=== PATIENT | female | born 2000 | race Hispanic/Latino ===

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

== ENCOUNTER 2019-05-12 13:18 | Emergency (ER) | payer OTHER, SELFPAY ==
--- OUTSIDE RECORDS SUMMARY | 2019-05-12 13:20 | XMS REPORT ---
:2000 Author Organization [facility] Address [address] [place] [address] [address] [place] [address] Care Team Providers Name Role Phone Unavailable Unavailable Unavailable Problems This patient has no known problems. Allergies, Adverse Reactions, Alerts This patient has no known allergies or adverse reactions. Medications This patient has no known medications.
--- OUTSIDE RECORDS SUMMARY | 2019-05-12 13:21 | XMS REPORT | Summary of Care ---
:2000 Author Organization [facility] Address [address] [place] [id number] Care Team Providers Name Role Phone Maria G Stubbs Primary Care Provider Syst, Referring/Pcp Prov Not In Insurance Hmo Unavailable Reason for Visit Reason Comments Orders Encounter Details Date Type Department Care Team Description 12/10/2018 [facility] [place] [facility] Orders [address] [place] [address] [facility] A [phone] [place] [address] Allergies Active Allergy Reactions Severity Noted Date Comments Cinnamon Hives 11/22/2018 Penicillin Hives 04/16/2018 documented as of this encounter (statuses as of 12/10/2018) Medications Medication Sig Dispensed Refills Start Date End Date Status ibuprofen 600 mg Take 1 tablet by 60 tablet 1 12/04/2018 Active tabletIndications: mouth every 6 (six) Open wound of hours as needed for anterior abdominal Pain (scale 1-3) or wall, initial Pain (scale 4-6) encounter (Pain). Take with food or milk. HYDROcodone-acetamino Take 1 tablet by 30 tablet 0 12/04/2018 Active phen 5-325 mg mouth as needed tabletIndications: (prior to dressing S/P primary low changes). transverse documented as of this encounter (statuses as of 12/10/2018) Active Problems Problem Noted Date Open wound anterior abdominal wall 11/25/2018 Obesity (BMI 30-39.9) 11/23/2018 wound infection 11/23/2018 S/P section 11/17/2018 anemia 10/01/2018 Genital condyloma, female 09/03/2018 documented as of this encounter (statuses as of 12/10/2018) Resolved Problems Problem Noted Date Resolved Date 39 weeks gestation of 11/17/2018 12/10/2018 Labor and delivery indication for care or intervention 11/17/2018 12/10/2018 Low maternal weight gain, third trimester 10/01/2018 12/10/2018 Uterine size-date discrepancy in third trimester 10/01/2018 12/10/2018 Feeling of sadness 09/24/2018 12/10/2018 Chlamydia infection affecting 08/06/2018 12/10/2018 Overview: BRANDON neg, repeat at 36 weeks neg 10/28/18 Supervision of high risk , antepartum 04/16/2018 12/10/2018 Primigravida in first trimester 04/16/2018 12/10/2018 Needs flu shot 04/16/2018 12/10/2018 High risk teen in first trimester 04/16/2018 12/10/2018 documented as of this encounter (statuses as of 12/10/2018) Immunizations Name Administration Dates Next Due HPV9 11/18/2018 Influenza Virus Vaccine Quad .5 mL IM 6+ MO 04/16/2018 Tdap 09/03/2018 documented as of this encounter Social History Tobacco Use Types Packs/Day Years Used Date Never Smoker Smokeless Tobacco: Never Used Alcohol Use Drinks/Week oz/Week Comments No Sex Assigned at Date Recorded Not on file Job Start Date Occupation Industry Not on file Not on file Not on file Travel History Travel Start Travel End No recent travel history available. documented as of this encounter Last Filed Vital Signs Not on filedocumented in this encounter Plan of Treatment Date Type Specialty Care Team Description 12/31/2018 Office Visit [facility] Maria G Stubbs, ACCIDENT REPORT CLERK [address] [place] [address] [phone] Health Maintenance Due Date Last Done Comments MENINGOCOCCAL B VACCINES (1 of 07/10/2009 2 - Risk Bexsero 2-dose series) HPV VACCINES (2 - Female 12/16/2018 11/18/2018 3-dose series) INFLUENZA VACCINE 01/10/2019 04/16/2018 CHLAMYDIA SCREENING 10/29/2019 10/28/2018, 06/17/2018, 04/16/2018 DTaP,Tdap,and Td Vaccines (2 - 09/03/2028 09/03/2018 Td) MENINGOCOCCAL VACCINE Aged Out No longer eligible based on patient's age to complete this topic PNEUMOCOCCAL 0-64 YEARS Aged Out No longer eligible based COMBINED SERIES on patient's age to complete this topic documented as of this encounter Results Not on filedocumented in this encounter Insurance Payer Benefit Plan / Subscriber ID Effective Phone Address Type Group Dates [employer] 2018-Pres [address] [place] [id number] [place] [address] documented as of this encounter Advance Directives Name Relationship Healthcare Agent Relationship Communication Samir Darby Primary healthcare agent
--- OUTSIDE RECORDS SUMMARY | 2019-05-12 13:21 | XMS REPORT | Summary of Care ---
:2000 Author Organization [facility] Address [address] [place] [address] Care Team Providers Name Role Phone Maria G Stubbs Primary Care Provider Syst, Referring/Pcp Prov Not In Insurance Hmo Unavailable Reason for Visit Reason Comments Orders Encounter Details Date Type Department Care Team Description 12/10/2018 Telephone [facility] [place] F[place] Orders [address] [place] [address] [facility] A [phone] [place] [address] Allergies Active Allergy Reactions Severity [...] Office Visit [facility] Maria G Stubbs, RUG INSPECTOR HELPER [address] [place] [address] [phone] Health Maintenance Due Date Last Done Comments [...] [address] [place] [id number] [place] [address] documented as of this encounter Advance Directives Name Relationship Healthcare Agent Relationship Communication Samir Darby Primary healthcare agent
--- OUTSIDE RECORDS SUMMARY | 2019-05-12 13:21 | XMS REPORT | Summary of Care ---
:2000 Author Organization [facility] Address [address] [place] [id number] Care Team Providers Name Role Phone Maria G Stubbs Primary Care Provider Syst, Referring/Pcp Prov Not In Insurance Hmo Unavailable Reason for Visit Reason Comments Care (Routine) Status Reason Specialty Diagnoses / Referred By Referred To Procedures Contact Contact New Request OB Satellites Diagnoses S/P section Edward Olivas Procedures DISCHARGE FOLLOW-UP: P[facility]AL [facility] [address] [facility] [id number] [place] [address] Encounter Details Date Type Department Care Team Description 12/10/2018 Routine [facility]- Maria G Stubbs care and examination of lactating mother (Primary Dx); Visit RADHA Baig anemia; [address] S/P section; [place], [place] A wound infection [id number] [place], [place] [phone] [id number] [phone] Allergies Active Allergy Reactions Severity Noted Date Comments Cinnamon Hives 11/22/2018 Penicillin Hives 04/16/2018 documented as of this encounter (statuses as of 12/10/2018) Medications Medication Sig Dispensed Refills Start Date End Date Status ibuprofen 600 mg Take 1 tablet by 60 tablet 1 12/04/2018 Active tabletIndication mouth every 6 s: Open wound of (six) hours as anterior needed for Pain abdominal wall, (scale 1-3) or initial Pain (scale 4-6) encounter (Pain). Take with food or milk. HYDROcodone-acet Take 1 tablet by 30 tablet 0 12/04/2018 Active aminophen 5-325 mouth as needed mg (prior to tabletIndication dressing s: S/P primary changes). low transverse vitamin Take 1 tablet by 100 tablet 3 11/19/2018 12/10/2018 Discontinued w/FA mouth daily. May tabletIndication substitute for s: S/P what is in stock section and covered by patient plan docusate calcium Take 1 capsule 60 capsule 1 11/19/2018 12/10/2018 Discontinued 240 mg by mouth once capsuleIndicatio daily as needed ns: S/P for section Constipation. May substitute for what is in stock and covered by patient plan ferrous sulfate Take 1 tablet by 60 tablet 2 11/19/2018 12/10/2018 Discontinued 325 mg (65 mg mouth 2 (two) iron) times daily. May tabletIndication substitute for s: S/P what is in stock section and covered by patient plan documented as of this encounter (statuses as [...] of this encounter Last Filed Vital Signs Vital Sign Reading Time Taken Comments Blood Pressure 108/71 12/10/2018 1:14 PM CDT Pulse 73 12/10/2018 1:14 PM CDT Temperature 36.6 C (97.9 F) 12/10/2018 1:14 PM CDT Respiratory Rate 16 12/10/2018 1:14 PM CDT Oxygen Saturation - - Inhaled Oxygen Concentration - - Weight 75.2 kg (165 lb 12.8 oz) 12/10/2018 1:14 PM CDT Height 162.6 cm (5' 4") 12/10/2018 1:14 PM CDT Body Mass Index 28.46 12/10/2018 1:14 PM CDT documented in this encounter Patient Instructions Patient InstructionsLana Seaman RN - 12/10/2018 12:45 PM CDT How to Breastfeed Babies use their lips, gums, and tongue to take milk from the breast (suckle). Your baby is born with an instinct for suckling. But it takes time for you and your baby to learn how to breastfeed. Thereare steps you can take to support your babys natural instincts. Skko-sy-yqcj If possible, hold your baby bare against your skin (agdr-jk-nwhv) just after giving and for a few hours after. You can also continue to do this in the first few weeks after . How often should I feed my baby? Nurse your 8 to 12 times every 24 hours. Feed your baby whenever he or she shows signs of hunger. When your baby is hungry, he or she will appear more awake and might root. Rooting means turning his or her head toward you when you stroke your babys cheek. Your baby might also make a suckingsound or suck on his or her hand. Crying is a late sign of hunger. If your baby is crying, it may behard for him or her to calm down to breastfeed.Infants will often eat at irregular times. But feedings will usually become more regular over time. Sometimes your baby might eat several times in a row(cluster feeding) and then take a break. Ifyour baby seems sleepy or too fussy to nurse,undress him or her and place your baby bare against your skin.Don't keep your baby swaddled tightly. This may keep him or her too sleepy to feed. Change which breast you offer first with each feeding. For example, if you started nursing on the right side with the last feeding, offer the left side first with this feeding. Always offer the other breast after your baby stops nursing on the first side. Ask your baby's healthcare provider about waking the baby for feeding. You may need to wake your baby and offer to nurse if it has been 4 hours since your baby 's last feeding. Offering your breast Hold your breast with your thumb on top and fingers underneathin a loose orthotics assistant. Gentlystrokeyour nippleon your babys lower lip.When you see your baby open his or her mouth wide, quickly bring the baby to your breast. Latching on The way your baby connects with the breast is called the latch. When your baby attaches, you should see more of the darker skin around the nipple (areola) above the baby's upper lip than below the lower lip. The front of your baby's entire body should be touching you. Your baby's nose and chin should be against the breast. Your baby's cheeks should be full and not sinking inward. You should be able to see your baby's lips. They should be slightly flared outward. As your baby suckles, his or her jaw should open wide. It should not be "munching" as if chewing. Listen for swallowing. It should not hurt when your baby latches on and suckles. If it does, try releasing the latch and starting over. Releasing the latch Let your baby nurse until satisfied. In most cases, when your baby is finished nursing, he or she will let go on his or her own. This tells you that your baby is done feeding on that breast. But you may need to release the latch sooner if you feel pain or for some other reason. To do this, slip your finger into the corner of your baby's mouth. You should feel the suction break. Only when the seal is broken, move your baby off your breast. Don't take the baby off your breast until you've felt a decrease in suction. Burping your baby Breastfed babies don't need to burp as much as bottle-fed babies. Bottles flow faster, and babies tend to swallow more air.Tryto burp your baby after each breast: Hold the baby at your upper chest or slightly over your shoulder. Gently rub or pat the babys back. Or hold the baby sitting up on your lap. Support your baby's head and chest in front and in back.Slowly rock your baby back and forth. Dont worry if your baby doesn't burp. He or she may not need to. Date Last Reviewed: 07/10/201619993406-1921 [employer]. [address] [place] [address]. All rights reserved. This information is not intended as a substitute for professional medical care. Always follow your healthcare professional's instructions. Understanding Depression Youve just had a baby. You expected to be excited and happy. But instead you find yourself cryingfor no reason. You may have trouble coping with your daily tasks. You feel sad, tired, and hopeless most of the time. You may even feel ashamed or guilty. But what youre going through is not your fault and you can feel better. Talk to your healthcare provider. He or she can help. What is depression? Depression is a mood disorder that affects the way you think and feel. The most common symptom is a feeling of deep sadness. You may also feel as if you just cant cope with life. Other symptoms include: Gaining or losing a lot of weight Sleeping too much or too little Feeling tired all the time Feeling restless Crying a lot Having too little or too much appetite. Withdrawing from friends and family Having headaches, aches and pains, or stomach problems that won't go away. Fears of harming your baby Lack of interest in your baby Feeling worthless or guilty No longer finding pleasure in things you used to Having trouble thinking clearly or making decisions Thinking about or suicide Depression after childbirth You may be weepy and tired right after giving . These feelings are normal. Theyre sometimes called the baby blues. These blues go away after 1 to 2 weeks. However, (meaning after ) depression lasts much longer and is more severe than the "baby blues." It can make you feel sad and hopeless. You may also fear that your baby will be harmed and worry about being a bad mother. What causes depression? The exact cause of depression is unknown. Changes in brain chemistry or structure are believed to play a big role in depression.It may be due to changes in your hormones during and after childbirth. You may also be tired from caring for your baby and adjusting to being a mother. All thesefactors may make you feel depressed. In some cases, your genes may also play a role. Depression can be treated There are many ways to treat depression. Talking to your healthcare provider is the firststep toward feeling better. When to call your healthcare provider Call your healthcare provider if you: Cry for no clear reason Have trouble sleeping, eating, and making choices Questions whether you can handle caring for a baby Have intense feelings of sadness, anxiety, or despair that prevent you from being able to do yourdaily tasks Resources National [place] of Mental Qtcpfl946-265-9722zhh.[facility].nih.gov National [place] on Mental Uxelisy480-336-2251jxe.aaron.org Mental Health Jadtide635-261-3809nty.[facility].org National Suicide Fbcklet433-102-3280 (800-SUICIDE) Date Last Reviewed: 11/09/201619991706-0405 [employer]. [address] [place] [address], [place] [address]. All rights reserved. This information is not intended as a substitute for professional medical care. Always follow your healthcare professional's instructions. How to Bottle-Feed Newborns need nutrition and plenty of loving2 things you can supply while bottle-feeding. Both breastmilk and formula can be given to your baby in a bottle. Be sure to place the nipple on the tongue and well into your baby's mouth. Safety tip:Never heat breastmilk or formula in a microwave. This can result in uneven heating. Thehot formulamight burn your baby's mouth. Instead, warm the bottle by putting it in a bowl of warm (not hot) water. Using hot water to heat formula or breastmilk can burn your baby's mouth or throat. Test the temperature of theformulaby dripping a few dropson your wrist. Make sure it is a warmtemperature before giving it to your baby. Bottle care No matter if you use breastmilk or formula, the bottles, nipples, and tools you use to get the formula ready must be clean. Below are suggestions for bottle care, but talk with your healthcare provider about how to care for bottles: Wash your hands before you mix formula, fill a bottle, or offer a bottle. Do this every time. If soap and water aren't available, use an alcohol-based hand ware cleaner. Clean glass bottles and nipples in the fur repair inspector. Use the hot water setting with a hot drying cycle. Or wash the bottles and nipples with hot, soapy water. Be sure to rinse both completely. Boil them for 5 minutes and cool them. If you use plastic bottles with disposable liners, you will still need to make sure the bottles and nipples are clean. Store clean, unused bottles and nipples with the nipple end facing into the bottle (inverted). Put the bottle caps on the bottles to keep the nipples clean. Facts on formula Baby formulais made from cows milk or soybeans.Formula made from cows milk is more commonly used. But you may need to use formula made from soybeans. Your babys healthcare provider may tell you to use soybean-based formula if your family has a history ofallergiesor your baby has certain health conditions. All formula used should include iron. Yfsaj-mu-driw formula Tiqag-bt-dcra formula is the easiest to use, but it also costs the most.Brand names cost more thanstore-brand formulas because these companies spend more money on advertising. Pour the desired amount of vvadg-ci-xwrg formula into the baby's clean bottle. Once you open the container of formula, it must be stored in the refrigerator. It can only be stored for 24 hours. If not refrigerated, the formula is only safe at room temperature for 1 hour. After that, it mustbe thrown out. You can fill bottles with the formula up to 24 hours ahead of time.You must keep them refrigerated untilyou use them. If your baby does not finish drinking a bottle within 2 hours, throw away the unfinished formula. Ask your healthcare provider how much formula to offer your baby at each feeding. Concentrated liquid formulas Concentrated liquid formulas need to be mixed with water before using. Follow thedirectionson the canclosely. Using too much or too little water may harm your baby.Follow these tips: Use water that has been boiled and then cooled. Pour the whole can of concentrated liquid formula into a clean pitcher. Fill the can with water to the top and add it to the pitcher. Mix well. Pour the desired amount of formula into your baby's clean bottle. Store the pitcher of mixed formula in the refrigerator. Keep it for only 24 hours. If not refrigerated, the formula is only safe at room temperature for 1 hour. After that, it must be thrown out. Ask your healthcare provider how much formula to offer your baby at each feeding. Concentrated powder formulas Powdered formulas must be mixed with water before using. Liquid formulas have no germs (sterile). But powdered formula can get germs (bacteria) in it when you make it or when you store it. Follow thesetips to protect your baby from getting sick from these germs: Concentrated powder formulas need to be mixed with clean, boiled water before using. Wash and dry the top of the formula can before you open it. Make sure the can alternative medicine practitioner, spoons, scoops, and other tools you use to make the formula are clean. Use very hot water to mix with the formula powder. This means water that is 158F (70C). Dont mix the formula with water until right before you are going to feed your baby. Add the right amount of hot water to the bottle. Then add the right amount of powdered formula. Its important to add the water to the first. Adding the formula first may make it too strong and cause diarrhea. Mix the water and formula well. Test the temperature of the mixed formula by shaking a few drops on your wrist. If it is too hot,cool it by running the bottle under cool tap water. Or put the bottle in an ice bath. Make sure the cooling water does not get into the bottle or on the nipple. If you dont plan to use the prepared formula right away, put it in the refrigerator and use itwithin 24 hours. It is important to keep the dry powder in the formula can clean to prevent bacteria from growing. Ask your healthcare provider how much formula to offer your baby at each feeding. Holding baby and bottle To hold your baby and feed him or her with a bottle, follow these tips: Cradle your baby in your arm, holding your babys head slightly higher thanhis or her bottom. Using the correct position can lower the chance that your baby will choke. Stroke your babyslower lip. When your babys mouth opens, place the nipple on the tongueand feel him or her pull the nipple into the mouth. Tip the bottle so the nipple fills with milk. Forsafety'ssake, never prop the bottle.Your baby can choke if you leave him or her alone with a propped bottle. Feeding your can be a time of bonding and building trust. Hold your baby close to your body, make eye contact, and talk to your baby. Don't let your baby fall asleep while sucking on a bottle. This can lead to tooth decay when he or she is older. If your baby seems hungry but isn't eating well, you can try a different shaped nipple. You might also check the nipple opening. Some babies prefer a faster flow of milk. They can get frustrated when the flow is too slow. If your baby is gagging and choking, you might need a nipple with a smaller hole. The smaller hole slows the flow. [place] with bottle nipples. Let your baby choose which bottle nipple is best for him or her. Burping your baby It is easy for babies to swallow air while bottle-feeding. Burping helps your baby get rid of that air.Tips on burping your baby include: Burp your babywhen he or she acts restless, tries to turn away from the nipple, or slows his orher sucking.This is usually after eating every 1/2 to 1 ounce of formula and when he or she is finished feeding. Your baby can be burped sitting up while you hold the babys jaw, lying face down across your lap, oruprightwith his or her belly against your shoulder. Feeding cues Don't wait for your baby to cry before feeding. Crying is too late of a sign that your baby is ready to eat. Your baby is ready to feed when your baby flutters his or her eyes and moves his or her hands to the mouth as he or she wakes up. Don't force your baby to finish the bottle. This can lead to obesity. Respect cues that he or she is finished. These include letting go of the bottle, turning his or her head away, looking sleepy, or stopping feeding. Offer a pacifier if your baby acts like he or she wants to suckle after finishing the amount of formula your healthcare provider recommended. Babies enjoy sucking. But bottle-fed babies may feed so fast that they dont get enough suckling time. Date Last Reviewed: 07/10/2016 [employer]. [address] [place] [address]. All rights reserved. This information is not intended as a substitute for professional medical care. Always follow your healthcare professional's instructions. After a It can take time to recover fully after a . Its important to take care of yourselfbothfor your own sake and because your new baby needs you. Incision care Tips for taking care of your incision include: You will probably be able to shower and pat the incision dry. Watch your incision for signs of infection. These include redness that gets worse or fluid draining from it. Hold a pillow against the incision when you get up from a lying or sitting position. Also do thiswhen you laugh or cough. Avoid heavy lifting. Dont lift anything heavier than your baby until your healthcare provider tells you otherwise. When to call your healthcare provider Call your healthcare provider if you have: A fever of 100.4F(38.0C) or higher Redness, pain, or discharge at the incision site that gets worse Vaginal bleeding that soaks through a pad per hour or large blood clots Severe pain in your stomach No bowel movement within 1 week after the of your baby Vaginal discharge that has a foul odor Swollen, red, and painful area in the leg Burning when urinatingor blood in the urine A rash or hives Sore, red, painful area on the breasts(may also have flu-like symptoms) Feelings of anxiety, panic, anddepression, or difficulty bonding with your baby Date Last Reviewed: 04/11/2017 [employer]. [address] [place] [address]. All rights reserved. This information is not intended as a substitute for professional medical care. Always follow your healthcare professional's instructions. documented in this encounter Progress Notes Enoc Maria G Star, BUSINESS SYSTEMS DEVELOPER - 12/10/2018 12:45 PM CDT Chief complaint: Chief Complaint Patient presents with Care Tali Gtz is a 18 year old, , /White female. Patient's last menstrual period was 02/23/2018 (within days). Patient presents for her visit. She is 3 week(s) status-post a c- section. Readmitted forpost op wound infection. Incision is healing, has wound vac on, s/p debridement. Since discharge, lochia has stopped. She is bottle and . She reports no complaints in the bilateral breast(s). Pt reports pain at incision, better now with wound vac, worst with dressing changes. Patienthas found moderate relief with NSAIDs and narcotics. She reports that she currently engages in sexual activity (not since delivery) and has had partners who are Male. She reports using the following method of control/protection: None. Desires Nexplanon for contraception Perineal repair: N/A Infants course complicated? no The patients course was without complication. The patients hospital course was withcomplication. Post- hemoglobin before leaving hospital: HGB Date Value Ref Range Status 11/24/2018 8.0 (L) 11.6 - 15.0 g/* Final complications: infection Patient lives with with baby and with parent(s). OB History T1 L1 SAB0 TAB0 Ectopic0 Multiple0 Live Births1 Name of Baby 1: RENZO GTZ Date: 11/17/18 GA: 39w3d Delivery: , Low Transverse Apgar1: Not recorded Apgar5: Not recorded Living: Living Depression Scale: I have been able to laugh and see the funny side of things: As much as I always could I have looked forward with enjoyment to things: As much as I ever did I have blamed myself unnecessarily when things went wrong: No, never I have been anxious or worried for no good reason: No, not at all I have felt scared or panicky for no good reason: No, not at all Things have been getting on top of me: No, I have been coping as well as ever I have been so unhappy that I have had difficulty sleeping: Not at all I have felt sad or miserable: No, not at all I have been so unhappy that I have been crying: No, never The thought of harming myself has occurred to me: Never Total: 0 Immunization History Administered Date(s) Administered HPV9 11/18/2018 Influenza Virus Vaccine Quad .5 mL IM 6+ MO 04/16/2018 Tdap 09/03/2018 Histories OB History Para Term AB Living 1 1 1 1 SAB TAB Ectopic Multiple Live Births 0 1 # Outcome Date GA Lbr Mike/2nd Weight Sex Delivery Anes PTL Lv 1 Term 11/17/18 39w3d 6 lb 3.1 oz (2.81 kg) F CS-LTranv EPI N EHSAN Complications: Other (See Comments) Past Medical History: Diagnosis Date Anemia of mother in , antepartum 10/01/2018 Chlamydia infection affecting 08/06/2018 Feeling of sadness 09/24/2018 Genital warts complicating , third trimester 09/03/2018 Family History Problem Relation Age of Onset Diabetes Mother Diabetes Father Diabetes Maternal Grandmother Hypertension Maternal Grandmother Diabetes Maternal Grandfather Family Status Relation Name Status Mo (Not Specified) Fa (Not Specified) MGMo (Not Specified) MGFa Past Surgical History: Procedure Laterality Date ABDOMINAL WOUND EXPLORATION 11/23/2018 ABDOMINAL WOUND EXPLORATION 11/23/2018 SECTION N/A 11/17/2018 Surgeon: Amy Castorena; Location: Labor and Delivery - [place] WOUND DEBRIDEMENT N/A 11/23/2018 Surgeon: Anselmo Yanez; Location: Labor and Delivery - [place] Social History Socioeconomic History Marital status: Single Spouse name: Not on file Number of children: Not on file Years of education: Not on file Highest education level: Not on file Occupational History Not on file Social Needs Financial resource strain: Not on file Food insecurity: Worry: Not on file Inability: Not on file Transportation needs: Medical: Not on file Non-medical: Not on file Tobacco Use Smoking status: Never Smoker Smokeless tobacco: Never Used Substance and Sexual Activity Alcohol use: No Drug use: No Sexual activity: Yes Partners: Male control/protection: None Comment: last sexual intercourse 04/03/2018 Lifestyle Physical activity: Days per week: Not on file Minutes per session: Not on file Stress: Not on file Relationships Social connections: Talks on phone: Not on file Gets together: Not on file Attends jew service: Not on file Active member of club or organization: Not on file Attends meetings of clubs or organizations: Not on file Relationship status: Not on file Intimate partner violence: Fear of current or ex partner: Not on file Emotionally abused: Not on file Physically abused: Not on file Forced sexual activity: Not on file Other Topics Concern Not on file Social History Narrative Patient lives with father. Patient has no pets. Patient denies history of abuse. Social History Substance and Sexual Activity Sexual Activity Yes Partners: Male control/protection: None Comment: last sexual intercourse 04/03/2018 Labs No new labs, I have reviewed the patient's labs. and Admission on 11/22/2018, Discharged on 12/04/2018 Component Date Value NA 11/22/2018 138 K 11/22/2018 3.1* CL 11/22/2018 107 CO2 TOTAL 11/22/2018 22* AGAP 11/22/2018 9 BUN 11/22/2018 12 GLUCOSE 11/22/2018 123* CREATININE 11/22/2018 0.68 CALCIUM 11/22/2018 8.6 eGFR Calculation (Non-Af* 11/22/2018 111.5 eGFR Calculation (Destini* 11/22/2018 135.1 TOTAL BILI 11/22/2018 0.4 BILI UNCON 11/22/2018 0.3 BILI CONJ 11/22/2018 0.0 T PROTEIN 11/22/2018 6.2* ALBUMIN 11/22/2018 2.9* ALK PHOS 11/22/2018 150* ALT(SGPT) 11/22/2018 17 AST(SGOT) 11/22/2018 15 APTT Patient 11/22/2018 38 PROTIME PATIENT 11/22/2018 16.8* INR 11/22/2018 1.4 LACTIC ACID 11/22/2018 1.45 Blood Culture-Aerobic 11/22/2018 No organisms isolated Blood Culture-Anaerobic 11/22/2018 No organisms isolated Blood Culture-Aerobic 11/22/2018 No organisms isolated Blood Culture-Anaerobic 11/22/2018 No organisms isolated WBC 11/22/2018 14.33* RBC 11/22/2018 3.19* HGB 11/22/2018 9.8* HCT 11/22/2018 30.2* MCV 11/22/2018 94.7 MCH 11/22/2018 30.7 MCHC 11/22/2018 32.5 RDW-SD 11/22/2018 49.0 RDW-CV 11/22/2018 14.2 PLT 11/22/2018 230 MPV 11/22/2018 9.6 NRBC/100 WBC 11/22/2018 0.0 NRBC x10^3 11/22/2018 <0.01 GRAN MAT (NEUT) % 11/22/2018 91.7 IMM GRAN % 11/22/2018 1.00 LYMPH % 11/22/2018 3.7 MONO % 11/22/2018 3.3 EOS % 11/22/2018 0.1 BASO % 11/22/2018 0.2 GRAN MAT x10^3(ANC) 11/22/2018 13.13* IMM GRAN x10^3 11/22/2018 0.15* LYMPH x10^3 11/22/2018 0.53* MONO x10^3 11/22/2018 0.47 EOS x10^3 11/22/2018 <0.03* BASO x10^3 11/22/2018 0.03 ABO & RH 11/23/2018 B POSITIVE IAT 11/23/2018 Negative Case Report 11/23/2018 Value:Surgical Pathology Case: [id number] Authorizing Provider: Elisabeth Rush MD Collected: 2018 [id number] Ordering Location: Labor and Delivery ([facility]) Received: 2018 1125 Pathologist: Judith Bryson MD PHD Specimens: A) - ABDOMEN B) - ABDOMEN C) - ABDOMEN Final Diagnosis 11/23/2018 Value:This result contains rich text formatting which cannot be displayed here. Clinical Information 11/23/2018 Value: s/p 11/17/2018 Wound debridement & packing 3 kerlix 11/23/2018 Gross Description 11/23/2018 Value:This result contains rich text formatting which cannot be displayed here. WBC 11/24/2018 12.34* RBC 11/24/2018 2.59* HGB 11/24/2018 8.0* HCT 11/24/2018 24.8* MCV 11/24/2018 95.8* MCH 11/24/2018 30.9 MCHC 11/24/2018 32.3 RDW-SD 11/24/2018 51.2* RDW-CV 11/24/2018 14.6 PLT 11/24/2018 246 MPV 11/24/2018 9.8 NRBC/100 WBC 11/24/2018 0.0 NRBC x10^3 11/24/2018 <0.01 GRAN MAT (NEUT) % 11/24/2018 84.0 IMM GRAN % 11/24/2018 1.10 LYMPH % 11/24/2018 11.2 MONO % 11/24/2018 3.0 EOS % 11/24/2018 0.6 BASO % 11/24/2018 0.1 GRAN MAT x10^3(ANC) 11/24/2018 10.36* IMM GRAN x10^3 11/24/2018 0.14* LYMPH x10^3 11/24/2018 1.38 MONO x10^3 11/24/2018 0.37 EOS x10^3 11/24/2018 0.08 BASO x10^3 11/24/2018 <0.03 BANDS 11/24/2018 Increased* Admission on 11/17/2018, Discharged on 11/19/2018 Component Date Value HBsAg 11/17/2018 Negative HBsAg Semi-Quantitative 11/17/2018 0.14 Syphilis IgG/IgM 11/17/2018 Non-reactive ABO & RH 11/17/2018 B POSITIVE IAT 11/17/2018 Negative VENOUS BASE EXCESS, CORD 11/17/2018 -8.5 VENOUS PH, CORD 11/17/2018 7.31 VENOUS PC02, CORD 11/17/2018 34 VENOUS PO2, CORD 11/17/2018 33 VENOUS BICARBONATE, CORD 11/17/2018 17 BASE EXCESS, CORD 11/17/2018 -7.5 AC PH, CORD (BEAKER) 11/17/2018 7.26 PC02, CORD 11/17/2018 44 PO2, CORD 11/17/2018 22 BICARBONATE, CORD 11/17/2018 19 WBC 11/18/2018 11.62* RBC 11/18/2018 3.33* HGB 11/18/2018 10.4* HCT 11/18/2018 31.7* MCV 11/18/2018 95.2 MCH 11/18/2018 31.2 MCHC 11/18/2018 32.8 RDW-SD 11/18/2018 48.4 RDW-CV 11/18/2018 14.0 PLT 11/18/2018 185 MPV 11/18/2018 10.8 NRBC/100 WBC 11/18/2018 0.0 NRBC x10^3 11/18/2018 <0.01 GRAN MAT (NEUT) % 11/18/2018 86.9 IMM GRAN % 11/18/2018 0.30 LYMPH % 11/18/2018 8.2 MONO % 11/18/2018 4.4 EOS % 11/18/2018 0.0 BASO % 11/18/2018 0.2 GRAN MAT x10^3(ANC) 11/18/2018 10.10* IMM GRAN x10^3 11/18/2018 0.04 LYMPH x10^3 11/18/2018 0.95* MONO x10^3 11/18/2018 0.51 EOS x10^3 11/18/2018 <0.03* BASO x10^3 11/18/2018 <0.03 Routine Visit on 11/11/2018 Component Date Value POCT U SP GRAV 11/11/2018 . POCT PH U 11/11/2018 . POCT U LEUK EST 11/11/2018 . POCT U NIT 11/11/2018 . POCT U PROT 11/11/2018 trace POCT U GLU 11/11/2018 neg POCT U KETONE 11/11/2018 . POCT U UROBILI 11/11/2018 . POCT U BILI 11/11/2018 . POCT U BLD 11/11/2018 . Radiology No new radiology. Allergies Tali is allergic to cinnamon and penicillin. Medications Tali has a current medication list which includes the following prescription(s ): hydrocodone-acetaminophen and ibuprofen. Review of Systems Constitutional: Negative. Negative for appetite change, fatigue and fever. HENT: Negative. Eyes: Negative. Negative for visual disturbance. Respiratory: Negative. Breasts: Negative. Cardiovascular: Negative. Negative for palpitations and leg swelling. Gastrointestinal: Negative. Negative for abdominal pain, constipation, diarrhea , nausea and vomiting. Genitourinary: Negative. Negative for dysuria, vaginal bleeding, vaginal discharge and pelvic pain. Musculoskeletal: Negative. Skin: Positive for wound. Negative for rash. Neurological: Negative. Negative for dizziness, light-headedness and headaches. Psychiatric/Behavioral: Negative. Endocrine: Endocrine negative BP 108/71 (BP Location: Right arm, Patient Position: Sitting, BP CUFF SIZE: Adult Medium) | Pulse 73 | Temp 36.6 C (97.9 F) | Resp 16 | Ht 5' 4" ( 1.626 m) | Wt 165 lb 12.8 oz (75.2 kg) | LMP 02/23/2018 (Within Days) | BMI 28.46 kg/m Pregravid BMI: 30.9 Physical Exam Vitals reviewed. Constitutional: She is oriented to person, place, and time. She appears well- developed and well-nourished. Cardiovascular: No peripheral edema present. Pulmonary/Chest: Normal inspiratory effort. Abdominal: Abdomen is soft. Neuro/Psychiatric: She has a normal mood and affect. She is oriented to person, place, and time. Skin: Skin normal. Wound vac on, unable to visualize incision site. Surrounding tissue without s/s infection External genitalia: Normal external genitalia appropriate for age. Uterus: Normal involution Assessment/Plan 1. care and examination of lactating mother RTC in 3 weeks for WWE, Nexplanon and HPV #2 2. anemia CBC WBC (10*3/L) Date Value 11/24/2018 12.34 (H) RBC (10*6/L) Date Value 11/24/2018 2.59 (L) PLT (10*3/L) Date Value 11/24/2018 246 HGB (g/dL) Date Value 11/24/2018 8.0 (L) HCT (%) Date Value 11/24/2018 24.8 (L) plan repeat CBC at next visit 3. S/P section With wound infection complication 4. wound infection Wound vac managed by social work and home health. Return to clinic in 3 weeks. Discussed treatment options. Reviewed patient instructions and provided printed copy. This visit did not involve counseling and coordination that comprised more than 50% of the visit time. Lana Navarro RN - 12/10/2018 12:45 PM CDTPt in clinic today for 3 wk pp visit. 1) Delivery method 2) Patient delivered on 11/17/2018 at [facility] 3) Patient is currently both (/bottlefeeding) 4) Desired BCM: nexplanon 5) Patient denies pp depression LANA SEAMAN RN 12/10/2018 1:16 PM documented in this encounter Plan of Treatment Date Type Specialty Care Team Description 12/31/2018 Office Visit [facility] Maria G Stubbs FNP [address] [place] [address] [phone] Health Maintenance Due Date Last Done Comments [...] Results Not on filedocumented in this encounter Visit Diagnoses Diagnosis care and examination of lactating mother - Primary anemia Anemia, S/P section Other postprocedural status wound infection Other complication of obstetrical surgical wounds, unspecified as to episode of care documented in this encounter Insurance Payer Benefit Plan / Subscriber ID Effective Phone Address Type Group Dates [employer] 2018-Pres [address] [place] [address] [place] [address] documented as of this encounter Advance Directives Name Relationship Healthcare Agent Relationship Communication Samir Bart Father Primary healthcare agent
--- OUTSIDE RECORDS SUMMARY | 2019-05-12 13:21 | XMS REPORT | Summary of Care ---
:2000 Author Organization [facility] Address [address] [place] [id number] Care Team Providers Name Role Phone Maria G Stubbs Primary Care Provider Syst, Referring/Pcp Prov Not In Insurance Hmo Unavailable Reason for Referral (Routine) Status Reason Specialty Diagnoses / Referred By Referred To Procedures Contact Contact New Request Diagnoses Open wound of anterior abdominal wall, initial encounter Neeta Birmingham, Procedures DISCHARGE FOLLOW-UP: [facility] [address] [place] [id number] [place] [id number] MRI/CAT Scan (STAT) Status Reason Specialty Diagnoses / Referred By Referred To Procedures Contact Contact New Request Diagnostic Diagnoses Abdominal wall cellulitis Suresh Chaves, Radiology Procedures CT ABDOMEN PELVIS W CONTRAST [address] [place] [address] [place] [id number] MRI/CAT Scan (STAT) Status Reason Specialty Diagnoses / Referred By Referred To Procedures Contact Contact New Request Diagnostic Diagnoses Abdominal wall cellulitis Suresh Chaves, Radiology Procedures CT ABDOMEN PELVIS W CONTRAST [address] [place] [address] [place] [address] Reason for Visit Reason Comments Other wound check Auth/Cert Status Reason Specialty Diagnoses / Referred By Referred To Procedures Contact Contact Emergency Medicine Diagnoses other c section problems [facility] Emergency Dept [address] [place] [address] [place] [address] Encounter Details Date Type Department Care Team Description 11/22/2018 - Hospital Obstetrics and ChavesSuresh MD [address] [facility] [address] [place], [place] [id number] Obesity (BMI 12/04/2018 Encounter Gynecology (J10C) Anselmo Yanez Eren [address] [facility] [id number] [place], [place] [id number] 30-39.9) [address] [place] [address] [id number] Allergies Active Allergy Reactions Severity Noted Date Comments Cinnamon Hives 11/22/2018 Penicillin Hives 04/16/2018 documented as of this encounter (statuses as of 12/04/2018) Medications Medication Sig Dispensed Refills Start Date End Date Status vitamin Take 1 tablet by 100 tablet 3 11/19/2018 Active w/FA mouth daily. May tabletIndication substitute for s: S/P what is in stock section and covered by patient plan docusate calcium Take 1 capsule 60 capsule 1 11/19/2018 Active 240 mg by mouth once capsuleIndicatio daily as needed ns: S/P for section Constipation. May substitute for what is in stock and covered by patient plan ferrous sulfate Take 1 tablet by 60 tablet 2 11/19/2018 Active 325 mg (65 mg mouth 2 (two) iron) times daily. May tabletIndication substitute for s: S/P what is in stock section and covered by patient plan ibuprofen 600 mg Take 1 tablet by 60 tablet 1 12/04/2018 Active tabletIndication mouth every 6 s: Open wound of (six) hours as anterior needed for Pain abdominal wall, (scale 1-3) or initial Pain (scale 4-6) encounter (Pain). Take with food or milk. HYDROcodone-acet Take 1-2 tabs by 30 tablet 0 12/04/2018 Active aminophen 5-325 mouth 30 minutes mg prior to tabletIndication dressing s: S/P primary changes. low transverse ibuprofen 600 mg Take 1 tablet by 60 tablet 1 11/19/2018 12/04/2018 Discontinued tabletIndication mouth every 6 s: S/P (six) hours as section needed for Pain (scale 1-3) or Pain (scale 4-6) (Pain). Take with food or milk. HYDROcodone-acet Take 1 tablet by 20 tablet 0 11/19/2018 12/04/2018 Discontinued aminophen 5-325 mouth every 6 mg (six) hours as tabletIndication needed for Pain s: S/P primary (scale 7-10). low transverse documented as of this encounter (statuses as of 12/04/2018) Active Problems Problem Noted Date Open wound anterior abdominal wall 11/25/2018 Obesity (BMI 30-39.9) 11/23/2018 wound infection 11/23/2018 39 weeks gestation of 11/17/2018 Labor and delivery indication for care or intervention 11/17/2018 S/P section 11/17/2018 Anemia of mother in , antepartum 10/01/2018 Low maternal weight gain, third trimester 10/01/2018 Uterine size-date discrepancy in third trimester 10/01/2018 Feeling of sadness 09/24/2018 Genital warts complicating , third trimester 09/03/2018 Chlamydia infection affecting 08/06/2018 Overview: BRANDON neg, repeat at 36 weeks neg 10/28/18 Supervision of high risk , antepartum 04/16/2018 Primigravida in first trimester 04/16/2018 Needs flu shot 04/16/2018 High risk teen in first trimester 04/16/2018 documented as of this encounter (statuses as of 12/04/2018) Immunizations Name Administration Dates Next Due HPV9 [...] Sign Reading Time Taken Comments Blood Pressure 117/62 12/04/2018 4:00 PM CDT Pulse 60 12/04/2018 4:00 PM CDT Temperature 36.5 C (97.7 F) 12/04/2018 4:00 PM CDT Respiratory Rate 18 12/04/2018 4:00 PM CDT Oxygen Saturation 100% 12/04/2018 4:00 PM CDT Inhaled Oxygen Concentration - - Weight 81.6 kg (180 lb) 11/22/2018 10:35 PM CDT Height - - Body Mass Index 30.9 11/17/2018 7:26 AM CDT documented in this encounter Discharge Instructions AttachmentsThe following attachments cannot be sent through Care Everywhere.Wound, Vacuum-Assisted Closure of a (Mosotho)documented in this encounter Progress Notes Rae Collins MD - 12/04/2018 4:03 PM CDTWound vacuum dressing change Patient premedicated with Noroc 5mg x2. Previous dressing removed.Wound base and edges noted to behealthy granulation tissue with bleedingnoted.Fascia open with rectus muscles intact.No evidence of new necrosis or pus. Base ofthewound and edges were gently debrided with saline-moistened 4x4 gauze. One V.A.C. WHITEFOAM dressing was cut to an appropriate size and used to cover the rectus muscles and the base of thewound.Next, a medium V.A.C. SIMPLIFOAM dressing was trimmed and on the WHITFOAM dressing. The dressing was then covered with clear adhesive drape. Small opening created in the drape with scissors and tubing was connected. Mobile wound vac was setup for the patient and she was given a brief tutorial on how to use the device. Plan to DC the patient this afternoon as home health has been arranged by social work. Dr. Cortez present for wound vac placement. Rae Collins MD WILDLIFE CONTROL OPERATOR Resident PhysicianElectronically signed by Rae Collins MD at 12/04 4:06 PM CDTConnie Martinez [facility] - 12/04/2018 3:37 PM CDTCare Management Discharge Disposition Note (DCDN) 5-2-1 Interventions: Disease specific education;Home visit/home health referral; Clear discharge plan 5-2-1 Providers: Physician;Pipe Fitter Gas Pipe/Advisor To Command In Combat 5-2-1 Patient Capacity Improvements: Avoidance of adverse events/readmission Discharge Plan for ongoing care and services: Home Health ();Durable Medical Equipment Discharge location(s): Home Health location: [facility], [address] [place] [address] [address] [place] [address] (Ph)[phone] (F) [phone] DME location: [facility] , [address] [place] [address] [address] [place], [place] (Ph) [phone] (F) [phone] Patient choice completed for referred services: Other (see comments)(Sil had to do a single case agreement with an [id number] home health provider) Discussed with patient/patients family involved in decision making: Yes Patient or family caregiver understands, and agrees with discharge plan. Community resources/referrals made or provided to patient: No Transportation: Private Vehicle Nursing informed of discharge plan: Yes Name of RN informed: Tabatha Estimated discharge date: 12/04/18 Time: 1730 CM/SW Name & Contact number: Connie Martinez LMSW Ph. [phone] The following information has been provided to the facility noted above: reason for the patient discharge or transfer; patients physical and psychosocial status; summary of care, treatment, servicesprovided to patient; and the patient progress toward goals. orsConnie monterroso LMSW - 12/04/2018 8:06 AM CDTSocial Work Note [facility] informed Sil Donato estate planner ph: , ext: [phone] that all the home health agencies on the in- network list she provided are unable to accept the patient. Mary reports plans to contact [facility] [address] [facility] [address] [place] [address] (Ph) (F) [phone] to make arrangements with an [id number] provider. GOOD awaiting confirmation from Mary that a contract has been arranged with [facility] [address] [facility] [address] [place] [address] (Ph) [phone] (F) Wound vac from [facility] [address], [place] [address] (P) [phone])[phone] at bedside for d/c. Update at 0819: [facility] received a call back from Sil Donato estate planner ph: ,ext: [phone], who reports she has spoken to [facility] [address] [facility] [address] [place] [address](Ph) [phone] (F) and obtained all the information she needs to complete the singlecase agreement. Mary reports she is going to approve some visits upfront for [facility] , but states it will be up to [facility] if they accept the patient before the single case agreement is approved. Mary reports the single case agreement is approved by a different department and it may be Friday12/07/2018before it will be approved. Per Mary's request, [facility] sent a referral to [facility] [address] [facility] [address] [place] [address] (Ph) [phone] (F) [phone] for review. Update at 1533: [facility] received a call from Lay with [facility] [address] [facility] [address] [place] [address] (Ph) [phone] (F) [phone] who reports they have a contract with [facility] and are able to acceptpatient. Lay reports plans to admit patient to their service tomorrow. [facility] notified bowen, , and Tabatha WINTERS. Connie Martinez LMSW Care Management Pager: [phone] Rae Deutsch MD - 12/04/2018 7:45 AM CDT PP PROGRESS NOTE Subjective: Patient has no complaints. Denies abdominal pain, fever, chills, nausea or vomiting. Objective: Vitals: Temp: [36.6 C (97.9 F)-37.2 C (99 F)] Pulse: [79-83] Resp: [17-18] BP: (106-118)/(67-74) Physical Exam: General: patient alert and in no acute distress HEENT: symmetric, negative for masses Lungs: unlabored breathing Cardiology: peripheral pulses intact and regular Abdomen: soft, NTTP, wound vac in place Extremities: no clubbing, cyanosis, or edema Neuro: patient moving all extremities, no facial droop : deferred Medications: Current Facility-Administered Medications Medication Dose Route Frequency Last Rate Last Dose hydrocortisone (GLY-FELIZ) 1 % lotion Topical DAILY lactated ringers IV infusion 1,000 mL 1,000 mL IV Infusion CONTINUOUS Stopped at 11/24/18 0945 sodium hypochlorite (DAKINS) 0.025% topical solution Topical BID Stopped at 12/02/181999 bisacodyl (DULCOLAX) suppository 10 mg 10 mg Rectal QDAILYPRN diphenhydrAMINE (BENADRYL) 25 mg in NaCl 0.9% (NS) piggyback 25 mg IV Piggyback Q6HPRN diphenhydrAMINE (BENADRYL) tablet 25 mg 25 mg Oral Q6HPRN 25 mg at 0106 docusate calcium (SURFAK) capsule 240 mg 240 mg Oral QDAILYPRN 240 mg at 12/03/18 0928 HYDROcodone-acetaminophen (NORCO 5) 5-325 mg tablet 1 tablet 1 tablet Oral Q6HPRN 1 tablet at12/03/18 2041 HYDROcodone-acetaminophen (NORCO 5) 5-325 mg tablet 2 tablet 2 tablet Oral Q6HPRN 2 tablet at12/02/18 1326 ibuprofen (IBU) tablet 600 mg 600 mg Oral Q6HPRN 600 mg at 11/29/18 1406 magnesium hydroxide (MILK OF MAGNESIA) 400 mg/5 mL suspension 30 mL 30 mL Oral QDAILYPRN 30 mL at 12/03/18 0930 ondansetron (ZOFRAN (PF)) injection 4 mg 4 mg Slow IV Push Q8HPRN 4 mg at 11/25/18 2245 simethicone (GAS RELIEF) chewable tablet 160 mg 160 mg Oral PC+HSPRN 160 mg at 11/26/18 0902 Assessment/Plan: Tali Arriaga is a 18 year old [id number]#17s/p primary CS who was admitted for wound infection. She is now POD#11s/p wound exploration and debridement, Hospital Day: 13 Wound Infection - emergent c/s on 11/17/2018 due to prolonged deceleration remote from delivery ; suture closure - discharged on POD#2; no signs of infection during hospital post-op course - patient noted tenderness and redness beginning - presented to OSH -- WBC 14.33 - CT at OSH:"Marked inflammatory stranding of the lower anterior abdominal wall with overlying skin thickening more suggestive of cellulitis. A non-walled off collection in the right lower abdominal wall (4.4 x 2.6 x4 cm) contains foci of free air with internal density above simple fluid. This is suspicious for early abscess formation." -Patient underwentwound exploration and debridement on 11/23/2018 with removal of necrotic subcutaneous fat and edges of fascia. Fascia has remained opened after procedure - Wound Vac placed on 11/27 - s/p Abx therapy: levofloxacin andmetronidazole Plan: Pt stable for discharge, home care arrangement pending. Pt will need wound vac change M/W/F. Rae Collins MD WILDLIFE CONTROL OPERATOR Resident Physician Associated attestation - Neeta Birmingham MD - 12/04/2018 9:18 AM CDTI was rounding faculty for this patient and involved in planning. The patient was seen and examined by me. PLease see note of plan below. 18 year old female POD#17 s/p primary CS who was admitted for wound infection. She is now POD#11 s/p wound exploration and debridement, Hospital Day : 13 Wound Infection - emergent c/s on 11/17/2018 due to prolonged deceleration remote from delivery ; suture closure - discharged on POD#2; no signs of infection during hospital post-op course - patient noted tenderness and redness beginning - presented to OSH -- WBC 14.33 - CT at OSH: "Marked inflammatory stranding of the lower anterior abdominal wall with overlying skinthickening more suggestive of cellulitis. A non-walled off collection in the right lower abdominal wall (4.4 x 2.6 x4 cm) contains foci of free air with internal density above simple fluid. This is suspicious for early abscess formation." - Patient underwent wound exploration and debridement on 11/23/2018 with removal of necrotic subcutaneous fat and edges of fascia. Fascia has remained opened after procedure - Wound Vac placed on 11/27 - s/p Abx therapy: levofloxacin and metronidazole Plan: Pt stable for discharge, home care arrangement pending. Pt will need wound vac change M/W/F. Per social worker assistant, home care can be arranged on Friday so patient will be d/c Connie Rock LMSW - 12/03/2018 10:35 AM CDTSocial Work Note [facility] continues to search for home health services in [place], [place]: [facility] ph: [phone], fax: [phone] - Confirmed receipt of referral; under review [facility] ph: [phone], fax: [phone] - Confirmed receipt of referral; under review ph: [phone], fax: [phone] - Do not service [facility] ph: [phone], fax: [phone] - Do not offer jail services [facility] ph: [phone], fax: [phone] - No coverage in [facility] ph: [phone], fax: [phone] - Do not service [facility] of [facility] ph: [phone], fax: [phone] - Do not service [facility] spoke with Sil Donato estate planner ph: , ext: [phone] who reports if an in-network home health provider does not accept patient then she will approve [id number] benefits for [facility] [address] [place] [address] (Ph) [phone] (F) [phone]. Wound vac from [facility] [address] [address] (P) [phone] at bedside for d/c. Update at 1605: Per Brittney with [facility] ph: [phone], fax: [phone], there nurse is moving out of the area and will not be able to service [place], [place] Per Esperanza with [facility] ph: [phone], fax: [phone], she is trying to confirm with her nurse that she can go to [place], [place]. [facility] is awaiting a return call. Update at 1723: [facility] notified by Esperanza with [facility] ph: [phone], fax: [phone] that they are unable to accept the patient because they do not have a nurse to service the area. [facility] attempted to contact Sil Donato estate planner ph: , ext:[phone] but the office is currently closed. Connie Martinez LMSW Care Management Pager: [phone] Rae Deutsch MD - 12/03/2018 7:22 AM CDT PP PROGRESS NOTE Subjective: Patient has no complaints. Denies abdominal pain, fever, chills, nausea or vomiting. Objective: Vitals: Temp: [36.5 C (97.7 F)-37.1 C (98.8 F)] Pulse: [66-95] Resp: [17-18] BP: (99-114)/(57-72) Physical Exam: General: patient alert and in no acute distress HEENT: symmetric, negative for masses Lungs: unlabored breathing Cardiology: peripheral pulses intact and regular Abdomen: soft, NTTP, wound vac in place Extremities: no clubbing, cyanosis, or edema Neuro: patient moving all extremities, no facial droop : deferred Medications: Current Facility-Administered Medications Medication Dose Route Frequency Last Rate Last Dose hydrocortisone (GLY-FELIZ) 1 % lotion Topical DAILY lactated ringers IV infusion 1,000 mL 1,000 mL IV Infusion CONTINUOUS Stopped at 11/24/18 0945 sodium hypochlorite (DAKINS) 0.025% topical solution Topical BID Stopped at 12/02/181999 bisacodyl (DULCOLAX) suppository 10 mg 10 mg Rectal QDAILYPRN diphenhydrAMINE (BENADRYL) 25 mg in NaCl 0.9% (NS) piggyback 25 mg IV Piggyback Q6HPRN diphenhydrAMINE (BENADRYL) tablet 25 mg 25 mg Oral Q6HPRN 25 mg at 0106 docusate calcium (SURFAK) capsule 240 mg 240 mg Oral QDAILYPRN 240 mg at 11/29/18 1334 HYDROcodone-acetaminophen (NORCO 5) 5-325 mg tablet 1 tablet 1 tablet Oral Q6HPRN 1 tablet at11/30/18 1242 HYDROcodone-acetaminophen (NORCO 5) 5-325 mg tablet 2 tablet 2 tablet Oral Q6HPRN 2 tablet at12/02/18 1326 ibuprofen (IBU) tablet 600 mg 600 mg Oral Q6HPRN 600 mg at 11/29/18 1406 magnesium hydroxide (MILK OF MAGNESIA) 400 mg/5 mL suspension 30 mL 30 mL Oral QDAILYPRN 30 mL at 12/02/18 1327 ondansetron (ZOFRAN (PF)) injection 4 mg 4 mg Slow IV Push Q8HPRN 4 mg at 11/25/18 2245 simethicone (GAS RELIEF) chewable tablet 160 mg 160 mg Oral PC+HSPRN 160 mg at 11/26/18 0902 Assessment/Plan: Tali Arriaga is a 18 year old [id number]/p primary CS who was admitted for wound infection. She is now POD#10s/p wound exploration and debridement, Hospital Day: 12 Wound Infection - emergent c/s on 11/17/2018 due to prolonged deceleration remote from delivery ; suture closure - discharged on POD#2; no signs of infection during hospital post-op course - patient noted tenderness and redness beginning - presented to OSH -- WBC 14.33 - CT at OSH:"Marked inflammatory stranding of the lower anterior abdominal wall with overlying skin thickening more suggestive of cellulitis. A non-walled off collection in the right lower abdominal wall (4.4 x 2.6 x4 cm) contains foci of free air with internal density above simple fluid. This is suspicious for early abscess formation." -Patient underwentwound exploration and debridement on 11/23/2018 with removal of necrotic subcutaneous fat and edges of fascia. Fascia has remained opened after procedure - Wound Vac placed on 11/27 - s/p Abx therapy: levofloxacin 500 mg q24h (x 3d) andmetronidazole 500 mg q8h (x 4d) Plan: Pt stable for discharge, home care arrangement pending. Pt will need wound vac change M/W/F. Rae Collins MD WILDLIFE CONTROL OPERATOR Resident Physician Associated attestation - Neeta Birmingham MD - 12/03/2018 12:29 PM CDTI was rounding faculty for this patient and involved in planning. The patient was seen and examined by me. PLease see note of plan below. 18 year old female POD#16 s/p primary CS who was admitted for wound infection. She is now POD#10 s/p wound exploration and debridement, Hospital Day : 12 Wound Infection - emergent c/s on 11/17/2018 due to prolonged deceleration remote from delivery ; suture closure - discharged on POD#2; no signs of infection during hospital post-op course - patient noted tenderness and redness beginning - presented to OSH -- WBC 14.33 - CT at OSH: "Marked inflammatory stranding of the lower anterior abdominal wall with overlying skinthickening more suggestive of cellulitis. A non-walled off collection in the right lower abdominal wall (4.4 x 2.6 x4 cm) contains foci of free air with internal density above simple fluid. This is suspicious for early abscess formation." - Patient underwent wound exploration and debridement on 11/23/2018 with removal of necrotic subcutaneous fat and edges of fascia. Fascia has remained opened after procedure - Wound Vac placed on 11/27 - s/p Abx therapy: levofloxacin 500 mg q24h (x 3d) and metronidazole 500 mg q8h (x 4d) Plan: Pt stable for discharge, home care arrangement pending. Pt will need wound vac change M/W/F.Connie Martinez LMSW - 12/02/2018 4:52 PM CDTSocial Work Note [facility] received a list of in-network home health agencies from Sil Blake estate planner ph: , ext: [phone]. [facility] ph: [phone], fax: [phone] - Per Jeanne, they do not service [facility] ph: [phone], fax: [phone] - Per Brittney's request, [facility] faxed a referral to determine if she has a nurse available for the [place] area. [facility] ph: [phone], fax: [phone] - [facility] called and was informed they do service the [facility]. [facility] faxed a referral for review. Connie Martinez LMSW Care Management Pager: [phone] Rae Deutsch MD - 12/02/2018 2:00 PM CDTWound vacuum dressing change Patient premedicated with Noroc 5mg x2. Previous dressing removed.Wound base and edges noted to behealthy granulation tissue with bleedingnoted.Fascia open with rectus muscles intact.No evidence of new necrosis or pus. Base ofthewound and edges were gently debrided with saline-moistened 4x4 gauze. One V.A.C. WHITEFOAM dressing was cut to an appropriate size and used to cover the rectus muscles and the base of thewound.Next, a V.A.C. SPIRAL-FOAM dressing was trimmed and on the WHITFOAM dressing. The dressing was then covered with clear adhesive drape. Small opening created in the drape with scissors and tubing was connected. Wound vac was set to 100 mmHg pressure and no leak was detected. Next wound vac dressing change will be on 12/04/[address] Wright and Diego present for wound vac placement. Rae Collins MD WILDLIFE CONTROL OPERATOR Resident PhysicianElectronically signed by Rae Collins MD at 12/04 4:07 PM Rae Deutsch MD - 12/02/2018 6:38 AM CDT PP PROGRESS NOTE Subjective: Patient has no complaints. Denies abdominal pain, fever, chills, nausea or vomiting. Objective: Vitals: Temp: [36.7 C (98.1 F)-37.1 C (98.8 F)] Pulse: [68-87] Resp: [17-18] BP: (105-118)/(56-70) Physical Exam: General: patient alert and in no acute distress HEENT: symmetric, negative for masses Lungs: unlabored breathing Cardiology: peripheral pulses intact and regular Abdomen: soft, NTTP, wound vac in place Extremities: no clubbing, cyanosis, or edema Neuro: patient moving all extremities, no facial droop : deferred Medications: Current Facility-Administered Medications Medication Dose Route Frequency Last Rate Last Dose hydrocortisone (GLY-FELIZ) 1 % lotion Topical DAILY lactated ringers IV infusion 1,000 mL 1,000 mL IV Infusion CONTINUOUS Stopped at 11/24/18 0945 sodium hypochlorite (DAKINS) 0.025% topical solution Topical BID Stopped at 11/28/18 0800 bisacodyl (DULCOLAX) suppository 10 mg 10 mg Rectal QDAILYPRN diphenhydrAMINE (BENADRYL) 25 mg in NaCl 0.9% (NS) piggyback 25 mg IV Piggyback Q6HPRN diphenhydrAMINE (BENADRYL) tablet 25 mg 25 mg Oral Q6HPRN 25 mg at 0106 docusate calcium (SURFAK) capsule 240 mg 240 mg Oral QDAILYPRN 240 mg at 11/29/18 1334 HYDROcodone-acetaminophen (NORCO 5) 5-325 mg tablet 1 tablet 1 tablet Oral Q6HPRN 1 tablet at11/30/18 1242 HYDROcodone-acetaminophen (NORCO 5) 5-325 mg tablet 2 tablet 2 tablet Oral Q6HPRN 2 tablet at12/01/186 ibuprofen (IBU) tablet 600 mg 600 mg Oral Q6HPRN 600 mg at 11/29/18 1406 magnesium hydroxide (MILK OF MAGNESIA) 400 mg/5 mL suspension 30 mL 30 mL Oral QDAILYPRN 30 mL at 11/26/18 0902 ondansetron (ZOFRAN (PF)) injection 4 mg 4 mg Slow IV Push Q8HPRN 4 mg at 11/25/18 2245 simethicone (GAS RELIEF) chewable tablet 160 mg 160 mg Oral PC+HSPRN 160 mg at 11/26/18 0902 Assessment/Plan: Tali Arriaga is a 18 year old [id number]#15s/p primary CS who was admitted for wound infection. She is now POD#9s/p wound exploration and debridement, Hospital Day: 11 Wound Infection - emergent c/s on 11/17/2018 due to prolonged deceleration remote from delivery ; suture closure - discharged on POD#2; no signs of infection during hospital post-op course - patient noted tenderness and redness beginning - presented to OSH -- WBC 14.33 - CT at OSH:"Marked inflammatory stranding of the lower anterior abdominal wall with overlying skin thickening more suggestive of cellulitis. A non-walled off collection in the right lower abdominal wall (4.4 x 2.6 x4 cm) contains foci of free air with internal density above simple fluid. This is suspicious for early abscess formation." -Patient underwentwound exploration and debridement on 11/23/2018 with removal of necrotic subcutaneous fat and edges of fascia. -Fascia remained opened after procedure with plan for BID wet-to-dry dressing changes - Wound Vac placed on 11/27 - afebrile, vss overnight - s/p Abx therapy: levofloxacin 500 mg q24h (x 3d) andmetronidazole 500 mg q8h (x 4d) Plan: Pt stable for discharge, home care arrangement pending. Pt will need wound vac change M/W/F. Rae Collins MD WILDLIFE CONTROL OPERATOR Resident Physician Associated attestation - Edward Olivas - 12/02/2018 5:10 PM CDTCase reviewed , patient seen, agree with Dr. Collins.Connie Martinez LMSW - 12/01/2018 9:29 AM CDTSocial Work Note GOOD met with patient to inform her no home health can be found to service [place], [place]. Pt reports she actually prefers to go to her home at [address] [address]. Pt reports she wasonly going to go to her grandmother's in [place], [place] because her father thought it would be better.Pt also states if home health cannot be located for [place], [place] then she would consider going to her mother's home in [place], [place] (near [place] FOUNTAIN JERK contacted [address] [place] [address] and spoke with Jessica, who reports they would still not accept patient even if there was approval for jae-hf-kuldywa benefits. FOUNTAIN JERK contacted [facility] [address] [place] [address] (Ph) (F) [phone] and spoke with Celine who reports they would be willing to accept patient if [facility] approved Out of network benefits for home health. GOOD spoke with Sil Blake estate planner ph: , ext: [phone], who reports she will send a list of home health agencies that are in-network and if none of the agencies service [place], [place] then she will approve sni-po-eilrgxb benefits with [facility]. FOUNTAIN JERK awaiting the list from Mary. Update at 7531: FOUNTAIN JERK still has not received the list of in-network home health agencies from Sil Blake estate planner ph: , ext: [phone]. GOOD left a voicemail with Mary. Connie Martinez LMSW Care Management Pager: [phone] Rae Deutsch MD - 12/01/2018 7:11 AM CDT PP PROGRESS NOTE Subjective: Patient has no complaints. Denies abdominal pain, fever, chills, nausea or vomiting. Objective: Vitals: Temp: [36.6 C (97.9 F)-37.1 C (98.8 F)] Pulse: [70-106] Resp: [17-18] BP: (100-124)/(54-70) VITALS: Patient Vitals for the past 24 hrs: BP Temp Temp src Pulse Resp SpO2 12/01/18 0400 103/59 37.1 C (98.8 F) Oral 72 18 97 % 12/01/18 0000 100/54 36.8 C (98.2 F) Oral 70 18 97 % 11/30/18 2000 124/70 36.8 C (98.2 F) Oral 106 17 99 % 11/30/18 1600 119/64 36.7 C (98.1 F) Oral 102 18 98 % 11/30/18 1200 117/67 36.6 C (97.9 F) Oral 87 18 98 % 11/30/18 0800 119/62 36.8 C (98.2 F) Oral 77 18 98 % Physical Exam: General: patient alert and in no acute distress HEENT: symmetric, negative for masses Lungs: unlabored breathing Cardiology: peripheral pulses intact and regular Abdomen: soft, NTTP, wound vac in place Extremities: no clubbing, cyanosis, or edema Neuro: patient moving all extremities, no facial droop : deferred Medications: Current Facility-Administered Medications Medication Dose Route Frequency Last Rate Last Dose hydrocortisone (GLY-FELIZ) 1 % lotion Topical DAILY lactated ringers IV infusion 1,000 mL 1,000 mL IV Infusion CONTINUOUS Stopped at 11/24/18 0945 sodium hypochlorite (DAKINS) 0.025% topical solution Topical BID Stopped at 11/28/18 0800 bisacodyl (DULCOLAX) suppository 10 mg 10 mg Rectal QDAILYPRN diphenhydrAMINE (BENADRYL) 25 mg in NaCl 0.9% (NS) piggyback 25 mg IV Piggyback Q6HPRN diphenhydrAMINE (BENADRYL) tablet 25 mg 25 mg Oral Q6HPRN 25 mg at 0106 docusate calcium (SURFAK) capsule 240 mg 240 mg Oral QDAILYPRN 240 mg at 11/29/18 1334 HYDROcodone-acetaminophen (NORCO 5) 5-325 mg tablet 1 tablet 1 tablet Oral Q6HPRN 1 tablet at11/30/18 1242 HYDROcodone-acetaminophen (NORCO 5) 5-325 mg tablet 2 tablet 2 tablet Oral Q6HPRN 2 tablet at11/30/18 0915 ibuprofen (IBU) tablet 600 mg 600 mg Oral Q6HPRN 600 mg at 11/29/18 1406 magnesium hydroxide (MILK OF MAGNESIA) 400 mg/5 mL suspension 30 mL 30 mL Oral QDAILYPRN 30 mL at 11/26/18 0902 ondansetron (ZOFRAN (PF)) injection 4 mg 4 mg Slow IV Push Q8HPRN 4 mg at 11/25/18 2245 simethicone (GAS RELIEF) chewable tablet 160 mg 160 mg Oral PC+HSPRN 160 mg at 11/26/18 0902 Assessment/Plan: Tali Arriaga is a 18 year old [id number]#14s/p primary CS who was admitted for wound infection. She is now POD#8s/p wound exploration and debridement, Hospital Day: 10 Wound Infection - emergent c/s on 11/17/2018 due to prolonged deceleration remote from delivery ; suture closure - discharged on POD#2; no signs of infection during hospital post-op course - patient noted tenderness and redness beginning - presented to OSH -- WBC 14.33 - CT at OSH:"Marked inflammatory stranding of the lower anterior abdominal wall with overlying skin thickening more suggestive of cellulitis. A non-walled off collection in the right lower abdominal wall (4.4 x 2.6 x4 cm) contains foci of free air with internal density above simple fluid. This is suspicious for early abscess formation." -Patient underwentwound exploration and debridement on 11/23/2018 with removal of necrotic subcutaneous fat and edges of fascia. -Fascia remained opened after procedure with plan for BID wet-to-dry dressing changes - Wound Vac placed on 11/27 - afebrile, vss overnight - s/p Abx therapy: levofloxacin 500 mg q24h (x 3d) andmetronidazole 500 mg q8h (x 4d) Plan: Pt stable for discharge, home care arrangement pending. Pt will need wound vac change M/W/F. Rae Collins MD WILDLIFE CONTROL OPERATOR Resident Physician Associated attestation - Neeta Birmingham MD - 12/01/2018 12:00 PM CDTI was rounding faculty for this patient and involved in planning. The patient was seen and examined by me. PLease see note of plan below. 18 year old female POD#14 s/p primary CS who was admitted for wound infection. She is now POD#8 s/p wound exploration and debridement, Hospital Day : 10 Wound Infection - emergent c/s on 11/17/2018 due to prolonged deceleration remote from delivery ; suture closure - discharged on POD#2; no signs of infection during hospital post-op course - patient noted tenderness and redness beginning - presented to OSH -- WBC 14.33 - CT at OSH: "Marked inflammatory stranding of the lower anterior abdominal wall with overlying skinthickening more suggestive of cellulitis. A non-walled off collection in the right lower abdominal wall (4.4 x 2.6 x4 cm) contains foci of free air with internal density above simple fluid. This is suspicious for early abscess formation." - Patient underwent wound exploration and debridement on 11/23/2018 with removal of necrotic subcutaneous fat and edges of fascia. -Fascia remained opened after procedure with plan for BID wet-to-dry dressing changes - Wound Vac placed on 11/27 - afebrile, vss overnight - s/p Abx therapy: levofloxacin 500 mg q24h (x 3d) and metronidazole 500 mg q8h (x 4d) Plan: Pt stable for discharge, home care arrangement pending. Pt will need wound vac change M/W/F. Rae Collins MD - 11/30/2018 2:19 PM CDTWet to dry dressing change Patient premedicated with Noroc 5mg. Previous dressing removed. Wound base and edges noted to be healthy granulation tissue with bleeding noted. Fascia open with rectus muscles intact. No evidence of new necrosis or pus. See picture in Media tab in Epic. Base of the wound and edges were gently debrided with saline-moistened 4x4 gauze. One V.A.C. WHITEFOAM dressing was cut to an appropriate size and used to cover the rectus muscles and the base of the wound. Next, a V.A.C. GRANUFOAM dressing was trimmed and on the WHITFOAM dressing. The dressing was then covered with clear adhesive drape. Small opening created in the drape with scissors and tubing was connected. Wound vac was set to 100 mmHg pressure and no leak was detected. Next wound vac dressing change will be on 12/02/2018 Dr. Wright present for wound vac placement. Rae Collins MD WILDLIFE CONTROL OPERATOR Resident Physician Connie Meade LMSW - 11/30/2018 8:12 AM CDTSocial Work Note [facility]ERK [facility] ph: [phone], fax : [phone] that they are unable to accept patient. FOUNTAIN JERK spoke with Sil Blake estate planner ph: , ext: [phone] inform her of three denials so far for home health in [place], [place]. Mary reports she will contact [facility] to determine if they accept Medicaid to possibly approve an dyt-ct-dohpejt provider. FOUNTAIN JERK awaiting a call back from Mary. Wound vac from [facility] [address] [address] (P) [phone])[phone] at patient's bedside for d/c Update at 1109: FOUNTAIN JERK received a call from Sil Blake estate planner ph: , ext: [phone], who reports she has been unable to find a home health to provide service for patient in [place], [place]. Mary reports she has left patient a vm inquiring if she would be willing to discharge home to [place] instead so a search for home health can be conducted for the [place] area. FOUNTAIN JERK to continue to follow Connie Martinez LMSW Care Management Pager: [phone] Rae Deutsch MD - 11/30/2018 6:23 AM CDT PP PROGRESS NOTE Subjective: Patient has no complaints. Denies abdominal pain, fever, chills, nausea or vomiting. NO diarrhea or constipation. Urinating normally with no issues. Objective: Vitals: Temp: [36.5 C (97.7 F)-36.9 C (98.4 F)] Pulse: [64-96] Resp: [17-18] BP: (108-126)/(58-72) Patient Vitals for the past 24 hrs: BP Temp Temp src Pulse Resp SpO2 11/29/18 0000 108/66 36.6 C (97.9 F) Oral 89 18 100 % 11/28/18 2000 109/65 36.6 C (97.9 F) Oral 97 18 100 % 11/28/18 1600 112/69 36.6 C (97.9 F) Oral 97 17 96 % 11/28/18 1200 125/74 36.7 C (98.1 F) Oral 87 18 99 % 11/28/18 0800 105/67 36.4 C (97.5 F) Oral 105 17 96 % Physical Exam: General: patient alert and in no acute distress HEENT: symmetric, negative for masses Lungs: unlabored breathing Cardiology: peripheral pulses intact and regular Abdomen: soft, NTTP, wound vac in place Extremities: no clubbing, cyanosis, or edema Neuro: patient moving all extremities, no facial droop : deferred Medications: Current Facility-Administered Medications Medication Dose Route Frequency Last Rate Last Dose hydrocortisone (GLY-FELIZ) 1 % lotion Topical DAILY Stopped at 11/27/18 0900 lactated ringers IV infusion 1,000 mL 1,000 mL IV Infusion CONTINUOUS Stopped at 11/24/18 0945 sodium hypochlorite (DAKINS) 0.025% topical solution Topical BID Stopped at 11/28/18 0800 bisacodyl (DULCOLAX) suppository 10 mg 10 mg Rectal QDAILYPRN diphenhydrAMINE (BENADRYL) 25 mg in NaCl 0.9% (NS) piggyback 25 mg IV Piggyback Q6HPRN diphenhydrAMINE (BENADRYL) tablet 25 mg 25 mg Oral Q6HPRN 25 mg at 0106 docusate calcium (SURFAK) capsule 240 mg 240 mg Oral QDAILYPRN 240 mg at 11/29/18 1334 HYDROcodone-acetaminophen (NORCO 5) 5-325 mg tablet 1 tablet 1 tablet Oral Q6HPRN 1 tablet at11/29/182003 HYDROcodone-acetaminophen (NORCO 5) 5-325 mg tablet 2 tablet 2 tablet Oral Q6HPRN 2 tablet at11/29/18 0129 ibuprofen (IBU) tablet 600 mg 600 mg Oral Q6HPRN 600 mg at 11/29/18 1406 magnesium hydroxide (MILK OF MAGNESIA) 400 mg/5 mL suspension 30 mL 30 mL Oral QDAILYPRN 30 mL at 11/26/18 0902 ondansetron (ZOFRAN (PF)) injection 4 mg 4 mg Slow IV Push Q8HPRN 4 mg at 11/25/18 2245 simethicone (GAS RELIEF) chewable tablet 160 mg 160 mg Oral PC+HSPRN 160 mg at 11/26/18 0902 Assessment/Plan: Tali Arriaga is a 18 year old [id number]#13s/p primary CS who was admitted for wound infection. She is now POD#7s/p wound exploration and debridement, Hospital Day: 9 Wound Infection - emergent c/s on 11/17/2018 due to prolonged deceleration remote from delivery ; suture closure - discharged on POD#2; no signs of infection during hospital post-op course - patient noted tenderness and redness beginning - presented to OSH -- WBC 14.33 - CT at OSH:"Marked inflammatory stranding of the lower anterior abdominal wall with overlying skin thickening more suggestive of cellulitis. A non-walled off collection in the right lower abdominal wall (4.4 x 2.6 x4 cm) contains foci of free air with internal density above simple fluid. This is suspicious for early abscess formation." -Patient underwentwound exploration and debridement on 11/23/2018 with removal of necrotic subcutaneous fat and edges of fascia. -Fascia remained opened after procedure with plan for BID wet-to-dry dressing changes - Wound Vac placed on 11/27 - afebrile, vss overnight - s/p Abx therapy: levofloxacin 500 mg q24h (x 3d) andmetronidazole 500 mg q8h (x 4d) Plan: Pt stable for discharge, home care arrangement pending. Will f/u with social work today. Pt will need wound vac change M/W/F. Rae Collins MD WILDLIFE CONTROL OPERATOR Resident Physician Associated attestation - Neeta Birmingham MD - 11/30/2018 3:05 PM CDTI was rounding faculty for this patient and involved in planning. The patient was seen and examined by me. PLease see note of plan below. 18 year old female POD#13 s/p primary CS who was admitted for wound infection. She is now POD#7 s/p wound exploration and debridement, Hospital Day : 9 Wound Infection - emergent c/s on 11/17/2018 due to prolonged deceleration remote from delivery ; suture closure - discharged on POD#2; no signs of infection during hospital post-op course - patient noted tenderness and redness beginning - presented to OSH -- WBC 14.33 - CT at OSH: "Marked inflammatory stranding of the lower anterior abdominal wall with overlying skinthickening more suggestive of cellulitis. A non-walled off collection in the right lower abdominal wall (4.4 x 2.6 x4 cm) contains foci of free air with internal density above simple fluid. This is suspicious for early abscess formation." - Patient underwent wound exploration and debridement on 11/23/2018 with removal of necrotic subcutaneous fat and edges of fascia. -Fascia remained opened after procedure with plan for BID wet-to-dry dressing changes - Wound Vac placed on 11/27 - afebrile, vss overnight - s/p Abx therapy: levofloxacin 500 mg q24h (x 3d) and metronidazole 500 mg q8h (x 4d) Plan: Pt stable for discharge, home care arrangement pending. Will f/u with social work today. Pt will need wound vac change M/W/F. Mejia Villegas MD - 11/29/2018 7:48 AM CDT PP PROGRESS NOTE 11/29/2018 7:48 AM Subjective: Patient has no complaints. Denies abdominal pain, fever, chills, nausea or vomiting. NO diarrhea or constipation. Urinating normally with no issues. Objective: Vitals: Temp: [36.4 C (97.5 F)-36.7 C (98.1 F)] Pulse: [87-105] Resp: [17-18] BP: (105-125)/(65-74) Patient Vitals for the past 24 hrs: BP Temp Temp src Pulse Resp SpO2 11/29/18 0000 108/66 36.6 C (97.9 F) Oral 89 18 100 % 11/28/18 2000 109/65 36.6 C (97.9 F) Oral 97 18 100 % 11/28/18 1600 112/69 36.6 C (97.9 F) Oral 97 17 96 % 11/28/18 1200 125/74 36.7 C (98.1 F) Oral 87 18 99 % 11/28/18 0800 105/67 36.4 C (97.5 F) Oral 105 17 96 % Physical Exam: General: patient alert and in no acute distress HEENT: symmetric, negative for masses Lungs: unlabored breathing Cardiology: peripheral pulses intact and regular Abdomen: soft, NTTP, wound vac in place Extremities: no clubbing, cyanosis, or edema Neuro: patient moving all extremities, no facial droop : deferred Medications: Current Facility-Administered Medications Medication Dose Route Frequency Last Rate Last Dose hydrocortisone (GLY-FELIZ) 1 % lotion Topical DAILY Stopped at 11/27/18 0900 levoFLOXacin (LEVAQUIN) tablet 500 mg 500 mg Oral Q24H ABX 500 mg at 1153 metroNIDAZOLE (FLAGYL) tablet 500 mg 500 mg Oral Q8H 500 mg at 11/29/18 0719 lactated ringers IV infusion 1,000 mL 1,000 mL IV Infusion CONTINUOUS Stopped at 11/24/18 0945 sodium hypochlorite (DAKINS) 0.025% topical solution Topical BID Stopped at 11/28/18 0800 bisacodyl (DULCOLAX) suppository 10 mg 10 mg Rectal QDAILYPRN diphenhydrAMINE (BENADRYL) 25 mg in NaCl 0.9% (NS) piggyback 25 mg IV Piggyback Q6HPRN diphenhydrAMINE (BENADRYL) tablet 25 mg 25 mg Oral Q6HPRN 25 mg at 0106 docusate calcium (SURFAK) capsule 240 mg 240 mg Oral QDAILYPRN 240 mg at 11/26/182010 HYDROcodone-acetaminophen (NORCO 5) 5-325 mg tablet 1 tablet 1 tablet Oral Q6HPRN 1 tablet at11/27/182146 HYDROcodone-acetaminophen (NORCO 5) 5-325 mg tablet 2 tablet 2 tablet Oral Q6HPRN 2 tablet at11/29/18 012 ibuprofen (IBU) tablet 600 mg 600 mg Oral Q6HPRN 600 mg at 11/28/18 1153 magnesium hydroxide (MILK OF MAGNESIA) 400 mg/5 mL suspension 30 mL 30 mL Oral QDAILYPRN 30 mL at 11/26/18 09 ondansetron (ZOFRAN (PF)) injection 4 mg 4 mg Slow IV Push Q8HPRN 4 mg at 11/25/18 2245 simethicone (GAS RELIEF) chewable tablet 160 mg 160 mg Oral PC+HSPRN 160 mg at 11/26/18 0902 Assessment/Plan: Tali Arriaga is a 18 year old [id number]#12s/p primary CS who was admitted for wound infection. She is now POD#6s/p wound exploration and debridement, HD#6. Wound Infection - emergent c/s on 11/17/2018 due to prolonged deceleration remote from delivery ; suture closure - discharged on POD#2; no signs of infection during hospital post-op course - patient noted tenderness and redness beginning - presented to OSH -- WBC 14.33 - CT at OSH:"Marked inflammatory stranding of the lower anterior abdominal wall with overlying skin thickening more suggestive of cellulitis. A non-walled off collection in the right lower abdominal wall (4.4 x 2.6 x4 cm) contains foci of free air with internal density above simple fluid. This is suspicious for early abscess formation." -Patient underwentwound exploration and debridement on 11/23/2018 with removal of necrotic subcutaneous fat and edges of fascia. -Fascia remained opened after procedure with plan for BID wet-to-dry dressing changes - Wound Vac placed on 11/27 - afebrile, vss overnight - Currently on levofloxacin 500 mg q24h (day 3) andmetronidazole 500 mg q8h ( day 4) Plan: Pt stable for discharge, home care arrangement pending. Will f/u with social work on Friday. Pt will need wound vac change M/W/F. Consider discontinuing antibiotics today. Mejia Villegas MD Associated attestation - Salina Edwards MD - 11/30/2018 9:29 AM CDTI personally saw and examined the patient on 11/29/[address] Villegas's resident note as written. I actively participated in the decision-making process. Please, see the resident's note for additional details.Jaci Loera MD - 11/28/2018 9:16 AM CDT ANTEPARTUM PROGRESS NOTE 11/28/2018 9:16 AM Subjective: This morning, patient doing well. No complaints. Objective: Vitals: Temp: [36.4 C (97.5 F)-37.3 C (99.1 F)] Pulse: [79-105] Resp: [17-18] BP: (105-130)/(61-77) Physical Exam: Gen: A&Ox3, NAD CV: RRR, no m/g/r Pulm: CTAB, no w/r/r Abd: soft, NTTP, wound vac in place Ext: No calf tenderness, normal DTRs SVE: deferred Medications: Current Facility-Administered Medications Medication Dose Route Frequency Last Rate Last Dose hydrocortisone (GLY-FELIZ) 1 % lotion Topical DAILY Stopped at 11/27/18 0900 levoFLOXacin (LEVAQUIN) tablet 500 mg 500 mg Oral Q24H ABX 500 mg at 1149 metroNIDAZOLE (FLAGYL) tablet 500 mg 500 mg Oral Q8H 500 mg at 11/28/18 0559 lactated ringers IV infusion 1,000 mL 1,000 mL IV Infusion CONTINUOUS Stopped at 11/24/18 0945 sodium hypochlorite (DAKINS) 0.025% topical solution Topical BID Stopped at 11/28/18 0800 bisacodyl (DULCOLAX) suppository 10 mg 10 mg Rectal QDAILYPRN diphenhydrAMINE (BENADRYL) 25 mg in NaCl 0.9% (NS) piggyback 25 mg IV Piggyback Q6HPRN diphenhydrAMINE (BENADRYL) tablet 25 mg 25 mg Oral Q6HPRN 25 mg at 0106 docusate calcium (SURFAK) capsule 240 mg 240 mg Oral QDAILYPRN 240 mg at 11/26/182010 HYDROcodone-acetaminophen (NORCO 5) 5-325 mg tablet 1 tablet 1 tablet Oral Q6HPRN 1 tablet at11/27/18 214 HYDROcodone-acetaminophen (NORCO 5) 5-325 mg tablet 2 tablet 2 tablet Oral Q6HPRN 2 tablet at11/27/18 0748 ibuprofen (IBU) tablet 600 mg 600 mg Oral Q6HPRN 600 mg at 11/27/18 214 magnesium hydroxide (MILK OF MAGNESIA) 400 mg/5 mL suspension 30 mL 30 mL Oral QDAILYPRN 30 mL at 11/26/18 0902 ondansetron (ZOFRAN (PF)) injection 4 mg 4 mg Slow IV Push Q8HPRN 4 mg at 11/25/18 2245 simethicone (GAS RELIEF) chewable tablet 160 mg 160 mg Oral PC+HSPRN 160 mg at 11/26/18 0902 Labs: Reviewed Assessment/Plan: Tali Arriaga is a 18 year old [id number]#11s/p primary CS who was admitted for wound infection. She is now POD#5s/p wound exploration and debridement, HD#5. Wound Infection - emergent c/s on 11/17/2018 due to prolonged deceleration remote from delivery ; suture closure - discharged on POD#2; no signs of infection during hospital post-op course - patient noted tenderness and redness beginning 11/20/2018 - denies fevers at home; afebrile on admission to [facility] - presented to OSH -- WBC 14.33 - CT at OSH:"Marked inflammatory stranding of the lower anterior abdominal wall with overlying skin thickening more suggestive of cellulitis. A non-walled off collection in the right lower abdominal wall (4.4 x 2.6 x4 cm) contains foci of free air with internal density above simple fluid. This is suspicious for early abscess formation. Diffuse bladder wall thickening is likely reactive. However, correlation with urinalysis is recommended to evaluate for cystitis." - on exam: TTP along pfannenstiel incision site with R>L; broad area of erythema and induration -Patient underwentwound exploration and debridement on 11/23/2018 with removal of necrotic subcutaneous fat and edges of fascia. Fascia remained opened after procedure with plan for BID wet-to-dry dressing changes - Plastic surgery recs: Continue with Dakin's soaked Kerlix BID for the next 3- 4 days. If she continues to clinically improve and wound looks clean, may consider wound vac at that time. - afebrile, vss overnight - Currently on levofloxacin 500 mg q24h (day 3) andmetronidazole 500 mg q8h ( day 4) - wound vac placed on 11/27 Plan: Pt stable for discharge, home care arrangement pending. Will f/u with social work on Friday. Pt will need wound vac dressing change M/W/F. Jaci Loera MD Associated attestation - Joselito Hawkins MD - 11/29/2018 6:01 AM CDTI evaluated and examined the patient with Dr. Loera on 11/28/2018. I agree with plan as listed on the providers note. Joselito Hawkins MD #[id number] Miguel Figueroa MD - 11/27/2018 3:26 PM CDTProgress Note 11/27/2018 3:00 PM Patient premedicated with fentanyl 25 mcg. Old dressing removed. Wound base and edges noted to be beefy red with some bleeding noted.Fascia open with rectus muscles intact.No evidence of new necrosis or pus. Base of the wound and edges gently debrided with saline-moistened 4x4 gauze.One V.A.C. WHITEFOAM dressing was cut to an appropriate size and used to cover the rectus muscles and the base of the wound. V.A.C. GRANUFOAM dressing was also cut to size and placed on top of the WHITFOAM dressing. Dressing was covered with clear adhesive drape. Small opening created in the drape with scissors and tubing wasconnected. Wound vac was set to 100 mmHg pressure and no leak was detected. Tegaderm can be used in areas where leaks may be present. Next wound vac dressing change will be on 11/30/2018 and will continue on Friday , Friday, and Friday. Dr. Bustos, Dr. Wright, and Dr. Cortez present for wound vac placement. Miguel Figueroa MD Connie Meade LMSW - 11/27/2018 12:53 PM CDTSocial Work Note FOUNTAIN JERK received a call from Mary Azul [facility] equipment planner, who provided a list of in-network home health agencies to try Mary reports patient plans to discharge to her grandmother'[place] in [place], [place]. FOUNTAIN JERK spoke w/ patient and patient's father who confirmed patient plans to discharge to her grandmother's house at [address] [place] [address]. FOUNTAIN JERK sent referrals to: [facility] ph: [phone], fax: [phone] [facility] ph: [phone], fax: [phone] [facility] ph: [phone], fax: [phone] [facility] ph: [phone], fax: Update at 1630: FOUNTAIN JERK received calls from [facility] and [facility] who report they do not service [place], [place]. FOUNTAIN JERK left a voicemail for [facility] equipment planner Mary Azul ph: , ext: [phone] Wound vac from [facility] [address] [address] (P) ([phone] at patient's bedside at this time. Connie Martinez LMSW Care Management Pager: [phone] Miguel Frey MD - 11/27/2018 12:13 PM CDT PROGRESS NOTE 11/27/2018 12:13 PM Subjective: Patient has been well without complaints. Shedenies fevers, chills, nausea, and vomiting. She is tolerating a regular diet. Pain is well controlled with PO pain medications. Objective: Vitals: Temp: [36.7 C (98.1 F)-37.6 C (99.6 F)] Pulse: [58-101] Resp: [17-18] BP: (117-134)/(61-77) Patient Vitals for the past 24 hrs: BP Temp Temp src Pulse Resp SpO2 11/27/18 1200 130/61 36.7 C (98.1 F) Oral 84 17 97 % 11/27/18 0800 117/69 36.7 C (98.1 F) Oral 58 18 96 % 11/27/18 0400 122/68 36.7 C (98.1 F) Oral 65 17 97 % 11/27/18 0100 36.9 C (98.5 F) Oral 11/27/18 0000 120/67 37.6 C (99.6 F) Oral 101 18 99 % 11/26/18 2000 134/77 36.8 C (98.2 F) Oral 86 17 97 % 11/26/18 1600 127/74 36.7 C (98.1 F) Oral 75 18 98 % Physical Exam: General:patient alert and in no acute distress HEENT:symmetric, negative for masses Lungs:unlabored breathing Cardiology:peripheral pulses intact and regular Wound: Pfannenstiel incision open measuring 21 cm x 5 cm x 3 cm, 4 cm of undermining noted from approximately 10 to 12 o'clock, hemostatic, no evidence of infection or purulence, rectus muscles intact Extremities:no clubbing, cyanosis, or edema Neuro:patient moving all extremities, no facial droop :deferred Medications: Current Facility-Administered Medications Medication Dose Route Frequency Last Rate Last Dose hydrocortisone (GLY-FELIZ) 1 % lotion Topical DAILY Stopped at 11/27/18 0900 levoFLOXacin (LEVAQUIN) tablet 500 mg 500 mg Oral Q24H ABX 500 mg at 1149 metroNIDAZOLE (FLAGYL) tablet 500 mg 500 mg Oral Q8H 500 mg at 11/27/18 0357 lactated ringers IV infusion 1,000 mL 1,000 mL IV Infusion CONTINUOUS Stopped at 11/24/18 0945 sodium hypochlorite (DAKINS) 0.025% topical solution Topical BID bisacodyl (DULCOLAX) suppository 10 mg 10 mg Rectal QDAILYPRN diphenhydrAMINE (BENADRYL) 25 mg in NaCl 0.9% (NS) piggyback 25 mg IV Piggyback Q6HPRN diphenhydrAMINE (BENADRYL) tablet 25 mg 25 mg Oral Q6HPRN 25 mg at 0106 docusate calcium (SURFAK) capsule 240 mg 240 mg Oral QDAILYPRN 240 mg at 11/26/182010 HYDROcodone-acetaminophen (NORCO 5) 5-325 mg tablet 1 tablet 1 tablet Oral Q6HPRN 1 tablet at11/26/18 224 HYDROcodone-acetaminophen (NORCO 5) 5-325 mg tablet 2 tablet 2 tablet Oral Q6HPRN 2 tablet at11/27/18 0748 ibuprofen (IBU) tablet 600 mg 600 mg Oral Q6HPRN 600 mg at 11/26/182010 magnesium hydroxide (MILK OF MAGNESIA) 400 mg/5 mL suspension 30 mL 30 mL Oral QDAILYPRN 30 mL at 11/26/18 0902 ondansetron (ZOFRAN (PF)) injection 4 mg 4 mg Slow IV Push Q8HPRN 4 mg at 11/25/18 2245 simethicone (GAS RELIEF) chewable tablet 160 mg 160 mg Oral PC+HSPRN 160 mg at 11/26/18 0902 Assessment/Plan: Tali Arriaga is a 18 year old [id number]/p primary CS who was admitted for wound infection. She is now POD#4s/p wound exploration and debridement, HD#5. Wound Infection - emergent c/s on 11/17/2018 due to prolonged deceleration remote from delivery ; suture closure - discharged on POD#2; no signs of infection during hospital post-op course - patient noted tenderness and redness beginning 11/20/2018 - denies fevers at home; afebrile on admission to [facility] - presented to OSH -- WBC 14.33 - CT at OSH:"Marked inflammatory stranding of the lower anterior abdominal wall with overlying skin thickening more suggestive of cellulitis. A non-walled off collection in the right lower abdominal wall (4.4 x 2.6 x4 cm) contains foci of free air with internal density above simple fluid. This is suspicious for early abscess formation. Diffuse bladder wall thickening is likely reactive. However, correlation with urinalysis is recommended to evaluate for cystitis." - on exam: TTP along pfannenstiel incision site with R>L; broad area of erythema and induration -Patient underwentwound exploration and debridement on 11/23/2018 with removal of necrotic subcutaneous fat and edges of fascia. Fascia remained opened after procedure with plan for BID wet-to-dry dressing changes - Currently on levofloxacin 500 mg q24h andmetronidazole 500 mg q8h - Plastic surgery recs: Continue with Dakin's soaked Kerlix BID for the next 3- 4 days. If she continues to clinically improve and wound looks clean, may consider wound vac at that time. - Wound vac will be placed today - Paperwork completed for wound vac outpatient. Follow up with social work. Miguel Figueroa MD Associated attestation - Kristen Bustos MD - 12/01/2018 10:48 AM CDTI personally examined the patient on 11/27/[address] Figueroa's resident note as written. I actively participated in the decision-making process. Please see the resident's note for additional details. Connie Martinez LMSW - 11/27/2018 8:56 AM CDTSocial Work Note GOOD contacted [facility] ph: [phone], fax: [phone] and confirmed with Barbara that they received the referral and it is under review. GOOD contacted [address] [address] (P) [phone] to check the status of patient's wound vac order. Per Rasta with [employer], all the documents have been received and the wound vac should be delivered some time today to the hospital. Connie Martinez LMSW Care Management Pager: [phone] Davina Pacheco MD - 11/27/2018 1:09 AM CDTDRESSING CHANGE NOTE 11/27/2018 1:09 AM WET-TO-DRY DRESSING CHANGE: Patient premedicated with 25 mcg fentanyl. Old dressing removed. Wound base and edges noted to be beefy red with some bleeding. Fascia open with rectus muscles intact. No evidence of new necrosis or pus. Wound packed with normalDakin's-moistenedKerlix and covered witha dry abdominal pad in a nonocclusive manner. Patient tolerated exam well. Patient tolerated exam well. Patient noted to be feeling "hot" and have pruritis and redness on skin superior to incision, fingerexcoriation lines noted. Reported itching all day. Vitals re-checked, temperature 98.5 F. Benadryl given per PRNs, hydrocortisone cream 1% ordered. Patient seen with Dr. Julia Malone. Davina Starr MD PGY-1 WILDLIFE CONTROL OPERATOR Personal Pager: [phone] 11/27/18 1:09 AM Miguel Frey MD - 11/26/2018 12:13 PM CDTDRESSING CHANGE NOTE 11/26/2018 11:30 AM WET-TO-DRY DRESSING CHANGE: Patient premedicated with fentanyl 25 mcg. Old dressing removed. Wound base and edges noted to be beefy red with some bleeding. Fascia open with rectus muscles intact. No evidence of new necrosis or pus. Wound packed with normal Dakin's-moistened Kerlix and covered with a dry abdominal pad in a nonocclusive manner. Patient tolerated exam well. Miguel Figueroa MD Connie Meade LMSW - 11/26/2018 8:40 AM CDTSocial Work Note [facility] [place] to search for home health services for patient. Home Health companies that do not service patient's area: [facility] ph: [phone] [facility] ph: [phone] [facility] ph: [phone] (Their nurse in the area is on vacation.) [facility] ph: [phone] Home Health companies that do not offer jail services: [facility] ph: [phone] [facility] ph: [phone] [facility] ph: [phone] [facility] ph: [phone] - number disconnected FOUNTAIN JERK faxed referrals to: [facility], [address] [place] [address], ph: [phone], fax: [phone] - do not accept patient's insurance [facility] ph: [phone], fax: [phone] Update at 1541: GOOD faxed wound vac form and clinicals to [address] [address](P) [phone] for review. Connie Martinez LMSW Care Management Pager: [phone] Miguel Frey MD - 11/26/2018 8:09 AM CDT PROGRESS NOTE 11/26/2018 8:09 AM Subjective: Patient has been well without complaints. She denies fevers, chills, nausea, and vomiting. She is tolerating a regular diet. Pain is well controlled with PO pain medications. Objective: Vitals: Temp: [36.5 C (97.7 F)-37 C (98.6 F)] Pulse: [73-91] Resp: [17-18] BP: (120-136)/(69-88) Patient Vitals for the past 24 hrs: BP Temp Temp src Pulse Resp SpO2 11/26/18 0000 130/72 37 C (98.6 F) Oral 81 17 97 % 11/25/18 2000 133/88 36.6 C (97.9 F) Oral 73 18 100 % 11/25/18 1600 120/69 36.6 C (97.9 F) Oral 91 18 100 % 11/25/18 1200 136/80 36.5 C (97.7 F) Oral 75 18 100 % Physical Exam: General: patient alert and in no acute distress HEENT: symmetric, negative for masses Lungs: unlabored breathing Cardiology: peripheral pulses intact and regular Wound: Pfannenstiel incision open measuring 21 cm x 5 cm x 3 cm, 4 cm of undermining noted from approximately 10 to 12 o'clock, hemostatic, no evidence of infection or purulence, rectus muscles intact Extremities: no clubbing, cyanosis, or edema Neuro: patient moving all extremities, no facial droop : deferred Medications: Current Facility-Administered Medications Medication Dose Route Frequency Last Rate Last Dose levoFLOXacin (LEVAQUIN) tablet 500 mg 500 mg Oral Q24H ABX Stopped at 1145 metroNIDAZOLE (FLAGYL) tablet 500 mg 500 mg Oral Q8H 500 mg at 11/26/18 0206 lactated ringers IV infusion 1,000 mL 1,000 mL IV Infusion CONTINUOUS Stopped at 11/24/18 0945 sodium hypochlorite (DAKINS) 0.025% topical solution Topical BID bisacodyl (DULCOLAX) suppository 10 mg 10 mg Rectal QDAILYPRN diphenhydrAMINE (BENADRYL) 25 mg in NaCl 0.9% (NS) piggyback 25 mg IV Piggyback Q6HPRN diphenhydrAMINE (BENADRYL) tablet 25 mg 25 mg Oral Q6HPRN docusate calcium (SURFAK) capsule 240 mg 240 mg Oral QDAILYPRN 240 mg at 11/25/18 1953 HYDROcodone-acetaminophen (NORCO 5) 5-325 mg tablet 1 tablet 1 tablet Oral Q6HPRN HYDROcodone-acetaminophen (NORCO 5) 5-325 mg tablet 2 tablet 2 tablet Oral Q6HPRN 2 tablet at07/17/19 2235 ibuprofen (IBU) tablet 600 mg 600 mg Oral Q6HPRN 600 mg at 11/26/18 0729 magnesium hydroxide (MILK OF MAGNESIA) 400 mg/5 mL suspension 30 mL 30 mL Oral QDAILYPRN ondansetron (ZOFRAN (PF)) injection 4 mg 4 mg Slow IV Push Q8HPRN 4 mg at 11/25/18 2245 simethicone (GAS RELIEF) chewable tablet 160 mg 160 mg Oral PC+HSPRN Assessment/Plan: Tali Arriaga is a 18 year old [id number]/p primary CS who was admitted for wound infection. She is now POD#3 s/p wound exploration and debridement, HD#4. Wound Infection - emergent c/s on 11/17/2018 due to prolonged deceleration remote from delivery ; suture closure - discharged on POD#2; no signs of infection during hospital post-op course - patient noted tenderness and redness beginning 11/20/2018 - denies fevers at home; afebrile on admission to [facility] - presented to OSH -- WBC 14.33 - CT at OSH:"Marked inflammatory stranding of the lower anterior abdominal wall with overlying skin thickening more suggestive of cellulitis. A non-walled off collection in the right lower abdominal wall (4.4 x 2.6 x4 cm) contains foci of free air with internal density above simple fluid. This is suspicious for early abscess formation. Diffuse bladder wall thickening is likely reactive. However, correlation with urinalysis is recommended to evaluate for cystitis." - on exam: TTP along pfannenstiel incision site with R>L; broad area of erythema and induration -Patient underwentwound exploration and debridement on 11/23/2018 with removal of necrotic subcutaneous fat and edges of fascia. Fascia remained opened after procedure with plan for BID wet-to-dry dressing changes - Currently on levofloxacin 500 mg q24h andmetronidazole 500 mg q8h - Plastic surgery recs: Continue with Dakin's soaked Kerlix BID for the next 3- 4 days. If she continues to clinically improve and wound looks clean, may consider wound vac at that time. - Consider wound vac placement tomorrow Miguel Figueroa MD Associated attestation - Salina Edwards MD - 11/26/2018 12:28 PM CDTI personally saw and examined the patient on 11/26/[address] Figueroa, resident note as written. I actively participated in the decision-making process. Please, see the resident's note for additional details.Davina Starr MD - 11/25/2018 10:18 PM CDTDRESSING CHANGE NOTE 11/25/2018 10:18 PM WET-TO-DRY DRESSING CHANGE: Patient premedicated with 25 mcg fentanyl. Old dressing removed. Wound base and edges noted to be beefy red with some bleeding. Fascia open with rectus muscles intact. No evidence of new necrosis or pus. Patient noted tenderness along the right-side most aspect of the incision. Wound packed with normal Dakin's-moistened Kerlix and covered with a dry abdominal pad in a nonocclusive manner. Patient tolerated exam well. Next dressing change in AM. Davina Starr MD PGY-1 WILDLIFE CONTROL OPERATOR Personal Pager: [phone] 11/25/18 10:18 PM YTMiguel Figueroa MD - 11/25/2018 12:12 PM CDTDRESSING CHANGE NOTE 11/25/2018 12:00 PM WET-TO-DRY DRESSING CHANGE: Patient premedicated with fentanyl 25 mcg. Old dressing removed. Wound base and edges noted to be beefy red with some bleeding. Fascia open with rectus muscles intact. No evidence of new necrosis or pus. Wound packed with normal Dakin's-moistened Kerlix and covered with a dry abdominal pad in a nonocclusive manner. Patient tolerated exam well. Miguel Figueroa MD Connie Meade LMSW - 11/25/2018 11:05 AM CDTSocial Work Note GOOD received a call from [place] with [address] [address] , who reports they are out of network. FOUNTAIN JERK sent a referral to [facility], [address] [facility] [address] ph: [phone], fax: [phone] for review. FOUNTAIN JERK awaiting completion of wound vac form and Title XIX by . Update at 1316: FOUNTAIN JERK received a call from Erica with [facility], [address] [facility] [address] ph: [phone], fax: [phone], who reports they are provider services and do notoffer jail services. Connie Martinez LMSW Care Management Pager: [phone] YTMiguel Figueroa MD - 11/25/2018 7:04 AM CDT POSTOPERATIVE PROGRESS NOTE 11/25/2018 7:04 AM Subjective: Patient has been well without complaints. She denies fevers, chills, nausea, and vomiting. She is tolerating a regular diet. Pain is well controlled with PO pain medications. Objective: Vitals: Temp: [36.2 C (97.2 F)-37.1 C (98.8 F)] Pulse: [76-90] Resp: [17-18] BP: (118-133)/(64-81) Patient Vitals for the past 24 hrs: BP Temp Temp src Pulse Resp SpO2 11/25/18 0400 127/78 36.6 C (97.9 F) Oral 90 18 100 % 11/25/18 0000 133/79 37.1 C (98.8 F) Oral 85 18 99 % 11/24/18 2000 127/81 36.6 C (97.9 F) Oral 76 18 100 % 11/24/18 1600 123/75 36.5 C (97.7 F) Oral 79 18 100 % 11/24/18 1110 120/75 36.2 C (97.2 F) Oral 81 17 98 % 11/24/18 0800 118/64 36.4 C (97.6 F) Oral 78 18 95 % Physical Exam: General: patient alert and in no acute distress HEENT: symmetric, negative for masses Lungs: unlabored breathing Cardiology: peripheral pulses intact and regular Wound: Pfannenstiel incision open with surrounding erythema noted, hemostatic, no evidence of infection or purulence, rectus muscles are intact. Extremities: no clubbing, cyanosis, or edema Neuro: patient moving all extremities, no facial droop : deferred Medications: Current Facility-Administered Medications Medication Dose Route Frequency Last Rate Last Dose lactated ringers IV infusion 1,000 mL 1,000 mL IV Infusion CONTINUOUS Stopped at 11/24/18 0945 sodium hypochlorite (DAKINS) 0.025% topical solution Topical BID bisacodyl (DULCOLAX) suppository 10 mg 10 mg Rectal QDAILYPRN diphenhydrAMINE (BENADRYL) 25 mg in NaCl 0.9% (NS) piggyback 25 mg IV Piggyback Q6HPRN diphenhydrAMINE (BENADRYL) tablet 25 mg 25 mg Oral Q6HPRN docusate calcium (SURFAK) capsule 240 mg 240 mg Oral QDAILYPRN 240 mg at 11/23/182012 HYDROcodone-acetaminophen (NORCO 5) 5-325 mg tablet 1 tablet 1 tablet Oral Q6HPRN HYDROcodone-acetaminophen (NORCO 5) 5-325 mg tablet 2 tablet 2 tablet Oral Q6HPRN 2 tablet at11/25/18 0646 ibuprofen (IBU) tablet 600 mg 600 mg Oral Q6HPRN 600 mg at 11/24/18 2344 levoFLOXacin in D5W (LEVAQUIN) 500 mg/100 mL Piggyback 500 mg 500 mg IV Piggyback Q24H ABX 500 mg at 11/25/18 0520 magnesium hydroxide (MILK OF MAGNESIA) 400 mg/5 mL suspension 30 mL 30 mL Oral QDAILYPRN metroNIDAZOLE (FLAGYL I.V.) Piggyback 500 mg 500 mg IV Piggyback Q8H ABX Stopped at 11/25/18 0545 ondansetron (ZOFRAN (PF)) injection 4 mg 4 mg Slow IV Push Q8HPRN simethicone (GAS RELIEF) chewable tablet 160 mg 160 mg Oral PC+HSPRN Assessment/Plan: Tali Arriaga is a 18 year old female POD#8 s/p primary CS who was admitted for wound infection. She is now POD#2 s/p wound exploration and debridement, HD#3. Wound Infection - emergent c/s on 11/17/2018 due to prolonged deceleration remote from delivery ; suture closure - discharged on POD#2; no signs of infection during hospital post-op course - patient noted tenderness and redness beginning 11/20/2018 - denies fevers at home; afebrile on admission to [facility] - presented to OSH -- WBC 14.33 - CT at OSH:"Marked inflammatory stranding of the lower anterior abdominal wall with overlying skin thickening more suggestive of cellulitis. A non-walled off collection in the right lower abdominal wall (4.4 x 2.6 x4 cm) contains foci of free air with internal density above simple fluid. This is suspicious for early abscess formation. Diffuse bladder wall thickening is likely reactive. However, correlation with urinalysis is recommended to evaluate for cystitis." - on exam: TTP along pfannenstiel incision site with R>L; broad area of erythema and induration - Patient underwent wound exploration and debridement on 11/23/2018 with removal of necrotic subcutaneous fat and edges of fascia. Fascia remained opened after procedure with plan for BID wet-to-dry dressing changes - Currently on levofloxacin 500 mg q24h and metronidazole 500 mg q8h - Plastic surgery recs: Continue with Dakin's soaked Kerlix BID for the next 3- 4 days. If she continues to clinically improve and wound looks clean, may consider wound vac at that time. Miguel Figueroa MD Associated attestation - Anselmo Yanez - 11/25/2018 11:34 AM CDTI personally examined the patient on November 25 [address] Figueroa's resident note as written . I actively participated in the decision-making process. Please see the resident's note for additional details. Davina Starr MD - 11/24/2018 8:30 PM CDTDRESSING CHANGE NOTE 11/24/2018 8:30 PM WET-TO-DRY DRESSING CHANGE: Patient premedicated with fentanyl 25 mcg. Old dressing removed. Wound base and edges noted to be beefy red with some bleeding. Fascia open with rectus muscles intact. No evidence of new necrosis or pus. Wound packed with dakins moistened kerlix x2 and covered with a dry abdominal pad in a nonocclusive manner. Patient tolerated exam well. Davina Starr MD PGY-1 WILDLIFE CONTROL OPERATOR Personal Pager: [phone] 11/24/18 8:30 PM iguel Figueroa MD - 11/24/2018 11:13 AM CDTDRESSING CHANGE NOTE 11/24/2018 10:30 AM WET-TO-DRY DRESSING CHANGE: Patient premedicated with 50 mcg fentanyl. Old dressing removed. Wound base and edges noted to be beefy red with minimal bleeding. Fascia open with rectus muscles intact. Noevidence of new necrosis or pus. Wound packed with normal saline moistened Kerlix x 2 and covered with a dry abdominal pad in a nonocclusive manner. Patient tolerated exam well. Next dressing change to be performed with Dakins solution. Miguel Figueroa MD Connie Meade LMSW - 11/24/2018 11:02 AM CDTSocial Work Note FOUNTAIN JERK notified that patient will need an outpatient wound vac for d/c. FOUNTAIN JERK emailed wound vac form and Title XIX to for completion. [facility] [place] [facility]errals to: [facility] [address] [place] [address] ph [facility] [address] [facility] [place] [place] [address] (Ph) [phone] (F) - Out of [address] [place] [address], [place], [place] [phone] fax . FOUNTAIN JERK to follow Connie Martinez LMSW Care Management Pager: [phone] Miguel Frey MD - 11/24/2018 10:08 AM CDT POSTOPERATIVE PROGRESS NOTE 11/24/2018 10:09 AM Subjective: Patient has been well without complaints. Objective: Vitals: Temp: [36.4 C (97.6 F)-36.8 C (98.3 F)] Pulse: [78-102] Resp: [18] BP: (111-120)/(63-77) Patient Vitals for the past 24 hrs: BP Temp Temp src Pulse Resp SpO2 11/24/18 0800 118/64 36.4 C (97.6 F) Oral 78 18 95 % 11/24/18 0400 115/63 36.7 C (98 F) Oral 89 18 96 % 11/23/18 2300 114/67 36.6 C (97.9 F) Oral 92 18 98 % 11/23/18 2000 111/71 36.8 C (98.3 F) Oral 102 18 99 % 11/23/18 1600 111/77 36.7 C (98.1 F) Oral 97 18 97 % 11/23/18 1200 120/73 36.8 C (98.2 F) Oral 98 18 99 % 11/23/18 1018 110/69 36.6 C (97.9 F) Oral 103 18 99 % Physical Exam: General: patient alert and in no acute distress HEENT: symmetric, negative for masses Lungs: unlabored breathing Cardiology: peripheral pulses intact and regular Wound: Dressing removed, Pfannenstiel incision open with surrounding erythema noted, hemostatic, no evidence of infection or purulence, rectus muscles are intact. Extremities: no clubbing, cyanosis, or edema Neuro: patient moving all extremities, no facial droop : deferred Medications: Current Facility-Administered Medications Medication Dose Route Frequency Last Rate Last Dose lactated ringers IV infusion 1,000 mL 1,000 mL IV Infusion CONTINUOUS bisacodyl (DULCOLAX) suppository 10 mg 10 mg Rectal QDAILYPRN diphenhydrAMINE (BENADRYL) 25 mg in NaCl 0.9% (NS) piggyback 25 mg IV Piggyback Q6HPRN diphenhydrAMINE (BENADRYL) tablet 25 mg 25 mg Oral Q6HPRN docusate calcium (SURFAK) capsule 240 mg 240 mg Oral QDAILYPRN 240 mg at 11/23/182012 HYDROcodone-acetaminophen (NORCO 5) 5-325 mg tablet 1 tablet 1 tablet Oral Q6HPRN HYDROcodone-acetaminophen (NORCO 5) 5-325 mg tablet 2 tablet 2 tablet Oral Q6HPRN 2 tablet at11/23/181958 ibuprofen (IBU) tablet 600 mg 600 mg Oral Q6HPRN 600 mg at 11/24/18 0244 levoFLOXacin in D5W (LEVAQUIN) 500 mg/100 mL Piggyback 500 mg 500 mg IV Piggyback Q24H ABX 500 mg at 11/24/18 0547 magnesium hydroxide (MILK OF MAGNESIA) 400 mg/5 mL suspension 30 mL 30 mL Oral QDAILYPRN metroNIDAZOLE (FLAGYL I.V.) Piggyback 500 mg 500 mg IV Piggyback Q8H ABX 500 mg at 11/24/18 0937 ondansetron (ZOFRAN (PF)) injection 4 mg 4 mg Slow IV Push Q8HPRN simethicone (GAS RELIEF) chewable tablet 160 mg 160 mg Oral PC+HSPRN Assessment/Plan: Tali Arriaga is a 18 year old female POD#7 s/p primary CS who was admitted for wound infection. She is now POD#1 s/p wound exploration and debridement, HD#2. Wound Infection - emergent c/s on 11/17/2018 due to prolonged deceleration remote from delivery ; suture closure - discharged on POD#2; no signs of infection during hospital post-op course - patient noted tenderness and redness beginning 11/20/2018 - denies fevers at home; afebrile on admission to [facility] - presented to OSH -- WBC 14.33 - CT at OSH: "Marked inflammatory stranding of the lower anterior abdominal wall with overlying skinthickening more suggestive of cellulitis. A non-walled off collection in the right lower abdominal wall (4.4 x 2.6 x4 cm) contains foci of free air with internal density above simple fluid. This is suspicious for early abscess formation. Diffuse bladder wall thickening is likely reactive. However, correlation with urinalysis is recommended to evaluate for cystitis." - on exam: TTP along pfannenstiel incision site with R>L; broad area of erythema and induration - Patient underwent wound exploration and debridement on 11/23/2018 with removal of necrotic subcutaneous fat and edges of fascia. Fascia remained opened after procedure with plan for BID wet-to-dry dressing changes - Currently on levofloxacin 500 mg q24h and metronidazole 500 mg q8h - Dressing change performed with Dr. Sanchez Dispo: Patient will need wet-to-dry dressing changes BID with Dakin's solution. Will consult plasticsurgery about getting a wound vac while patient is admitted. Discussed with social work about getting wound vac and home health once patient is discharged. Miguel Figueroa MD Associated attestation - Karson Sanchez MD - 11/24/2018 11:55 AM CDT I have seen and evaluated on 11/24/18 the patient thereby confirming the molina portions of the history and physical examination. I discussed the case with the resident and agree with the findings and plan as documented in the resident note. Patient Active Problem List Diagnosis Supervision of high risk , antepartum Primigravida in first trimester Needs flu shot High risk teen in first trimester Chlamydia infection affecting Genital warts complicating , third trimester Feeling of sadness Anemia of mother in , antepartum Low maternal weight gain, third trimester Uterine size-date discrepancy in third trimester 39 weeks gestation of Labor and delivery indication for care or intervention S/P section Obesity (BMI 30-39.9) wound infection Aaron Woodson Kelly, MD - 11/23/2018 8:32 PM CDTDRESSING CHANGE NOTE 11/23/2018 8:32 PM WET-TO-DRY DRESSING CHANGE: Patient premedicated with norco 10. Old dressing removed. Wound base andedges noted to be beefy red with some bleeding. Fibrinous tissue not present. Fascia was not intact, as this was left open during operative debridement. No evidence of new necrosis or pus. Wound packed with normal saline moistened kerlex, 4x4s and covered with a dry abdominal pad in a nonocclusive manner. Patient tolerated exam well. Continue BID dressing changes. Next dressing change 0830 AM 11/24/18. Davina Starr MD PGY-1 WILDLIFE CONTROL OPERATOR Personal Pager: [phone] 11/23/18 6:02 PM documented in this encounter Plan of Treatment Date Type Specialty Care Team Description 12/08/2018 Routine Visit OB Satellites Maria G Stubbs, [facility] [address] [place] [address] [phone] Name Type Priority Associated Diagnoses Order Schedule Rho (D) Immune Globulin LAB Routine ONCE for 1 Occurrences starting 11/23/2018 until 11/23/2018 Health Maintenance Due Date Last Done Comments [...] this topic documented as of this encounter Procedures Procedure Name Priority Date/Time Associated Comments Diagnosis CBC WITH DIFFERENTIAL Routine 11/24/2018 2:35 Results for this AM CDT procedure are in the results section. CBC WITH DIFF Routine 11/24/2018 2:35 Results for this AM CDT procedure are in the results section. SURGICAL PATHOLOGY EXAM STAT 11/23/2018 8:00 Results for this AM CDT procedure are in the results section. WOUND DEBRIDEMENT 11/23/2018 6:20 s/p wound AM CDT debridement & packing TYPE AND SCREEN Routine 11/23/2018 5:01 Results for this AM CDT procedure are in the results section. CT ABDOMEN PELVIS W STAT 11/23/2018 12:13 Abdominal wall Results for this CONTRAST AM CDT cellulitis procedure are in the results section. BLOOD CULTURE SCREEN STAT 11/22/2018 11:11 Abdominal wall Results for this PM CDT cellulitis procedure are in the results section. CBC WITH DIFFERENTIAL STAT 11/22/2018 11:10 Abdominal wall Results for this PM CDT cellulitis procedure are in the results section. ACTIVATED PARTIAL STAT 11/22/2018 11:10 Abdominal wall Results for this THRMPLAS ADIA PM CDT cellulitis procedure are in the results section. PROTHROMBIN TIME / INR STAT 11/22/2018 11:10 Abdominal wall Results for this PM CDT cellulitis procedure are in the results section. CBC WITH DIFF Routine 11/22/2018 11:10 Abdominal wall Results for this PM CDT cellulitis procedure are in the results section. BASIC METABOLIC PANEL STAT 11/22/2018 11:10 Abdominal wall Results for this (NA, K, CL, CO2, PM CDT cellulitis procedure are in GLUCOSE, BUN, the results CREATININE, CA) section. HEPATIC FUNCTION PANEL STAT 11/22/2018 11:10 Abdominal wall Results for this (21278) (ALB,T.PRO,BILI PM CDT cellulitis procedure are in T,BU/BC,ALT,AST,ALK the results PHOS) section. BLOOD CULTURE SCREEN STAT 11/22/2018 11:10 Abdominal wall Results for this PM CDT cellulitis procedure are in the results section. LACTIC ACID WHOLE BLOOD STAT 11/22/2018 11:09 Abdominal wall Results for this PM CDT cellulitis procedure are in the results section. CONSENT/REFUSAL FOR Routine 11/22/2018 10:29 DIAGNOSIS AND TREATMENT PM CDT AGREEMENTS Routine 11/22/2018 12:01 AUTHORIZATIONS AND AM CDT IRREVOCABLE ASSIGNMENTS (FORM 2001) documented in this encounter Results CBC WITH DIFFERENTIAL (11/24/2018 2:35 AM CDT) WBC 12.34 (H) 4.30 - 11.10 [facility] 10*3/L SERVICES RBC 2.59 (L) 3.93 - 5.25 [facility] 10*6/L SERVICES HGB 8.0 (L) 11.6 - 15.0 [facility] g/dL SERVICES HCT 24.8 (L) 35.7 - 45.2 % [facility] MCV 95.8 (H) 80.6 - 95.5 fL [facility] MCH 30.9 25.9 - 32.8 pg [facility] MCHC 32.3 31.6 - 35.1 [facility] g/dL SERVICES RDW-SD 51.2 (H) 39.0 - 49.9 fL [facility] RDW-CV 14.6 12.0 - 15.5 % [facility] PLT 246 166 - 358 [facility] 10*3/L SERVICES MPV 9.8 9.5 - 12.9 fL [facility] SERVICES NRBC/100 WBC 0.0 0.0 - 10.0 [facility] /100 WBCs SERVICES NRBC x10^3 <0.01 10*3/L [facility] GRAN MAT (NEUT) % 84.0 % [facility] IMM GRAN % 1.10 % [facility] LYMPH % 11.2 % [facility] MONO % 3.0 % [facility] EOS % 0.6 % [facility] BASO % 0.1 % [facility] GRAN MAT 10.36 (H) 1.88 - 7.09 [facility] x10^3(ANC) 10*3/uL SERVICES IMM GRAN x10^3 0.14 (H) 0.00 - 0.06 [facility] 10*3/uL SERVICES LYMPH x10^3 1.38 1.32 - 3.29 [facility] 10*3/uL SERVICES MONO x10^3 0.37 0.33 - 0.92 [facility] 10*3/uL SERVICES EOS x10^3 0.08 0.03 - 0.39 [facility] 10*3/uL SERVICES BASO x10^3 <0.03 0.01 - 0.07 [facility] 10*3/uL SERVICES BANDS Increased (A) [facility] Specimen Blood - ARM, LEFT Performing Organization Address City/State/Zipcode Phone Number [facility] CLIA: [id number], [address], [place] [address] [facility] SURGICAL PATHOLOGY EXAM (11/23/2018 8:00 AM CDT) Case Report Surgical Pathology Case: [id number] [facility] Authorizing Provider:Elisabeth Rush MDCollected: 11/23/2018 0800 SERVICES Ordering Location: Labor and Delivery ([facility])Received: 11/23/2018 1125 Pathologist: Judith Bryson MD PHD Specimens: A) - ABDOMEN B) - ABDOMEN C) - ABDOMEN Final Diagnosis [facility] Electronically A. SOFT TISSUE, ABDOMEN, DEBRIDEMENT: SERVICES signed by Adelaide, - FIBROADIPOSE TISSUE WITH ACUTE INFLAMMATORY INFILTRATE AND REGIONS OF MD Judith PHD on NECROTIZING FASCIA 11/25/2018 at 1:48 PM B. SOFT TISSUE, ABDOMEN, DEBRIDEMENT: - FIBROADIPOSE TISSUE WITH ACUTE INFLAMMATORY INFILTRATE AND REGIONS OF NECROTIZING FASCIA C. SOFT TISSUE, ABDOMEN, DEBRIDEMENT: - FIBROADIPOSE TISSUE WITH ACUTE INFLAMMATORY INFILTRATE AND REGIONS OF NECROTIZING FASCIA I have personally reviewed all specimens/slides and agree with all statements made by residents, fellows or pathologist assistants whose name(s) may appear on this report. Clinical s/p [facility] Information 11/17/2018 Wound SERVICES debridement & packing 3 kerlix 11/23/2018 Gross Description Specimen A is received in formalin in 2 containers labelled with the patient s name, number abdomen and consists of multiple portions of breaux-coronado to yellow, skin and soft tissue, aggregatin [facility] g to (14 x 10 x 5 cm ). The specimen is serially sectioned and representatively submitted in A1 1. SERVICES Specimen B is received in formalin labelled with the patient s name, [facility] number abdomen and consists of multiple portions of breaux-coronado to yellow skin and soft tissue , aggregating to (4.5 x 4.5 x 2 cm). The specimen is serially sectioned and representatively submitted in B 1. Specimen C is received in formalin labelled with the patient s name, number abdomen and consists of multiple portions of breaux-coronado to yellow soft tissue, aggregating to (4.5 x 4.5 x 5 cm ). T he specimen is serially sectioned and representatively submitted in C 1. SANCHEZ Pacheco (ASCP)cm Embedded Images [facility] SERVICES Specimen Tissue - ABDOMEN Tissue specimen (specimen) - ABDOMEN Tissue specimen (specimen) - ABDOMEN Performing Organization Address City/State/Zipcode Phone Number [facility] CLIA: [id number], [address] [place] [address] [facility] Type and Screen - ONCE Routine (11/23/2018 5:01 AM CDT) ABO & RH B POSITIVE LAB Comment: Performed at [facility] Laboratory Services - [facility] Blood Bank [address] [place] [address] Toll Free: [phone] CLIA No. [id number] IAT Negative LAB Comment: Performed at [facility] Laboratory Services - [facility] Blood Bank [address] [place], [place] [address] Toll Free: [phone] CLIA No. [id number] Specimen Blood - VENOUS Performing Organization Address City/State/Zipcode Phone Number D LAB CT ABDOMEN PELVIS W CONTRAST (11/23/2018 12:13 AM CDT) Specimen Impressions Performed At PACS/VR/DOSE Marked inflammatory stranding of the lower anterior abdominal wall with overlying skin thickening more suggestive of cellulitis. A non-walled off collection in the right lower abdominal wall (4.4 x 2.6 x 4 cm) contains foci of free air with internal density above simple fluid. This could represent a developing abscess. Diffuse bladder wall thickening is likely reactive. However, correlation with urinalysis is recommended to evaluate for cystitis. INicole MD., have reviewed this study and agree with the above report. Narrative Performed At EXAM: CT ABDOMEN AND PELVIS WITH CONTRAST PACS/VR/DOSE HISTORY: 18-year-old female with abdominal wall cellulitis. History of on 11/17/2018. COMPARISON: None. TECHNIQUE AND FINDINGS: Contiguous axial imaging from the level of the lung bases through the pubic symphysis was performed after the uncomplicated administration of 120 cc of intravenous Omnipaque contrast. Coronal and sagittal reconstructions were obtained.Auto mA and/or iterative reconstruction were used to reduce radiation dose. FINDINGS: LOWER THORAX: The lung bases are clear. No cardiomegaly. LIVER: No focal hepatic lesions. Normal contour. GALLBLADDER AND BILIARY TREE: No biliary ductal dilation. No gallbladder wall thickening. SPLEEN: No splenomegaly. PANCREAS: No ductal dilation or masses. ADRENAL GLANDS: No adrenal nodules. KIDNEYS: No hydronephrosis, stones, or masses. PERITONEUM AND RETROPERITONEUM: No free air or fluid. LYMPH NODES: Mildly prominent external iliac lymph nodes, reactive appearing. GI TRACT: No dilation or wall thickening. PELVIS/BLADDER: The bladder wall is diffusely thickened and enhancing. The uterus is enlarged, compatible with post-gravid status.. VESSELS: Unremarkable. BONES AND SOFT TISSUES: There is diffuse inflammatory stranding of the lower anterior abdominal wall with overlying skin thickening. An ill-defined area of fluid collection is noted on the right side measuring approximately 4.4 x 2.6 x 4 cm (AP by TV by CC). The internal density of the collection is just above simple fluid. Multiple foci of free air are noted adjacent to this collection. This collection is in the deep subcutaneous fat and extending to involve the right rectus muscle No suspicious lytic or sclerotic bony lesions. Procedure Note [facility], Radiant Results Inft User - 11/23/2018 8:37 AM CDT EXAM: CT ABDOMEN AND PELVIS WITH CONTRAST HISTORY: 18-year-old female with abdominal wall cellulitis. History of on 11/17/2018. COMPARISON: None. TECHNIQUE AND FINDINGS: Contiguous axial imaging from the level of the lung bases through the pubic symphysis was performed after the uncomplicated administration of 120 cc of intravenous Omnipaque contrast. Coronal and sagittal reconstructions were obtained. Auto mA and/or iterative reconstruction were used to reduce radiation dose. FINDINGS: LOWER THORAX: The lung bases are clear. No cardiomegaly. LIVER: No focal hepatic lesions. Normal contour. GALLBLADDER AND BILIARY TREE: No biliary ductal dilation. No gallbladder wall thickening. SPLEEN: No splenomegaly. PANCREAS: No ductal dilation or masses. ADRENAL GLANDS: No adrenal nodules. KIDNEYS: No hydronephrosis, stones, or masses. PERITONEUM AND RETROPERITONEUM: No free air or fluid. LYMPH NODES: Mildly prominent external iliac lymph nodes, reactive appearing. GI TRACT: No dilation or wall thickening. PELVIS/BLADDER: The bladder wall is diffusely thickened and enhancing. The uterus is enlarged, compatible with post-gravid status.. VESSELS: Unremarkable. BONES AND SOFT TISSUES: There is diffuse inflammatory stranding of the lower anterior abdominal wall with overlying skin thickening. An ill-defined area of fluid collection is noted on the right side measuring approximately 4.4 x 2.6 x 4 cm (AP by TV by CC). The internal density of the collection is just above simple fluid. Multiple foci of free air are noted adjacent to this collection. This collection is in the deep subcutaneous fat and extending to involve the right rectus muscle No suspicious lytic or sclerotic bony lesions. IMPRESSION Marked inflammatory stranding of the lower anterior abdominal wall with overlying skin thickening more suggestive of cellulitis. A non-walled off collection in the right lower abdominal wall (4.4 x 2.6 x 4 cm) contains foci of free air with internal density above simple fluid. This could represent a developing abscess. Diffuse bladder wall thickening is likely reactive. However, correlation with urinalysis is recommended to evaluate for cystitis. INicole MD., have reviewed this study and agree with the above report. Performing Organization Address City/[facility]/Zipcode Phone Number PACS/VR/DOSE BLOOD CULTURE SCREEN (11/22/2018 11:11 PM CDT) Blood No organisms isolated No growth [facility] Culture-Aerobic Comment: HOSPITAL Previous preliminary verified result was Culture In Progress on 11/23/2018 at 0303 CDT LABORATORY Previous preliminary verified result was No growth at 24 hours on 11/24/2018 at 0001 CDT Previous preliminary verified result was No growth at 48 hours on 11/25/2018 at 0001 CDT Previous preliminary verified result was No growth at 72 hours on 11/26/2018 at 0001 CDT Blood No organisms isolated No growth [facility] Culture-Anaerobic Comment: HOSPITAL Previous preliminary verified result was Culture In Progress on 11/23/2018 at 0303 CDT LABORATORY Previous preliminary verified result was No growth at 24 hours on 11/24/2018 at 0001 CDT Previous preliminary verified result was No growth at 48 hours on 11/25/2018 at 0001 CDT Previous preliminary verified result was No growth at 72 hours on 11/26/2018 at 0001 CDT Specimen Blood - VENOUS Performing Organization Address [facility] Phone Number [facility] CLIA: [id number], [address] [place] [address] CBC WITH DIFFERENTIAL (11/22/2018 11:10 PM CDT) [facility] Signature WBC 14.33 (H) 4.30 - 11.10 [facility] 10*3/L [facility] RBC 3.19 (L) 3.93 - 5.25 [facility] 10*6/L [facility] HGB 9.8 (L) 11.6 - 15.0 [facility] g/dL [facility] HCT 30.2 (L) 35.7 - 45.2 % [facility] MCV 94.7 80.6 - 95.5 fL [facility] MCH 30.7 25.9 - 32.8 pg [facility] MCHC 32.5 31.6 - 35.1 [facility] g/dL HOSPITAL LABORATORY RDW-SD 49.0 39.0 - 49.9 fL [facility] RDW-CV 14.2 12.0 - 15.5 % [facility]OR[facility] PLT 230 166 - 358 [facility] 10*3/L [facility] MPV 9.6 9.5 - 12.9 fL [facility] NRBC/100 WBC 0.0 0.0 - 10.0 /100 [facility] WBCs [facility] NRBC x10^3 <0.01 10*3/L [facility] GRAN MAT (NEUT) % 91.7 % [facility] IMM GRAN % 1.00 % [facility] LYMPH % 3.7 % [facility] MONO % 3.3 % [facility] EOS % 0.1 % [facility] BASO % 0.2 % [facility] GRAN MAT x10^3(ANC) 13.13 (H) 1.88 - 7.09 [facility] 10*3/uL [facility] IMM GRAN x10^3 0.15 (H) 0.00 - 0.06 [facility] 10*3/uL [facility] LYMPH x10^3 0.53 (L) 1.32 - 3.29 [facility] 10*3/uL [facility] MONO x10^3 0.47 0.33 - 0.92 [facility] 10*3/uL [facility] EOS x10^3 <0.03 (L) 0.03 - 0.39 [facility] 10*3/uL [facility] BASO x10^3 0.03 0.01 - 0.07 [facility] 10*3/uL [facility] Specimen Blood - VENOUS Performing Organization Address City/State/Zipcode Phone Number [facility] CLIA: [id number], [address] [place] [address] BLOOD CULTURE SCREEN (11/22/2018 11:10 PM CDT) Blood No organisms isolated No growth [facility] Culture-Aerobic Comment: HOSPITAL Previous preliminary verified result was Culture In Progress on 11/23/2018 at 0303 CDT LABORATORY Previous preliminary verified result was No growth at 24 hours on 11/24/2018 at 0001 CDT Previous preliminary verified result was No growth at 48 hours on 11/25/2018 at 0001 CDT Previous preliminary verified result was No growth at 72 hours on 11/26/2018 at 0001 CDT Blood No organisms isolated No growth [facility] Culture-Anaerobic Comment: HOSPITAL Previous preliminary verified result was Culture In Progress on 11/23/2018 at 0303 CDT LABORATORY Previous preliminary verified result was No growth at 24 hours on 11/24/2018 at 0001 CDT Previous preliminary verified result was No growth at 48 hours on 11/25/2018 at 0001 CDT Previous preliminary verified result was No growth at 72 hours on 11/26/2018 at 0001 CDT Specimen Blood - VENOUS Performing Organization Address City/[facility] Mex[facility]ode Phone Number [facility] CLIA: [id number], [address] [place] [address] [address] Prothrombin Time (PT) / INR (11/22/2018 11:10 PM CDT) [facility] PROTIME PATIENT 16.8 (H) 12.0 - 14.7 [facility] LABORATORY INR 1.4Comment: Normal [facility] INR <1.1; [facility] Therapeutic range LABORATORY 2.0 to 3.0 or 2.5 to 3.5, depending upon the indications. Specimen Blood - VENOUS Performing Organization Address [facility] Phone Number [facility] CLIA: [id number], [address] [place] [address] aPTT (11/22/2018 11:10 PM CDT) [facility] APTT Patient 38 23 - 38 Seconds [facility] LABORATORY Specimen Blood - VENOUS Narrative Performed At The [facility] patient population mean normal value [facility] LAB[facility]ORY for aPTT is 30 seconds. Performing Organization Address [facility] Phone Number [facility] CLIA: [id number], [address] [place] [address] Hepatic Function Panel (ALB, T.PRO, BILI T, BU/BC, ALT, AST, ALK PHOS) (2018 11:10 PM CDT) [facility] TOTAL BILI 0.4 0.1 - 1.1 mg/dL [facility] LABORATORY BILI UNCON 0.3 0.1 - 1.1 mg/dL [facility] BILI CONJ 0.0 0.0 - 0.3 mg/dL [facility] T PROTEIN 6.2 (L) 6.3 - 8.2 g/dL [facility]ORY ALBUMIN 2.9 (L) 3.5 - 5.0 g/dL [facility]ORY ALK PHOS 150 (H) 34 - 122 U/L [facility] ALT(SGPT) 17 9 - 51 U/L [facility] AST(SGOT) 15 13 - 40 U/L [facility]ORY Specimen Blood - VENOUS Performing Organization Address City/State/Zipcode Phone Number [facility] CLIA: [id number], [address] [place] [address] Basic Metabolic Panel (NA, K, CL, CO2, GLUCOSE, BUN, CREATININE, CA) (2018 11:10 PM CDT) NA 138 135 - 145 [facility] mmol/L [facility] K 3.1 (L) 3.5 - 5.0 [facility] mmol/L [facility] CL 107 98 - 108 mmol/L [facility] CO2 TOTAL 22 (L) 23 - 31 mmol/L [facility] AGAP 9 2 - 16 [facility] BUN 12 7 - 23 mg/dL [facility] GLUCOSE 123 (H) 70 - 110 mg/dL [facility]ORY CREATININE 0.68 0.50 - 1.04 [facility] mg/dL [facility] CALCIUM 8.6 8.6 - 10.6 [facility] mg/dL [facility] eGFR Calculation 111.5 mL/min/1.73m2 [facility] ([facility] LABORATORY [place]) eGFR Calculation 135.1 mL/min/1.73m2 [facility] () [facility] Specimen Blood - VENOUS Narrative Performed At Association of Glomerular Filtration Rate (GFR) [facility] LABORATORY and Staging of Kidney Disease* + + +- + | GFR (mL/min/1.73 m2)| With Kidney Damage|Without Kidney Damage + + +- + |>90| Stage one| Normal + + +- + |60-89|S tage two| Decreased GFR + + +- + |30-59|S tage three| Stage three + + +- + |15-29|S tage four | Stage four + + +- + |<15 (or dialysis)|Stage five | Stage five + + +- + *Each stage assumes the associated GFR level has been in effect for at least three months.Stages 1 to 5, with or without kidney disease, indicate chronic kidney disease. Notes: Determination of stages one and two (with eGFR >59mL/min/1.73 m2) requires estimation of kidney damage for at least three months as defined by structural or functional abnormalities of the kidney, manifested by either: Pathological abnormalities or Markers of kidney damage (including abnormalities in the composition of the blood or urine or abnormalities in imaging tests). Performing Organization Address City/State/Zipcode Phone Number [facility] CLIA: [id number], [address] [place] [address] Lactic Acid Whole Blood (11/22/2018 11:09 PM CDT) LACTIC ACID 1.45 0.50 - 2.20 mmol/L [facility] LABORATORY Specimen Blood - VENOUS Performing Organization Address City/State/Zipcode Phone Number [facility] CLIA: [id number], [address] [place] [address] documented in this encounter Visit Diagnoses Diagnosis Abdominal wall cellulitis - Primary Cellulitis and abscess of trunk Abdominal wall abscess Cellulitis and abscess of trunk S/P primary low transverse delivery, without mention of indication, unspecified as to episode of care Open wound of anterior abdominal wall, initial encounter Obesity (BMI 30-39.9) Obesity, unspecified wound infection Other complication of obstetrical surgical wounds, unspecified as to episode of care S/P section Other postprocedural status documented in this encounter Administered Medications Medication Order MAR Action Action Date Dose Rate Site diphenhydrAMINE (BENADRYL) tablet Given 11/27/2018 1:06 AM CDT 25 mg 25 mg 25 mg, Oral, Q6HPRN, Starting Fri11/23/18 at 1029, Until Discontinued, Routine, Sleep, Itching docusate calcium (SURFAK) capsule 240 mg Given 12/03/2018 9:28 AM CDT 240 mg 240 mg, Oral, QDAILYPRN, Starting Fri11/23/18 at 1029, Until Discontinued, Routine, Constipation Given 11/29/2018 1:34 PM CDT 240 mg Given 11/26/2018 8:11 PM CDT 240 mg HYDROcodone-acetaminophen (NORCO 5) 5-325 Given 12/03/2018 8:41 PM CDT 1 tablet mg tablet 1 tablet 1 tablet, Oral, Q6HPRN, Starting Fri11/23/18 at 1029, Until Discontinued, Routine, Pain (scale 4-6), If uncontrolled by Ibuprofen Given 11/30/2018 12:42 PM CDT 1 tablet Given 11/29/2018 8:04 PM CDT 1 tablet HYDROcodone-acetaminophen (NORCO 5) 5-325 Given 12/04/2018 12:51 PM CDT 2 tablets mg tablet 2 tablet 2 tablet, Oral, Q6HPRN, Starting Fri11/23/18 at 1029, Until Discontinued, Routine, Pain (scale 7-10), If uncontrolled by Ibuprofen Given 12/02/2018 1:26 PM CDT 2 tablets Given 12/01/2018 8:26 PM CDT 2 tablets hydrocortisone (GLY-FELIZ) 1 % lotion Given 12/04/2018 9:24 AM CDT Topical, DAILY, First dose on Fri11/27/18 at 0115, Until Discontinued, Routine Given 12/03/2018 9:00 AM CDT Given 12/02/2018 9:00 AM CDT ibuprofen (IBU) tablet 600 mg Given 11/29/2018 2:06 PM CDT 600 mg 600 mg, Oral, Q6HPRN, Starting Fri11/23/18 at 1029, Until Discontinued, Routine, Pain (scale 1-3) Given 11/28/2018 11:53 AM CDT 600 mg Given 11/27/2018 9:47 PM CDT 600 mg lactated ringers IV infusion 1,000 mL at 125 mL/hr, 1,000 mL, IV Infusion, CONTINUOUS, Starting Fri11/24/18 at 0945, Until Discontinued, Routine magnesium hydroxide (MILK OF MAGNESIA) 400 Given 12/03/2018 9:30 AM CDT 30 mL mg/5 mL suspension 30 mL 30 mL, Oral, QDAILYPRN, Starting Fri11/23/18 at 1029, Until Discontinued, Routine, Constipation Given 12/02/2018 1:27 PM CDT 30 mL Given 11/26/2018 9:02 AM CDT 30 mL ondansetron (ZOFRAN (PF)) injection 4 mg Given 11/25/2018 10:45 PM CDT 4 mg 4 mg, Slow IV Push, Q8HPRN, Starting Fri11/23/18 at 1029, Until Discontinued, Routine, Nausea and Vomiting (N/V) simethicone (GAS RELIEF) chewable tablet 160 Given 11/26/2018 9:02 AM CDT 160 mg mg 160 mg, Oral, PC+HSPRN, Starting Fri11/23/18 at 1029, Until Discontinued, Routine, Gas sodium hypochlorite (DAKINS) 0.025% Given by Provider 12/02/2018 8:00 AM CDT topical solution Topical, BID, First dose on Fri11/24/18 at 2000, Until Discontinued, Routine Given by Provider 11/25/2018 10:20 PM CDT Given 11/25/2018 12:00 PM CDT Medication Order MAR Action Action Date Dose Rate Site acetaminophen (TYLENOL) tablet Given 11/23/2018 5:31 AM CDT 650 mg 650 mg 650 mg, Oral, ONCE, 1 dose, Fri11/23/18 at 0445, Routine ciprofloxacin in 5 % dextrose (CIPRO) Given 11/23/2018 1:26 AM CDT 400 mg piggyback 400 mg 400 mg, IV Piggyback, Administer over 60 Minutes, ONCE, 1 dose, Fri11/23/18 at 0215, MABEL, Reason for Anti-Infective: Documented Infection, Documented Infection Site: Abdominal, Duration of Therapy: Other (see Comments) FENTanyl PF (SUBLIMAZE (PF)) injection 25 Given 11/24/2018 2:49 PM CDT 25 mcg mcg 25 mcg, Slow IV Push, ONCE, 1 dose, Fri11/24/18 at 1545, Routine FENTanyl PF (SUBLIMAZE (PF)) injection 25 Given 11/24/2018 8:19 PM CDT 25 mcg mcg 25 mcg, Slow IV Push, ONCE, 1 dose, Fri11/24/18 at 2015, Routine FENTanyl PF (SUBLIMAZE (PF)) injection 25 Given 11/25/2018 11:48 AM CDT 25 mcg mcg 25 mcg, Slow IV Push, ONCE, 1 dose, Fri11/25/18 at 1145, Routine FENTanyl PF (SUBLIMAZE (PF)) injection 25 Given 11/25/2018 10:32 PM CDT 25 mcg mcg 25 mcg, Slow IV Push, ONCE, 1 dose, Fri11/25/18 at 2230, Routine FENTanyl PF (SUBLIMAZE (PF)) injection 25 Given 11/26/2018 11:30 AM CDT 25 mcg mcg 25 mcg, Slow IV Push, ONCE, 1 dose, Fri11/26/18 at 1230, Routine FENTanyl PF (SUBLIMAZE (PF)) injection 25 Given 11/27/2018 12:45 AM CDT 25 mcg mcg 25 mcg, Slow IV Push, ONCE, 1 dose, Fri11/26/18 at 2330, Routine FENTanyl PF (SUBLIMAZE (PF)) injection 25 Given 11/27/2018 2:42 PM CDT 25 mcg mcg 25 mcg, Slow IV Push, ONCE, 1 dose, Fri11/27/18 at 1645, Routine FENTanyl PF (SUBLIMAZE (PF)) injection 50 Given 11/24/2018 10:30 AM CDT 50 mcg mcg 50 mcg, Slow IV Push, ONCE, 1 dose, Fri11/24/18 at 1200, Routine iohexol (OMNIPAQUE 350 BULK-100 mL) Given 11/23/2018 12:05 AM CDT 120 mL injection 120 mL 120 mL, Intravenous, ONCE, 1 dose, Fri11/23/18 at 0015, Routine lactated ringers IV infusion New Bag 11/23/2018 5:32 AM CDT 1,000 mL 125 mL/hr 1,000 mL at 125 mL/hr, 1,000 mL, IV Infusion, CONTINUOUS, Starting Fri11/23/18 at 0445, Until Fri11/23/18 at 1030, Routine lactated ringers IV infusion 500 New Bag 11/23/2018 5:32 AM CDT 500 mL 999 mL/hr mL at 999 mL/hr, 500 mL, IV Infusion, CONTINUOUS, Starting Fri11/23/18 at 0445, Until Fri11/23/18 at 1030, Routine levoFLOXacin (LEVAQUIN) tablet 500 mg Given 11/29/2018 11:46 AM CDT 500 mg 500 mg, Oral, Q24H ABX, First dose on Fri11/25/18 at 1145, Until Discontinued, MABEL, Reason for Anti-Infective: Empiric Therapy for Suspected Infection, Empiric Therapy Site: Skin / Soft tissue, Duration of therapy: 72 hours Given 11/28/2018 11:53 AM CDT 500 mg Given 11/27/2018 11:49 AM CDT 500 mg levoFLOXacin in D5W (LEVAQUIN) 500 mg/100 mL Given 11/25/2018 5:20 AM CDT 500 mg Piggyback 500 mg 500 mg, IV Piggyback, Administer over 60 Minutes, Q24H ABX, First dose on Fri11/24/18 at 0545, Until Discontinued, MABEL, Reason for Anti-Infective: Documented Infection, Documented Infection Site: Skin / Soft Tissue, Duration of Therapy: 7 days Given 11/24/2018 5:47 AM CDT 500 mg levoFLOXacin in D5W (LEVAQUIN) 750 mg/150 mL Given 11/23/2018 6:20 AM CDT 500 mg Piggyback 500 mg 500 mg, IV Piggyback, Q24H ABX, First dose on Fri11/23/18 at 0545, Until Discontinued, 150 mL, Reason for Anti-Infective: Documented Infection, Documented Infection Site: Skin / Soft Tissue, Duration of Therapy: 7 days metroNIDAZOLE (FLAGYL I.V.) Piggyback 500 mg Given 11/23/2018 1:26 AM CDT 500 mg 500 mg, IV Piggyback, ONCE, 1 dose, Fri11/23/18 at 0215, 100 mL, Reason for Anti-Infective: Documented Infection, Documented Infection Site: Abdominal, Duration of Therapy: Other (see Comments) metroNIDAZOLE (FLAGYL I.V.) Piggyback 500 mg Given 11/25/2018 10:14 AM CDT 500 mg 500 mg, IV Piggyback, Q8H ABX, First dose on Fri11/23/18 at 0545, Until Discontinued, 100 mL, Reason for Anti-Infective: Documented Infection, Documented Infection Site: Skin / Soft Tissue, Duration of Therapy: 7 days Given 11/25/2018 2:33 AM CDT 500 mg Given 11/24/2018 6:34 PM CDT 500 mg metroNIDAZOLE (FLAGYL) tablet 500 mg Given 11/29/2018 7:19 AM CDT 500 mg 500 mg, Oral, Q8H, First dose on Fri11/25/18 at 1400, Until Discontinued, Routine, Reason for Anti-Infective: Empiric Therapy for Suspected Infection, Empiric Therapy Site: Skin / Soft tissue, Duration of therapy: 72 hours Given 11/28/2018 11:02 PM CDT 500 mg Given 11/28/2018 3:03 PM CDT 500 mg sodium citrate-citric acid (BICITRA) 500-334 Given 11/23/2018 6:33 AM CDT 30 mL mg/5 mL solution 30 mL 30 mL, Oral, PRE-PROCEDURE ONCE, 1 dose, Starting Fri11/23/18 at 0430, Until Fri11/23/18 at 0633, Routine, Surgery/Procedure documented in this encounter Insurance Payer Benefit Plan / Subscriber ID Effective Phone Address Type Group Dates [employer] xxxxxxxxx 2018-Pres [address] [place] [id number] [place] [address] documented as of this encounter Advance Directives Name Relationship Healthcare Agent Relationship Communication Samir Bart Father Primary healthcare agent
--- OUTSIDE RECORDS SUMMARY | 2019-05-12 13:22 | XMS REPORT | Summary of Care ---
:1999 Author Organization [facility] Address [address] [place] [address] Care Team Providers Name Role Phone Maria G Stubbs Primary Care Provider Syst, Referring/Pcp Prov Not In Insurance Hmo Unavailable Reason for Visit Reason Comments Orders Encounter Details Date Type Department Care Team Description 12/10/2018 Telephone [facility] [place] FNP Orders [address] [place] [address] [facility] [phone] [place] [address] Allergies Active Allergy Reactions Severity Noted Date Comments Cinnamon Hives 11/22/2018 Penicillin Hives 04/16/2018 documented as of this encounter (statuses as of 12/11/2018) Medications Medication Sig Dispensed Refills Start Date [...] as of this encounter (statuses as of 12/11/2018) Active Problems Problem Noted Date Open wound anterior abdominal wall 11/25/2018 Obesity (BMI 30-39.9) 11/23/2018 wound infection 11/23/2018 S/P section 11/17/2018 anemia 10/01/2018 Genital condyloma, female 09/03/2018 documented as of this encounter (statuses as of 12/11/2018) Resolved Problems Problem Noted Date Resolved Date [...] as of this encounter (statuses as of 12/11/2018) Immunizations Name Administration Dates Next Due HPV9 [...] Office Visit OB Satellites Maria G Stubbs, DIRECTOR OF MEDICAL STAFF SERVICES [address] [place] [address] [phone] Health Maintenance Due Date Last Done Comments [...] [address] [place] [id number] [place] [address] documented as of this encounter Advance Directives Name Relationship Healthcare Agent Relationship Communication Samir Darby Primary healthcare agent
--- OUTSIDE RECORDS SUMMARY | 2019-05-12 13:22 | XMS REPORT | Summary of Care ---
:1999 Author Organization [facility] Address [address] [place] [address] Care Team Providers Name Role Phone Maria G Stubbs Primary Care Provider Syst, Referring/Pcp Prov Not In Insurance Hmo Unavailable Reason for Visit Reason Comments Orders Encounter Details Date Type Department Care Team Description 12/10/2018 Telephone [facility] [place] FNP Orders [address] [place] [address] [facility] A [phone] [place] [address] Allergies Active Allergy Reactions Severity [...] Office Visit OB Satellites Maria G Stubbs, CORRECTIONAL FACILITY PSYCHIATRIST [address] [place] [address] [phone] Health Maintenance Due Date Last Done Comments [...] [address] [place] [id number] [place] [address] documented as of this encounter Advance Directives Name Relationship Healthcare Agent Relationship Communication Samir Darby Primary healthcare agent
--- OUTSIDE RECORDS SUMMARY | 2019-05-12 13:22 | XMS REPORT | Summary of Care ---
:1999 Author Organization [facility] Address [address] [place] [address] Care Team Providers Name Role Phone Maria G Stubbs Primary Care Provider Syst, Referring/Pcp Prov Not In Insurance Hmo Unavailable Reason for Visit Reason Comments Forms Home Health Encounter Details Date Type Department Care Team Description 12/11/2018 Telephone [facility] Maria G Stubbs, Forms (Home Health ) [facility] [address] [facility] [address] [place] [address] [facility] [phone] [place] [address] Allergies Active Allergy Reactions Severity Noted Date Comments Cinnamon Hives 11/22/2018 Penicillin Hives 04/16/2018 documented as of this encounter (statuses as of 12/15/2018) Medications Medication Sig Dispensed Refills Start Date [...] as of this encounter (statuses as of 12/15/2018) Active Problems Problem Noted Date Open wound anterior abdominal wall 11/25/2018 Obesity (BMI 30-39.9) 11/23/2018 wound infection 11/23/2018 S/P section 11/17/2018 anemia 10/01/2018 Genital condyloma, female 09/03/2018 documented as of this encounter (statuses as of 12/15/2018) Resolved Problems Problem Noted Date Resolved Date [...] as of this encounter (statuses as of 12/15/2018) Immunizations Name Administration Dates Next Due HPV9 [...] Treatment Date Type Specialty Care Team Description 12/21/2018 Routine Visit OB Satellites Rashaad, Orlin Davidson 12/31/2018 Office Visit OB Satellites Maria G Stubbs, ASSEMBLER FLEXIBLE LEADS [address] [place] [address] [phone] Health Maintenance Due Date Last Done Comments [...] [address] [place] [id number] [place] [address] documented as of this encounter Advance Directives Name Relationship Healthcare Agent Relationship Communication Samir Darby Primary healthcare agent
--- OUTSIDE RECORDS SUMMARY | 2019-05-12 13:22 | XMS REPORT | Summary of Care ---
:1999 Author Organization [facility] Address [address] [place] [address] Care Team Providers Name Role Phone EnocMaria G Star GARCIA Primary Care Provider Syst, Referring/Pcp Prov Not In Insurance Hmo Unavailable Reason for Visit Reason Comments Other needs to discuss orders under dr jennings name Encounter Details Date Type Department Care Team Description 12/15/2018 Telephone [facility]- Faculty, Orlin chp Other (needs to discuss [facility] orders under dr jennings [address] [facility] name) [place] [address] Allergies Active Allergy Reactions Severity Noted Date [...] Office Visit OB Satellites Maria G Stubbs, HEEL ATTACHER [address] [place] [address] [phone] Health Maintenance Due Date Last Done Comments [...] [address] O [address]OX [place] [id number] [place] [address] documented as of this encounter Advance Directives Name Relationship Healthcare Agent Relationship Communication Samir Darby Primary healthcare agent
--- OUTSIDE RECORDS SUMMARY | 2019-05-12 13:22 | XMS REPORT | Summary of Care ---
:1999 Author Organization [facility] Address [address] [place] [address] Care Team Providers Name Role Phone Maria G Stubbs Primary Care Provider Syst, Referring/Pcp Prov Not In Insurance Hmo Unavailable Reason for Visit Reason Comments Orders Encounter Details Date Type Department Care Team Description 12/10/2018 Telephone [facility] [place] FNP Orders [address] [place] [address] [email or web address] A [phone] [place] [address] Allergies Active Allergy Reactions Severity [...] Office Visit OB Satellites Maria G Stubbs, PRECISION INSTRUMENT MAKER [address] [place] [address] [phone] Health Maintenance Due Date Last Done Comments [...] [address] O [address] [place] [address] [place] [address] documented as of this encounter Advance Directives Name Relationship Healthcare Agent Relationship Communication Samir Darby Primary healthcare agent
--- OUTSIDE RECORDS SUMMARY | 2019-05-12 13:22 | XMS REPORT | Summary of Care ---
:1999 Author Organization [facility] Address [address] [place] [address] Care Team Providers Name Role Phone Maria G Stubbs Primary Care Provider Syst, Referring/Pcp Prov Not In Insurance Hmo Unavailable Reason for Visit Reason Comments Orders Encounter Details Date Type Department Care Team Description 12/10/[address] [facility] [place] Damon FNP Orders [address] [place] [address] [facility] A [phone] [place] [address] Allergies Active Allergy Reactions Severity [...] Office Visit OB Satellites Maria G Stubbs, PROCESS CONTROL PROGRAMMER [address] [place] [address] [phone] Health Maintenance Due Date Last Done Comments [...] [address] O [address] [place] [address] [place] [address] documented as of this encounter Advance Directives Name Relationship Healthcare Agent Relationship Communication Samir Darby Primary healthcare agent
--- OUTSIDE RECORDS SUMMARY | 2019-05-12 13:22 | XMS REPORT | Summary of Care ---
:1999 Author Organization [facility] Address [address] [place] [address] Care Team Providers Name Role Phone Maria G Stubbs Primary Care Provider Syst, Referring/Pcp Prov Not In Insurance Hmo Unavailable Reason for Visit Reason Comments Orders Encounter Details Date Type Department Care Team Description 12/10/2018 Telephone [facility] [place] FNP Orders [address] [place] [address] [facility] A [phone] [place] [address] Allergies Active Allergy Reactions Severity [...] Office Visit OB Satellites Maria G Stubbs, COGNOS ARCHITECT [address] [place] [address] [phone] Health Maintenance Due Date Last Done Comments [...] [address] BOX [place] [address] [place] [address] documented as of this encounter Advance Directives Name Relationship Healthcare Agent Relationship Communication Samir Darby Primary healthcare agent
--- OUTSIDE RECORDS SUMMARY | 2019-05-12 13:23 | XMS REPORT | Summary of Care ---
:1999 Author Organization [facility] Address [address] [place] [address] Care Team Providers Name Role Phone EnocMaria G Star GARCIA Primary Care Provider Syst, Referring/Pcp Prov Not In Insurance Hmo Unavailable Reason for Visit Reason Comments Other needs to discuss orders under dr jennings name Encounter Details Date Type Department Care Team Description 12/15/2018 Telephone [facility]- Faculty, Orlin chp Other (needs to discuss [facility] orders under dr jennings [address] [facility] name) [place] [address] Allergies Active Allergy Reactions Severity Noted Date Comments Cinnamon Hives 11/22/2018 Penicillin Hives 04/16/2018 documented as of this encounter (statuses as of 12/25/2018) Medications Medication Sig Dispensed Refills Start Date [...] as of this encounter (statuses as of 12/25/2018) Active Problems Problem Noted Date Open wound anterior abdominal wall 11/25/2018 Obesity (BMI 30-39.9) 11/23/2018 wound infection 11/23/2018 S/P section 11/17/2018 anemia 10/01/2018 Genital condyloma, female 09/03/2018 documented as of this encounter (statuses as of 12/25/2018) Resolved Problems Problem Noted Date Resolved Date [...] as of this encounter (statuses as of 12/25/2018) Immunizations Name Administration Dates Next Due HPV9 [...] Treatment Date Type Specialty Care Team Description 12/25/2018 Office Visit OB Satellites Wai, [facility] Resident 12/31/2018 Office Visit OB Eris Maria G Stubbs, CITY PLANNING TEACHER [address] [place] [address] [phone] Health Maintenance Due Date Last Done Comments MENINGOCOCCAL B VACCINES (1 of 07/10/2009 2 - Risk Bexsero 2-dose series) HPV VACCINES (2 - Female 12/16/2018 11/18/2018 3-dose series) INFLUENZA VACCINE (#1) 2019 04/16/2018 CHLAMYDIA SCREENING 10/29/2019 10/28/2018, 06/17/2018, 04/16/2018 [...] [address]OX [place] [id number] [place] [address] documented as of this encounter Advance Directives Name Relationship Healthcare Agent Relationship Communication Samir Darby Primary healthcare agent
--- OUTSIDE RECORDS SUMMARY | 2019-05-12 13:23 | XMS REPORT | Summary of Care ---
:1999 Author Organization [facility] - Health Address [address] [place] [address] Care Team Providers Name Role Phone Maria G Stubbs Primary Care Provider Syst, Referring/Pcp Prov Not In Insurance Hmo Unavailable Reason for Visit Reason Comments Cough Sore Throat Auth/Cert Status Reason Specialty Diagnoses / Referred By Referred To Procedures Contact Contact Emergency Medicine [facility] [address] [place] [id number] Encounter Details Date Type Department Care Team Description 01/06/2019 Emergency [facility]-Emergency Kevin Miles, Upper respiratory tract infection, unspecified type (Primary Dx); Department PAC Sore throat [address] [place] [address] [address] [place] [address] [facility] [address] [place] [address] Allergies Active Allergy Reactions Severity Noted Date Comments Cinnamon Hives 11/22/2018 Penicillin Hives 04/16/2018 documented as of this encounter (statuses as of 01/06/2019) Medications Medication Sig Dispensed Refills Start Date End Date Status HYDROcodone-acetami Take 1 tablet 30 tablet 0 12/04/2018 Active nophen 5-325 mg by mouth as tabletIndications: needed (prior S/P primary low to dressing transverse changes). HYDROcodone-acetami Take 1 tablet 20 tablet 0 12/25/2018 Active nophen 5-325 mg by mouth every tabletIndications: 6 (six) hours Postoperative pain as needed for Pain (scale 4-6) or Pain (scale 7-10). ibuprofen 600 mg Take 1 tablet 30 tablet 0 01/06/2019 Active tabletIndications: by mouth every Upper respiratory 6 (six) hours tract infection, as needed for unspecified type Pain (scale 4-6). benzonatate 100 mg Take 1 capsule 20 capsule 0 01/06/2019 Active capsuleIndications: by mouth 3 Upper respiratory (three) times tract infection, daily as unspecified type needed for Cough. ibuprofen 600 mg Take 1 tablet 60 tablet 1 12/04/2018 Discontinued tabletIndications: by mouth every 9 Open wound of 6 (six) hours anterior abdominal as needed for wall, initial Pain (scale encounter 1-3) or Pain (scale 4-6) (Pain). Take with food or milk. documented as of this encounter (statuses as of 01/06/2019) Active Problems Problem Noted Date Open wound anterior abdominal wall 11/25/2018 Obesity (BMI 30-39.9) 11/23/2018 wound infection 11/23/2018 S/P section 11/17/2018 anemia 10/01/2018 Genital condyloma, female 09/03/2018 documented as of this encounter (statuses as of 01/06/2019) Resolved Problems Problem Noted Date Resolved Date [...] as of this encounter (statuses as of 01/06/2019) Immunizations Name Administration Dates Next Due HPV9 [...] Sign Reading Time Taken Comments Blood Pressure 120/58 01/06/2019 2:43 PM CDT Pulse 86 01/06/2019 2:43 PM CDT Temperature 37.2 C (98.9 F) 01/06/2019 2:43 PM CDT Respiratory Rate 18 01/06/2019 2:43 PM CDT Oxygen Saturation 99% 01/06/2019 2:43 PM CDT Inhaled Oxygen Concentration - - Weight 76.5 kg (168 lb 11.2 oz) 01/06/2019 2:43 PM CDT Height - - Body Mass Index - - documented in this encounter Discharge Instructions AttachmentsThe following attachments cannot be sent through Care Everywhere.URI , Viral, No Abx (Adult) (Turkish)documented in this encounter Plan of Treatment Date Type Specialty Care Team Description 01/08/2019 Office Visit [facility] Name Type Priority Associated Diagnoses Date/Time THROAT CULTURE LAB STAT Sore throat 01/06/2019 3:43 PM CDT Name Type Priority Associated Diagnoses Order Schedule THROAT CULTURE LAB Routine Sore throat ONCE for 1 Occurrences starting 01/06/2019 until 01/06/2019 Health Maintenance Due Date Last Done Comments [...] encounter Procedures Procedure Name Priority Date/Time Associated Diagnosis Comments RAPID STREP SCREEN STAT 01/06/2019 3:43 PM Sore throat Results for this FOR GROUP A CDT procedure are in the results section. NOTICE OF PRIVACY Routine 01/06/2019 2:26 PM PRACTICES CDT CONSENT/REFUSAL FOR Routine 01/06/2019 2:26 PM DIAGNOSIS AND CDT TREATMENT documented in this encounter Results RAPID STREP SCREEN FOR GROUP A (01/06/2019 3:43 PM CDT) Streptococcus pyogenes Negative Negative [facility] (group A) [facility] LABORATORY Specimen Swab - THROAT Performing Organization Address City/State/Zipcode Phone Number [facility] CLIA: [id number], [address] [place] [address] documented in this encounter Visit Diagnoses Diagnosis Upper respiratory tract infection, unspecified type - Primary Sore throat Acute pharyngitis documented in this encounter Insurance Payer Benefit Plan / Subscriber ID Effective Phone Address Type Group Dates [employer] xxxxxxxxx 2018-Pres [address] [place] [id number] [place] [address] documented as of this encounter Advance Directives Name Relationship Healthcare Agent Relationship Communication Samir Bart Father Primary healthcare agent
--- OUTSIDE RECORDS SUMMARY | 2019-05-12 13:23 | XMS REPORT | Summary of Care ---
:1999 Author Organization [facility] - Health Address [address] [place] [address] Care Team Providers Name Role Phone Maria G Stubbs Primary Care Provider Syst, Referring/Pcp Prov Not In Insurance Hmo Unavailable Encounter Details Date Type Department Care Team Description 12/29/2018 Orders Only [facility] Doctor Unassigned, No 301 [facility] [place] [address] [place] [address] Allergies Active Allergy Reactions Severity Noted Date Comments Cinnamon Hives 11/22/2018 Penicillin Hives 04/16/2018 documented as of this encounter (statuses as of 01/07/2019) Medications Medication Sig Dispensed Refills Start Date End Date Status HYDROcodone-acetaminoph Take 1 tablet by 30 tablet 0 12/04/2018 Active en 5-325 mg mouth as needed tabletIndications: S/P (prior to primary low transverse dressing changes). HYDROcodone-acetaminoph Take 1 tablet by 20 tablet 0 12/25/2018 Active en 5-325 mg mouth every 6 tabletIndications: (six) hours as Postoperative pain needed for Pain (scale 4-6) or Pain (scale 7-10). documented as of this encounter (statuses as of 01/07/2019) Active Problems Problem Noted Date Open wound anterior abdominal wall 11/25/2018 Obesity (BMI 30-39.9) 11/23/2018 wound infection 11/23/2018 S/P section 11/17/2018 anemia 10/01/2018 Genital condyloma, female 09/03/2018 documented as of this encounter (statuses as of 01/07/2019) Resolved Problems Problem Noted Date Resolved Date [...] as of this encounter (statuses as of 01/07/2019) Immunizations Name Administration Dates Next Due HPV9 [...] Description 01/08/2019 Office Visit [facility] Health Maintenance Due Date Last Done Comments [...] Procedure Name Priority Date/Time Associated Diagnosis Comments PHYSICIAN ORDERS Routine 12/29/2018 12:01 AM CDT documented in this encounter Results Not on filedocumented in this encounter Insurance Payer Benefit Plan / Subscriber ID Effective Phone Address Type Group Dates [employer] xxxxxxxxx 2018-Pres [address] [place] [id number] [place] [address] documented as of this encounter Advance Directives Name Relationship Healthcare Agent Relationship Communication Samir Darby Primary healthcare agent
--- OUTSIDE RECORDS SUMMARY | 2019-05-12 13:23 | XMS REPORT | Summary of Care ---
:1999 Author Organization [facility] Address [address] [place] [address] Care Team Providers Name Role Phone Maria G Stubbs Primary Care Provider Syst, Referring/Pcp Prov Not In Insurance Hmo Unavailable Reason for Visit Reason Comments Wound Encounter Details Date Type Department Care Team Description 12/25/2018 Office Visit [facility] Maria Isabel Goodwin MD [address] [facility] [id number] [place] [address] Postoperative pain (Primary Dx); [facility] Resident S/P section; [facility] wound infection; [address] Open wound of anterior abdominal wall, subsequent encounter Drive, [address] [place] [address] Allergies Active Allergy Reactions Severity Noted Date Comments Cinnamon Hives 11/22/2018 Penicillin Hives 04/16/2018 documented as of this encounter (statuses as of 12/25/2018) Medications Medication Sig Dispensed Refills Start Date End Date Status ibuprofen 600 mg Take 1 tablet by 60 tablet 1 12/04/2018 Active tabletIndications: Open mouth every 6 wound of anterior (six) hours as abdominal wall, initial needed for Pain encounter (scale 1-3) or Pain (scale 4-6) (Pain). Take with food or milk. HYDROcodone-acetaminoph Take 1 tablet by 30 tablet [...] Sign Reading Time Taken Comments Blood Pressure 120/68 12/25/2018 2:23 PM CDT Pulse 86 12/25/2018 2:23 PM CDT Temperature 36.6 C (97.9 F) 12/25/2018 2:23 PM CDT Respiratory Rate 17 12/25/2018 2:23 PM CDT Oxygen Saturation - - Inhaled Oxygen Concentration - - Weight 77.3 kg (170 lb 6.4 oz) 12/25/2018 2:23 PM CDT Height 162.6 cm (5' 4") 12/25/2018 2:23 PM CDT Body Mass Index 29.25 12/25/2018 2:23 PM CDT documented in this encounter Progress Notes Emerald Sellers MD - 12/25/2018 2:00 PM CDT Chief complaint: Chief Complaint Patient presents with Wound HPI Tali Arriaga is a 18 year old female 5 weeks postop from emergent complicated by wound infection. Discharged 12/04 with wound vac. Reports home health performing wound vac dressing changes three times each week. Reports pain well controlled with po medication. Denies fever, chills, N/V ,constipation. Reports compliance with activity/lifting restrictions. Histories OB History Para Term AB Living [...] Amy Castorena; Location: Labor and Delivery - [facility] [place] WOUND DEBRIDEMENT N/A 11/23/2018 Surgeon: Anselmo Yanez; Location: Labor and Delivery [facility] [place] Social History Socioeconomic History Marital status: Single [...] file Gets together: Not on file Attends rastafari service: Not on file Active member of [...] last sexual intercourse 04/03/2018 Labs No new labs Radiology No new radiology. Allergies Tali is allergic to cinnamon and penicillin. Medications Tali has a current medication list which includes the following prescription(s ): hydrocodone-acetaminophen, hydrocodone-acetaminophen, and ibuprofen. Review of Systems Constitutional: Negative. HENT: Negative. Eyes: Negative. Respiratory: Negative. Breasts: Negative. Cardiovascular: Negative. Gastrointestinal: Negative. Genitourinary: Negative. Musculoskeletal: Negative. Skin: Negative. Neurological: Negative. Psychiatric/Behavioral: Negative. Endocrine: Endocrine negative BP 120/68 (BP Location: Left arm, Patient Position: Sitting, BP CUFF SIZE: Adult Medium) | Pulse 86 | Temp 36.6 C (97.9 F) (Oral) | Resp 17 | Ht 5' 4" (1.626 m) | Wt 170 lb 6.4 oz (77.3 kg) |BMI 29.25 kg/m Physical Exam Vitals reviewed. Constitutional: She is oriented to person, place, and time. She appears well- developed and well-nourished. Her body habitus is normal. Pulmonary/Chest: Normal inspiratory effort. Abdominal: Abdomen is soft. No mass palpated. No tenderness present. There is no rigidity and no guarding. Wound vac in place Neuro/Psychiatric: She has a normal mood and affect. She is oriented to person, place, and time. Skin: Skin normal. Assessment/Plan Open wound of anterior abdominal wall, subsequent encounter - 5 weeks postop from emergent , 4 weeks postop from wound exploration. Discharged home withwound vac and home health wound vac dressing changes M/W/F. Patient denies issues with home health wound vac care. - wound vac in place. Abdomen soft, NTND, no erythema, induration - continue wound vac/home health with transition to wet to dry dressing changes BID after graduatingfrom wound vac - all questions answered. Patient agrees with plan of care. Postoperative pain Plan: HYDROcodone-acetaminophen 5-325 mg tablet Return to clinic in 2 weeks or prn. Reviewed patient instructions and provided printed copy. This visit did not involve counseling and coordination that comprised more than 50% of the visit time. Emerald Sellers MD documented in this encounter Plan of Treatment Date Type Specialty Care Team Description 12/31/2018 Office Visit OB [facility] Maria G Stubbs, CHECK EMBOSSER [address] [place] [address] [phone] 01/08/2019 Office Visit OB [facility] Health Maintenance Due Date Last Done [...] filedocumented in this encounter Visit Diagnoses Diagnosis Postoperative pain - Primary Other acute postoperative pain S/P section Other postprocedural status wound infection Other complication of obstetrical surgical wounds, unspecified as to episode of care Open wound of anterior abdominal wall, subsequent encounter documented in this encounter Insurance Payer Benefit Plan / Subscriber ID Effective Phone Address Type Group Dates [employer] xxxxxxxxx 2018-Pres [address]OX Medicaid [facility] ent [id number] [place] [address] documented as of this encounter Advance Directives Name Relationship Healthcare Agent Relationship Communication Samir Bart Father Primary healthcare agent
--- OUTSIDE RECORDS SUMMARY | 2019-05-12 13:23 | XMS REPORT | Summary of Care ---
:1999 Author Organization [address] [address] Care Team Providers Name Role Phone Maria G Stubbs Primary Care Provider Syst, Referring/Pcp Prov Not In Insurance Hmo Unavailable Reason for Visit Reason Comments Rx Concern/Question Encounter Details Date Type Department Care Team Description 01/08/2019 Telephone [facility] Guillermina Overton FNP Rx Concern/Question [address], [address] [facility] floor [phone] [place] [address] Allergies Active Allergy Reactions Severity Noted Date Comments Cinnamon Hives 11/22/2018 Penicillin Hives 04/16/2018 documented as of this encounter (statuses as of 01/13/2019) Medications Medication Sig Dispensed Refills Start Date End Date Status HYDROcodone-acetaminop Take 1 tablet by 30 tablet 0 12/04/2018 Active hen 5-325 mg mouth as needed tabletIndications: S/P (prior to primary low transverse dressing changes). HYDROcodone-acetaminop Take 1 tablet by 20 tablet 0 12/25/2018 Active hen 5-325 mg mouth every 6 tabletIndications: (six) hours as Postoperative pain needed for Pain (scale 4-6) or Pain (scale 7-10). ibuprofen 600 mg Take 1 tablet by 30 tablet 0 01/06/2019 Active tabletIndications: mouth every 6 Upper respiratory (six) hours as tract infection, needed for Pain unspecified type (scale 4-6). benzonatate 100 mg Take 1 capsule by 20 capsule 0 01/06/2019 Active capsuleIndications: mouth 3 (three) Upper respiratory times daily as tract infection, needed for Cough. unspecified type documented as of this encounter (statuses as of 01/13/2019) Active Problems Problem Noted Date Open wound anterior abdominal wall 11/25/2018 Obesity (BMI 30-39.9) 11/23/2018 wound infection 11/23/2018 S/P section 11/17/2018 anemia 10/01/2018 Genital condyloma, female 09/03/2018 documented as of this encounter (statuses as of 01/13/2019) Resolved Problems Problem Noted Date Resolved Date [...] as of this encounter (statuses as of 01/13/2019) Immunizations Name Administration Dates Next Due HPV9 [...] Treatment Date Type Specialty Care Team Description 01/22/2019 Office Visit [facility] Health Maintenance [...] P O [place]OX [place] [id number] [place] [address] documented as of this encounter Advance Directives Name Relationship Healthcare Agent Relationship Communication Samir Darby Primary healthcare agent
--- OUTSIDE RECORDS SUMMARY | 2019-05-12 13:23 | XMS REPORT | Summary of Care ---
:1999 Author Organization [facility] Address [address] [place] [address] Care Team Providers Name Role Phone Maria G Stubbs Primary Care Provider Syst, Referring/Pcp Prov Not In Insurance Hmo Unavailable Reason for Visit Reason Comments Wound Encounter Details Date Type Department Care Team Description 12/25/2018 Office Visit [facility] Maria Isable Goodwin MD [address] [facility] [address] [place] [address] Postoperative pain (Primary Dx); [facility] Resident S/P section; [facility] wound infection; [address] Open wound of anterior abdominal wall, subsequent encounter [address], [address] [place] [address] Allergies Active Allergy Reactions Severity [...] Castorena; Location: Labor and Delivery - [facility] [place] WOUND DEBRIDEMENT N/A 11/23/2018 Surgeon: Anselmo Yanez; Location: Labor and Delivery [facility] [place] Social History Socioeconomic History Marital status: Single [...] file Gets together: Not on file Attends hindu service: Not on file Active member of [...] Care Team Description 12/31/2018 Office Visit OB [facility] Maria G Stubbs, SILK SCREEN PRINTER HELPER [address] [place] [address] [phone] 01/08/2019 Office Visit OB [facility] Pgy3 Health Maintenance Due Date Last Done [...] xxxxxxxxx 2018-Pres P O BOX Medicaid [place] [facility] ent [address] [place] [address] documented as of this encounter Advance Directives Name Relationship Healthcare Agent Relationship Communication Samir Bart Father Primary healthcare agent
--- OUTSIDE RECORDS SUMMARY | 2019-05-12 13:24 | XMS REPORT | Summary of Care ---
:1999 Author Organization [facility] - Health Address [address] [place] [address] Care Team Providers Name Role Phone Maria G Stubbs Primary Care Provider Syst, Referring/Pcp Prov Not In Insurance Hmo Unavailable Reason for Visit Reason Comments Other wound infection Pain Auth/Cert Status Reason Specialty Diagnoses / Referred By Referred To Procedures Contact Contact Emergency Medicine Diagnoses WOUND INFECTION [facility] [address] [place] [address] [place] [address] Encounter Details Date Type Department Care Team Description 01/20/2019 Emergency [facility] Angelica Dhaliwal, Infected surgical wound Department (Primary Dx) [address] [place] [address] [address] [place] [address] [id number] [place], [place] [address] Allergies Active Allergy Reactions Severity Noted Date Comments Cinnamon Hives 11/22/2018 Penicillin Hives 04/16/2018 documented as of this encounter (statuses as of 01/20/2019) Medications Medication Sig Dispensed Refills Start Date [...] tract infection, needed for Cough. unspecified type sulfamethoxazole-trime Take 1 tablet by 10 tablet 0 01/20/2019 Active thoprim 800-160 mg per mouth every 12 tabletIndications: (twelve) hours. Infected surgical wound documented as of this encounter (statuses as of 01/20/2019) Active Problems Problem Noted Date Open wound anterior abdominal wall 11/25/2018 Obesity (BMI 30-39.9) 11/23/2018 wound infection 11/23/2018 S/P section 11/17/2018 anemia 10/01/2018 Genital condyloma, female 09/03/2018 documented as of this encounter (statuses as of 01/20/2019) Resolved Problems Problem Noted Date Resolved Date [...] as of this encounter (statuses as of 01/20/2019) Immunizations Name Administration Dates Next Due HPV9 [...] Sign Reading Time Taken Comments Blood Pressure 124/75 01/20/2019 2:00 AM CDT Pulse 62 01/20/2019 2:00 AM CDT Temperature 36.8 C (98.2 F) 01/20/2019 12:42 AM CDT Respiratory Rate 20 01/20/2019 2:00 AM CDT Oxygen Saturation 100% 01/20/2019 2:00 AM CDT Inhaled Oxygen Concentration - - Weight 76.2 kg (168 lb) 01/20/2019 12:42 AM CDT Height 160 cm (5' 3") 01/20/2019 12:42 AM CDT Body Mass Index 29.76 01/20/2019 12:42 AM CDT documented in this encounter Discharge Instructions Angelica Mcarthur MD - 01/20/2019 DIAGNOSIS Diagnoses that have been ruled out: None Diagnoses that are still under consideration: None Final diagnoses: Infected surgical wound NO LIFE-THREATENING FINDINGS ON TODAY'S EXAM. PROCEDURES IN THE ER TODAY: No orders of the defined types were placed in this encounter. MEDICATIONS ADMINISTERED IN THE ER TODAY AND DISCHARGE MEDICATIONS: No orders of the defined types were placed in this encounter. FOLLOW-UP RECOMMENDATIONS: RECOMMEND FOLLOW-UP WITH [facility] SUPPORT SERVICES REP In [place] SCHEDULED RETURN TO ER FOR WORSENING OF SYMPTOMS documented in this encounter Plan of Treatment [...] Procedure Name Priority Date/Time Associated Diagnosis Comments CONSENT/REFUSAL FOR Routine 01/20/2019 12:16 AM CDT DIAGNOSIS AND TREATMENT documented in this encounter Results Not on filedocumented in this encounter Visit Diagnoses Diagnosis Infected surgical wound - Primary Other postoperative infection documented in this encounter Insurance Payer Benefit Plan / Subscriber ID Effective Phone Address Type Group Dates [employer] xxxxxxxxx 2018-Pres [address] BOX Medicaid [facility] ent [id number] [place] [address] documented as of this encounter Advance Directives Name Relationship Healthcare Agent Relationship Communication Samir Arriaga Father Primary healthcare agent
--- OUTSIDE RECORDS SUMMARY | 2019-05-12 13:24 | XMS REPORT | Summary of Care ---
:1999 Author Organization [facility] - Health Address [address] [place] [address] Care Team Providers Name Role Phone EnocMaria G Star CRANEP Primary Care Provider Syst, Referring/Pcp Prov Not In Insurance Hmo Unavailable Encounter Details Date Type Department Care Team Description 01/25/2019 Orders Only [facility] Doctor Unassigned, No [address] [facility] [place] [address] [place] [address] Allergies Active Allergy Reactions Severity Noted Date Comments Cinnamon Hives 11/22/2018 Penicillin Hives 04/16/2018 documented as of this encounter (statuses as of 01/25/2019) Medications Medication Sig Dispensed Refills Start Date [...] as of this encounter (statuses as of 01/25/2019) Active Problems Problem Noted Date Open wound anterior abdominal wall 11/25/2018 Obesity (BMI 30-39.9) 11/23/2018 wound infection 11/23/2018 S/P section 11/17/2018 anemia 10/01/2018 Genital condyloma, female 09/03/2018 documented as of this encounter (statuses as of 01/25/2019) Resolved Problems Problem Noted Date Resolved Date [...] as of this encounter (statuses as of 01/25/2019) Immunizations Name Administration Dates Next Due HPV9 [...] filedocumented in this encounter Plan of Treatment Health Maintenance Due Date Last Done Comments [...] Procedure Name Priority Date/Time Associated Diagnosis Comments EXTERNAL PROVIDER Routine 01/25/2019 12:01 AM CDT RECORDS documented in this encounter Results Not on filedocumented in this encounter Insurance Payer Benefit Plan / Subscriber ID Effective Phone Address Type Group Dates [employer] xxxxxxxxx 2018-Pres [address] [place] [id number] [place] [address] documented as of this encounter Advance Directives Name Relationship Healthcare Agent Relationship Communication Samir Darby Primary healthcare agent
--- OUTSIDE RECORDS SUMMARY | 2019-05-12 13:24 | XMS REPORT | Summary of Care ---
:2000 Author Organization [facility] - Health Address [address] [place] [address] Care Team Providers Name Role Phone EnocMaria G Star CRANEP Primary Care Provider Syst, Referring/Pcp Prov Not In Insurance Hmo Unavailable Encounter Details Date Type Department Care Team Description 01/15/2019 Orders Only [facility] Doctor Unassigned, [address] [facility] Name [place], [place] [id number] [place] [id number] Allergies Active Allergy Reactions Severity Noted Date Comments Cinnamon Hives 11/22/2018 Penicillin Hives 04/16/2018 documented as of this encounter (statuses as of 01/19/2019) Medications Medication Sig Dispensed Refills Start Date [...] as of this encounter (statuses as of 01/19/2019) Active Problems Problem Noted Date Open wound anterior abdominal wall 11/25/2018 Obesity (BMI 30-39.9) 11/23/2018 wound infection 11/23/2018 S/P section 11/17/2018 anemia 10/01/2018 Genital condyloma, female 09/03/2018 documented as of this encounter (statuses as of 01/19/2019) Resolved Problems Problem Noted Date Resolved Date [...] as of this encounter (statuses as of 01/19/2019) Immunizations Name Administration Dates Next Due HPV9 [...] Procedure Name Priority Date/Time Associated Diagnosis Comments AUTHORIZATION FOR RELEASE Routine 01/15/2019 12:01 AM OF PHI CDT documented in this encounter Results Not on filedocumented in this encounter Insurance Payer Benefit Plan / Subscriber ID Effective Phone Address Type Group Dates [employer] xxxxxxxxx 2018-Pres [address] [place] [id number] [place] [address] documented as of this encounter Advance Directives Name Relationship Healthcare Agent Relationship Communication Samir Darby Primary healthcare agent
--- OUTSIDE RECORDS SUMMARY | 2019-05-12 13:24 | XMS REPORT | Summary of Care ---
:[address] [facility] - Health Address [address] [place] [address] Care Team Providers Name Role Phone EnocMaria G Star CRANEP Primary Care Provider Syst, Referring/Pcp Prov Not In Insurance Hmo Unavailable Encounter Details Date Type Department Care Team Description 01/22/[address] [facility] Doctor Unassigned, No [address] [facility] [place] [address] [place] [id number] Allergies Active Allergy Reactions Severity Noted Date [...] Date/Time Associated Diagnosis Comments EXTERNAL PROVIDER Routine 01/22/2019 12:01 AM CDT RECORDS documented in this encounter Results Not on filedocumented in this encounter Insurance Payer Benefit Plan / Subscriber ID Effective Phone Address Type Group Dates [employer] xxxxxxxxx 2018-Pres [address] [place] [id number] [place] [address] documented as of this encounter Advance Directives Name Relationship Healthcare Agent Relationship Communication Samir Darby Primary healthcare agent
[2019-05-12] MEDS ORDERED: TETANUS & DIPHTHERIA TOX,ADULT 0.5 ML VIAL ONE (14:00)
[2019-05-12] MEDS ORDERED: HYDROCODONE/APAP 7.5/325 MG TAB ONE (14:18)
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
[2019-05-12 14:59] VITALS: BP 124/65; TEMP 98; O2SAT 99
== END 2019-05-12 14:44 | disposition home or self-care (01) ==
LOC: ER 13:18
DX: S20.412A Abrasion of left back wall of thorax, initial encounter (principal); V86.65XA Passenger of 3- or 4- wheeled all-terrain vehicle (ATV) injured in nontraffic accident, initial encounter; Y93.89 Activity, other specified; Y92.89 Other specified places as the place of occurrence of the external cause; Z23 Encounter for immunization; Z88.0 Allergy status to penicillin; Z91.018 Allergy to other foods
CPT/HCPCS: 90471; 90714; 99283

== ENCOUNTER 2019-07-20 20:31 | Emergency (ER) | payer SELFPAY ==
--- OUTSIDE RECORDS SUMMARY | 2019-07-20 20:34 | XMS REPORT ---
:2000 [facility] Address [address] [place] [address] Dr. Loera [address] [place] [address] Care Team Providers Name Role Phone Unavailable Unavailable Unavailable Problems This patient has no known problems. Allergies, Adverse Reactions, Alerts This patient has no known allergies or adverse reactions. Medications This patient has no known medications.
--- NOTE | 2019-07-20 21:37 | ER ---
Nurse's Notes [facility] Name: Tali Arriaga Age: 19 yrs Sex: Female : 2000 Arrival Date: 07/20/2019 Time: 20:32 Bed 23 Private MD: Diagnosis: Cellulitis of right lower limb Presentation: 07/19 20:44 Chief complaint: Patient states: "I have an infected toe on my right foot, my big toe. jd3 I got them done and the nail place and it started after that.". Coronavirus screen: The patient has NOT traveled to a country currently being monitored by the [facility] within the last 14 days. The patient has NOT had contact with any known and/or suspected case of coronavirus. Proceed with normal triage procedures. Ebola Screen: Patient negative for fever greater than or equal to 101.5 degrees Fahrenheit, and additional compatible Ebola Virus Disease symptoms. Initial Sepsis Screen: Does the patient meet any 2 criteria? No. Patient's initial sepsis screen is negative. Does the patient have a suspected source of infection? No. Patient's initial sepsis screen is negative. Risk Assessment: Do you want to hurt yourself or someone else? Patient reports no desire to harm self or others. 20:44 Method Of Arrival: Ambulatory jd3 20:44 Acuity: SABRINA 4 jd3 22:07 Onset of symptoms is unknown. 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 - Social history:: Smoking status: Reported history of juuling and/or vaping. Screenin:34 Abuse screen: Denies threats or abuse. Nutritional screening: No deficits noted. ll1 Tuberculosis screening: No symptoms or risk factors identified. Fall Risk None identified. Total Maddox Fall Scale indicates No Risk (0-24 pts). Assessment: 21:30 General: Appears in no apparent distress. Behavior is calm, cooperative. Pain: ll1 Complains of pain in right foot great toe. Derm: Wound noted Left first toenail Wound is swollen, red, drains pus Reports pain Right foot 1st digit nailbed infection. Drains bloody pus-like drainage. 22:05 Reassessment: Patient is alert, oriented x 3, equal unlabored respirations, skin bb warm/dry/pink. pt verbalized understanding of and agrees to plan of care discharge instructions given pt ambulated with steady gait to exit. Vital Signs: 20:46 BP 129 / 57; Pulse 86; Resp 16 S; Temp 97.9(TE); Pulse Ox 100% on R/A; Weight 81.65 kg jd3 (R); Height 5 ft. 4 in. (162.56 cm) (R); Pain 7/10; 22:06 BP 130 / 76; Pulse 103; Resp 16 S; Temp 98.5; Pulse Ox 97% on R/A; bb 20:46 Body Mass Index 30.90 (81.65 kg, 162.56 cm) [facility] ED Course: 20:32 Patient arrived in ED. cl3 20:45 Triage completed. jd3 20:47 Arm band placed on. jd3 21:13 Wm Paredes MD is Attending Physician. tw4 21:20 Octavio Cabral RN is Primary Nurse. ll1 21:34 Patient has correct armband on for positive identification. Bed in low position. Call ll1 light in reach. Side rails up X 1. 22:05 Wound care: to cellulitis located on Left first toenail was cleaned with Hibiclens, bb dressed with band aid. 22:05 No provider procedures requiring assistance completed. Patient did not have IV access bb during this emergency room visit. Administered Medications: 21:52 Drug: Cleocin 300 mg Route: PO; ll1 22:07 Follow up: Response: No adverse reaction bb Outcome: 21:36 Discharge ordered by . tw4 22:06 Discharged to home ambulatory. bb 22:06 Condition: stable 22:06 Discharge instructions given to patient, Instructed on discharge instructions, follow up and referral plans. medication usage, Demonstrated understanding of instructions, follow-up care, medications, Prescriptions given X 2. 22:08 Patient left the ED. bb Signatures: Gretchen Connelly RN RN bb Sd Somers RN RN [facility] Wm Paredes MD MD tw4 Franklin Cabral cl3 Octavio Cabral, RN RN ll1
--- NOTE | 2019-07-20 21:37 | EDPHYS ---
Physician Documentation [facility] Name: Tali Arriaga Age: 19 yrs Sex: Female : 2000 Arrival Date: 07/20/2019 Time: 20:32 Bed 23 Private MD: ED Physician Wm Paredes HPI: 07/20 06:18 This 19 yrs old Female presents to ER via Ambulatory with complaints of Toe tw4 Injury. 06:18 The patient presents with pain, swelling, tenderness. The complaints affect the right tw4 foot. Onset: The symptoms/episode began/occurred 3 day(s) ago. Modifying factors: The symptoms are alleviated by nothing, the symptoms are aggravated by nothing. The patient has not experienced similar symptoms in the past. 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 - Social history:: Smoking status: Reported history of juuling and/or vaping. ROS: 07/20 06:18 MS/extremity: Positive for pain, swelling, tenderness. tw4 Constitutional: Negative for fever, chills, and weight loss, Eyes: Negative for injury, pain, redness, and discharge, Cardiovascular: Negative for chest pain, palpitations, and edema, Respiratory: Negative for shortness of breath, cough, wheezing, and pleuritic chest pain, Abdomen/GI: Negative for abdominal pain, nausea, vomiting, diarrhea, and constipation, Back: Negative for injury and pain, MS/Extremity: Negative for injury and deformity, Skin: Negative for injury, rash, and discoloration, Neuro: Negative for headache, weakness, numbness, tingling, and seizure. Exam: 06:18 Constitutional: This is a well developed, well nourished patient who is awake, alert, tw4 and in no acute distress. Head/Face: Normocephalic, atraumatic. Chest/axilla: Normal chest wall appearance and motion. Nontender with no deformity. No lesions are appreciated. Cardiovascular: Regular rate and rhythm with a normal S1 and S2. No gallops, murmurs, or rubs. Normal PMI, no JVD. No pulse deficits. Respiratory: Lungs have equal breath sounds bilaterally, clear to auscultation and percussion. No rales, rhonchi or wheezes noted. No increased work of breathing, no retractions or nasal flaring. Abdomen/GI: Soft, non-tender, with normal bowel sounds. No distension or tympany. No guarding or rebound. No evidence of tenderness throughout. Back: No spinal tenderness. No costovertebral tenderness. Full range of motion. Neuro: Awake and alert, GCS 15, oriented to person, place, time, and situation. Cranial nerves II-XII grossly intact. Motor strength 5/5 in all extremities. Sensory grossly intact. Cerebellar exam normal. Normal gait. 06:18 Musculoskeletal/extremity: Extremities: noted in the Right first toenail: erythema, pain, swelling, tenderness. Vital Signs: 07/19 20:46 BP 129 / 57; Pulse 86; Resp 16 S; Temp 97.9(TE); Pulse Ox 100% on R/A; Weight 81.65 kg jd3 (R); Height 5 ft. 4 in. (162.56 cm) (R); Pain 7/10; 22:06 BP 130 / 76; Pulse 103; Resp 16 S; Temp 98.5; Pulse Ox 97% on R/A; bb 20:46 Body Mass Index 30.90 (81.65 kg, 162.56 cm) jd3 MDM: 21:13 Patient medically screened. tw4 07/20 06:18 Differential diagnosis: gout, cellulitis. Data reviewed: vital signs, nurses notes. tw4 Data interpreted: Pulse oximetry: Interpretation: normal. Counseling: I had a detailed discussion with the patient and/or guardian regarding: the historical points, exam findings, and any diagnostic results supporting the discharge/admit diagnosis. Administered Medications: 07/19 21:52 Drug: Cleocin 300 mg Route: PO; ll1 22:07 Follow up: Response: No adverse reaction bb Disposition: 07/20/19 21:36 Discharged to Home. Impression: Cellulitis of right lower limb. - Condition is Stable. - Discharge Instructions: Cellulitis, Adult. - Prescriptions for Cleocin 300 mg Oral Capsule - take 1 capsule by ORAL route every 6 hours for 10 days; 40 capsule. Ibuprofen 800 mg Oral Tablet - take 1 tablet by ORAL route every 8 hours As needed take with food; 30 tablet. - Medication Reconciliation Form, Thank You Letter, Antibiotic Education, Prescription Opioid Use form. - Follow up: Private Physician; When: Upon discharge from the Emergency Department; Reason: Recheck today's complaints, Continuance of care, Re-evaluation by your physician. - Problem is new. - Symptoms have improved. Signatures: Gretchen Connelly RN RN bb Sd Somers RN RN jd3 Wm Paredes MD MD tw4 Octavio Cabral RN RN ll1 Corrections: (The following items were deleted from the chart) 22:08 21:36 07/20/2019 21:36 Discharged to Home. Impression: Cellulitis of right lower limb. bb Condition is Stable. Forms are Medication Reconciliation Form, Thank You Letter, Antibiotic Education, Prescription Opioid Use. Follow up: Private Physician; When: Upon discharge from the Emergency Department; Reason: Recheck today's complaints, Continuance of care, Re-evaluation by your physician. Problem is new. Symptoms have improved. tw4
[2019-07-20 22:50] VITALS: BP 130/76; TEMP 98.5; O2SAT 97
== END 2019-07-20 22:08 | disposition home or self-care (01) ==
LOC: ER 20:31
DX: L03.115 Cellulitis of right lower limb (principal); Z88.0 Allergy status to penicillin; Z91.018 Allergy to other foods
CPT/HCPCS: 99283

== ENCOUNTER 2020-07-26 20:09 | Emergency (ER) | payer OTHER, SELFPAY ==
--- OUTSIDE RECORDS SUMMARY | 2020-07-26 20:11 | XMS REPORT | Continuity of Care Document ---
:[address] [facility] t Address [address] [place] [address] Care Team Providers Name Role Phone Doctor Unassigned, [place] Attending Clinician Unavailable Georges Dhaliwal MD Attending Clinician Tian GARCIA Attending Clinician Lauren Garcia Attending Clinician Resident Wai Attending Clinician Unavailable Problems This patient has no known problems. Allergies, Adverse Reactions, Alerts This patient has no known allergies or adverse reactions. Medications This patient has no known medications. Procedures This patient has no known procedures. Encounters Start End Encounter Admission Attending Care Care Encounter Source Date/Time Date/Time Type Type Clinicians Facility Department ID 2019-01-25 2019-01-25 Orders Doctor COTO 1.2.840.114 [id number] 00:00:00 00:00:00 Only UnassignedKAREN [id number] [place] [facility] 4.2.7.2.686 [id number] 2019-01-22 2019-01-22 Orders Doctor COTO [id number] 00:00:00 00:00:00 Only UnassignedKAREN [id number] [place] [facility] 4.2.7.2.686 [id number] 2019-01-20 2019-01-20 Emergency KARIS Dhaliwal [id number] 01:00:05 02:51:00 Angelica Enriquezton [id number] [place] 4.2.7.2.686 M[place]an[place] [id number] 2019-01-15 2019-01-15 Orders Doctor CHICA 1.2.840.114 [id number] 00:00:00 00:00:00 Only Unassigned, KAREN [id number] [facility] .2.7.2.686 [id number] [id number] 2019-01-08 2019-01-08 [place] [id number] 00:00:00 00:00:00 [facility] [id number] [facility]INICS 4.2.7.2.686 [id number] 2019-01-06 2019-01-06 Emergency Jd, K [facility] 1.2.840.114 [id number] 15:49:00 17:15:00 Lauren Christofer [id number] [place] 4.2.7.2.686 Mcdaniels [id number] 2018-12-29 2018-12-29 Orders Doctor CHICA 1.2.840.114 [id number] 00:00:00 00:00:00 Only Unassigned, KAREN [id number] [facility] .2.7.2.686 [id number] 2018-12-25 2018-12-25 Office [facility] 1.2.840.114 [id number] 14:15:52 15:03:24 Visit [facility] [id number] CLINICS 4.2.7.2.686 [id number] Results This patient has no known results.
[2020-07-26 22:10] LABS: Urine Blood 2+ (NEG); Urine Glucose NEGATIVE (NEG); Urine Protein 2+ (NEG); Urine pH 8.5 (5.0-7.0)
--- NOTE | 2020-07-26 23:47 | EDPHYS ---
Physician Documentation [facility] Name: Tali Arriaga Age: 20 yrs Sex: Female : 2000 Arrival Date: 07/26/2020 Time: 20:10 Bed 5 Private MD: ED Physician Scar Rashid HPI: 07/26 23:41 This 20 yrs old Female presents to ER via Ambulatory with complaints of Pain mick With Urination. 23:41 The patient presents with urinary symptoms, dysuria, frequency. Onset: The mick symptoms/episode began/occurred 2 day(s) ago. Modifying factors: The symptoms are alleviated by sitz baths, the symptoms are aggravated by urinating. Associated signs and symptoms: The patient has no apparent associated signs or symptoms. Severity of symptoms: At their worst the symptoms were mild, in the emergency department the symptoms are unchanged. The patient is sexually active, reportedly has a single partner. The patient has not experienced similar symptoms in the past. 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 - Social history:: Smoking status: Patient denies any tobacco usage or history of. Smoking status: Reported history of juuling and/or vaping. - Family history:: not pertinent. ROS: 23:41 Positive for burning with urination, difficulty urinating. mick 23:41 Constitutional: Negative for fever, chills, and weight loss, Eyes: Negative for injury, pain, redness, and discharge, ENT: Negative for injury, pain, and discharge, Neck: Negative for injury, pain, and swelling, Cardiovascular: Negative for chest pain, palpitations, and edema, Respiratory: Negative for shortness of breath, cough, wheezing, and pleuritic chest pain, Abdomen/GI: Negative for abdominal pain, nausea, vomiting, diarrhea, and constipation, Back: Negative for injury and pain, MS/Extremity: Negative for injury and deformity, Skin: Negative for injury, rash, and discoloration, Neuro: Negative for headache, weakness, numbness, tingling, and seizure, Psych: Negative for depression, anxiety, suicide ideation, homicidal ideation, and hallucinations, Allergy/Immunology: Negative for hives, rash, and allergies, Endocrine: Negative for neck swelling, polydipsia, polyuria, polyphagia, and marked weight changes, Hematologic/Lymphatic: Negative for swollen nodes, abnormal bleeding, and unusual bruising. Exam: 23:41 Constitutional: This is a well developed, well nourished patient who is awake, alert, mick and in no acute distress. Head/Face: Normocephalic, atraumatic. Eyes: Pupils equal round and reactive to light, extra-ocular motions intact. Lids and lashes normal. Conjunctiva and sclera are non-icteric and not injected. Cornea within normal limits. Periorbital areas with no swelling, redness, or edema. ENT: Nares patent. No nasal discharge, no septal abnormalities noted. Tympanic membranes are normal and external auditory canals are clear. Oropharynx with no redness, swelling, or masses, exudates, or evidence of obstruction, uvula midline. Mucous membranes moist. Neck: Trachea midline, no thyromegaly or masses palpated, and no cervical lymphadenopathy. Supple, full range of motion without nuchal rigidity, or vertebral point tenderness. No Meningismus. Chest/axilla: Normal chest wall appearance and motion. Nontender with no deformity. No lesions are appreciated. Cardiovascular: Regular rate and rhythm with a normal S1 and S2. No gallops, murmurs, or rubs. Normal PMI, no JVD. No pulse deficits. Respiratory: Lungs have equal breath sounds bilaterally, clear to auscultation and percussion. No rales, rhonchi or wheezes noted. No increased work of breathing, no retractions or nasal flaring. Abdomen/GI: Soft, non-tender, with normal bowel sounds. No distension or tympany. No guarding or rebound. No evidence of tenderness throughout. Back: No spinal tenderness. No costovertebral tenderness. Full range of motion. Skin: Warm, dry with normal turgor. Normal color with no rashes, no lesions, and no evidence of cellulitis. MS/ Extremity: Pulses equal, no cyanosis. Neurovascular intact. Full, normal range of motion. Neuro: Awake and alert, GCS 15, oriented to person, place, time, and situation. Cranial nerves II-XII grossly intact. Motor strength 5/5 in all extremities. Sensory grossly intact. Cerebellar exam normal. Normal gait. Psych: Awake, alert, with orientation to person, place and time. Behavior, mood, and affect are within normal limits. 23:41 : Pelvic Exam: External exam: is normal, no appreciated Bartholin's cyst, no mick erythema, not excoriated, no evidence of foreign body, no lesions, no ulcerations, no warts seen, Bladder: is normal, non-distended, non-tender. Vital Signs: 20:41 BP 129 / 89; Pulse 97; Resp 17; Temp 97.9; Pulse Ox 97% ; Weight 89.81 kg; Height 5 ft. ll1 4 in. (162.56 cm); Pain 5/10; 07/27 00:00 BP 124 / 85; Pulse 93; Resp 18; Pulse Ox 98% on R/A; 07/26 20:41 Body Mass Index 33.99 (89.81 kg, 162.56 cm) ll1 MDM: 07/26 23:15 Patient medically screened. [facility] 23:46 Differential diagnosis: cervicitis, urinary tract infection, vaginosis. Data reviewed: [facility] vital signs, nurses notes, lab test result(s), urinalysis. Counseling: I had a detailed discussion with the patient and/or guardian regarding: the historical points, exam findings, and any diagnostic results supporting the discharge/admit diagnosis, lab results, the need for outpatient follow up, for definitive care, a family practitioner, an OB/Gyne specialist. 07/26 22:03 Order name: Urine Dipstick--Ancillary (enter results); Complete Time: 22:52 [facility] 07/26 22:03 Order name: Urine --Ancillary (enter results); Complete Time: 22:52 [facility] 07/26 23:15 Order name: Urine Culture [facility] 07/26 23:17 Order name: Urine Microscopic Only [facility] 07/26 22:03 Order name: Urine Test (obtain specimen); Complete Time: 23:17 2 07/26 22:03 Order name: Urine Dipstick-Ancillary (obtain specimen); Complete Time: 23:17 mw2 Administered Medications: 23:52 Drug: Bactrim (160 mg-800 mg (DS) 1 tablet Route: PO; 07/27 00:02 Follow up: Response: No adverse reaction 07/26 23:52 Drug: Pyridium 200 mg Route: PO; 07/27 00:02 Follow up: Response: No adverse reaction Disposition: 07/26/20 23:46 Discharged to Home. Impression: Dysuria. - Condition is Stable. - Discharge Instructions: Dysuria, How to Take a Sitz Bath. - Prescriptions for Pyridium 200 mg Oral Tablet - take 1 tablet by ORAL route every 8 hours for 3 days; 9 tablet. Bactrim DS 800- 160 mg Oral Tablet - take 1 tablet by ORAL route every 12 hours for 7 days; 14 tablet. - Medication Reconciliation Form, Thank You Letter, Antibiotic Education, Prescription Opioid Use form. - Follow up: Private Physician; When: 2 - 3 days; Reason: Recheck today's complaints, Continuance of care, Re-evaluation by your physician. Follow up: Brandin Longoria MD; When: 2 - 3 days; Reason: Recheck today's complaints, Re-evaluation by your physician. - Problem is new. - Symptoms have improved. Signatures: Dispatcher [employer] EDIA Scar Rashid MD MD cha Page, Corey, PA PA cp Habalo, Winsy, RN RN Miranda Sanz [facility] Octavio Cabral RN RN ll1 Corrections: (The following items were deleted from the chart) 00:03 07/26 23:46 07/26/2020 23:46 Discharged to Home. Impression: Dysuria. Condition is Stable. Forms are Medication Reconciliation Form, Thank You Letter, Antibiotic Education, Prescription Opioid Use. Follow up: Private Physician; When: 2 - 3 days; Reason: Recheck today's complaints, Continuance of care, Re-evaluation by your physician. Follow up: Brandin Longoria; When: 2 - 3 days; Reason: Recheck today's complaints, Re-evaluation by your physician. Problem is new. Symptoms have improved. mick
--- NOTE | 2020-07-26 23:47 | ER ---
Nurse's Notes [facility] Name: Tali Arriaga Age: 20 yrs Sex: Female : 2000 Arrival Date: 07/26/2020 Time: 20:10 Bed 5 Private MD: Diagnosis: Dysuria Presentation: 07/26 20:41 Chief complaint: Patient states: 1. Pelvic pain and painful urination for 1 day. ll1 Urinary frequency with oliguria. States she had sex last night, also worried about STD's. No fever. No N/V/D. LMP:2 weeks ago. 2. Small sore to inner lip for 2 weeks. Coronavirus screen: Client denies travel out of the [place] in the last 14 days. At this time, the client does not indicate any symptoms associated with coronavirus-19. Ebola Screen: Patient denies travel to an Ebola-affected area in the 21 days before illness onset. Initial Sepsis Screen: Does the patient meet any 2 criteria? HR > 90 bpm. No. Patient's initial sepsis screen is negative. Does the patient have a suspected source of infection? Yes: Dysuria/Frequency/Urgency/UTI. Risk Assessment: Do you want to hurt yourself or someone else? Patient reports no desire to harm self or others. Onset of symptoms was July 26, 2020. 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 - Social history:: Smoking status: Patient denies any tobacco usage or history of. Smoking status: Reported history of juuling and/or vaping. - Family history:: not pertinent. Screenin:30 Abuse screen: Denies threats or abuse. Denies injuries from another. Nutritional wh screening: No deficits noted. Tuberculosis screening: No symptoms or risk factors identified. Fall Risk None identified. Assessment: 23:30 General: Appears in no apparent distress. Behavior is calm, cooperative, appropriate wh for age. Pain: Denies pain. Neuro: Level of Consciousness is awake, alert, obeys commands, Oriented to person, place, time, situation, Appropriate for age. Cardiovascular: Capillary refill < 3 seconds. Respiratory: Airway is patent Respiratory effort is even, unlabored, Respiratory pattern is regular, symmetrical. GI: Abdomen is flat, non-distended. : Reports burning with urination, pain. EENT: No signs and/or symptoms were reported regarding the EENT system. Derm: Skin is intact, is healthy with good turgor, Skin is pink, warm \T\ dry. normal. Musculoskeletal: Circulation, motion, and sensation intact. Vital Signs: 20:41 BP 129 / 89; Pulse 97; Resp 17; Temp 97.9; Pulse Ox 97% ; Weight 89.81 kg; Height 5 ft. ll1 4 in. (162.56 cm); Pain 5/10; 07/27 00:00 BP 124 / 85; Pulse 93; Resp 18; Pulse Ox 98% on R/A; wh 07/26 20:41 Body Mass Index 33.99 (89.81 kg, 162.56 cm) ll1 ED Course: 07/26 20:10 Patient arrived in ED. cl3 20:44 Triage completed. ll1 20:45 Arm band placed on. ll1 23:15 Scar Rashid MD is Attending Physician. [facility] 23:15 Jason Jang, SINGH is Primary Nurse. rv 23:30 Patient has correct armband on for positive identification. Bed in low position. Call light in reach. Side rails up X 1. Pulse ox on. NIBP on. 23:46 Brandin Longoria MD is Referral Physician. [facility] 07/27 00:01 No provider procedures requiring assistance completed. Patient did not have IV access during this emergency room visit. Administered Medications: 07/26 23:52 Drug: Bactrim (160 mg-800 mg (DS) 1 tablet Route: PO; 07/27 00:02 Follow up: Response: No adverse reaction 07/26 23:52 Drug: Pyridium 200 mg Route: PO; 07/27 00:02 Follow up: Response: No adverse reaction Outcome: 07/26 23:46 Discharge ordered by . [facility] 07/27 00:01 Discharged to home ambulatory. Condition: stable Discharge instructions given to patient, Instructed on discharge instructions, follow up and referral plans. medication usage, POC Demonstrated understanding of instructions, follow-up care, medications, POC Prescriptions given X 2. 00:03 Patient left the ED. Signatures: Scar Rashid MD MD cha Habalo, Winsy, RN RN Jason Jang RN RN rv Lewis, Charde cl3 Octavio Cabral RN RN ll1 Corrections: (The following items were deleted from the chart) 07/26 20:45 20:41 Chief complaint: Patient states: Pelvic pain and painful urination for 1 day. ll1 Urinary frequency with oliguria. States she had sex last night, also worried about STD's. No fever. No N/V/D. LMP:2 weeks ago. ll1
[2020-07-27] MEDS ORDERED: PHENAZOPYRIDINE 100MG TAB PO ONE (00:08)
[2020-07-27] MEDS ORDERED: SMZ./TMP. 800/160 MG TABLET ONE (00:08)
[2020-07-27 00:25] VITALS: TEMP 97.9
[2020-07-27 00:34] VITALS: BP 124/85; O2SAT 98
[2020-07-27 01:58] LABS: Urine Bacteria 20-50 /HPF (<20); Urine RBC >50 /HPF (NONE SEEN)
== END 2020-07-27 00:03 | disposition home or self-care (01) ==
LOC: ER 20:09
DX: R30.0 Dysuria (principal); Z88.0 Allergy status to penicillin; Z91.018 Allergy to other foods
CPT/HCPCS: 81003; 81015; 81025; 87086; 87088; 99283

== ENCOUNTER 2020-09-22 19:04 | Emergency (ER) | payer OTHER, SELFPAY ==
--- OUTSIDE RECORDS SUMMARY | 2020-09-22 19:08 | XMS REPORT | Continuity of Care Document ---
:2000 Author Organization [facility] t Address [address] [place] [address] Care Team Providers Name Role Phone Vinnie Seven HERNANDEZ George Attending Clinician Doctor Unassigned, Name Attending Clinician Unavailable Madhuri GREER S Attending Clinician Tian GARCIA Attending Clinician Lauren [...] Date/Time Type Type Clinicians Facility Department ID 2020-08-01 2020-08-01 Patient Vinnie KARIS [id number] [id number] 00:00:00 00:00:00 Outreach Seven [facility] [id number] George [facility] 4.2.7.2.686 [place] [id number] 2019-01-25 2019-01-25 Orders Doctor COTO 1.2.840.114 [id number] 00:00:00 00:00:00 Only UnassignedKAREN [id number] [place] [facility] 4.2.7.2.686 [id number] [id number] 2019-01-22 2019-01-22 Orders Doctor COTO 1.2.840.114 [id number] 00:00:00 00:00:00 Only Unassigned, KAREN [id number] [place] [facility] 2.7.2.686 [id number] 2019-01-20 2019-01-20 [facility] [id number] 01:00:05 02:51:00 Angelica [place] [id number]2.686 [place] [id number] 2019-01-15 2019-01-15 Orders Doctor CHICA 1.2.840.114 [id number] 00:00:00 00:00:00 Only Unassigned, KAREN 350.1.13.10 [place] [address]686 [id number] 2019-01-08 2019-01-08 Telephone [facility] 1.2.840.114 [id number] 00:00:00 00:00:00 [facility] [id number] CLINICS 2.7.2.686 [id number] 2019-01-06 2019-01-06 Emergency Kevin Miles [facility] 1.2.840.114 [id number] 15:49:00 17:15:00 Lauren Beaulieu 350.1.13.[address]2.686 [place] [id number] 2018-12-29 2018-12-29 Orders Doctor CHICA 1.2.840.114 [id number] 00:00:00 00:00:00 Only Unassigned, KAREN 350.1.13.10 [place] [address]686 [id number] [id number] 2018-12-25 2018-12-25 Office [address]840[address]114 [id number] 14:15:52 15:03:24 Visit [facility] [id number] CLINICS 2.7.2.686 [id number] 113 Results This patient has no known results.
[2020-09-22 19:51] LABS: Urine Blood Trace-intact (Negative); Urine Glucose Negative (Negative); Urine Protein 1+ (Negative); Urine Specific Gravity >=1.030 (1.005-1.030)
[2020-09-22] MEDS ORDERED: KETOROLAC 30 MG/ML INJ ONE (20:02)
[2020-09-22] MEDS ORDERED: NA CHLORIDE 0.9% 1,000 ML ONE (20:02)
[2020-09-22 20:07] LABS: Urine Specific Gravity/Preg >1.030 (1.005-1.030)
[2020-09-22 20:15] LABS: Absolute Lymphocytes (CBC) 1.1 K/uL (0.7-4.9); Basophils % 0.1 % (0-1.3); Hematocrit 39.3 % (36.0-45.0); Lymphocytes % 10.4 % (15.3-44.8); MPV 8.5 fL (7.6-11.3); RBC Red Blood Cell Count 4.17 M/uL (3.86-4.86)
[2020-09-22 20:19] LABS: Urine Bacteria 20-50 /HPF (<20); Urine RBC <5 /HPF (NONE SEEN)
[2020-09-22 20:20] LABS: BUN Blood Urea Nitrogen 14 mg/dL (7-18); Bicarbonate 27 mmol/L (21-32); Glucose Level 143 mg/dL (74-106); Potassium 3.6 mmol/L (3.5-5.1); Sodium Level 138 mmol/L (136-145)
[2020-09-22 20:20] LABS: Urine Amorphous Sediment 1+ /HPF (NONE SEEN); Urine Mucus 1+ /HPF (NONE SEEN)
[2020-09-22 20:35] LABS: Blood Morphology Comment NOT SEEN (NOT SEEN); Platelet Estimate ADEQ; White Blood Cell Scan OK (OK)
--- NOTE | 2020-09-22 20:38 | RAD REPORT ---
EXAM DESCRIPTION: CT - Abdomen Pelvis W Contrast - 09/22/2020 7:55 pm CLINICAL HISTORY: Abdominal pain COMPARISON: none. TECHNIQUE: Computed axial tomography of the abdomen pelvis was obtained. 100 cc Isovue-300 was admin istered intravenously. Oral contrast was not requested which limits evaluation of bowel. All CT scans are performed using dose optimization technique as appropriate and may include automated exposure control or mA/KV adjustment according to patient size. FINDINGS: The liver, spleen, pancreas, adrenal and kidneys appear unremarkable. There is no evidence of diverticulitis. The appendix is borderline enlarged. No stranding is seen within adjacent fat. The appearance of the appendix is similar to the prior exam. The right ovary is mildly enlarged. IMPRESSION: Mild enlargement of the right ovary. Ultrasound may be helpful for further evaluation. The appendix is borderline enlarged. Given that it is unchanged from 2017 and there is no adjacent st randing this probably is a normal finding for the patient. If there is strong clinical suspicion for appendicitis then a CT scan with oral contrast would be recommended. If the oral contrast filled the appendix then this would confirm it is normal.
--- NOTE | 2020-09-22 21:22 | RAD REPORT ---
EXAM DESCRIPTION: US - Pelvis Complete - 09/22/2020 9:10 pm CLINICAL HISTORY: Pelvic pain COMPARISON: CT September 22, 2020 FINDINGS: The uterus measures 10 x 3 x 5 centimeters. The endometrial stripe measures 3 millimeters. Fibroid is not seen. The right ovary measures 5.4 x 3.1 x 4 point centimeters. It contains blood flow. It contains a 2 nora timeters cyst. Left ovary is normal in size and echotexture. The right and left adnexal unremarkable. No significant free fluid IMPRESSION: Enlarged right ovary 2 centimeter right ovarian cyst
--- NOTE | 2020-09-22 21:35 | ER ---
Nurse's Notes [facility] Name: Tali Arriaga Age: 20 yrs Sex: Female : 2000 Arrival Date: 09/22/2020 Time: 19:08 Bed 18 Private MD: Diagnosis: Other ovarian cysts Presentation: 09/22 19:11 Chief complaint: Patient states: "I am hurting really bad on the lower right side of my jd3 stomach. I am also hurting when I pee.". Coronavirus screen: At this time, the client does not indicate any symptoms associated with coronavirus-19. Ebola Screen: Patient negative for fever greater than or equal to 101.5 degrees Fahrenheit, and additional compatible Ebola Virus Disease symptoms. Initial Sepsis Screen: Does the patient meet any 2 criteria? No. Patient's initial sepsis screen is negative. Does the patient have a suspected source of infection? No. Patient's initial sepsis screen is negative. Risk Assessment: Do you want to hurt yourself or someone else? Patient reports no desire to harm self or others. Onset of symptoms was September 22, 2020. 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 - Social history:: Smoking status: Reported history of juuling and/or vaping. Screenin:23 Abuse screen: Denies threats or abuse. Denies injuries from another. Nutritional ad5 screening: No deficits noted. Tuberculosis screening: No symptoms or risk factors identified. Fall Risk None identified. Assessment: 20:11 General: Appears in no apparent distress. comfortable, Behavior is calm, cooperative, ad5 appropriate for age. Pain: Complains of pain in right lower quadrant Pain currently is 7 out of 10 on a pain scale. Neuro: No deficits noted. Level of Consciousness is awake, alert, obeys commands, Oriented to person, place, time, situation, Appropriate for age Gait is steady, Speech is normal, Facial symmetry appears normal. Cardiovascular: No deficits noted. Denies chest pain, nausea, shortness of breath, vomiting, Heart tones present Capillary refill < 3 seconds Clubbing of nail beds is absent JVD is absent Patient's skin is warm and dry. Pulses are all present. Rhythm is regular. Respiratory: No deficits noted. Airway is patent Respiratory effort is even, unlabored, Respiratory pattern is regular, symmetrical. GI: Bowel sounds present X 4 quads. Abd is soft X 4 quads Abdomen is tender to palpation in right lower quadrant. : Reports pain in right lower quadrant(s) Denies burning with urination, discharge, incontinence, urinary frequency. Derm: No deficits noted. Skin is pink, warm \\T\\ dry. Musculoskeletal: No deficits noted. 21:26 Reassessment: Patient appears in no apparent distress at this time. Patient and/or ad5 family updated on plan of care and expected duration. Pain level reassessed. Patient is alert, oriented x 3, equal unlabored respirations, skin warm/dry/pink. Patient states symptoms have improved. Vital Signs: 19:13 BP 134 / 79; Pulse 105; Resp 17 S; Temp 97.8(TE); Pulse Ox 100% on R/A; Weight 91.63 kg jd3 (R); Height 5 ft. 4 in. (162.56 cm) (R); Pain 8/10; 20:12 BP 111 / 59; Pulse 80; Resp 16 S; Pulse Ox 100% on R/A; ad5 21:26 BP 103 / 38; Pulse 71; Resp 16 S; Pulse Ox 97% on R/A; ad5 19:13 Body Mass Index 34.67 (91.63 kg, 162.56 cm) j ED Course: 19:08 Patient arrived in ED. es 19:12 Triage completed. jd3 19:13 [facility]C [facility] kb 19:13 Elia Tobias MD is Attending Physician. kb 19:14 Arm band placed on. jd3 19:23 [place] is Primary Nurse. ad5 19:23 No provider procedures requiring assistance completed. ad5 19:24 Patient has correct armband on for positive identification. Fall risk band placed. ad5 Placed in gown. Bed in low position. Call light in reach. Side rails up X2. 19:42 Inserted saline lock: 22 gauge in left forearm, using aseptic technique. Blood ds4 collected. 19:55 CT Abd/Pelvis - IV Contrast Only In Process Unspecified. EDMS 21:11 Pelvis Complete In Process Unspecified. EDMS 21:42 IV discontinued, intact, bleeding controlled, No redness/swelling at site. Pressure ad5 dressing applied. Administered Medications: 20:10 Drug: NS 0.9% 1000 ml Route: IV; Rate: 1000 ml; Site: left forearm; ad5 21:36 Follow up: IV Status: Completed infusion; IV converted to saline lock; IV Intake: [id number] 20:10 Drug: TORadol (ketorolac) 30 mg Route: IVP; Site: left forearm; ad5 21:35 Follow up: Response: No adverse reaction; Pain is decreased ad5 Intake: 21:36 IV: 1000ml; Total: 1000ml. ad5 Outcome: 21:35 Discharge ordered by MD. kb 21:42 Discharged to home ambulatory. ad5 21:42 Condition: stable 21:42 Discharge instructions given to patient, Instructed on discharge instructions, follow up and referral plans. medication usage, Demonstrated understanding of instructions, follow-up care, medications, Prescriptions given X 1. 21:43 Patient left the ED. ad5 Signatures: Dispatcher [employer] EDMS Shayy Vázquez, PROFESSIONAL VOLLEYBALL PLAYER-C PROFESSIONAL VOLLEYBALL PLAYER-CkVal Mccartney Donovan ds4 Sd Somers RN RN jd3 [place] ad5 Corrections: (The following items were deleted from the chart) 19:12 19:11 Chief complaint: Patient states: "I am hurting really bad on the lower right side jd3 of my stomach.' jd3
--- NOTE | 2020-09-22 21:35 | EDPHYS ---
Physician Documentation [facility] Name: Tali Arriaga Age: 20 yrs Sex: Female : 2000 Arrival Date: 09/22/2020 Time: 19:08 Bed 18 Private MD: ED Physician Elia Tobias HPI: 09/22 21:31 This 20 yrs old Female presents to ER via Ambulatory with complaints of kb Abdominal Pain. 21:31 The patient presents with abdominal pain. The patient has not experienced similar kb symptoms in the past. 21:31 Onset: The symptoms/episode began/occurred today. The symptoms do not radiate. kb Associated signs and symptoms: Pertinent positives: dysuria. The symptoms are described as constant. Modifying factors: The symptoms are alleviated by nothing, the symptoms are aggravated by pressure. Severity of pain: At its worst the pain was moderate in the emergency department the pain is unchanged. The patient has not recently seen a physician. Pt reports pain to right pelvic area and pain with urination. Denies fever, n/v/d. 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 - Social history:: Smoking status: Reported history of juuling and/or vaping. ROS: 21:30 Constitutional: Negative for fever, chills, and weight loss, Cardiovascular: Negative kb for chest pain, palpitations, and edema, Respiratory: Negative for shortness of breath, cough, wheezing, and pleuritic chest pain, Back: Negative for injury and pain, MS/Extremity: Negative for injury and deformity, Skin: Negative for injury, rash, and discoloration, Neuro: Negative for headache, weakness, numbness, tingling, and seizure. 21:30 Abdomen/GI: Positive for abdominal pain, Negative for nausea, vomiting, and diarrhea. 21:30 : Positive for burning with urination. Exam: 21:31 Constitutional: This is a well developed, well nourished patient who is awake, alert, kb and in no acute distress. Head/Face: Normocephalic, atraumatic. ENT: Moist Mucous membranes Cardiovascular: Regular rate and rhythm with a normal S1 and S2. No gallops, murmurs, or rubs. No pulse deficits. Respiratory: Respirations even and unlabored. No increased work of breathing, no retractions or nasal flaring. Skin: Warm, dry with normal turgor. Normal color. MS/ Extremity: Pulses equal, no cyanosis. Neurovascular intact. Full, normal range of motion. Neuro: Awake and alert, GCS 15, oriented to person, place, time, and situation. Moves all extremities. Normal gait. Psych: Awake, alert, with orientation to person, place and time. Behavior, mood, and affect are within normal limits. 21:31 Abdomen/GI: Inspection: abdomen appears normal, Bowel sounds: normal, in all quadrants, Palpation: soft, in all quadrants, moderate abdominal tenderness, in the right lower quadrant, right pelvic area. Vital Signs: 19:13 BP 134 / 79; Pulse 105; Resp 17 S; Temp 97.8(TE); Pulse Ox 100% on R/A; Weight 91.63 kg jd3 (R); Height 5 ft. 4 in. (162.56 cm) (R); Pain 8/10; 20:12 BP 111 / 59; Pulse 80; Resp 16 S; Pulse Ox 100% on R/A; ad5 21:26 BP 103 / 38; Pulse 71; Resp 16 S; Pulse Ox 97% on R/A; ad5 19:13 Body Mass Index 34.67 (91.63 kg, 162.56 cm) jd3 MDM: 19:15 Patient medically screened. kb 21:30 Data reviewed: vital signs, nurses notes. Data interpreted: Pulse oximetry: on room air kb is 100 %. Interpretation: normal. Counseling: I had a detailed discussion with the patient and/or guardian regarding: the historical points, exam findings, and any diagnostic results supporting the discharge/admit diagnosis, lab results, radiology results, the need for outpatient follow up, an OB/Gyne specialist, to return to the emergency department if symptoms worsen or persist or if there are any questions or concerns that arise at home. 21:32 ED course: Pain and tenderness more in pelvic area than abd. Ovarian cyst is likely kb cause of pain. Appendicitis not suspected. Pt educated to return for worsening symptoms, fever.. 09/22 19:14 Order name: Urine Microscopic Only kb 09/22 19:14 Order name: Urine Microscopic Only; Complete Time: 20:28 EDMS 09/22 19:23 Order name: Basic Metabolic Panel kb 09/22 19:23 Order name: CBC with Diff kb 09/22 19:24 Order name: Basic Metabolic Panel; Complete Time: 20:28 EDMS 09/22 19:24 Order name: CBC with Automated Diff; Complete Time: 20:36 EDMS 09/22 19:24 Order name: CT Abd/Pelvis - IV Contrast Only; Complete Time: 20:41 kb 09/22 19:52 Order name: Urine Dipstick-Ancillary; Complete Time: 19:55 EDMS 09/22 19:53 Order name: Urine --Ancillary (enter results); Complete Time: 20:28 tt3 09/22 20:22 Order name: Urine Culture EDIA 09/22 20:36 Order name: CBC Smear Scan; Complete Time: 20:36 EDMS 09/22 21:08 Order name: Pelvis Complete; Complete Time: 21:28 EDMS 09/22 19:14 Order name: Urine Test (obtain specimen); Complete Time: 19:47 kb 09/22 19:14 Order name: Urine Dipstick-Ancillary (obtain specimen); Complete Time: 19:47 kb 09/22 19:23 Order name: IV Saline Lock; Complete Time: 19:47 kb 09/22 19:23 Order name: Labs collected and sent; Complete Time: 19:47 kb Administered Medications: 20:10 Drug: NS 0.9% 1000 ml Route: IV; Rate: 1000 ml; Site: left forearm; ad5 21:36 Follow up: IV Status: Completed infusion; IV converted to saline lock; IV Intake: [id number] 20:10 Drug: TORadol (ketorolac) 30 mg Route: IVP; Site: left forearm; ad5 21:35 Follow up: Response: No adverse reaction; Pain is decreased ad5 Disposition: 09/22/20 21:35 Discharged to Home. Impression: Other ovarian cysts. - Condition is Stable. - Discharge Instructions: Ovarian Cyst, [id number]. - Prescriptions for Diclofenac Sodium 75 mg Oral Tablet, Delayed Release (E.C.) - take 1 tablet by ORAL route 2 times per day As needed; 30 tablet. - Medication Reconciliation Form, Thank You Letter, Antibiotic Education, Prescription Opioid Use form. - Follow up: Emergency Department; When: As needed; Reason: Worsening of condition. Follow up: Private Physician; When: 2 - 3 days; Reason: Recheck today's complaints, Continuance of care, Re-evaluation by your physician. Signatures: Dispatcher [employer] [facility] Shayy Vázquez, RADHA-C [employer] TRIMMER-Sd Dunne RN RN [place] ad5 Corrections: (The following items were deleted from the chart) 21:08 20:43 Transvaginal Study (Probe)+[id number] ordered. [facility] 21:43 21:35 09/22/2020 21:35 Discharged to Home. Impression: Other ovarian cysts. Condition ad5 is Stable. Forms are Medication Reconciliation Form, Thank You Letter, Antibiotic Education, Prescription Opioid Use. Follow up: Emergency Department; When: As needed; Reason: Worsening of condition. Follow up: Private Physician; When: 2 - 3 days; Reason: Recheck today's complaints, Continuance of care, Re-evaluation by your physician. kb
[2020-09-22 22:15] VITALS: TEMP 97.8
[2020-09-22 22:22] VITALS: BP 103/38; O2SAT 97
== END 2020-09-22 21:43 | disposition home or self-care (01) ==
LOC: ER 19:04
DX: N83.291 Other ovarian cyst, right side (principal); F17.290 Nicotine dependence, other tobacco product, uncomplicated
CPT/HCPCS: 36415; 74177; 76856; 80048; 81003; 81015; 81025; 85025; 87086; 87088; 96361; 96374; 99284; J7030; Q9967

== ENCOUNTER 2022-03-11 14:36 | Emergency (ER) | payer SELFPAY ==
[2022-03-11 15:00] LABS: Urine Blood Trace-intact (Negative); Urine Glucose Negative (Negative); Urine Protein Negative (Negative); Urine Specific Gravity >=1.030 (1.005-1.030); Urine pH 5.5 (5.0-7.0)
[2022-03-11] MEDS ORDERED: ACYCLOVIR 400 MG TABLET ONE (16:02)
--- NOTE | 2022-03-11 16:02 | ER ---
Nurse's Notes [facility] Name: Tali Arriaga Age: 21 yrs Sex: Female : 2000 Arrival Date: 03/11/2022 Time: 14:39 Bed 18 Private MD: Diagnosis: Herpesviral vulvovaginitis Presentation: 03/11 14:46 Chief complaint: Patient states: Pt reports severe vaginal pain, worse with urination. kb3 Reports intermittent suprapubic pain x2 days. Coronavirus screen: Vaccine status: Patient reports being unvaccinated. Client denies travel out of the [place] in the last 14 days. Ebola Screen: Patient negative for fever greater than or equal to 101.5 degrees Fahrenheit, and additional compatible Ebola Virus Disease symptoms Patient denies exposure to infectious person. Patient denies travel to an Ebola-affected area in the 21 days before illness onset. Initial Sepsis Screen: Does the patient meet any 2 criteria? No. Patient's initial sepsis screen is negative. Does the patient have a suspected source of infection? No. Patient's initial sepsis screen is negative. Risk Assessment: Do you want to hurt yourself or someone else? Patient reports no desire to harm self or others. Onset of symptoms was March 09, 2022. 14:46 Method Of Arrival: Ambulatory kb3 14:46 Acuity: SABRINA 3 kb3 Triage Assessment: 14:48 General: Appears in no apparent distress. uncomfortable, Behavior is calm, cooperative. kb3 Pain: Complains of pain in groin Pain does not radiate. Pain currently is 8 out of 10 on a pain scale. Quality of pain is described as burning, sharp. 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 - Social history:: Smoking status: Reported history of juuling and/or vaping. Screenin:00 Fall Risk Total Maddox Fall Scale indicates No Risk (0-24 pts). em6 15:14 Abuse screen: Denies threats or abuse. Nutritional screening: No deficits noted. em6 Tuberculosis screening: No symptoms or risk factors identified. Assessment: 15:00 General: Appears comfortable, Behavior is cooperative. Pain: Complains of pain in em6 suprapubic area Pain does not radiate. Pain currently is 8 out of 10 on a pain scale. Quality of pain is described as pressure, sharp, Pain began 2-3 days ago. Neuro: Level of Consciousness is awake, alert, obeys commands, Oriented to person, place, time, situation. Cardiovascular: Heart tones present. Respiratory: Airway is patent Respiratory effort is even, unlabored, Respiratory pattern is regular, symmetrical, Breath sounds are clear bilaterally. GI: Abdomen is non-distended, Abd is soft and non tender X 4 quads. : Reports burning with urination. EENT: No signs and/or symptoms were reported regarding the EENT system. Derm: No signs and/or symptoms reported regarding the dermatologic system. Musculoskeletal: Circulation, motion, and sensation intact. 16:00 Reassessment: No changes from previously documented assessment. Patient and/or family em6 updated on plan of care and expected duration. Pain level reassessed. Patient is alert, oriented x 3, equal unlabored respirations, skin warm/dry/pink. Vital Signs: 14:46 BP 120 / 76; Pulse 80; Resp 16; Temp 98.6; Pulse Ox 100% ; Weight 90.72 kg; Height 5 kb3 ft. 4 in. (162.56 cm); Pain 8/10; 16:14 BP 128 / 68; Pulse 76; Resp 18; Pulse Ox 98% on R/A; em6 14:46 Body Mass Index 34.33 (90.72 kg, 162.56 cm) kb3 ED Course: 14:39 Patient arrived in ED. as 14:43 Jackie Nguyen [facility]NP-C [facility]. snw 14:43 Wm Paula MD is Attending Physician. snw 14:48 Triage completed. kb3 14:48 Arm band placed on right wrist. kb3 15:01 Bridgette Blankenship, SINGH is Primary Nurse. em6 15:14 Placed in gown. Bed in low position. Call light in reach. Side rails up X2. Pulse ox em6 on. NIBP on. Warm blanket given. 16:14 No provider procedures requiring assistance completed. Patient did not have IV access em6 during this emergency room visit. Administered Medications: 06:05 Drug: Pepcid (famotidine) 20 mg Route: PO; em6 16:18 Follow up: Response: No adverse reaction em6 16:05 Drug: Acyclovir 800 mg Route: PO; em6 16:18 Follow up: Response: No adverse reaction em6 16:05 Drug: predniSONE 20 mg Route: PO; em6 16:18 Follow up: Response: No adverse reaction em6 16:05 Drug: Viscous Lidocaine Liquid (4 %) 1 vials Route: Mucous Membrane; em6 16:18 Follow up: Response: No adverse reaction em6 Medication: 16:15 VIS not applicable for this client. em6 Outcome: 16:01 Discharge ordered by . snw 16:19 Discharged to home ambulatory. em6 16:19 Condition: stable 16:19 Discharge instructions given to patient, significant other, Instructed on discharge instructions, follow up and referral plans. medication usage, Demonstrated understanding of instructions, follow-up care, medications, Prescriptions given X 3. 16:19 Patient left the ED. em6 Signatures: Jackie Nguyen, AIDS NURSE-C AIDS NURSE-Csnw Emeli Blankenship Erika RN RN em6 Davina Thacker RN RN kb3 Corrections: (The following items were deleted from the chart) 14:54 14:48 LMP 12/29/2021 kb3 em6
--- NOTE | 2022-03-11 16:02 | EDPHYS ---
Physician Documentation [facility] Name: Tali Arriaga Age: 21 yrs Sex: Female : 2000 Arrival Date: 03/11/2022 Time: 14:39 Bed 18 Private MD: ED Physician Wm Paula HPI: 03/11 16:23 This 21 yrs old Female presents to ER via Ambulatory with complaints of snw Vaginal Pain. 16:23 The patient presents with urinary symptoms, dysuria. Onset: The symptoms/episode snw began/occurred suddenly. Modifying factors: The symptoms are alleviated by nothing. Associated signs and symptoms: Pertinent positives: dysuria. Severity of symptoms: At their worst the symptoms were moderate, severe. The patient is sexually active, reportedly has a single partner. The patient has not experienced similar symptoms in the past. 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 - Social history:: Smoking status: Reported history of juuling and/or vaping. ROS: 16:27 Constitutional: Negative for fever, chills, and weight loss, Eyes: Negative for injury, snw pain, redness, and discharge, ENT: Negative for injury, pain, and discharge, Neck: Negative for injury, pain, and swelling, Cardiovascular: Negative for chest pain, palpitations, and edema, Respiratory: Negative for shortness of breath, cough, wheezing, and pleuritic chest pain, Abdomen/GI: Negative for abdominal pain, nausea, vomiting, diarrhea, and constipation, Back: Negative for injury and pain, MS/Extremity: Negative for injury and deformity, Skin: Negative for injury, rash, and discoloration, Neuro: Negative for headache, weakness, numbness, tingling, and seizure. 16:27 : Positive for urinary symptoms, vaginal pain. Exam: 16:27 Constitutional: This is a well developed, well nourished patient who is awake, alert, snw and in no acute distress. Head/Face: Normocephalic, atraumatic. Eyes: Pupils equal round and reactive to light, extra-ocular motions intact. Lids and lashes normal. Conjunctiva and sclera are non-icteric and not injected. Cornea within normal limits. Periorbital areas with no swelling, redness, or edema. ENT: Nares patent. No nasal discharge, no septal abnormalities noted. Tympanic membranes are normal and external auditory canals are clear. Oropharynx with no redness, swelling, or masses, exudates, or evidence of obstruction, uvula midline. Mucous membranes moist. Neck: Trachea midline, no thyromegaly or masses palpated, and no cervical lymphadenopathy. Supple, full range of motion without nuchal rigidity, or vertebral point tenderness. No Meningismus. Chest/axilla: Normal chest wall appearance and motion. Nontender with no deformity. No lesions are appreciated. Cardiovascular: Regular rate and rhythm with a normal S1 and S2. No gallops, murmurs, or rubs. Normal PMI, no JVD. No pulse deficits. Respiratory: Lungs have equal breath sounds bilaterally, clear to auscultation and percussion. No rales, rhonchi or wheezes noted. No increased work of breathing, no retractions or nasal flaring. Abdomen/GI: Soft, non-tender, with normal bowel sounds. No distension or tympany. No guarding or rebound. No evidence of tenderness throughout. Back: No spinal tenderness. No costovertebral tenderness. Full range of motion. Pelvic Exam: Normal external genitalia. Positive blisters noted to upper labia minora Skin: Warm, dry with normal turgor. Normal color with no rashes, no lesions, and no evidence of cellulitis. MS/ Extremity: Pulses equal, no cyanosis. Neurovascular intact. Full, normal range of motion. Neuro: Awake and alert, GCS 15, oriented to person, place, time, and situation. Cranial nerves II-XII grossly intact. Motor strength 5/5 in all extremities. Sensory grossly intact. Cerebellar exam normal. Normal gait. Vital Signs: 14:46 BP 120 / 76; Pulse 80; Resp 16; Temp 98.6; Pulse Ox 100% ; Weight 90.72 kg; Height 5 kb3 ft. 4 in. (162.56 cm); Pain 8/10; 16:14 BP 128 / 68; Pulse 76; Resp 18; Pulse Ox 98% on R/A; em6 14:46 Body Mass Index 34.33 (90.72 kg, 162.56 cm) kb3 MDM: 14:55 Patient medically screened. snw 16:26 Data reviewed: vital signs, nurses notes. Data interpreted: Pulse oximetry: on room air snw is 98 %. Interpretation: normal. Counseling: I had a detailed discussion with the patient and/or guardian regarding: the historical points, exam findings, and any diagnostic results supporting the discharge/admit diagnosis, the need for outpatient follow up, to return to the emergency department if symptoms worsen or persist or if there are any questions or concerns that arise at home. Special discussion: Based on the history and exam findings, there is no indication for further emergent testing or inpatient evaluation. I discussed with the patient/guardian the need to see the primary care provider for further evaluation of the symptoms. 03/11 15:00 Order name: Urine Dipstick-Ancillary; Complete Time: 15:03 EDMS 03/11 15:52 Order name: HSV Culture and Typing EDMS Administered Medications: 06:05 Drug: Pepcid (famotidine) 20 mg Route: PO; em6 16:18 Follow up: Response: No adverse reaction em6 16:05 Drug: Acyclovir 800 mg Route: PO; em6 16:18 Follow up: Response: No adverse reaction em6 16:05 Drug: predniSONE 20 mg Route: PO; em6 16:18 Follow up: Response: No adverse reaction em6 16:05 Drug: Viscous Lidocaine Liquid (4 %) 1 vials Route: Mucous Membrane; em6 16:18 Follow up: Response: No adverse reaction em6 Disposition: 19:10 Co-signature as Attending Physician, Wm Paula MD I agree with the assessment and kdr plan of care. Disposition Summary: 03/11/22 16:01 Discharge Ordered Location: Home snw Condition: Stable snw Diagnosis - Herpesviral vulvovaginitis snw Followup: snw - With: Emergency Department - When: As needed - Reason: Worsening of condition Followup: snw - With: Private Physician - When: 2 - 3 days - Reason: Recheck today's complaints, Continuance of care, Re-evaluation by your physician Discharge Instructions: - Discharge Summary Sheet snw - Genital Herpes snw Forms: - Medication Reconciliation Form snw - Thank You Letter snw - Antibiotic Education snw - Prescription Opioid Use snw Prescriptions: - valacyclovir 1 gram Oral tablet - take 1 tablet by ORAL route 3 times per day for 7 days; 21 tablet; Refills: 0, snw Product Selection Permitted - Prednisone 20 mg Oral Tablet - take 2 tablets by ORAL route once daily for 5 days; 10 tablet; Refills: 0, snw Product Selection Permitted - Pepcid 20 mg Oral Tablet - take 1 tablet by ORAL route once daily; 20 tablet; Refills: 0, Product snw Selection Permitted Signatures: Dispatcher [employer] EDMS Wm Paula MD MD kdr Waters, Shelly, HEALTH SERVICE WORKER-C HEALTH SERVICE WORKER-Bridgette Wilson, RN RN em6 Davina Thacker RN RN kb3 Corrections: (The following items were deleted from the chart) 15:52 15:32 Miscellaneous Lab Test+R.LAB.BRZ ordered. EDNJ EDMS
[2022-03-11] MEDS ORDERED: predniSONE 20 MG TAB ONE (16:03)
[2022-03-11] MEDS ORDERED: LIDOCAINE VISCOUS 2% SOLN 15 ML UDC ONE (16:03)
[2022-03-11] MEDS ORDERED: FAMOTIDINE 20 MG TAB ONE (16:03)
[2022-03-11 16:24] VITALS: TEMP 98.6
[2022-03-11 16:30] VITALS: BP 128/68; O2SAT 98
[2022-03-15 14:58] LABS: HSV Source Cervix
== END 2022-03-11 16:19 | disposition home or self-care (01) ==
LOC: ER 14:36
DX: A60.04 Herpesviral vulvovaginitis (principal); Z88.0 Allergy status to penicillin; Z91.018 Allergy to other foods
CPT/HCPCS: 81003; 87255; 99283; J7512

== ENCOUNTER 2022-07-16 11:45 | Emergency (ER) | payer SELFPAY ==
--- OUTSIDE RECORDS SUMMARY | 2022-07-16 11:48 | XMS REPORT | Continuity of Care Document ---
:2000 Author Organization [facility] t Address [address] [place] [address] Care Team Providers Name Role Phone Vinnie HERNANDEZ Seven Vazquez Attending Clinician Doctor Unassigned, [place] Attending Clinician Unavailable Madhuri GREER, Angelica Su Attending Clinician Guillermina Linn Attending Clinician Kevin Garcia Attending Clinician Wai [facility] Resident Attending Clinician Unavailable Problems This patient has no known problems. Allergies, Adverse Reactions, Alerts This patient has no known allergies or adverse reactions. Medications This patient has no known medications. Procedures This patient has no known procedures. Encounters Start End Encounter Admission Attending Care Care Encounter Source Date/Time Date/Time Type Type Clinicians Facility Department ID 2020-08-01 2020-08-01 Patient Vinnie KARIS [id number] 00:00:00 00:00:00 Outreach Seven GRULLON [id number] [facility] [id number] [place] [id number] 2019-01-25 2019-01-25 Orders Doctor COTO [id number] 00:00:00 00:00:00 Only UnassignedKAREN [id number] [place] [facility] [id number] 2019-01-22 2019-01-22 Orders Doctor CHICA [id number] 00:00:00 00:00:00 Only Unassigned, KAREN [id number] [facility] [id number] 2019-01-20 2019-01-20 Emergency [facility] [id number] 01:00:05 02:51:00 Angelica Beaulieu [id number] [place] [id number] [place] [id number] 2019-01-15 2019-01-15 Orders Doctor CHICA [id number] 00:00:00 00:00:00 Only Unassigned, KAREN [id number] [facility] [id number] 2019-01-08 2019-01-08 Telephone [facility] [id number] 00:00:00 00:00:00 [facility] [id number] [facility] [id number] 2019-01-06 2019-01-06 Emergency Kevin Miles [facility] [id number] 15:49:00 17:15:00 Lauren Bea[place] [id number] [place] [id number] [place] [id number] 2018-12-29 2018-12-29 Orders Doctor CHICA [id number] 00:00:00 00:00:00 Only Unassigned, KAREN [id number] [facility] [id number] 2018-12-25 2018-12-25 Office [facility] [id number] 14:15:52 15:03:24 Visit [facility] [id number] CLINICS [id number] Results This patient has no known results.
[2022-07-16 12:48] VITALS: BP 136/79; TEMP 97.5; O2SAT 100
--- NOTE | 2022-08-02 14:11 | ER ---
Nurse's Notes [facility] Name: Tali Arriaga Age: 22 yrs Sex: Female : 2000 Arrival Date: 07/16/2022 Time: 11:48 Bed IW6 Private MD: Diagnosis: Acute serous otitis media, right ear Presentation: 07/16 11:52 Chief complaint: Patient states: Right ear pain since yesterday. Coronavirus screen: At ld1 this time, the client does not indicate any symptoms associated with coronavirus-19. Ebola Screen: No symptoms or risks identified at this time. Initial Sepsis Screen: Does the patient meet any 2 criteria? No. Patient's initial sepsis screen is negative. Does the patient have a suspected source of infection? No. Patient's initial sepsis screen is negative. Risk Assessment: Do you want to hurt yourself or someone else? Patient reports no desire to harm self or others. Onset of symptoms was July 16, 2022 at 11:53. 11:52 Method Of Arrival: Ambulatory ld1 11:52 Acuity: SABRINA 4 ld1 Triage Assessment: 11:53 General: Appears in no apparent distress. comfortable, Behavior is calm, cooperative, ld1 appropriate for age. Pain: Complains of pain in right ear Pain does not radiate. Pain currently is 8 out of 10 on a pain scale. Quality of pain is described as sharp, Pain began 1 day ago. Is continuous. EENT: Reports pain in right ear. Neuro: Level of Consciousness is awake, alert, obeys commands, Oriented to person, place, time, situation. Cardiovascular: Capillary refill < 3 seconds Patient's skin is warm and dry. Respiratory: Airway is patent Respiratory effort is even, unlabored. GI: Abdomen is round non-distended. : No signs and/or symptoms were reported regarding the genitourinary system. Derm: No signs and/or symptoms reported regarding the dermatologic system. Musculoskeletal: No signs and/or symptoms reported regarding the musculoskeletal system. 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 - Social history:: Smoking status: Patient denies any tobacco usage or history of. Patient/guardian denies using alcohol. Screenin:54 [facility] ED Fall Risk Assessment (Adult) History of falling in the last 3 months, ld1 including since admission No falls in past 3 months (0 pts). Abuse screen: Denies threats or abuse. Denies injuries from another. Nutritional screening: No deficits noted. Tuberculosis screening: No symptoms or risk factors identified. Assessment: 11:54 Reassessment: See triage assessment. ld1 Vital Signs: 11:52 BP 136 / 79; Pulse 81; Resp 18; Temp 97.5(TE); Pulse Ox 100% on R/A; Weight 81.65 kg; ld1 Height 5 ft. 4 in. ; Pain 8/10; 11:52 Body Mass Index 30.90 (81.65 kg, 162.56 cm) ld1 11:52 Pain Scale: Adult ld1 ED Course: 11:48 Patient arrived in ED. rg4 11:50 Jasson Garcia PA is PHCP. ivory 11:50 Scar Rashid MD is Attending Physician. [facility] 11:53 Triage completed. ld1 11:53 Arm band placed on right wrist. ld1 11:54 Patient has correct armband on for positive identification. Call light in reach. Side ld1 rails up X2. Pulse ox on. NIBP on. Door closed. Noise minimized. Warm blanket given. 11:54 No provider procedures requiring assistance completed. ld1 12:31 Patient did not have IV access during this emergency room visit. ld1 Administered Medications: No medications were administered Medication: 11:54 VIS not applicable for this client. ld1 Outcome: 12:24 Discharge ordered by . [facility] 12:31 Discharged to home ambulatory. ld1 12:31 Condition: stable 12:31 Discharge instructions given to patient, Instructed on discharge instructions, follow up and referral plans. medication usage, Demonstrated understanding of instructions, follow-up care, medications, Prescriptions given X 1. 12:31 Patient left the ED. ld1 Signatures: Jasson Garcia PA PA jmm Garcia, Rubi rg4 Dibbern, Tawnya, RN RN ld1
--- NOTE | 2022-08-02 14:11 | EDPHYS ---
Physician Documentation [facility] Name: Tali Arriaga Age: 22 yrs Sex: Female : 2000 Arrival Date: 07/16/2022 Time: 11:48 Bed IW6 Private MD: ED Physician Scar Rsahid HPI: 07/16 12:22 This 22 yrs old Female presents to ER via Ambulatory with complaints of Ear jmm Pain. 12:22 The patient presents with pain. Onset: The symptoms/episode began/occurred gradually, 1 jmm day(s) ago. Modifying factors: The symptoms are alleviated by nothing, the symptoms are aggravated by nothing. Is a 22-year-old female with no chronic medical conditions that presents emerged part with complaints of right ear pain beginning yesterday. Denies any fever, denies any recent swimming.. 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 - Social history:: Smoking status: Patient denies any tobacco usage or history of. Patient/guardian denies using alcohol. ROS: 12:22 Constitutional: Negative for fever, chills, and weight loss. jmm 12:22 ENT: Positive for ear pain. 12:22 All other systems are negative. Exam: 12:22 Constitutional: This is a well developed, well nourished patient who is awake, alert, jmm and in no acute distress. Head/Face: atraumatic. Eyes: EOMI, no conjunctival erythema appreciated 12:22 Neck: Trachea midline, Supple Chest/axilla: Normal chest wall appearance and motion. Cardiovascular: Regular rate and rhythm. No edema appreciated Respiratory: Normal respirations, no respiratory distress appreciated Abdomen/GI: Non distended Back: Normal ROM Skin: General appearance color normal MS/ Extremity: Moves all extremities, no obvious deformities appreciated, no edema noted to the lower extremities Neuro: Awake and alert Psych: Behavior is normal, Mood is normal, Patient is cooperative and pleasant 12:22 ENT: TM's: erythema, that is moderate, on the right. Vital Signs: 11:52 BP 136 / 79; Pulse 81; Resp 18; Temp 97.5(TE); Pulse Ox 100% on R/A; Weight 81.65 kg; ld1 Height 5 ft. 4 in. ; Pain 8/10; 11:52 Body Mass Index 30.90 (81.65 kg, 162.56 cm) ld1 11:52 Pain Scale: Adult ld1 MDM: 11:55 Patient medically screened. [facility] 12:23 Differential diagnosis: otitis media. Data reviewed: vital signs, nurses notes. [facility] Counseling: I had a detailed discussion with the patient and/or guardian regarding: the historical points, exam findings, and any diagnostic results supporting the discharge/admit diagnosis, the need for outpatient follow up, to return to the emergency department if symptoms worsen or persist or if there are any questions or concerns that arise at home. ED course: Patient is alert nontoxic in appearance in the ED. Physical exam findings consistent with otitis media. Will treat with oral antibiotics. Patient otherwise advised to follow-up with PCP and given strict return precautions. Patient understood agrees plan of care.. Administered Medications: No medications were administered Disposition Summary: 07/16/22 12:24 Discharge Ordered Location: Home [facility] Condition: Stable [facility] Diagnosis - Acute serous otitis media, right ear [facility] Followup: [facility] - With: Private Physician - When: 2 - 3 days - Reason: Recheck today's complaints, Continuance of care, Re-evaluation by your physician Discharge Instructions: - Discharge Summary Sheet [facility] - Otitis Media, Adult [facility] Forms: - Medication Reconciliation Form [facility] - Thank You Letter [facility] - Antibiotic Education [facility] - Prescription Opioid Use [facility] Prescriptions: - cefdinir 300 mg Oral capsule - take 1 capsule by ORAL route once; 20 capsule; Refills: 0, Product Selection [facility] Permitted Signatures: Jasson Garcia PA PA [facility] Tawnya Christy, RN RN ld1
== END 2022-07-16 12:31 | disposition home or self-care (01) ==
LOC: ER 11:45
DX: H65.01 Acute serous otitis media, right ear (principal)
CPT/HCPCS: 99283

== ENCOUNTER → 2023-08-05 | Emergency (ER) | payer OTHER, SELFPAY ==
[~2023-08-05] MED LIST: DOXYCYCLINE 100 MG CAP PO ONE; HYDROCODONE/APAP 10/325 TAB ONE
--- OUTSIDE RECORDS SUMMARY | 2023-08-05 20:02 | XMS REPORT | Continuity of Care Document ---
Author Name Unknown Address [address] [facility]. [address] [place] [address] [facility] Address [address] [facility] [address] [place] [address] Care Team Providers Care Research Nurse Name Role Phone Pcp, Patient Does Not Have A Primary Care Physic bharath CHANDANA LOREDO Attending Clinician CHANDANA Rios Attending Clinician Joann dickson Doctor Unassigned, [place] Attending Clinician U maxi 2, [facility] Attending Clinician Unavailable Ultrasound, SyMfalexandra Attending Clinician UnavailGiovana Mccabe MD Attending Clinician [phone] GIOVANA MCNAMARA Attending Clinician Unavailable GIOVANA MCNAMARA Attending Clinician Unavailable Lab, Orlin Lerner Attending Clinician Unavailable Seven [place] DO Attending Clinician [phone] Angelica Dhaliwal MD Attending Clinician [phone] Guillermina Linn Attending Clinician [phone] Kevin Garcia Attending Clinician [phone] Wai [facility] Resident Attending Clinician UnavailCHANDANA Menchaca Admitting Clinician Joann dickson Payers Payer Name Policy Type Policy Number Effective Date Expirati on Date Source [id number] 2023 00:00:00 Problems Condition Name Condition Details Condition Category Status Onset Date Resolution Date Last Treatment Date Treating Clinician Comments Source 39 weeks gestation of 39 weeks gestation of Disease Active 2022-05 2-21 00:00: 00 [facility] Open wound anterior abdominal wall Open wound anterior abdominal wall Disease Active 717 00:00: 00 [facility] Obesity (BMI 30-39.9) Obesity (BMI 30-39.9) Disease Active 15 00:00: 00 [facility] wound infection wound infection Disease Active 15 00:00: 00 [facility] S/P repeat low transverse S/P repeat low transverse Disease Active 7-09 00:00: 00 [facility] anemia anemia Disease Active 5-23 00:00: 00 [facility] Genital condyloma, female Genital condyloma, female Disease Active 4-25 00:00: 00 [facility] High-risk in third trimester High-risk in third trimester Disease Active 2017-05 00:00: 00 [facility] Allergies, Adverse Reactions, Alerts Allergy Name Allergy Type Status Severity Reaction(s) Onset Date Inactive Date Treating Clinician Comments Source [facility] Active Hives 11-22 00:00: 00 [facility] Cinnamon Propensi ty to adverse reaction s Active Hives 11-22 00:00: 00 [facility] Penicill in Propensi ty to adverse reaction s Active Hives 2017-05 00:00: 00 [facility] PENICILL IN DRUG INGREDI Active Hives 2017-05 00:00: 00 [facility] Social History Social Habit Start Date Stop Date Quantity Comments Source ASSERTION 2022-08-16 00:00:00 [facility] Alcohol intake 2023-05-15 00:00:00 2023-05-15 00:00:00 Current non-drinker of alcohol (finding) [facility] Tobacco use and exposure 2023-02-21 00:00:00 2023-02-21 00:00:00 Smokeless tobacco non-user [facility] History of Social function 2019-12-16 00:00:00 2019-12-16 00:00:00 [facility] Sex Assigned At 2000 00:00:00 2000 00:00:00 [facility] Smoking Status Start Date Stop Date Source Never smoked tobacco [facility] Medications Ordered Medication Name Filled Medication Name Start Date Stop Date Current Medication? Ordering Clinician Indication Dosage Frequency Signature (SIG) Comments Components Source cephALEXin 250 mg capsule 2022-05 00:00: 00 Yes [id number] 250mg Take 1 capsule by mouth every 6 (six) hours. [facility] cephALEXin 250 mg capsule 2022-05 00:00: 00 Yes [id number] 250mg Take 1 capsule by mouth every 6 (six) hours. [facility] cephALEXin 250 mg capsule 2022-05 00:00: 00 Yes [id number] 250mg Take 1 capsule by mouth every 6 (six) hours. [facility] dextrometho rphan-guaif enesin (ROBITUSSIN DM) 10-100 mg/5 mL solution 5 mL 2022-05 14:30: 00 Yes 5mL 5 mL, Oral, Q6HPRN, Starting on 05/04/23 at 0830, Until Discontinu ed, Routine, Cough [facility] witch Jonathan (TUCKS) 50 % topical pad 2022-05 14:30: 00 Yes Topical, PRN, Starting on 05/04/23 at 0830, Until Discontinu ed, Routine, HEMMOROIDS [facility] dextrometho rphan-guaif enesin (ROBITUSSIN DM) 10-100 mg/5 mL solution 5 mL 2022-05 14:30: 00 05-04 21:20 :33 No 5mL 5 mL, Oral, Q6HPRN, Starting on 05/04/23 at 0830, Until 05/04/23 at 1520, Routine, Cough [facility] witch Jonathan (TUCKS) 50 % topical pad 2022-05 14:30: 00 05-04 21:20 :33 No Topical, PRN, Starting on 05/04/23 at 0830, Until 05/04/23 at 1520, Routine, HEMMOROIDS [facility] 25/iron fum/folic/d powers (-1 ORAL) 2022-05 08:44: 22 05-04 00:00 :00 No Take by mouth. [facility] loratadine (CLARITIN ORAL) 2022-05 08:44: 22 05-04 00:00 :00 No Take by mouth. [facility] 25/iron fum/folic/d powers (- ORAL) 2022-05 08:44: 22 05-04 00:00 :00 No Take by mouth. [facility] loratadine (CLARITIN ORAL) 2022-05 08:44: 22 05-04 00:00 :00 No Take by mouth. [facility] vitamin w/FA tablet 2022-05 00:00: 00 Yes [id number] 1{tbl} Take 1 tablet by mouth in the morning. [facility] docusate 100 mg capsule 2022-05 00:00: 00 Yes [id number] 200mg Take 2 capsules by mouth once daily as needed for Constipati on. [facility] ferrous sulfate 325 mg (65 mg iron) tablet 2022-05 00:00: 00 Yes [id number] 325mg Take 1 tablet by mouth in the morning and 1 tablet in the evening. [facility] ibuprofen 600 mg tablet 2022-05 00:00: 00 Yes [id number] 600mg Take 1 tablet by mouth every 6 (six) hours as needed (Pain). Take with food or milk. [facility] gabapentin 300 mg capsule 2022-05 00:00: 00 Yes [id number] 300mg Take 1 capsule by mouth in the morning and 1 capsule at noon and 1 capsule in the evening. [facility] vitamin w/FA tablet 2022-05 00:00: 00 Yes [id number] 1{tbl} Take 1 tablet by mouth in the morning. [facility] docusate 100 mg capsule 2022-05 00:00: 00 Yes [id number] 200mg Take 2 capsules by mouth once daily as needed for Constipati on. [facility] ferrous sulfate 325 mg (65 mg iron) tablet 2022-05 00:00: 00 Yes [id number] 325mg Take 1 tablet by mouth in the morning and 1 tablet in the evening. [facility] ibuprofen 600 mg tablet 2022-05 00:00: 00 Yes [id number] 600mg Take 1 tablet by mouth every 6 (six) hours as needed (Pain). Take with food or milk. [facility] gabapentin 300 mg capsule 2022-05 00:00: 00 Yes [id number] 300mg Take 1 capsule by mouth in the morning and 1 capsule at noon and 1 capsule in the evening. [facility] vitamin w/FA tablet 2022-05 00:00: 00 Yes [id number] 1{tbl} Take 1 tablet by mouth in the morning. [facility] docusate 100 mg capsule 2022-05 00:00: 00 Yes [id number] 200mg Take 2 capsules by mouth once daily as needed for Constipati on. [facility] ferrous sulfate 325 mg (65 mg iron) tablet 2022-05 00:00: 00 Yes [id number] 325mg Take 1 tablet by mouth in the morning and 1 tablet in the evening. [facility] ibuprofen 600 mg tablet 2022-05 00:00: 00 Yes [id number] 600mg Take 1 tablet by mouth every 6 (six) hours as needed (Pain). Take with food or milk. [facility] gabapentin 300 mg capsule 2022-05 00:00: 00 Yes [id number] 300mg Take 1 capsule by mouth in the morning and 1 capsule at noon and 1 capsule in the evening. [facility] vitamin w/FA tablet 2022-05 00:00: 00 Yes [id number] 1{tbl} Take 1 tablet by mouth in the morning. [facility] docusate 100 mg capsule 2022-05 00:00: 00 Yes [id number] 200mg Take 2 capsules by mouth once daily as needed for Constipati on. [facility] ferrous sulfate 325 mg (65 mg iron) tablet 2022-05 00:00: 00 Yes [id number] 325mg Take 1 tablet by mouth in the morning and 1 tablet in the evening. [facility] ibuprofen 600 mg tablet 2022-05 00:00: 00 Yes [id number] 600mg Take 1 tablet by mouth every 6 (six) hours as needed (Pain). Take with food or milk. [facility] gabapentin 300 mg capsule 2022-05 00:00: 00 Yes [id number] 300mg Take 1 capsule by mouth in the morning and 1 capsule at noon and 1 capsule in the evening. [facility] vitamin w/FA tablet 2022-05 00:00: 00 Yes [id number] 1{tbl} Take 1 tablet by mouth in the morning. [facility] docusate 100 mg capsule 2022-05 00:00: 00 Yes [id number] 200mg Take 2 capsules by mouth once daily as needed for Constipati on. [facility] ferrous sulfate 325 mg (65 mg iron) tablet 2022-05 00:00: 00 Yes [id number] 325mg Take 1 tablet by mouth in the morning and 1 tablet in the evening. [facility] ibuprofen 600 mg tablet 2022-05 00:00: 00 Yes [id number] 600mg Take 1 tablet by mouth every 6 (six) hours as needed (Pain). Take with food or milk. [facility] gabapentin 300 mg capsule 2022-05 00:00: 00 Yes [id number] 300mg Take 1 capsule by mouth in the morning and 1 capsule at noon and 1 capsule in the evening. [facility] vitamin w/FA tablet 2022-05 00:00: 00 Yes [id number] 1{tbl} Take 1 tablet by mouth in the morning. [facility] docusate 100 mg capsule 2022-05 00:00: 00 Yes [id number] 200mg Take 2 capsules by mouth once daily as needed for Constipati on. [facility] ferrous sulfate 325 mg (65 mg iron) tablet 2022-05 00:00: 00 Yes [id number] 325mg Take 1 tablet by mouth in the morning and 1 tablet in the evening. [facility] ibuprofen 600 mg tablet 2022-05 00:00: 00 Yes [id number] 600mg Take 1 tablet by mouth every 6 (six) hours as needed (Pain). Take with food or milk. [facility] gabapentin 300 mg capsule 2022-05 00:00: 00 Yes [id number] 300mg Take 1 capsule by mouth in the morning and 1 capsule at noon and 1 capsule in the evening. [facility] vitamin w/FA tablet 2022-05 00:00: 00 Yes [id number] 1{tbl} Take 1 tablet by mouth in the morning. [facility] docusate 100 mg capsule 2022-05 00:00: 00 Yes [id number] 200mg Take 2 capsules by mouth once daily as needed for Constipati on. [facility] ferrous sulfate 325 mg (65 mg iron) tablet 2022-05 00:00: 00 Yes [id number] 325mg Take 1 tablet by mouth in the morning and 1 tablet in the evening. [facility] ibuprofen 600 mg tablet 2022-05 00:00: 00 Yes [id number] 600mg Take 1 tablet by mouth every 6 (six) hours as needed (Pain). Take with food or milk. [facility] gabapentin 300 mg capsule 2022-05 00:00: 00 Yes [id number] 300mg Take 1 capsule by mouth in the morning and 1 capsule at noon and 1 capsule in the evening. [facility] HYDROcodone -acetaminop hen 5-325 mg tablet 2022-05 00:00: 00 05-12 05:59 :00 No [id number] 1{tbl} Take 1 tablet by mouth every 6 (six) hours as needed (Pain scale above 4) for up to 7 days. Do not exceed 3 grams of acetaminop hen in 24 hours. Indication s: acute pain [facility] HYDROcodone -acetaminop hen 5-325 mg tablet 2022-05 00:00: 00 05-12 05:59 :00 No [id number] 1{tbl} Take 1 tablet by mouth every 6 (six) hours as needed (Pain scale above 4) for up to 7 days. Do not exceed 3 grams of acetaminop hen in 24 hours. Indication s: acute pain [facility] HYDROcodone -acetaminop hen 5-325 mg tablet 2022-05 00:00: 00 05-12 05:59 :00 No [id number] 1{tbl} Take 1 tablet by mouth every 6 (six) hours as needed (Pain scale above 4) for up to 7 days. Do not exceed 3 grams of acetaminop hen in 24 hours. Indication s: acute pain [facility] ibuprofen (IBU) tablet 600 mg 2022-05 18:00: 00 Yes 600mg 600 mg, Oral, Q6HPRN, Starting on 05/03/23 at 1200, Until Discontinu ed, Routine, Pain (scale 1-3) [facility] ibuprofen (IBU) tablet 600 mg 2022-05 18:00: 00 05-04 21:20 :33 No 600mg 600 mg, Oral, Q6HPRN, Starting on 05/03/23 at 1200, Until 05/04/23 at 1520, Routine, Pain (scale 1-3) [facility] gabapentin (NEURONTIN) capsule 300 mg 2022-05 20:00: 00 05-04 13:58 :00 No 300mg 300 mg, Oral, TID, 6 doses, First dose on 05/02/23 at 1400, Last dose on 05/04/23 at 0800, Routine [facility] ketorolac (TORADOL) injection 30 mg 2022-05 18:00: 00 05-03 13:46 :00 No 30mg 30 mg, Slow IV Push, Q6H, 4 doses, First dose on Fri05/02/23 at 1200, Last dose on Fri05/03/23 at 0600, Routine [facility] lactated ringers IV infusion 1,000 mL 2022-05 15:45: 00 05-02 18:50 :57 No 1000mL at 125 mL/hr, 1,000 mL, IV Infusion, ONCE, 1 dose, On Fri05/02/23 at 0945, Routine [facility] rho(D) immune globulin (RHOGAM) syringe 300 mcg 2022-05 14:54: 17 Yes 300ug 300 mcg, Intramuscu lar, ONCE, For 1 dose, Conditiona l, Routine [facility] rho(D) immune globulin (RHOGAM) syringe 300 mcg 2022-05 14:54: 17 05-04 21:20 :33 No 300ug 300 mcg, Intramuscu lar, ONCE, For 1 dose, Conditiona l, Routine [facility] HYDROcodone -acetaminop hen (NORCO 5) 5-325 mg tablet 2 tablet 2022-05 14:53: 56 Yes 2{tbl} 2 tablet, Oral, Q6HPRN, Starting on Fri05/02/23 at 0853, Until Discontinu ed, Routine, Pain (scale 7-10), Alternate with Ibuprofen [facility] HYDROcodone -acetaminop hen (NORCO 5) 5-325 mg tablet 2 tablet 2022-05 14:53: 56 05-04 21:20 :33 No 2{tbl} 2 tablet, Oral, Q6HPRN, Starting on Fri05/02/23 at 0853, Until Fri05/04/23 at 1520, Routine, Pain (scale 7-10), Alternate with Ibuprofen [facility] HYDROcodone -acetaminop hen (NORCO 5) 5-325 mg tablet 1 tablet 2022-05 14:53: 39 Yes 1{tbl} 1 tablet, Oral, Q6HPRN, Starting on Fri05/02/23 at 0853, Until Discontinu ed, Routine, Pain (scale 4-6), Alternate with Ibuprofen [facility] HYDROcodone -acetaminop hen (NORCO 5) 5-325 mg tablet 1 tablet 2022-05 14:53: 39 05-04 21:20 :33 No 1{tbl} 1 tablet, Oral, Q6HPRN, Starting on Fri05/02/23 at 0853, Until Fri05/04/23 at 1520, Routine, Pain (scale 4-6), Alternate with Ibuprofen [facility] diphenhydrA MINE (BENADRYL) injection 25 mg 2022-05 14:52: 15 Yes 25mg 25 mg, Slow IV Push, Q6HPRN, Starting on Fri05/02/23 at 0852, Until Discontinu ed, Routine, Itching [facility] diphenhydrA MINE (BENADRYL) tablet 25 mg 2022-05 14:52: 15 Yes 25mg 25 mg, Oral, Q6HPRN, Starting on Fri05/02/23 at 0852, Until Discontinu ed, Routine, Sleep, Itching [facility] ondansetron (ZOFRAN (PF)) injection 4 mg 2022-05 14:52: 15 Yes 4mg 4 mg, Slow IV Push, Q8HPRN, Starting on Fri05/02/23 at 0852, Until Discontinu ed, Routine, Nausea and Vomiting (N/V) [facility] bisacodyL (DULCOLAX) suppository 10 mg 2022-05 14:52: 15 Yes 10mg 10 mg, Rectal, QDAILYPRN, Starting on Fri05/02/23 at 0852, Until Discontinu ed, Routine, Constipati on [facility] simethicone (GAS RELIEF (SIMETHICON E)) chewable tablet 160 mg 2022-05 14:52: 15 Yes 160mg 160 mg, Oral, PC+HSPRN, Starting on Fri05/02/23 at 0852, Until Discontinu ed, Routine, Gas [facility] docusate (COLACE) capsule 200 mg 2022-05 14:52: 15 Yes 200mg 200 mg, Oral, QDAILYPRN, Starting on Fri05/02/23 at 0852, Until Discontinu ed, Routine, Constipati on [facility] magnesium hydroxide (MILK OF MAGNESIA) 400 mg/5 mL suspension 30 mL 2022-05 14:52: 15 Yes 30mL 30 mL, Oral, QDAILYPRN, Starting on Fri05/02/23 at 0852, Until Discontinu ed, Routine, Constipati on [facility] lactated ringers IV infusion 1,000 mL 2022-05 14:52: 15 Yes 1000mL at 125 mL/hr, 1,000 mL, IV Infusion, PRN, 1 dose, Starting on Fri05/02/23 at 0852, Until Discontinu ed, Routine [facility] diphenhydrA MINE (BENADRYL) injection 25 mg 2022-05 14:52: 15 05-04 21:20 :33 No 25mg 25 mg, Slow IV Push, Q6HPRN, Starting on Fri05/02/23 at 0852, Until 05/04/23 at 1520, Routine, Itching [facility] diphenhydrA MINE (BENADRYL) tablet 25 mg 2022-05 14:52: 15 05-04 21:20 :33 No 25mg 25 mg, Oral, Q6HPRN, Starting on Fri05/02/23 at 0852, Until 05/04/23 at 1520, Routine, Sleep, Itching [facility] ondansetron (ZOFRAN (PF)) injection 4 mg 2022-05 14:52: 15 05-04 21:20 :33 No 4mg 4 mg, Slow IV Push, Q8HPRN, Starting on Fri05/02/23 at 0852, Until 05/04/23 at 1520, Routine, Nausea and Vomiting (N/V) [facility] bisacodyL (DULCOLAX) suppository 10 mg 2022-05 14:52: 15 05-04 21:20 :33 No 10mg 10 mg, Rectal, QDAILYPRN, Starting on Fri05/02/23 at 0852, Until 05/04/23 at 1520, Routine, Constipati on [facility] simethicone (GAS RELIEF (SIMETHICON E)) chewable tablet 160 mg 2022-05 14:52: 15 05-04 21:20 :33 No 160mg 160 mg, Oral, PC+HSPRN, Starting on Fri05/02/23 at 0852, Until 05/04/23 at 1520, Routine, Gas [facility] docusate (COLACE) capsule 200 mg 2022-05 14:52: 15 05-04 21:20 :33 No 200mg 200 mg, Oral, QDAILYPRN, Starting on Fri05/02/23 at 0852, Until 05/04/23 at 1520, Routine, Constipati on [facility] magnesium hydroxide (MILK OF MAGNESIA) 400 mg/5 mL suspension 30 mL 2022-05 14:52: 15 05-04 21:20 :33 No 30mL 30 mL, Oral, QDAILYPRN, Starting on Fri05/02/23 at 0852, Until 05/04/23 at 1520, Routine, Constipati on [facility] lactated ringers IV infusion 1,000 mL 2022-05 14:52: 15 05-04 21:20 :33 No 1000mL at 125 mL/hr, 1,000 mL, IV Infusion, PRN, 1 dose, Starting on Fri05/02/23 at 0852, Until 05/04/23 at 1520, Routine [facility] sodium citrate-cit kalyani acid (BICITRA) 500-334 mg/5 mL solution 30 mL 2022-05 12:14: 17 05-02 13:06 :00 No 30mL 30 mL, Oral, PRE-PROCED URE ONCE, 1 dose, Starting on Fri05/02/23 at 0614, Until Discontinu ed, Routine, Surgery/Pr ocedure [facility] D5W-LR IV infusion 1,000 mL 2022-05 12:14: 17 05-02 14:54 :15 No 1000mL at 1-125 mL/hr, IV Infusion, TITRATE, Starting on Fri05/02/23 at 0614, Until Fri05/02/23 at 0854, Routine [facility] loratadine (CLARITIN ORAL) 2022-05 10:30: 05 Yes Take by mouth. [facility] loratadine (CLARITIN ORAL) 2022-05 10:30: 05 Yes Take by mouth. [facility] loratadine (CLARITIN ORAL) 2022-05 10:30: 05 Yes Take by mouth. [facility] loratadine (CLARITIN ORAL) 2022-05 10:30: 05 Yes Take by mouth. [facility] loratadine (CLARITIN ORAL) 2022-05 10:30: 05 Yes Take by mouth. [facility] loratadine (CLARITIN ORAL) 2022-05 10:30: 05 Yes Take by mouth. [facility] metroNIDAZO LE (FLAGYL) 500 mg tablet 2022-05 00:00: 00 Yes [id number] 500mg Take 1 tablet by mouth every 12 (twelve) hours. [facility] metroNIDAZO LE (FLAGYL) 500 mg tablet 2022-05 00:00: 00 Yes [id number] 500mg Take 1 tablet by mouth every 12 (twelve) hours. [facility] metroNIDAZO LE (FLAGYL) 500 mg tablet 2022-05 00:00: 00 Yes [id number] 500mg Take 1 tablet by mouth every 12 (twelve) hours. [facility] metroNIDAZO LE (FLAGYL) 500 mg tablet 2022-05 00:00: 00 Yes [id number] 500mg Take 1 tablet by mouth every 12 (twelve) hours. [facility] metroNIDAZO LE (FLAGYL) 500 mg tablet 2022-05 00:00: 00 Yes [id number] 500mg Take 1 tablet by mouth every 12 (twelve) hours. [facility] metroNIDAZO LE (FLAGYL) 500 mg tablet 2022-05 00:00: 00 Yes [id number] 500mg Take 1 tablet by mouth every 12 (twelve) hours. [facility] metroNIDAZO LE (FLAGYL) 500 mg tablet 2022-05 00:00: 00 Yes [id number] 500mg Take 1 tablet by mouth every 12 (twelve) hours. [facility] metroNIDAZO LE (FLAGYL) 500 mg tablet 2022-05 00:00: 00 05-04 00:00 :00 No [id number] 500mg Take 1 tablet by mouth every 12 (twelve) hours. [facility] metroNIDAZO LE (FLAGYL) 500 mg tablet 2022-05 00:00: 00 05-04 00:00 :00 No [id number] 500mg Take 1 tablet by mouth every 12 (twelve) hours. [facility] fluconazole (DIFLUCAN) 150 mg tablet 2022-05 00:00: 00 04-12 05:59 :00 No [id number] 150mg Take 1 tablet by mouth once now for 1 dose. [facility] fluconazole (DIFLUCAN) 150 mg tablet 2022-05 00:00: 00 04-12 05:59 :00 No [id number] 150mg Take 1 tablet by mouth once now for 1 dose. [facility] loratadine (CLARITIN ORAL) 2022-05 13:13: 25 Yes Take by mouth. [facility] loratadine (CLARITIN ORAL) 2022-05 13:13: 25 Yes Take by mouth. [facility] loratadine (CLARITIN ORAL) 2022-05 13:13: 25 Yes Take by mouth. [facility] loratadine (CLARITIN ORAL) 2022-05 0 13:13: 25 Yes Take by mouth. [facility] loratadine (CLARITIN ORAL) 2022-05 13:13: 25 Yes Take by mouth. [facility] loratadine (CLARITIN ORAL) 2022-05 0-27 13:13: 25 Yes Take by mouth. [facility] 25/iron fum/folic/d powers (-1 ORAL) 2022-05 0-13 14:14: 33 Yes Take by mouth. [facility] 25/iron fum/folic/d powers (-1 ORAL) 2022-05 0-13 14:14: 33 Yes Take by mouth. [facility] 25/iron fum/folic/d powers (-1 ORAL) 2022-05 0-13 14:14: 33 Yes Take by mouth. [facility] 25/iron fum/folic/d powers (-1 ORAL) 2022-05 0-13 14:14: 33 Yes Take by mouth. [facility] 25/iron fum/folic/d powers (-1 ORAL) 2022-05 0-13 14:14: 33 Yes Take by mouth. [facility] 25/iron fum/folic/d powers (-1 ORAL) 2022-05 013 14:14: 33 Yes Take by mouth. [facility] 25/iron fum/folic/d powers (-1 ORAL) 2022-05 0-13 14:14: 33 Yes Take by mouth. [facility] 25/iron fum/folic/d powers (-1 ORAL) 2022-05 0-13 14:14: 33 Yes Take by mouth. [facility] 25/iron fum/folic/d powers (-1 ORAL) 2022-05 0-13 14:14: 33 Yes Take by mouth. [facility] 25/iron fum/folic/d powers (-1 ORAL) 2022-05 0-13 14:14: 33 Yes Take by mouth. [facility] 25/iron fum/folic/d powers (-1 ORAL) 2022-05 0-13 14:14: 33 Yes Take by mouth. [facility] 25/iron fum/folic/d powers (-1 ORAL) 2022-05 0-13 14:14: 33 Yes Take by mouth. [facility] 25/iron fum/folic/d powers (-1 ORAL) 2022-05 0-13 14:14: 33 Yes Take by mouth. [facility] 25/iron fum/folic/d powers (-1 ORAL) 2022-05 0-13 14:14: 33 Yes Take by mouth. [facility] 25/iron fum/folic/d powers (-1 ORAL) 2022-05 013 14:14: 33 Yes Take by mouth. [facility] sulfamethox azole-trime thoprim 800-160 mg per tablet 01-20 00:00: 00 Yes [id number] 1{tbl} Take 1 tablet by mouth every 12 (twelve) hours. [facility] sulfamethox azole-trime thoprim 800-160 mg per tablet 01-20 00:00: 00 Yes [id number] 1{tbl} Take 1 tablet by mouth every 12 (twelve) hours. [facility] sulfamethox azole-trime thoprim 800-160 mg per tablet 01-20 00:00: 00 Yes [id number] 1{tbl} Take 1 tablet by mouth every 12 (twelve) hours. [facility] sulfamethox azole-trime thoprim 800-160 mg per tablet 01-20 00:00: 00 Yes [id number] 1{tbl} Take 1 tablet by mouth every 12 (twelve) hours. [facility] sulfamethox azole-trime thoprim 800-160 mg per tablet 01-20 00:00: 00 Yes [id number] 1{tbl} Take 1 tablet by mouth every 12 (twelve) hours. [facility] sulfamethox azole-trime thoprim 800-160 mg per tablet 01-20 00:00: 00 Yes [id number] 1{tbl} Take 1 tablet by mouth every 12 (twelve) hours. [facility] sulfamethox azole-trime thoprim 800-160 mg per tablet 01-20 00:00: 00 Yes [id number] 1{tbl} Take 1 tablet by mouth every 12 (twelve) hours. [facility] sulfamethox azole-trime thoprim 800-160 mg per tablet 01-20 00:00: 00 Yes [id number] 1{tbl} Take 1 tablet by mouth every 12 (twelve) hours. [facility] sulfamethox azole-trime thoprim 800-160 mg per tablet 01-20 00:00: 00 Yes [id number] 1{tbl} Take 1 tablet by mouth every 12 (twelve) hours. [facility] sulfamethox azole-trime thoprim 800-160 mg per tablet 01-20 00:00: 00 Yes [id number] 1{tbl} Take 1 tablet by mouth every 12 (twelve) hours. [facility] sulfamethox azole-trime thoprim 800-160 mg per tablet 01-20 00:00: 00 Yes [id number] 1{tbl} Take 1 tablet by mouth every 12 (twelve) hours. [facility] sulfamethox azole-trime thoprim 800-160 mg per tablet 01-20 00:00: 00 Yes [id number] 1{tbl} Take 1 tablet by mouth every 12 (twelve) hours. [facility] sulfamethox azole-trime thoprim 800-160 mg per tablet 01-20 00:00: 00 Yes [id number] 1{tbl} Take 1 tablet by mouth every 12 (twelve) hours. [facility] sulfamethox azole-trime thoprim 800-160 mg per tablet 01-20 00:00: 00 Yes [id number] 1{tbl} Take 1 tablet by mouth every 12 (twelve) hours. [facility] sulfamethox azole-trime thoprim 800-160 mg per tablet 01-20 00:00: 00 Yes [id number] 1{tbl} Take 1 tablet by mouth every 12 (twelve) hours. [facility] sulfamethox azole-trime thoprim 800-160 mg per tablet 01-20 00:00: 00 Yes [id number] 1{tbl} Take 1 tablet by mouth every 12 (twelve) hours. [facility] sulfamethox azole-trime thoprim 800-160 mg per tablet 01-20 00:00: 00 05-04 00:00 :00 No [id number] 1{tbl} Take 1 tablet by mouth every 12 (twelve) hours. [facility] sulfamethox azole-trime thoprim 800-160 mg per tablet 01-20 00:00: 00 05-04 00:00 :00 No [id number] 1{tbl} Take 1 tablet by mouth every 12 (twelve) hours. [facility] ibuprofen 600 mg tablet 01-06 00:00: 00 Yes [id number] 600mg Take 1 tablet by mouth every 6 (six) hours as needed for Pain (scale 4-6). [facility] benzonatate 100 mg capsule 01-06 00:00: 00 Yes [id number] 100mg Take 1 capsule by mouth 3 (three) times daily as needed for Cough. [facility] ibuprofen 600 mg tablet 01-06 00:00: 00 Yes [id number] 600mg Take 1 tablet by mouth every 6 (six) hours as needed for Pain (scale 4-6). [facility] benzonatate 100 mg capsule 01-06 00:00: 00 Yes [id number] 100mg Take 1 capsule by mouth 3 (three) times daily as needed for Cough. [facility] ibuprofen 600 mg tablet 01-06 00:00: 00 Yes [id number] 600mg Take 1 tablet by mouth every 6 (six) hours as needed for Pain (scale 4-6). [facility] benzonatate 100 mg capsule 01-06 00:00: 00 Yes [id number] 100mg Take 1 capsule by mouth 3 (three) times daily as needed for Cough. [facility] ibuprofen 600 mg tablet 01-06 00:00: 00 Yes [id number] 600mg Take 1 tablet by mouth every 6 (six) hours as needed for Pain (scale 4-6). [facility] benzonatate 100 mg capsule 01-06 00:00: 00 Yes [id number] 100mg Take 1 capsule by mouth 3 (three) times daily as needed for Cough. [facility] mg tablet 01-06 00:00: 00 Yes [id number] 600mg Take 1 tablet by mouth every 6 (six) hours as needed for Pain (scale 4-6). [facility] benzonatate 100 mg capsule 01-06 00:00: 00 Yes [id number] 100mg Take 1 capsule by mouth 3 (three) times daily as needed for Cough. [facility] mg tablet 01-06 00:00: 00 Yes [id number] 600mg Take 1 tablet by mouth every 6 (six) hours as needed for Pain (scale 4-6). [facility] benzonatate 100 mg capsule 01-06 00:00: 00 Yes [id number] 100mg Take 1 capsule by mouth 3 (three) times daily as needed for Cough. [facility] ibuprofen 600 mg tablet 01-06 00:00: 00 Yes [id number] 600mg Take 1 tablet by mouth every 6 (six) hours as needed for Pain (scale 4-6). [facility] benzonatate 100 mg capsule 01-06 00:00: 00 Yes [id number] 100mg Take 1 capsule by mouth 3 (three) times daily as needed for Cough. [facility] ibuprofen 600 mg tablet 01-06 00:00: 00 Yes [id number] 600mg Take 1 tablet by mouth every 6 (six) hours as needed for Pain (scale 4-6). [facility] benzonatate 100 mg capsule 01-06 00:00: 00 Yes [id number] 100mg Take 1 capsule by mouth 3 (three) times daily as needed for Cough. [facility] ibuprofen 600 mg tablet 01-06 00:00: 00 Yes [id number] 600mg Take 1 tablet by mouth every 6 (six) hours as needed for Pain (scale 4-6). [facility] benzonatate 100 mg capsule 01-06 00:00: 00 Yes [id number] 100mg Take 1 capsule by mouth 3 (three) times daily as needed for Cough. [facility] ibuprofen 600 mg tablet 01-06 00:00: 00 Yes [id number] 600mg Take 1 tablet by mouth every 6 (six) hours as needed for Pain (scale 4-6). [facility] mg capsule 01-06 00:00: 00 Yes [id number] 100mg Take 1 capsule by mouth 3 (three) times daily as needed for Cough. [facility] mg tablet 01-06 00:00: 00 Yes [id number] 600mg Take 1 tablet by mouth every 6 (six) hours as needed for Pain (scale 4-6). [facility] ben[facility] mg capsule 01-06 00:00: 00 Yes [id number] 100mg Take 1 capsule by mouth 3 (three) times daily as needed for Cough. [facility] ibuprofen 600 mg tablet 01-06 00:00: 00 Yes [id number] 600mg Take 1 tablet by mouth every 6 (six) hours as needed for Pain (scale 4-6). [facility] benzonatate 100 mg capsule 01-06 00:00: 00 Yes [id number] 100mg Take 1 capsule by mouth 3 (three) times daily as needed for Cough. [facility] ibuprofen 600 mg tablet 01-06 00:00: 00 Yes [id number] 600mg Take 1 tablet by mouth every 6 (six) hours as needed for Pain (scale 4-6). [facility] benzonatate 100 mg capsule 01-06 00:00: 00 Yes [id number] 100mg Take 1 capsule by mouth 3 (three) times daily as needed for Cough. [facility] ibuprofen 600 mg tablet 01-06 00:00: 00 Yes [id number] 600mg Take 1 tablet by mouth every 6 (six) hours as needed for Pain (scale 4-6). [facility] benzonatate 100 mg capsule 01-06 00:00: 00 Yes [id number] 100mg Take 1 capsule by mouth 3 (three) times daily as needed for Cough. [facility] mg tablet 01-06 00:00: 00 Yes [id number] 600mg Take 1 tablet by mouth every 6 (six) hours as needed for Pain (scale 4-6). [facility] benzonatate 100 mg capsule 01-06 00:00: 00 Yes [id number] 100mg Take 1 capsule by mouth 3 (three) times daily as needed for Cough. [facility] ibuprofen 600 mg tablet 01-06 00:00: 00 Yes [id number] 600mg Take 1 tablet by mouth every 6 (six) hours as needed for Pain (scale 4-6). [facility] benzonatate 100 mg capsule 01-06 00:00: 00 Yes [id number] 100mg Take 1 capsule by mouth 3 (three) times daily as needed for Cough. [facility] ibuprofen 600 mg tablet 01-06 00:00: 00 05-04 00:00 :00 No [id number] 600mg Take 1 tablet by mouth every 6 (six) hours as needed for Pain (scale 4-6). [facility] benzonatate 100 mg capsule 01-06 00:00: 00 05-04 00:00 :00 No [id number] 100mg Take 1 capsule by mouth 3 (three) times daily as needed for Cough. [facility] ibuprofen 600 mg tablet 01-06 00:00: 00 05-04 00:00 :00 No [id number] 600mg Take 1 tablet by mouth every 6 (six) hours as needed for Pain (scale 4-6). [facility] benzonatate 100 mg capsule 01-06 00:00: 00 05-04 00:00 :00 No [id number] 100mg Take 1 capsule by mouth 3 (three) times daily as needed for Cough. [facility] HYDROcodone -acetaminop hen 5-325 mg tablet 12-25 00:00: 00 Yes [id number] 1{tbl} Take 1 tablet by mouth every 6 (six) hours as needed for Pain (scale 4-6) or Pain (scale 7-10). [facility] HYDROcodone -acetaminop hen 5-325 mg tablet 12-25 00:00: 00 Yes [id number] 1{tbl} Take 1 tablet by mouth every 6 (six) hours as needed for Pain (scale 4-6) or Pain (scale 7-10). [facility] HYDROcodone -acetaminop hen 5-325 mg tablet 12-25 00:00: 00 Yes [id number] 1{tbl} Take 1 tablet by mouth every 6 (six) hours as needed for Pain (scale 4-6) or Pain (scale 7-10). [facility] HYDROcodone -acetaminop hen 5-325 mg tablet 12-25 00:00: 00 Yes [id number] 1{tbl} Take 1 tablet by mouth every 6 (six) hours as needed for Pain (scale 4-6) or Pain (scale 7-10). [facility] HYDROcodone -acetaminop hen 5-325 mg tablet 12-25 00:00: 00 Yes [id number] 1{tbl} Take 1 tablet by mouth every 6 (six) hours as needed for Pain (scale 4-6) or Pain (scale 7-10). [facility] HYDROcodone -acetaminop hen 5-325 mg tablet 12-25 00:00: 00 Yes [id number] 1{tbl} Take 1 tablet by mouth every 6 (six) hours as needed for Pain (scale 4-6) or Pain (scale 7-10). [facility] HYDROcodone -acetaminop hen 5-325 mg tablet 12-25 00:00: 00 Yes [id number] 1{tbl} Take 1 tablet by mouth every 6 (six) hours as needed for Pain (scale 4-6) or Pain (scale 7-10). [facility] HYDROcodone -acetaminop hen 5-325 mg tablet 12-25 00:00: 00 Yes [id number] 1{tbl} Take 1 tablet by mouth every 6 (six) hours as needed for Pain (scale 4-6) or Pain (scale 7-10). [facility] HYDROcodone -acetaminop hen 5-325 mg tablet 12-25 00:00: 00 Yes [id number] 1{tbl} Take 1 tablet by mouth every 6 (six) hours as needed for Pain (scale 4-6) or Pain (scale 7-10). [facility] HYDROcodone -acetaminop hen 5-325 mg tablet 12-25 00:00: 00 Yes [id number] 1{tbl} Take 1 tablet by mouth every 6 (six) hours as needed for Pain (scale 4-6) or Pain (scale 7-10). [facility] HYDROcodone -acetaminop hen 5-325 mg tablet 12-25 00:00: 00 Yes [id number] 1{tbl} Take 1 tablet by mouth every 6 (six) hours as needed for Pain (scale 4-6) or Pain (scale 7-10). [facility] HYDROcodone -acetaminop hen 5-325 mg tablet 12-25 00:00: 00 Yes [id number] 1{tbl} Take 1 tablet by mouth every 6 (six) hours as needed for Pain (scale 4-6) or Pain (scale 7-10). [facility] HYDROcodone -acetaminop hen 5-325 mg tablet 12-25 00:00: 00 Yes [id number] 1{tbl} Take 1 tablet by mouth every 6 (six) hours as needed for Pain (scale 4-6) or Pain (scale 7-10). [facility] HYDROcodone -acetaminop hen 5-325 mg tablet 12-25 00:00: 00 Yes [id number] 1{tbl} Take 1 tablet by mouth every 6 (six) hours as needed for Pain (scale 4-6) or Pain (scale 7-10). [facility] HYDROcodone -acetaminop hen 5-325 mg tablet 12-25 00:00: 00 Yes [id number] 1{tbl} Take 1 tablet by mouth every 6 (six) hours as needed for Pain (scale 4-6) or Pain (scale 7-10). [facility] HYDROcodone -acetaminop hen 5-325 mg tablet 12-25 00:00: 00 Yes [id number] 1{tbl} Take 1 tablet by mouth every 6 (six) hours as needed for Pain (scale 4-6) or Pain (scale 7-10). [facility] HYDROcodone -acetaminop hen 5-325 mg tablet 12-25 00:00: 00 05-04 00:00 :00 No [id number] 1{tbl} Take 1 tablet by mouth every 6 (six) hours as needed for Pain (scale 4-6) or Pain (scale 7-10). [facility] HYDROcodone -acetaminop hen 5-325 mg tablet 12-25 00:00: 00 05-04 00:00 :00 No [id number] 1{tbl} Take 1 tablet by mouth every 6 (six) hours as needed for Pain (scale 4-6) or Pain (scale 7-10). [facility] HYDROcodone -acetaminop hen 5-325 mg tablet 12-04 00:00: 00 Yes [id number] 1{tbl} Take 1 tablet by mouth as needed (prior to dressing changes). [facility] HYDROcodone -acetaminop hen 5-325 mg tablet 12-04 00:00: 00 Yes [id number] 1{tbl} Take 1 tablet by mouth as needed (prior to dressing changes). [facility] HYDROcodone -acetaminop hen 5-325 mg tablet 12-04 00:00: 00 Yes [id number] 1{tbl} Take 1 tablet by mouth as needed (prior to dressing changes). [facility] HYDROcodone -acetaminop hen 5-325 mg tablet 12-04 00:00: 00 Yes [id number] 1{tbl} Take 1 tablet by mouth as needed (prior to dressing changes). [facility] HYDROcodone -acetaminop hen 5-325 mg tablet 12-04 00:00: 00 Yes [id number] 1{tbl} Take 1 tablet by mouth as needed (prior to dressing changes). [facility] HYDROcodone -acetaminop hen 5-325 mg tablet 12-04 00:00: 00 Yes [id number] 1{tbl} Take 1 tablet by mouth as needed (prior to dressing changes). [facility] HYDROcodone -acetaminop hen 5-325 mg tablet 12-04 00:00: 00 Yes [id number] 1{tbl} Take 1 tablet by mouth as needed (prior to dressing changes). [facility] HYDROcodone -acetaminop hen 5-325 mg tablet 12-04 00:00: 00 Yes [id number] 1{tbl} Take 1 tablet by mouth as needed (prior to dressing changes). [facility] HYDROcodone -acetaminop hen 5-325 mg tablet 12-04 00:00: 00 Yes [id number] 1{tbl} Take 1 tablet by mouth as needed (prior to dressing changes). [facility] HYDROcodone -acetaminop hen 5-325 mg tablet 12-04 00:00: 00 Yes [id number] 1{tbl} Take 1 tablet by mouth as needed (prior to dressing changes). [facility] HYDROcodone -acetaminop hen 5-325 mg tablet 12-04 00:00: 00 Yes [id number] 1{tbl} Take 1 tablet by mouth as needed (prior to dressing changes). [facility] HYDROcodone -acetaminop hen 5-325 mg tablet 12-04 00:00: 00 Yes [id number] 1{tbl} Take 1 tablet by mouth as needed (prior to dressing changes). [facility] HYDROcodone -acetaminop hen 5-325 mg tablet 12-04 00:00: 00 Yes [id number] 1{tbl} Take 1 tablet by mouth as needed (prior to dressing changes). [facility] HYDROcodone -acetaminop hen 5-325 mg tablet 12-04 00:00: 00 Yes [id number] 1{tbl} Take 1 tablet by mouth as needed (prior to dressing changes). [facility] HYDROcodone -acetaminop hen 5-325 mg tablet 12-04 00:00: 00 Yes [id number] 1{tbl} Take 1 tablet by mouth as needed (prior to dressing changes). [facility] HYDROcodone -acetaminop hen 5-325 mg tablet 12-04 00:00: 00 Yes [id number] 1{tbl} Take 1 tablet by mouth as needed (prior to dressing changes). [facility] HYDROcodone -acetaminop hen 5-325 mg tablet 12-04 00:00: 00 05-04 00:00 :00 No [id number] 1{tbl} Take 1 tablet by mouth as needed (prior to dressing changes). [facility] HYDROcodone -acetaminop hen 5-325 mg tablet 12-04 00:00: 00 05-04 00:00 :00 No [id number] 1{tbl} Take 1 tablet by mouth as needed (prior to dressing changes). [facility] Immunizations Ordered Immunization Name Filled Immunization Name Date Status Comments Source Influenza Virus Vaccine Quad .5 mL IM 6+ MO (FLUZONE/FLULAVAL/FL UARIX) Unknown Completed [facility] TDAP Unknown Completed [facility] HPV9 Unknown Completed [facility] DTaP, Unspecified Formulation Unknown Completed [facility] Hep B, Adol or Pedi Dosage Unknown Completed [facility] HIB 4 Dose Schedule Unknown Completed [facility] MMR Unknown Completed [facility] IPV Unknown Completed [facility] TDAP Unknown Completed [facility] Influenza Virus Vaccine Quad .5 mL IM 6+ MO (FLUZONE/FLULAVAL/FL UARIX) Unknown Completed [facility] TDAP Unknown Completed [facility] HPV9 Unknown Completed [facility] DTaP, Unspecified Formulation Unknown Completed [facility] Hep B, Adol or Pedi Dosage Unknown Completed [facility] HIB 4 Dose Schedule Unknown Completed [facility] MMR Unknown Completed [facility] IPV Unknown Completed [facility] TDAP Unknown Completed [facility] Influenza Virus Vaccine Quad .5 mL IM 6+ MO (FLUZONE/FLULAVAL/FL UARIX) Unknown Completed [facility] TDAP Unknown Completed [facility] HPV9 Unknown Completed [facility] DTaP, Unspecified Formulation Unknown Completed [facility] Hep B, Adol or Pedi Dosage Unknown Completed [facility] HIB 4 Dose Schedule Unknown Completed [facility] MMR Unknown Completed [facility] IPV Unknown Completed [facility] TDAP Unknown Completed [facility] Influenza Virus Vaccine Quad .5 mL IM 6+ MO (FLUZONE/FLULAVAL/FL UARIX) Unknown Completed [facility] TDAP Unknown Completed [facility] HPV9 Unknown Completed [facility] DTaP, Unspecified Formulation Unknown Completed [facility] Hep B, Adol or Pedi Dosage Unknown Completed [facility] HIB 4 Dose Schedule Unknown Completed [facility] MMR Unknown Completed [facility] IPV Unknown Completed [facility] TDAP Unknown Completed [facility] Influenza Virus Vaccine Quad .5 mL IM 6+ MO (FLUZONE/FLULAVAL/FL UARIX) Unknown Completed [facility] TDAP Unknown Completed [facility] HPV9 Unknown Completed [facility] DTaP, Unspecified Formulation Unknown Completed [facility] Hep B, Adol or Pedi Dosage Unknown Completed [facility] HIB 4 Dose Schedule Unknown Completed [facility] MMR Unknown Completed [facility] IPV Unknown Completed [facility] TDAP Unknown Completed [facility] Influenza Virus Vaccine Quad .5 mL IM 6+ MO (FLUZONE/FLULAVAL/FL UARIX) Unknown Completed [facility] TDAP Unknown Completed [facility] HPV9 Unknown Completed [facility] DTaP, Unspecified Formulation Unknown Completed [facility] Hep B, Adol or Pedi Dosage Unknown Completed [facility] HIB 4 Dose Schedule Unknown Completed [facility] MMR Unknown Completed [facility] IPV Unknown Completed [facility] TDAP Unknown Completed [facility] Influenza Virus Vaccine Quad .5 mL IM 6+ MO (FLUZONE/FLULAVAL/FL UARIX) Unknown Completed [facility] TDAP Unknown Completed [facility] Influenza Virus Vaccine Quad .5 mL IM 6+ MO (FLUZONE/FLULAVAL/FL UARIX) Unknown Completed [facility] TDAP Unknown Completed [facility] HPV9 Unknown Completed [facility] DTaP, Unspecified Formulation Unknown Completed [facility] Hep B, Adol or Pedi Dosage Unknown Completed [facility] HIB 4 Dose Schedule Unknown Completed [facility] MMR Unknown Completed [facility] IPV Unknown Completed [facility] TDAP Unknown Completed [facility] HPV9 Unknown Completed [facility] Influenza Virus Vaccine Quad .5 mL IM 6+ MO (FLUZONE/FLULAVAL/FL UARIX) Unknown Completed [facility] TDAP Unknown Completed [facility] HPV9 Unknown Completed [facility] DTaP, Unspecified Formulation Unknown Completed [facility] Hep B, Adol or Pedi Dosage Unknown Completed [facility] HIB 4 Dose Schedule Unknown Completed [facility] MMR Unknown Completed [facility] IPV Unknown Completed [facility] TDAP Unknown Completed [facility] Influenza Virus Vaccine Quad .5 mL IM 6+ MO (FLUZONE/FLULAVAL/FL UARIX) Unknown Completed [facility] TDAP Unknown Completed [facility] HPV9 Unknown Completed [facility] DTaP, Unspecified Formulation Unknown Completed [facility] Hep B, Adol or Pedi Dosage Unknown Completed [facility] HIB 4 Dose Schedule Unknown Completed [facility] MMR Unknown Completed [facility] IPV Unknown Completed [facility] TDAP Unknown Completed [facility] Influenza Virus Vaccine Quad .5 mL IM 6+ MO (FLUZONE/FLULAVAL/FL UARIX) Unknown Completed [facility] TDAP Unknown Completed [facility] HPV9 Unknown Completed [facility] DTaP, Unspecified Formulation Unknown Completed [facility] Hep B, Adol or Pedi Dosage Unknown Completed [facility] HIB 4 Dose Schedule Unknown Completed [facility] MMR Unknown Completed [facility] IPV Unknown Completed [facility] TDAP Unknown Completed [facility] Influenza Virus Vaccine Quad .5 mL IM 6+ MO (FLUZONE/FLULAVAL/FL UARIX) Unknown Completed [facility] TDAP Unknown Completed [facility] HPV9 Unknown Completed [facility] DTaP, Unspecified Formulation Unknown Completed [facility] Hep B, Adol or Pedi Dosage Unknown Completed [facility] HIB 4 Dose Schedule Unknown Completed [facility] MMR Unknown Completed [facility] IPV Unknown Completed [facility] TDAP Unknown Completed [facility] Influenza Virus Vaccine Quad .5 mL IM 6+ MO (FLUZONE/FLULAVAL/FL UARIX) Unknown Completed [facility] TDAP Unknown Completed [facility] HPV9 Unknown Completed [facility] DTaP, Unspecified Formulation Unknown Completed [facility] Hep B, Adol or Pedi Dosage Unknown [facility] [facility] HIB 4 Dose Schedule Unknown Completed [facility] MMR Unknown Completed [facility] IPV Unknown Completed [facility] TDAP Unknown Completed [facility] Influenza Virus Vaccine Quad .5 mL IM 6+ MO (FLUZONE/FLULAVAL/FL UARIX) Unknown Completed [facility] TDAP Unknown Completed [facility] HPV9 Unknown Completed [facility] DTaP, Unspecified Formulation Unknown Completed [facility] Hep B, Adol or Pedi Dosage Unknown Completed [facility] HIB 4 Dose Schedule Unknown Completed [facility] MMR Unknown Completed [facility] IPV Unknown Completed [facility] TDAP Unknown Completed [facility] Influenza Virus Vaccine Quad .5 mL IM 6+ MO (FLUZONE/FLULAVAL/FL UARIX) Unknown Completed [facility] TDAP Unknown Completed [facility] Influenza Virus Vaccine Quad .5 mL IM 6+ MO (FLUZONE/FLULAVAL/FL UARIX) Unknown Completed [facility] TDAP Unknown Completed [facility] HPV9 Unknown Completed [facility] DTaP, Unspecified Formulation Unknown Completed [facility] Hep B, Adol or Pedi Dosage Unknown Completed [facility] HIB 4 Dose Schedule Unknown Completed [facility] MMR Unknown Completed [facility] IPV Unknown Completed [facility] TDAP Unknown Completed [facility] HPV9 Unknown Completed [facility] Influenza Virus Vaccine Quad .5 mL IM 6+ MO (FLUZONE/FLULAVAL/FL UARIX) Unknown Completed [facility] TDAP Unknown Completed [facility] HPV9 Unknown Completed [facility] DTaP, Unspecified Formulation Unknown Completed [facility] Hep B, Adol or Pedi Dosage Unknown Completed [facility] HIB 4 Dose Schedule Unknown Completed [facility] MMR Unknown Completed [facility] IPV Unknown Completed [facility] TDAP Unknown Completed [facility] Influenza Virus Vaccine Quad .5 mL IM 6+ MO (FLUZONE/FLULAVAL/FL UARIX) Unknown Completed [facility] TDAP Unknown Completed [facility] HPV9 Unknown Completed [facility] DTaP, Unspecified Formulation Unknown Completed [facility] Hep B, Adol or Pedi Dosage Unknown Completed [facility] HIB 4 Dose Schedule Unknown Completed [facility] MMR Unknown Completed [facility] IPV Unknown Completed [facility] TDAP Unknown Completed [facility] Influenza Virus Vaccine Quad .5 mL IM 6+ MO (FLUZONE/FLULAVAL/FL UARIX) Unknown Completed [facility] TDAP Unknown Completed [facility] HPV9 Unknown Completed [facility] DTaP, Unspecified Formulation Unknown Completed [facility] Hep B, Adol or Pedi Dosage Unknown Completed [facility] HIB 4 Dose Schedule Unknown Completed [facility] MMR Unknown Completed [facility] IPV Unknown Completed [facility] TDAP Unknown Completed [facility] Influenza Virus Vaccine Quad .5 mL IM 6+ MO (FLUZONE/FLULAVAL/FL UARIX) Unknown Completed [facility] TDAP Unknown Completed [facility] HPV9 Unknown Completed [facility] DTaP, Unspecified Formulation Unknown Completed [facility] Hep B, Adol or Pedi Dosage Unknown Completed [facility] HIB 4 Dose Schedule Unknown Completed [facility] MMR Unknown Completed [facility] IPV Unknown Completed [facility] TDAP Unknown Completed [facility] Influenza Virus Vaccine Quad .5 mL IM 6+ MO (FLUZONE/FLULAVAL/FL UARIX) Unknown Completed [facility] TDAP Unknown Completed [facility] HPV9 Unknown Completed [facility] DTaP, Unspecified Formulation Unknown Completed [facility] Hep B, Adol or Pedi Dosage Unknown Completed [facility] HIB 4 Dose Schedule Unknown Completed [facility] MMR Unknown Completed [facility] IPV Unknown Completed [facility] TDAP Unknown Completed [facility] Influenza Virus Vaccine Quad .5 mL IM 6+ MO (FLUZONE/FLULAVAL/FL UARIX) Unknown Completed [facility] TDAP Unknown Completed [facility] HPV9 Unknown Completed [facility] Influenza Virus Vaccine Quad .5 mL IM 6+ MO (FLUZONE/FLULAVAL/FL UARIX) Unknown Completed [facility] TDAP Unknown Completed [facility] HPV9 Unknown Completed [facility] Vital Signs Vital Name Observation Time Observation Value Comments S ource Systolic blood pressure 2023-05-15 22:21:00 126 mm[Hg] [facility] Diastolic blood pressure 2023-05-15 22:21:00 83 mm[Hg] [facility] Heart rate 2023-05-15 22:21:00 88 /min [facility] Respiratory rate 2023-05-15 22:21:00 18 /min [facility] Body height 2023-05-15 22:21:00 160 cm [facility] Body weight 2023-05-15 22:21:00 89.359 kg [facility] BMI 2023-05-15 22:21:00 34.90 kg/m2 [facility] Systolic blood pressure 2023-05-08 19:00:00 134 mm[Hg] [facility] Diastolic blood pressure 2023-05-08 19:00:00 89 mm[Hg] [facility] Heart rate 2023-05-08 19:00:00 68 /min [facility] Body temperature 2023-05-08 19:00:00 36.89 Rina [facility] Respiratory rate 2023-05-08 19:00:00 16 /min [facility] Body height 2023-05-08 19:00:00 160 cm [facility] Body weight 2023-05-08 19:00:00 97.07 kg [facility] BMI 2023-05-08 19:00:00 37.91 kg/m2 [facility] Systolic blood pressure 2023-05-04 14:00:00 99 mm[Hg] [facility] Diastolic blood pressure 2023-05-04 14:00:00 68 mm[Hg] [facility] Heart rate 2023-05-04 14:00:00 76 /min [facility] Body temperature 2023-05-04 14:00:00 36.83 Rina [facility] Respiratory rate 2023-05-04 14:00:00 16 /min [facility] Oxygen saturation in Arterial blood by Pulse oximetry 2023-05-04 14:00:00 99 /min [facility] Body height 2023-05-02 12:25:00 160 cm [facility] Body weight 2023-05-02 12:25:00 98.884 kg [facility] BMI 2023-05-02 12:25:00 38.62 kg/m2 [facility] Systolic blood pressure 2023-05-02 14:45:00 115 mm[Hg] [facility] Diastolic blood pressure 2023-05-02 14:45:00 65 mm[Hg] [facility] Heart rate 2023-05-02 14:45:00 68 /min [facility] Body temperature 2023-05-02 14:45:00 36 Rina [facility] Respiratory rate 2023-05-02 14:45:00 16 /min [facility] Oxygen saturation in Arterial blood by Pulse oximetry 2023-05-02 14:45:00 99 /min [facility] Body height 2023-05-02 12:25:00 160 cm [facility] Body weight 2023-05-02 12:25:00 98.884 kg [facility] BMI 2023-05-02 12:25:00 38.62 kg/m2 [facility] Systolic blood pressure 2023-04-29 17:09:00 115 mm[Hg] [facility] Diastolic blood pressure 2023-04-29 17:09:00 80 mm[Hg] [facility] Heart rate 2023-04-29 17:09:00 88 /min [facility] Respiratory rate 2023-04-29 17:09:00 18 /min [facility] Body height 2023-04-29 17:09:00 160 cm [facility] Body weight 2023-04-29 17:09:00 97.523 kg [facility] BMI 2023-04-29 17:09:00 38.09 kg/m2 [facility] Systolic blood pressure 2023-04-18 16:29:00 106 mm[Hg] [facility] Diastolic blood pressure 2023-04-18 16:29:00 75 mm[Hg] [facility] Heart rate 2023-04-18 16:29:00 95 /min [facility] Body temperature 2023-04-18 16:29:00 36.61 Rina [facility] Body height 2023-04-18 16:29:00 162.6 cm [facility] Body weight 2023-04-18 16:29:00 95.346 kg [facility] BMI 2023-04-18 16:29:00 36.08 kg/m2 [facility] Systolic blood pressure 2023-04-11 22:17:00 112 mm[Hg] [facility] Diastolic blood pressure 2023-04-11 22:17:00 76 mm[Hg] [facility] Heart rate 2023-04-11 22:17:00 96 /min [facility] Body temperature 2023-04-11 22:17:00 36.44 Rina [facility] Respiratory rate 2023-04-11 22:17:00 16 /min [facility] Body height 2023-04-11 22:17:00 162.6 cm [facility] Body weight 2023-04-11 22:17:00 94.348 kg [facility] BMI 2023-04-11 22:17:00 35.70 kg/m2 [facility] Oxygen saturation in Arterial blood by Pulse oximetry 2023-04-11 22:17:00 97 /min [facility] Systolic blood pressure 2023-03-07 18:12:00 107 mm[Hg] [facility] Diastolic blood pressure 2023-03-07 18:12:00 73 mm[Hg] [facility] Heart rate 2023-03-07 18:12:00 86 /min [facility] Respiratory rate 2023-03-07 18:12:00 18 /min [facility] Body height 2023-03-07 18:12:00 162.6 cm [facility] Body weight 2023-03-07 18:12:00 90.719 kg [facility] BMI 2023-03-07 18:12:00 34.33 kg/m2 [facility] Systolic blood pressure 2023-02-21 19:13:00 117 mm[Hg] [facility] Diastolic blood pressure 2023-02-21 19:13:00 72 mm[Hg] [facility] Heart rate 2023-02-21 19:13:00 92 /min [facility] Body temperature 2023-02-21 19:13:00 36.5 Rina [facility] Respiratory rate 2023-02-21 19:13:00 16 /min [facility] Body height 2023-02-21 19:13:00 162.6 cm [facility] Body weight 2023-02-21 19:13:00 88.361 kg [facility] BMI 2023-02-21 19:13:00 33.44 kg/m2 [facility] Procedures Procedure Date / Time Performed Performing Clinician Source CBC WITH DIFF 2023-05-03 09:38:00 Michi Loredo [facility] CBC WITH DIFF 2023-05-03 09:38:00 Michi Loredo [facility] SECTION 2023-05-02 13:02:00 Luz Marina Loredo [facility] RHO (D) IMMUNE GLOBULIN 2023-05-01 20:00:00 Chandana Ann [facility] RHO (D) IMMUNE GLOBULIN 2023-05-01 20:00:00 Chandana Ann [facility] ASSIGNMENT OF BENEFITS 2023-05-01 19:17:18 Docto r Unassigned, [place] [facility] PHYSICIAN ORDERS 2023-04-29 06:01:00 Doctor Unas signed, [place] [facility] POCT URINALYSIS W/O SPECIFIC GRAVITY 2023-04-29 00:00:00 [facility] DME/SUPPLY JUSTIFICATION 2023-04-24 06:01:00 Doc tor Unassigned, [place] [facility] POCT URINALYSIS W/O SPECIFIC GRAVITY 2023-04-18 00:00:00 [facility] DSU PRE-OP 2023-04-15 06:01:00 Doctor Unass igned, [place] [facility] DSU PRE-OP 2023-04-15 06:01:00 Doctor Unass igned, [place] [facility] GALV ONLY - VAGINAL PATHOGENS BY NUCLEIC ACID TESTING 2023-04-11 22:57:00 [facility] GROUP B STREPTOCOCCUS BY PCR 2023-04-11 22:31:00 [facility] POCT URINALYSIS W/O SPECIFIC GRAVITY 2023-04-11 00:00:00 [facility] SECOND AND THIRD TRIMESTER ULTRASOUND 2023-03-13 19:21:00 [facility] TDAP VACCINE, >11 YRS, IM 2023-03-07 18:20:24 [facility] POCT URINALYSIS W/O SPECIFIC GRAVITY 2023-03-07 00:00:00 [facility] >14 WEEKS US LIMITED 2023-02-21 19:44:49 [facility] CONSENT/REFUSAL FOR DIAGNOSIS AND TREATMENT 2023-02-21 18:53:11 Doctor Unassigned, [place] [facility] POCT TEST 2023-02-21 00:00:00 [facility] POCT URINALYSIS W/O SPECIFIC GRAVITY 2023-02-21 00:00:00 [facility] Encounters Start Date/Time End Date/Time Encounter Type Admission Type Attending Clinicians Care Facility Care Department Encounter ID Source 2023-06-12 08:15:00 2023-06-12 08:15:00 Outpatient R LEIJA-THAI S, CHANDANA LEIJA-THAI S, CHANDANA [facility] [id number] [facility] 2023-06-12 00:00:00 2023-06-12 00:00:00 Patient Secure Msg Doctor Unassigned, [place] [facility] 1.2.840.114 350.1.13.10 4.2.7.2.686 [id number] [facility] 2023-05-15 16:15:00 2023-05-15 16:30:43 Outpatient R LEIJA-THAI S, CHANDANA LEIJA-THAI S, CHANDANA [facility] [id number] [facility] 2023-05-15 16:15:00 2023-05-15 16:30:43 Routine Visit Leija-Thai s, Chandana [facility] 1.2.840.114 350.1.13.10 4.2.7.2.686 [id number] [facility] 2023-05-08 13:00:00 2023-05-08 13:15:00 [facility] 1.2.840.114 350.1.13.10 4.2.7.2.686 [id number] [facility] 2023-05-08 13:00:00 2023-05-08 13:00:00 Outpatient R LEIJA-THAI S, CHANDANA LEIJA-THAI S, CHANDANA [facility] [id number] [facility] 2023-05-02 06:12:00 2023-05-04 13:10:00 Inpatient P LEIJA-THAI S, CHANDANA LEIJA-THAI S, CHANDANA [facility] MARCUS [id number] [facility] 2023-05-02 06:12:00 2023-05-04 13:10:00 Hospital Encounter Chandana Og [facility] 1.0.114 350.1.13.10 4.2.7.2.686 [id number] [facility] 2023-05-02 07:15:00 2023-05-02 08:51:00 Surgery Michi Ogl [facility] 1.0.114 350.1.13.10 4.2.7.2.686 [id number] [facility] 2023-05-01 13:15:00 2023-05-01 13:30:00 Director Shopper Marketing Visit 2, Adc Lab Albertina Ogsol [facility] 1.0.114 350.1.13.10 4.2.7.2.686 [id number] [facility] 2023-05-01 13:15:00 2023-05-01 13:15:00 Outpatient R KATRIN Rivera CHANDANALUCA WILKES S CHANDANA [facility] [id number] [facility] 2023-05-01 00:00:00 2023-05-01 00:00:00 Orders Only Doctor Unassigned, [place] [facility] 1.0.114 350.1.13.10 4.2.7.2.686 [id number] [facility] 2023-04-29 10:45:00 2023-04-29 11:22:43 Outpatient R KATRIN Rivera, CHANDANAFelipe WILKES S CHANDANA [facility] [id number] [facility] 2023-04-29 10:45:00 2023-04-29 11:22:43 Routine Visit Chandana Og [facility] 1.2.840.114 350.1.13.10 4.2.7.2.686 [id number] [facility] 2023-04-29 00:00:00 2023-04-29 00:00:00 Letter (Out) Chandana Og [facility] 1.2.840.114 350.1.13.10 4.2.7.2.686 [id number] [facility] 2023-04-29 00:00:00 2023-04-29 00:00:00 Orders Only Doctor Unassigned, [place] [facility] 1.2.840.114 350.1.13.10 4.2.7.2.686 [id number] [facility] 2023-04-24 00:00:00 2023-04-24 00:00:00 [facility] 1.2.840.114 350.1.13.10 4.2.7.2.686 [id number] [facility] 2023-04-24 00:00:00 2023-04-24 00:00:00 Orders Only Doctor Unassigned, [place] [facility] 1.2.840.114 350.1.13.10 4.2.7.2.686 [id number] [facility] 2023-04-18 10:30:00 2023-04-18 10:48:35 Outpatient R CHANDANA OG MARISOL [facility] [id number] [facility] 2023-04-18 10:30:00 2023-04-18 10:48:35 Routine Visit Chandana Og [facility] 1.2.840.114 350.1.13.10 4.2.7.2.686 [id number] [facility] 2023-04-14 00:00:00 2023-04-14 00:00:00 Case Management Michi Ogl [facility] 1.2.840.114 350.1.13.10 4.2.7.2.686 [id number] [facility] 2023-04-11 16:00:00 2023-04-11 16:53:39 Outpatient R LEIJA-THAI S, CHANDANA LEIJA-THAI S, CHANDANA [facility] [id number] [facility] 2023-04-11 16:00:00 2023-04-11 16:53:39 Routine Visit Chandana Og [facility] 1..840.114 350.1.13.10 4.2.7.2.686 [id number] [facility] 2023-03-31 10:00:00 2023-03-31 10:00:00 Outpatient R LEIJA-THAI S, CHANDANA LEIJA-THAI S, CHANDANA [facility] [id number] [facility] 2023-03-21 13:00:00 2023-03-21 13:00:00 Outpatient R LEIJA-THAI S, CHANDANA LEIJA-THAI S, CHANDANA [facility] [id number] [facility] 2023-03-13 14:00:00 2023-03-13 14:30:56 Director Shopper Marketing Visit Ultrasound, [place]lin-Giovana Landry [facility] SUPERINTENDENT [employer] DRILLING [facility] 1..840.114 350.1.13.10 4.2.7.2.686 [id number] [facility] 2023-03-13 14:00:00 2023-03-13 14:30:56 Outpatient GIOVANA ROSE SANGEETA [facility] [id number] [facility] 2023-03-07 13:15:00 2023-03-07 13:32:03 [facility] 1.2.840.114 350.1.13.10 4.2.7.2.686 [id number] [facility] 2023-03-07 13:15:00 2023-03-07 13:32:03 Outpatient R KATRIN Rivera, CHANDANA [facility] [id number] [facility] 2023-02-24 00:00:00 2023-02-24 00:00:00 Telephone Katrin rivera [facility] 1.2.840.114 350.1.13.10 4.2.7.2.686 [id number] [facility] 2023-02-21 15:30:00 2023-02-21 15:45:00 Director Shopper Marketing Visit Lab, Ang - Db Katrin rivera [facility] 1.2.840.114 350.1.13.10 4.2.7.2.686 [id number] [facility] 2023-02-21 15:00:00 2023-02-21 15:00:00 Outpatient R KATRIN Rivera, [facility] [id number] 2023-02-21 14:00:00 2023-02-21 14:41:55 Initial Visit Katrin rivera [facility] 1.2840.114 350.1.13.10 4.2.7.2.686 [id number] [facility] 2023-02-21 14:00:00 2023-02-21 14:41:55 Outpatient R KATRIN S, CHANDANA KATRIN S, CHANDANA [facility] [id number] [facility] 2023-02-21 00:00:00 2023-02-21 00:00:00 Orders Only Doctor Unassigned, [place] [facility] 1.2.840.114 350.1.13.10 4.2.7.2.686 [id number] [facility] 2020-08-01 00:00:00 2020-08-01 00:00:00 Patient Outreach Vinnie Sevenmiguel Vazquez [facility] 1.2.840.114 350.1.13.10 4.2.7.2.686 [id number] 2019-01-25 00:00:00 2019-01-25 00:00:00 Orders Only Doctor Unassigned, [place] [facility] 1.2.840.114 350.1.13.10 4.2.7.2.686 [id number] 2019-01-22 00:00:00 2019-01-22 00:00:00 Orders Only Doctor Unassigned, [place] [facility] 1.2.840.114 350.1.13.10 4.2.7.2.686 [id number] 2019-01-20 01:00:05 2019-01-20 02:51:00 Emergency Angelica Dhaliwal [facility] 1.2.840.114 350.1.13.10 4.2.7.2.686 [id number] 2019-01-15 00:00:00 2019-01-15 00:00:00 Orders Only Doctor Unassigned, [place] [facility] 1.2.840.114 350.1.13.10 4.2.7.2.686 [id number] 2019-01-08 00:00:00 2019-01-08 00:00:00 [facility] 1.2.840.114 350.1.13.10 4.2.7.2.686 [id number] 2019-01-06 15:49:00 2019-01-06 17:15:00 Emergency Kevin Miles [facility] 1.2.840.114 350.1.13.10 4.2.7.2.686 [id number] 2018-12-29 00:00:00 2018-12-29 00:00:00 Orders Only Doctor Unassigned, [place] [facility] 1.2.840.114 350.1.13.10 4.2.7.2.686 [id number] 2018-12-25 14:15:52 2018-12-25 15:03:24 Office Visit [place], [facility] 1.2.840.114 350.1.13.10 4.2.7.2.686 [id number] Results Test Description Test Time Test Comments Results Result Co mments Source [facility] with [id number] 12:18:53* Test Item Value Reference Range Interpretation Comme nts WBC (test code = 6690-2) 10.21 See_Comment [Automated messa ge] The system which generated this result transmitted reference range: 4.30 - 11.10 10*3/?L. The reference range was not used to interpret this result as normal/abnormal. RBC (test code = 789-8) 3.60 See_Comment L [Automated messa ge] The system which generated this result transmitted reference range: 3.93 - 5.25 10*6/?L. The reference range was not used to interpret this result as normal/abnormal. HGB (test code = 718-7) 11.3 g/dL 11.6-15.0 L HCT (test code = 4544-3) 33.6 % 35.7-45.2 L MCV (test code = 787-2) 93.3 fL 80.6-95.5 MCH (test code = 785-6) 31.4 pg 25.9-32.8 MCHC (test code = 786-4) 33.6 g/dL 31.6-35.1 RDW-SD (test code = 49843-1) 43.9 fL 39.0-49.9 RDW-CV (test code = 788-0) 12.9 % 12.0-15.5 PLT (test code = 777-3) 188 See_Comment [Automated messa ge] The system which generated this result transmitted reference range: 166 - 358 10*3/?L. The reference range was not used to interpret this result as normal/abnormal. MPV (test code = 88869-4) 11.0 fL 9.5-12.9 NRBC/100 WBC (test code = 1044517925) 0.0 See_Comment [Automated Hotelements ssage] The system which generated this result transmitted reference range: 0.0 - 10.0 /100 WBCs. The reference range was not used to interpret this result as normal/abnormal. NRBC x10^3 (test code = 3793079201) See_Comment [Automated messa ge] The system which generated this result transmitted reference range: 10*3/?L. The reference range was not used to interpret this result as normal/abnormal. GRAN MAT (NEUT) % (test code = 770-8) 77.8 % IMM GRAN % (test code = 9832909569) 0.40 % LYMPH % (test code = 736-9) 16.9 % MONO % (test code = 5905-5) 4.2 % EOS % (test code = 713-8) 0.4 % BASO % (test code = 706-2) 0.3 % GRAN MAT x10^3(ANC) (test code = 9110828869) 7.94 10*3/uL 1.88-7.09 H IMM GRAN x10^3 (test code = 3304799812) 0.04 10*3/uL 0.00-0.06 LYMPH x10^3 (test code = 731-0) 1.73 10*3/uL 1.32-3.29 MONO x10^3 (test code = 742-7) 0.43 10*3/uL 0.33-0.92 EOS x10^3 (test code = 711-2) 0.04 10*3/uL 0.03-0.39 BASO x10^3 (test code = 704-7) 0.03 10*3/uL 0.01-0.07 Lab Interpretation (test code = 30402-7) Abnormal [facility] (D) IMMUNE HXRKGVZF1023-72-22 15:42:08* Test Item Value Reference Range Interpretation Comme nts RHIG CANDIDATE? (test code = 5188) No- see comment Patient is not a candidate for RhIg- Patient is Rh Positive.Performed at [facility] Laboratory Services - [facility] Blood [address] [place], [place] [address]Toll Free: [phone] No. [id number] [facility] (D) IMMUNE YYWJUIAE9269-55-14 15:42:08* Test Item Value Reference Range Interpretation Comme nts RHIG CANDIDATE? (test code = 5188) No- see comment Patient is not a candidate for RhIg- Patient is Rh Positive.Performed at [facility] Laboratory Services - [facility] Blood [address] [place], [place] [id number] Free: [phone] No. [id number] [facility] Urinalysis w/o Specific Najvrmx9240-56-07 17:10:00* Test Item Value Reference Range Interpretation Comme nts POCT PH U (test code = 3254) N/A 5-8 POCT U LEUK EST (test code = 3263) N/A Negative - Negative POCT U NIT (test code = 3262) N/A Negative - Negati ve POCT U PROT (test code = 3259) Negative Negative - Negat landen POCT U GLU (test code = 3256) Negative Negative - Negati ve POCT U KETONE (test code = 3258) N/A Negative - Neg ative POCT U BLD (test code = 3257) N/A Negative - Negati ve [facility] URINALYSIS W/O SPECIFIC BHUOQZF2127-53-43 16:27:00* Test Item Value Reference Range Interpretation Comme nts POCT PH U (test code = 3254) n/a 5-8 POCT U LEUK EST (test code = 3263) n/a Negative - Negative POCT U NIT (test code = 3262) n/a Negative - Negati ve POCT U PROT (test code = 3259) Negative Negative - Negat landen POCT U GLU (test code = 3256) Normal Negative - Negati ve POCT U KETONE (test code = 3258) n/a Negative - Neg ative POCT U BLD (test code = 3257) n/a Negative - Negati ve [facility] URINALYSIS W/O SPECIFIC [id number] 22:17:00* Test Item Value Reference Range Interpretation Comme nts POCT PH U (test code = 3254) n/a 5-8 POCT U LEUK EST (test code = 3263) n/a Negative - Negative POCT U NIT (test code = 3262) n/a Negative - Negati ve POCT U PROT (test code = 3259) negative Negative - Negat landen POCT U GLU (test code = 3256) negative Negative - Negati ve POCT U KETONE (test code = 3258) n/a Negative - Neg ative POCT U BLD (test code = 3257) n/a Negative - Negati ve [facility] URINALYSIS W/O SPECIFIC [id number] 22:17:00* Test Item Value Reference Range Interpretation Comme nts POCT PH U (test code = 3254) n/a 5-8 POCT U LEUK EST (test code = 3263) n/a Negative - Negative POCT U NIT (test code = 3262) n/a Negative - Negati ve POCT U PROT (test code = 3259) negative Negative - Negat landen POCT U GLU (test code = 3256) negative Negative - Negati ve POCT U KETONE (test code = 3258) n/a Negative - Neg ative POCT U BLD (test code = 3257) n/a Negative - Negati ve [facility] URINALYSIS W/O SPECIFIC ARSJYMW3570-66-42 18:19:00* Test Item Value Reference Range Interpretation Comme nts POCT PH U (test code = 3254) N/A 5-8 POCT U LEUK EST (test code = 3263) N/A Negative - Negative POCT U NIT (test code = 3262) N/A Negative - Negati ve POCT U PROT (test code = 3259) Negative Negative - Negat landen POCT U GLU (test code = 3256) Negative Negative - Negati ve POCT U KETONE (test code = 3258) N/A Negative - Neg ative POCT U BLD (test code = 3257) N/A Negative - Negati ve [facility]/O SPECIFIC [id number] 19:13:00* Test Item Value Reference Range Interpretation Comme nts POCT PH U (test code = 3254) n/a 5-8 POCT U LEUK EST (test code = 3263) n/a Negative - Negative POCT U NIT (test code = 3262) n/a Negative - Negati ve POCT U PROT (test code = 3259) negative Negative - Negat landen POCT U GLU (test code = 3256) negative Negative - Negati ve POCT U KETONE (test code = 3258) n/a Negative - Neg ative POCT U BLD (test code = 3257) n/a Negative - Negati ve [facility] [id number] 19:13:00* Test Item Value Reference Range Interpretation Comme nts POCT PREG (test code = 1605) Positive On board controls acceptable with C Line (test code = 3574) Yes POCT PREG LOT # (test code = 3575) POCT PREG TEST DATE ( test code = 3576) [facility] Consult Notes Date/Time Note Provider Source 2023-05-02 15:10:00 EcLpaPQodIwGwgmrqk7r eqU1TxoxwS/sHTQHB 03oPSW3hMbDnQYtkzsVcZV+dcCM2906-80-11 T15:10:00Associated Order(s): CONSULT PASTORAL CARE Male Model visited with patient per consult. Patient received in bed awake. Patient mother at bedside holding the patient's baby girl. Patient 3 year old present. Patient received in good spirits and welcomed the Male Model visit to pray for the baby.Male Model was a spiritual presence and datastage developer. Male Model celebrated patient new baby girl. Male Model offered words of blessing and peace. Male Model prayed the baby and the family present. Patient thanked Male Model for the visit.Additional Male Model support is available upon request.Chaplain Radha Jimenez, [facility] Psych[facility] [phone] signed by Radha Jimenez at 05/02/2023 3:52 PM XFX62134-9Hsvjjoa fzfqLI8245-73-98H59:52:06Consult noteTXT1.2.840.722744.1.13.104.2.7.2. 880019|[id number] for patient rkce87878-6Zhgbzrb noteLNNARRATIVEFormatted C-CDA narrative [id number] M IsaacSAN FRANCISCO [facility] - [address] StreetNi[id number] VQBVFJYGZYJVIUZLUAIBR5436-35-26B88:52 :061.2.840.416131.1.72.3.15|1.2.840.1 76186.1.13.104.2.7.2.727879_[id number] 8 Radha Jimenez [facility] - [facility] History and Physical Notes Date/Time Note Provider Source 2023-05-02 06:39:48 Z+F5O/mJF+fOC2KqfAPt J3JkCspeNdBVmKuaaaTTqN ZIVXuG4IrZPybV0PgVmqOU3830-02-83F62:39:48F ormatting of this note is different from the original.ANTEPARTUM HISTORY & PHYSICALIDENTIFYING DATAJakob Gtz is 22 year old, /White, 39w0d, female with MICHAEL 05/09/2023, by Ultrasound.: 1999MRN: [id number] Care Physician: PATIENT DOES NOT HAVE A PCPHospital Day: 1CHIEF COMPLAINTScheduled RCSHISTORY OF PRESENT KGAHHYF74 year old @39w0d presents for an scheduled RCS. Denies POWERS or ruq pain. Denies vaginal bleeding or leakage of fluid/ denies contractions.PAST OBSTETRIC HISTORYOB HistoryGravida Para Term AB Living2 1 1 1SAB IAB Ectopic Multiple Live Births0 1# Outcome Date GA Lbr Mike/2nd Weight Sex Delivery Anes PTL Lv2 Current1 Term 11/17/18 39w3d 2810 g F CS-LTranv EPI N LIVComplications: Other (See Comments)PAST MEDICAL HISTORYProblem list:Patient Active Problem ListDiagnosis Date Noted39 weeks gestation of 05/01/2023Obesity (BMI 30-39.9) 11/23/2018Previous section complicating 11/17/2018Genital condyloma, female 09/03/2018High-risk in third trimester 04/16/2018Operations:Past Surgical History:Procedure Laterality DateABDOMINAL WOUND EXPLORATION 11/23/2018ABDOMINAL WOUND EXPLORATION 11/23/2018CESAREAN SECTION N/A 11/17/2018Surgeon: Amy Castorena; Location: Labor and Delivery - AnnexWOUND DEBRIDEMENT N/A 11/23/2018Surgeon: Anselmo Yanez; Location: Labor and Delivery - AnnexPrior surgeries at outside hospitals: nonePast Medical History:Diagnosis DateAnemia of mother in , antepartum 10/01/2018Cesarean wound infection 11/23/2018Chlamydia infection affecting 08/06/2018Feeling of sadness 09/24/2018Genital warts complicating , third trimester 09/03/2018Open wound anterior abdominal wall 11/25/2018CURRENT HEALTH STATUSMedications:Current Facility-Administered MedicationsMedication Dose Route Frequency Last Rate Last Admincarboprost (HEMABATE) injection 250 mcg 250 mcg Intramuscular O6BRSRipVDJerxl (ANCEF) 2,000 mg in NaCl 0.9% (NS) 100 mL MINI-BAG 2,000 mg IV Piggyback ONCEFollowed byceFAZolin (ANCEF) 2,000 mg in NaCl 0.9% (NS) 100 mL MINI-BAG 2,000 mg IV Piggyback RZEOZ1B-GQ IV infusion 1,000 mL 1,000 mL IV Infusion TITRATE 125 mL/hr at 05/02/23 0632 1,000 mL at 05/02/23 0632lactated ringers IV infusion 500 mL 500 mL IV Infusion PRN - SEE INSTRUCTIONSmethylergonovine (METHERGINE) injection 0.2 mg 0.2 mg Intramuscular U7LPZCrqHYTZZTzbN (CYTOTEC) tablet 200 mcg 200 mcg Rectal PRNoxytocin (PITOCIN) 30 units in NS 500 mL IV infusion 600 mL/hr IV Infusion PRNsodium citrate-citric acid (BICITRA) 500-334 mg/5 mL solution 30 mL 30 mL Oral PRE-PROCEDURE ONCEtranexamic acid (CYKLOKAPRON) 1,000 mg in NaCl 0.9% (NS) 250 mL piggyback 1,000 mg IV Piggyback PRNAllergies and drug reactions: Cinnamon and PenicillinHOME MEDICATIONSMedications Prior to AdmissionMedication Sig Dispense Refill Last DosemetroNIDAZOLE (FLAGYL) 500 mg tablet Take 1 tablet by mouth every 12 (twelve) hours. 10 tablet 0 Takingloratadine (CLARITIN ORAL) Take by mouth. Not Takingprenatal 25/iron fum/folic/dha (-1 ORAL) Take by mouth. Takingsulfamethoxazole-trimethoprim 800-160 mg per tablet Take 1 tablet by mouth every 12 (twelve) hours. 10 tablet 0 Not Takingbenzonatate 100 mg capsule Take 1 capsule by mouth 3 (three) times daily as needed for Cough. 20 capsule 0 Not Takingibuprofen 600 mg tablet Take 1 tablet by mouth every 6 (six) hours as needed for Pain (scale 4-6). 30 tablet 0 Not TakingHYDROcodone-acetaminophen 5-325 mg tablet Take 1 tablet by mouth every 6 (six) hours as needed for Pain (scale 4-6) or Pain (scale 7-10). 20 tablet 0 Not TakingHYDROcodone-acetaminophen 5-325 mg tablet Take 1 tablet by mouth as needed (prior to dressing changes). 30 tablet 0 Not TakingLast taken: yesterdaySOCIAL HISTORYTobacco History:Social HistoryTobacco UseSmoking Status NeverSmokeless Tobacco NeverDrug History:Social HistorySubstance and Sexual ActivityDrug Use NoAlcohol History:Social HistorySubstance and Sexual ActivityAlcohol Use NoFAMILY HISTORYFamily HistoryProblem Relation Age of OnsetDiabetes MotherDiabetes FatherDiabetes Maternal GrandmotherHypertension Maternal GrandmotherDiabetes Maternal GrandfatherREVIEW OF SYSTEMSGeneral: negativeConstitutional: congestionEyes: negativeENT/Mouth: congestionCardiovascular: negativeRespiratory: negativeGastrointestinal:negativeGenitouri nary: negativeMusculoskeletal: negativeSkin/breast: negativeNeurological: negativePsychiatric: negativeEndocrine: negativeHemat/Lymph: negativeAllergic/Immuno:noneVITAL SIGNSBP: --Temp: [36.7 ?C (98 ?F)]Temp source: Temporal Artery (05/02 625)Pulse: --Resp: --SpO2: --Height: --Weight: --BMI (calculated): --PHYSICAL EXAMINATIONSGeneral: well-developed, well-nourishedLungs: clear to auscultation bilaterallyCardiology: regular rate and rhythmAbdomen: tenderness - normalExtremities: no clubbing, cyanosis, or edemaNeuro: cranial nerves II through XII grossly intact; sensation grossly intact; muscle strength 5 out of 5 in all four extremitiesREVIEW OF LABORATORY, PATHOLOGY, AND RADIOLOGY DATALab results:CBC BMP PT/INRWBC (10*3/?L)Date Value05/01/2023 5.92NA (mmol/L)Date Value05/01/2023 135No results found for: "PT"RBC (10*6/?L)Date Value05/01/2023 4.06K (mmol/L)Date Value05/01/2023 4.2INR (no units)Date Value11/22/2018 1.4PLT (10*3/?L)Date Value05/01/2023 222CALCIUM (mg/dL)Date Value05/01/2023 8.3 (L)HGB (g/dL)Date Value05/01/2023 12.8CL (mmol/L)Date Value05/01/2023 105aPTTHCT (%)Date Value05/01/2023 38.9BUN (mg/dL)Date Value05/01/2023 9APTT Patient (Seconds)Date Value11/22/2018 38CREATININE (mg/dL)Date Value05/01/2023 0.55GLUCOSE (mg/dL)Date Value05/01/2023 71CO2 TOTAL (mmol/L)Date Value05/01/2023 22 (L)Type & Screen Rubella VaricellaABO & RH (no units)Date Value05/01/2023 B PositiveRubella screen IgG (no units)Date Value02/21/2023 PositiveNo results found for: "VZVG"No results found for: "TSABINT"Hep B HIVSyphilis No results found for: "HBS" No results found for: "HIV"No results found for: "SYPG"Group B StrepChlamydia No results found for: "CGBS"C. trachomatis Nucleic Acid (no units)Date Value04/11/2023 NegativeX-ray results: nonePlacenta Accreta ScreeningPrior ? : YesPrior Uterine Surgery?: YesPlacenta low lying/previa in current ? : NoScreening outcome:A positive screening outcome indicates a history of prior delivery or prior uterine surgery, AND the presence of either a placenta low lying/previa or ultrasound suspicion of PASD in the current .Negative screening.DELIVERY PLANRCSFETAL HEART GNNQ666 cat 1 reactive and reassuringASSESSMENT AND PLAN22 year old @54n1hFnz scheduled RCS.--Admit--Ancef 2 gramsMarisol MD Gertrude 67170-2Xmouguq and physical agbvIR8240-96-01N35:46:22History and physical noteTXT1.2.840.283936.1.13.104.2.7.2.12087 9|[id number] for patient sogx39097-7Evtpafo and physical noteLNNARRATIVEFormatted C-CDA narrative textUTMBGALLUP INDIAN MEDICAL CENTER - [address] Uw[id number] HGJGRPVZRWOPOGRR0878-36-49Y22:46:221.2.840 .640620.1.72.3.15|1.2.840.359797.1.13.104. 2.7.2.727879_[id number] [facility] Notes Date/Time Note Provider Source 2023-05-04 12:32:43 Db+4z+8XGTdgXB5kBuL3 9YAMnrMSr6yFKPr x3jzMKeQMQEM8vxTvhJH1CQ1X8bFl3630-9 07-05T12:32:43 Problem: PainGoal: Control of pain at or below patient's documented comfort goalOutcome: Adequate for dischargeProblem: Falls, Risk ofGoal: Absence of fallsOutcome: Adequate for dischargeProblem: Infection RiskGoal: Absence of infectionOutcome: Adequate for dischargeProblem: Discharge Planning - PostpartumGoal: Adequate for dischargeOutcome: Adequate for dischargeGoal: Mood stableOutcome: Adequate for dischargeProblem: Bleeding, Risk ofGoal: Absence of impaired coagulation signs and symptomsOutcome: Adequate for dischargeGoal: Absence of active bleedingOutcome: Adequate for dischargeProblem: Respiratory Function - ImpairedGoal: Able to cough effectivelyOutcome: Adequate for dischargeGoal: Adequate oxygenationOutcome: Adequate for dischargeGoal: Adequate work of breathingOutcome: Adequate for dischargeGoal: Patent airwayOutcome: Adequate for dischargeProblem: Coping - Ineffective, IndividualGoal: Effective copingOutcome: Adequate for dischargeGoal: Knowledge of positive coping patternsOutcome: Adequate for dischargeGoal: Knowledge of depression symptomsOutcome: Adequate for dischargeProblem: Breast-feeding - IneffectiveGoal: Effective breast-feedingOutcome: Adequate for dischargeProblem: Intrapartum process (including labor pain)Goal: Reduction in pain sensationOutcome: ResolvedProblem: PainGoal: Reduction in pain sensationOutcome: Resolved 12453-0Pfsk of care gtwfAX7796-05-12D55:32:48Plan of care noteTXT1.2.840.453454.1.13.104.2.7. 2.218929|2626721471QYKhgxpbgio for patient dvop56124-7ElqrWWECXPGTAGZUfqrebzua C-CDA narrative [id number] L Blaha RN[address] [id number] 4OXTFPCLJYGBWOPLLCVNPVN6181-66-51J5 2:32:481.2.840.916797.1.72.3.15|1.2 .840.137972.1.13.104.2.7.2.727879_1 [id number] Tabatha Felipe Jean RN [facility] 2023-05-03 20:12:38 V2JAVN7olUYhYS1VbT1U 9AYe9nEcVEsgLgS MalNUCYaJ23yxlLICSdgFFeX7IO/y6255-5 07-04T20:12:38 Problem: PainGoal: Reduction in pain sensationOutcome: Progressing as expectedGoal: Control of pain at or below patient's documented comfort goalOutcome: Progressing as expectedProblem: Falls, Risk ofGoal: Absence of fallsOutcome: Progressing as expectedProblem: Infection RiskGoal: Absence of infectionOutcome: Progressing as expectedProblem: Discharge Planning - PostpartumGoal: Adequate for dischargeOutcome: Progressing as expectedGoal: Mood stableOutcome: Progressing as expected 24982-2Sabq of care sanqAY6586-11-30C68:12:45Plan of care noteTXT1.2.840.802805.1.13.104.2.7. 2.682314|[id number] for patient zxpa42377-3HgrzKFKZSBYDCWFVgpjlslaf C-CDA narrative [id number] Bustillos RNUT[id number] 7YRPWVZODRCZCXPNGYOPFEK0922-63-76W9 0:12:451.2.840.148082.1.72.3.15|1.2 .840.957673.1.13.104.2.7.2.727879_1 [id number] Mely Bustillos RN [facility] 2023-05-02 22:36:46 2HgpfNIdanFTKSdkHDJu 1Ga2SUQHURY+iAY 2t2L52UWLZ+BrwXPoduf59iOT2j0y3166-1 07-03T22:36:46 Problem: Intrapartum process (including labor pain)Goal: Reduction in pain sensationOutcome: Progressing as expectedProblem: PainGoal: Reduction in pain sensationOutcome: Progressing as expectedGoal: Control of pain at or below patient's documented comfort goalOutcome: Progressing as expectedProblem: Falls, Risk ofGoal: Absence of fallsOutcome: Progressing as expectedProblem: Infection RiskGoal: Absence of infectionOutcome: Progressing as expectedProblem: Discharge Planning - PostpartumGoal: Adequate for dischargeOutcome: Progressing as expectedGoal: Mood stableOutcome: Progressing as expected 70745-9Qycy of care vjxeOV0568-21-85E91:36:54Plan of care noteTXT1.2.840.278511.1.13.104.2.7. 2.110548|[id number] for patient trnj12073-1NrzpXSQFUMFUKVBWcwcjhitf C-CDA narrative [id number] Vela RN[address] Vt[id number] 4JQWJANMUPVWFCRWNIOQPKZ4179-63-71H7 2:36:541.2.840.678978.1.72.3.15|1.2 .840.442513.1.13.104.2.7.2.727879_1 [id number] Flor Sheridan RN [facility] 2023-05-02 16:27:19 xE0+NwDD9ZEaTdf/2+/1 LkZn3jg4rmviQb6 zeDb9VS1M4awetepSCOFnQpoCYXnG3584-6 6:27:19 Delivery Date: 05/02/2023 Delivery Time: 7:56 AMDELIVERY BY SECTIONDate of Service: : 05/02/2023 at 7:56 AMAdmitted for: Elective repeat CS, Repeat Lower uterine transverse section with no extension, no BTL, Pfannenstiel, Closed with 0- vicryl, EBL 500 cc, No complications, Findings: Right side scarring with no subcut tissue and anterior uterine adhesion to anterior abdominal wallDelivery SummaryNewborn Sex: femaleNewborn Weight: 3800 g1 Minute 5 Minute 10 MinuteApgar Totals: 9 9Primary Indication:The patient was taken to the operating room for a repeat section due to: Elective Repeat Section at 39w0d weeks.Procedures:Repeat Lower uterine transverse section with no extensionSpecimens Removed:PlacentaSurgeon:Chandana Leija-Solo, MDReport:Prophylactic antibiotic, Ancef 2 gram was given before patient was taken to OR. After arrival to the operating room patient was placed in the supine position with left lateral tilt after administration of spinal anesthesia.LaparotomyA pfannenstiel incision was made through the anterior abdominal wall with #10 scalpel. Old scar was removed. The incision was extended sharply with the #10 scalpel through the subcutaneous tissue to the level of fascia. The fascia was entered sharply with a #10 scalpel (Pfannenstiel) in the midline and extended in semi-elliptical fashion with Anders scissor. The underlying muscles were dissected off the overlying fascia by grasping the superior aspect of fascia with two nannette clamps and blunt dissection was used along the midline. The fascia was further from rectus muscle with Anders scissor and/or cautery. In similar fashion, the lower aspect of fascia was also grsaped with two Nannette clamps and both blunt and sharp dissection was used to separate fascia from rectus muscle. The rectus muscles were in the midline bluntly with Davina hemostat. The peritoneum was then entered bluntly. The peritoneal incision was then extended superiorly and inferiorly under direct visualization with care being taken to avoid bladder and bowel. Lysis of adhesions was carried out on adhesions between the uterus and anterior abdominal wall. This was carried out sharply with the electrocautery and with sutures where adhesions were thicker. The peritoneal incision was enlarged bluntly by lateral traction from the surgeon's and curriculum assistant principal's hand.DeliveryA bladder flap was not developed. A low transverse hysterotomy was made then with #10 scalpel and extended laterally and cephalad with fingers in a low transverse fashion with Manu Le technique with care being taken to avoid injury to the fetus. The amniotic (membranes) were then entered bluntly with Allis clamp, and the amniotic fluid was noted to be clear . The head was delivered via an obstetric vacum. The vacuum cup was applied to head and delivered through the hysterotomy incision in a non-traumatic fashion with aid of fundal pressure applied by the communication assistant surgeon. Specify the applications, number of tractions, number of pop-off occurred: 1 . The body was delivered with traction on the head along with fundal pressure.After delivery of body-bulb suction was performed from oropharynx and nostril with removal of clear amniotic fluid. Fetus was delivered in cephalic presentation. With delivery the baby, no extension was noted.Delayed cord clamping was performed for 30-60 seconds.Placenta was delivered spontaneously with steady traction on cord and manual separation of placenta from uterine wall.ClosureUterine cavity was cleaned after placental delivery with lap sponge x 2. The hysterotomy was closed in two layers using 0 vicryl with continuous locking stitches and followed by vertical imbricating stitches. Hemostasis was achieved as needed with electrocautery and 0 figure eight suture ligation. The ovaries/tubes/uterine surface were evaluated. Unable to see tubes/ovaries 2/2 anterior abdominal scar .NoFascia was closed with running stitches using 0 vicryl. Hemostasis was checked for and found to be adequate. The subcutaneous tissue was irrigated and hemostasis was achieved where needed with electrocautery. Subcutaneous layer was closed with 2-0 plain gut. The skin was then closed with hudson. The incision was cleaned and covered with a compression bandage and the procedure considered to be complete at this time.Intraoperative Complications: noneEBL: 500Uterotonics: noneDisposition:The patient tolerated the procedure well. She was recovered in the Labor and Delivery Room with routine care in stable condition, with a contracted uterus and normal transvaginal bleeding. The infant was sent to Transition Nurs[facility]. A segment of the cord was obtained for umbilical cord gases. Cord blood gas was not available at time of operative note entered. Please see [facility] for update. The placenta was not sent to pathology. 68033-4Yctkv and delivery summary gubqMK4070-71-93G94:31:37Labor and delivery summary noteTXT1.2.840.761809.1.13.104.2.7. 2.677380|[id number] for patient qqml92929-6RdogUZAQDCUNRHHDwekjrqlj C-CDA narrative textUT[address] Xo[id number] 3NKAIYPYDFHASBUMKDMDCZZ7232-22-05U8 6:31:371.2.840.856683.1.72.3.15|1.2 .840.257664.1.13.104.2.7.2.727879_1 [id number] [facility] 2023-05-02 13:30:00 NaRm4d1pmpzr4spPPfdE oDiPtdmL6dLPCPM 77xyipthxG/RxSLbK1FNVFHYePR8D8003-6 07-03T13:30:00 This note was copied from a baby's chart. EvaluationSituationInitial visitBackgroundBaby girl is 1 day old, born weighing 3800g,Gestational Age: 39w0d at birthINFANT FEEDING STATUSBreastfeedingFormula supplementation viaMATERNAL STATUSBreastfeedingPumpingHand expressingAssessment, Recommendations, Education Assisted mom with positioning and asymmetrical latch technique in the cross cradle and football hold. Initially the baby was latched shallow, but after giving more neck and back support she was able to achieve a deeper latch. The baby suckled in coordinated bursts with audible swallows. Encouraged mom to stimulate the baby to keep the baby engaged in feeding and actively sucking while at the breast. Mom denied nipple pain with feeding. Mom's nipple was rounded upon release.Mom instructed on how to contact Account Resolution Specialist for assistance with feedings or to answer questions while in the hospital. Mom verbalized understanding. Assessment (most recent) Assessment - 05/02/23 1330General InformationVisit InitialMom's age (years) 22 yearsGestational age 39 weeksGravida 2Parity 2Living Children 2Feeding plan BreastBreastfeed previously YesDuration 1 monthBreastfeeding plans As long as possibleBreast Pump HasBreast Pump ElectricDelivery method C-sectionReason for previous c-sectionInfant Oral AssessmentOral assessment New assessmentDate of 05/02/23Time of 0756Infant location Mother Baby UnitChin Recessed chinPalate assessment NormalTongue assessment Normal;ShortRestricted tongue motion observed NoneBreast AssessmentBreast Assessment InitialSymmetry SymmetricalSize M (B-C)Shape TriangularNipple & Areola AssessmentLeft Areola PliableRight Areola PliableLeft Nipple Intact;Colostrum visible;EvertedRight Nipple Colostrum visible;Intact;EvertedLiterature ResourcesResources Understanding Mother and Baby CareEducation hunger cues;On-demand feeds at least 8 or more over 24 hours;Diaper counts/color;Benefits of breastmilk;Hand expression;Risk of formula supplementation;Delay of pacifier/artificial nipples up to 4 weeks;Benefits of skin to skin contact;Signs of an effective latch; stomach size;Calming techniques;Position changes;Breaking seal;2nd day/growth spurt cluster feeds;Burping;Benefits of breast massage and hand expression;Engorgement signs and treatment;Risks of mastitis and signs, seek medical attention immediatelyHandouts given EnglishLactation Geoscience Technician ObservationBreastfeeding Assist with latchPosition left side Football;Cross cradle;Infant latched effectively;Suckled in coordinated burstsInterventions Motherlove nipple cream;Placed skin to skin;Breast massage;Taught hand expressionMother demonstrated teach back of Breast massage and hand expression;Positioning and latching at breastFollow up Mom will call staff;Follow up in hospitalRecommended Feeding PlanRecommended feeding plan On-demand , 8-12 times in 24 hours not to exceed 6 hours between feeds;Frequent qloa-jw-hytj time with parentsOTHER$ SERVICES JESSIKA Garcia, RN, IBCLC 08884-2Bylspkcxyd XsqzRL8832-45-81M71:30:04Obstetrics NoteTXT1.2.840.341903.1.13.104.2.7. 2.754067|[id number] for patient xycy85957-7RhrsEGVMNTLTPFNKtjnpppjl C-CDA narrative [id number] K Randolph RN[address] Armstrong StreetTe[id number] 2XHCQOYQHRIGHEXHINARERA3864-22-02Z0 5:30:041.2.840.195460.1.72.3.15|1.2 .840.876851.1.13.104.2.7.2.727879_1 [id number] Wally Samuels RN [facility] 2023-05-02 08:45:00 ZrUOpCnVnQK3SF6nMlKQ lSz4NTVmgPEcuFi 6ixWIZzs4YizK6w99e7FEGRrN0ex30412-9 08:45:00 Problem: Intrapartum process (including labor pain)Goal: Absence of or reduction of complications of labor05/02/2023923 by Cierra Astorga RNOutcome: Ztfnwdxa19/22/2023622 by Cierra Astorga RNOutcome: Progressing as expectedGoal: Able to cope with pain05/02/2023923 by Cierra Astorga RNOutcome: Hcjecfsk41/22/2023622 by Cierra Astorga RNOutcome: Progressing as expectedGoal: Adequate to move to next level of care05/02/2023923 by Cierra Astorga RNOutcome: Mhxynnxf20/22/2023622 by Cierra Astorga RNOutcome: Progressing as expectedGoal: Reduction in pain miowcnoqt28/22/2023923 by Cierra Astorga RNOutcome: Progressing as lxfjghuc67/22/2023622 by Cierra Astorga RNOutcome: Progressing as expectedProblem: PainGoal: Reduction in pain bbtdocihc29/22/2023923 by Cierra Astorga RNOutcome: Progressing as uebgvrxy77/22/2023622 by Cierra Astorga RNOutcome: Progressing as expectedGoal: Control of pain at or below patient's documented comfort goal05/02/2023923 by Cierra Astorga RNOutcome: Progressing as ejwjumwm61/22/2023622 by Cierra Astorga RNOutcome: Progressing as expectedProblem: Falls, Risk ofGoal: Absence of falls05/02/2023923 by Cierra Astorga RNOutcome: Progressing as cbyzpwjb50/22/2023622 by Cierra Astorga RNOutcome: Progressing as expectedProblem: Infection RiskGoal: Absence of laomucrqf61/22/2023923 by Cierra Astorga RNOutcome: Progressing as fsvfnmeu64/22/2023622 by Cierra Astorga RNOutcome: Progressing as expectedProblem: Discharge Planning - PostpartumGoal: Adequate for dischargeOutcome: Progressing as expectedGoal: Mood stableOutcome: Progressing as expected 74247-6Eitd of care tktoDG2767-14-19N55:25:13Plan of care noteTXT1.2.840.589454.1.13.104.2.7. 2.080014|[id number] for patient maag04613-5ObmeFEFODXGGIJRWgejmkwqk C-CDA narrative [id number] FRANCOMBUT - [address] Bx[id number] 3QKIHPCMBAARISKDPGLVKIK5037-77-66L1 9:25:131.2.840.724337.1.72.3.15|1.2 .840.662755.1.13.104.2.7.2.727879_1 [id number] Cierra Astorga RN [facility] 2023-05-02 06:20:00 7Q+dskCAaZdVxKPAmVkl NzJthaIa5Tks7CQ AgWzSRjJoPn9XAZCXo+JuXmDikoy+2022-0506:20:00 Problem: Intrapartum process (including labor pain)Goal: Absence of or reduction of complications of laborOutcome: Progressing as expectedGoal: Able to cope with painOutcome: Progressing as expectedGoal: Adequate to move to next level of careOutcome: Progressing as expectedGoal: Reduction in pain sensationOutcome: Progressing as expectedProblem: PainGoal: Reduction in pain sensationOutcome: Progressing as expectedGoal: Control of pain at or below patient's documented comfort goalOutcome: Progressing as expectedProblem: Falls, Risk ofGoal: Absence of fallsOutcome: Progressing as expectedProblem: Infection RiskGoal: Absence of infectionOutcome: Progressing as expected 76273-8Webq of care vdvuFK5211-09-84H80:23:50Plan of care noteTXT1.2.840.337100.1.13.104.2.7. 2.917312|[id number] for patient tfdt79452-4EqhgHWJLJADHUJYTbkontzrb C-CDA narrative text[address] Qk[id number] 6MRUWDAQGPUDLHJSBEFJVBX2126-03-58D7 6:23:501.2.840.059900.1.72.3.15|1.2 .840.845916.1.13.104.2.7.2.727879_1 [id number] [facility] 2023-05-01 13:15:00 Y7jcvlARNXDrIeD7V7GS AyugQ4GtfLsV3s1 qrXwMpwVACQxiwdyQxILnRd5a2q1k3764-7 :15:00 Images from the original note were not included.Venipuncture collection performed by clean technique on the both anticubitus. Total of 2 attempts were made. Slight pressure and a bandage/dressing were applied to the site(s). The patient experienced no complications. The following specimens were processed according to instructions and sent to [facility] laboratories per lab order on 05/01/2023 :Armbanded.LT BLUESST 4RED 1LAV 2PPTDK GREEN (LiHep)DK GREEN (SodH)GRAYDK BLUE (K2)DK BLUE (S)ACDBlood CultureNIPT/NTD 04460-2Qhyqt PrygHO3381-06-54R00:04:33Nurse NoteTXT1.2.840.685162.1.13.104.2.7. 2.299403|[id number] for patient rsjy14558-2Wlmgc NoteLNNARRATIVEFormatted C-CDA narrative textUT[address] Hn[id number] 6KLHPWNPWPMOZSSVNEDUIKC2391-39-66U8 4:04:331.2.840.036575.1.72.3.15|1.2 .840.183996.1.13.104.2.7.2.727879_1 [id number] [facility]
--- NOTE | 2023-08-05 20:15 | ER ---
Nurse's Notes [facility] Name: Tali Arriaga Age: 23 yrs Sex: Female : 2000 Arrival Date: 08/05/2023 Time: 19:55 Bed IW1 Private MD: Diagnosis: Periapical abscess without sinus Presentation: 08/04 20:09 Chief complaint: Patient states: Left upper tooth pain onset 2 days ago. Pt states cm10 taking ibuprofen with no relief. Coronavirus screen: Client denies travel out of the [place] in the last 14 days. At this time, the client does not indicate any symptoms associated with coronavirus-19. Ebola Screen: Patient denies travel to an Ebola-affected area in the 21 days before illness onset. No symptoms or risks identified at this time. Initial Sepsis Screen: Does the patient meet any 2 criteria? No. Patient's initial sepsis screen is negative. Does the patient have a suspected source of infection? No. Patient's initial sepsis screen is negative. Risk Assessment: Do you want to hurt yourself or someone else? Patient reports no desire to harm self or others. Onset of symptoms was August 03, 2023. 20:09 Method Of Arrival: Ambulatory cm10 20:09 Acuity: SARBINA 4 cm10 Triage Assessment: 20:11 General: Appears in no apparent distress. uncomfortable, Behavior is calm, cooperative. cm10 Pain: Complains of pain in upper left first bicuspid Pain currently is 9 out of 10 on a pain scale. EENT: Reports pain in upper left first bicuspid. Neuro: No deficits noted. Level of Consciousness is awake, alert, obeys commands, Oriented to person, place, time, situation. Respiratory: No deficits noted. Airway is patent Respiratory effort is even, unlabored, Respiratory pattern is regular, symmetrical. Derm: No deficits noted. Skin is intact, Skin is pink, warm \T\ dry. Musculoskeletal: No deficits noted. Range of motion: intact in all extremities. Historical: - Allergies: 20:11 Cinnamon; cm10 20:11 PENICILLINS; cm10 - Home Meds: 20:11 None [Active]; cm10 - PMHx: 20:11 None; cm10 - PSHx: 20:11 section; cm10 - Immunization history:: Adult Immunizations up to date. - Social history:: Smoking status: Reported history of juuling and/or vaping. Screenin:12 [facility] ED Fall Risk Assessment (Adult) History of falling in the last 3 months, cm10 including since admission No falls in past 3 months (0 pts) Confusion or Disorientation No (0 pts) Intoxicated or Sedated No (0 pts) Impaired Gait No (0 pts) Mobility Assist Device Used No (0 pt) Altered Elimination No (0 pt) Score/Fall Risk Level 0 - 2 = Low Risk Oriented to surroundings, Maintained a safe environment, Hourly rounding (assess needs \T\ fall precautionary measures) done. Abuse screen: Denies threats or abuse. Denies injuries from another. Nutritional screening: No deficits noted. Tuberculosis screening: No symptoms or risk factors identified. Vital Signs: 20:09 BP 121 / 83; Pulse 78; Resp 18; Temp 97.1(IR); Pulse Ox 100% on R/A; Weight 81.65 kg; cm10 Height 5 ft. 4 in. ; Pain 9/10; 20:09 Body Mass Index 30.90 (81.65 kg, 162.56 cm) cm10 20:09 Pain Scale: Adult cm10 ED Course: 20:02 Patient arrived in ED. gm2 20:09 Shayy Vázquez FNP-C is [facility]. kb 20:09 Brenton Denney MD is Attending Physician. kb 20:11 Triage completed. cm10 20:12 Arm band placed on Patient placed in an exam room. cm10 20:13 Patient has correct armband on for positive identification. Provided Education on: ER cm10 process and procedures. . Cardiac monitoring not applicable on this patient. 20:13 No provider procedures requiring assistance completed. Patient did not have IV access cm10 during this emergency room visit. Administered Medications: 20:21 Drug: Clindamycin PO 300 mg PO once Route: PO; cm10 20:22 Follow up: Response: No adverse reaction cm10 20:21 Drug: [place] PO 10 mg-325 mg 1 tabs PO once Route: PO; cm10 20:22 Follow up: Response: No adverse reaction cm10 Medication: 20:12 VIS not applicable for this client. cm10 Outcome: 20:14 Discharge ordered by . tomasa 20:23 Discharged to home ambulatory, with family, cm10 20:23 Condition: good 20:23 Discharge instructions given to patient, Instructed on discharge instructions, follow up and referral plans. medication usage, Demonstrated understanding of instructions, follow-up care, medications, Prescriptions given X 1, 20:23 Patient left the ED. cm10 Signatures: Shayy Vázquez FNP-C FNP-Ckb Martinez, Clarissa RN RN cm10 Mary Ace gm2
--- NOTE | 2023-08-05 20:15 | EDPHYS ---
Physician Documentation [facility] Name: Tali Arriaga Age: 23 yrs Sex: Female : 2000 Arrival Date: 08/05/2023 Time: 19:55 Bed IW1 Private MD: ED Physician Brenton Denney HPI: 08/04 21:04 This 23 yrs old Female presents to ER via Ambulatory with complaints of kb Toothache, Pain. 21:04 Patient is a 23-year-old female who presents for a toothache to left upper jaw that kb started 2 days ago. Denies fever, swelling. States pain has started to radiate into the cheek.. Historical: - Allergies: 20:11 Cinnamon; cm10 20:11 PENICILLINS; cm10 - Home Meds: 20:11 None [Active]; cm10 - PMHx: 20:11 None; cm10 - PSHx: 20:11 section; cm10 - Immunization history:: Adult Immunizations up to date. - Social history:: Smoking status: Reported history of juuling and/or vaping. ROS: 21:04 Constitutional: As per HPI kb Exam: 21:04 Constitutional: This is a well developed, well nourished patient who is awake, alert, kb and in no acute distress. Head/Face: Normocephalic, atraumatic. Cardiovascular: Regular rate Respiratory: Respirations even and unlabored. No increased work of breathing. Talking in full sentences Skin: Warm, dry with normal turgor. Normal color. MS/ Extremity: Pulses equal, no cyanosis. Neurovascular intact. Full, normal range of motion. Neuro: Awake and alert, GCS 15, oriented to person, place, time, and situation. Moves all extremities. Normal gait. 21:04 ENT: Dental exam: pain, that is moderate, specifically in the upper left first bicuspid (#12), Vital Signs: 20:09 BP 121 / 83; Pulse 78; Resp 18; Temp 97.1(IR); Pulse Ox 100% on R/A; Weight 81.65 kg; cm10 Height 5 ft. 4 in. ; Pain 9/10; 20:09 Body Mass Index 30.90 (81.65 kg, 162.56 cm) cm10 20:09 Pain Scale: Adult cm10 MDM: 20:09 Patient medically screened. kb 21:05 Differential diagnosis: dental caries, gingivitis, dental abscess, pericoronitis, kb aphthous ulcers. Data reviewed: vital signs, nurses notes. Counseling: I had a detailed discussion with the patient and/or guardian regarding the historical points, exam findings, and any diagnostic results supporting the discharge/admit diagnosis, the need for outpatient follow up, a dentist, to return to the emergency department if symptoms worsen or persist or if there are any questions or concerns that arise at home. Administered Medications: 20:21 Drug: Clindamycin PO 300 mg PO once Route: PO; cm10 20:22 Follow up: Response: No adverse reaction cm10 20:21 Drug: [place] PO 10 mg-325 mg 1 tabs PO once Route: PO; cm10 20:22 Follow up: Response: No adverse reaction cm10 Disposition: 23:39 Co-signature as Attending Physician, Brenton Denney MD I agree with the assessment sp4 and plan of care. I reviewed the patient's care provided by the Advanced Practice Provider and agree with the diagnosis and treatment plan. Disposition Summary: 08/05/23 20:14 Discharge Ordered Notes: Location: Home kb Condition: Stable kb Diagnosis - Periapical abscess without sinus kb Followup: kb - With: Emergency Department - When: As needed - Reason: Worsening of condition Followup: kb - With: Private Physician - When: 2 - 3 days - Reason: Recheck today's complaints, Continuance of care, Re-evaluation by your physician Discharge Instructions: - Discharge Summary Sheet kb - Dental Pain, Dwpv-um-Tzbx kb - Dental Abscess, Enkh-yk-Rmym kb Forms: - Medication Reconciliation Form kb - Thank You Letter kb - Antibiotic Education kb - Prescription Opioid Use kb - Patient Portal Instructions kb - Leadership Thank You Letter kb Prescriptions: - Clindamycin HCl 300 mg Oral Capsule - take 1 capsule ORAL route every 6 hours for 10 days; 40 capsule; Refills: 0, kb Product Selection Permitted Signatures: Shayy Vázquez, FACULTY NEUROPSYCHOLOGIST-C Brenton Wynn MD MD sp4 Charisse Blankenship RN RN cm10
[2023-08-05 21:11] VITALS: BP 121/83; TEMP 97.1; O2SAT 100
== END ==
LOC: ER 19:55
DX: K04.7 Periapical abscess without sinus (principal); Z88.0 Allergy status to penicillin; Z91.018 Allergy to other foods

== ENCOUNTER 2024-02-12 11:14 | Emergency (ER) | payer OTHER ==
--- OUTSIDE RECORDS SUMMARY | 2024-02-12 11:21 | XMS REPORT | Continuity of Care Document ---
Author Name Unknown Address [address] [facility] [place] [address] [facility] Address [address] [facility] [place] [address] Care Team Providers Care Technical Applications Scientist Name Role Phone Pcp, Patient Does Not Have A Primary Care Physic bharath CHANDANA LOREDO Attending Clinician CHANDANA Rios Attending Clinician Joann dickson Doctor Unassigned, [place] Attending Clinician U tjailable 2, [facility] Lab Attending Clinician Unavailable Ultrasound, SyMfalexandra Attending Clinician UnavailGiovana Mccabe MD Attending Clinician [phone] GIOVANA MCNAMARA Attending Clinician Unavailable GIOVANA MCNAMARA Attending Clinician Unavailable Lab, Orlin Arriola Db Attending Clinician Unavailable Seven [place] DO Attending Clinician [phone] Angelica Dhaliwal MD Attending Clinician [phone] Guillermina Linn Attending Clinician [phone] Kevin Garcia Attending Clinician [phone] [facility] Resident Attending Clinician UnavailCHANDANA Menchaca Admitting Clinician Joann dickson Payers Payer Name Policy Type Policy Number Effective Date Expirati on Date Source [facility] [id number] 2023 00:00:00 Problems Condition Name Condition Details Condition Category Status Onset Date Resolution Date Last Treatment Date Treating Clinician Comments Source 39 weeks gestation of 39 weeks gestation of Disease Active 2022-0521 00:00: 00 [facility] Open wound anterior abdominal wall Open wound anterior abdominal wall Disease Active 717 00:00: 00 [facility] Obesity (BMI 30-39.9) Obesity (BMI 30-39.9) Disease Active 11-23 00:00: 00 [facility] wound infection wound infection Disease Active 15 00:00: 00 [facility] S/P repeat low transverse S/P repeat low transverse Disease Active 7 00:00: 00 [facility] anemia anemia Disease Active 5-23 00:00: 00 [facility] Genital condyloma, female Genital condyloma, female Disease Active 4 00:00: 00 [facility] High-risk in third trimester High-risk in third trimester Disease Active 2017-05 00:00: 00 [facility] Allergies, Adverse Reactions, Alerts Allergy Name Allergy Type Status Severity Reaction(s) Onset Date Inactive Date Treating Clinician Comments Source [facility] Active Hives 11-22 00:00: 00 [facility] Cinnamon Propensi ty to adverse reaction s Active Hives 11-22 00:00: 00 [facility] Penicill in Propensi ty to adverse reaction s Active Hives 2017-05 00:00: 00 [facility] PENICILL IN DRUG INGREDI Active Hives 2017-05 00:00: 00 [facility] Social History Social Habit Start Date Stop Date Quantity Comments Source ASSERTION 2022-08-16 00:00:00 [facility] Alcohol intake 2023-05-15 00:00:00 2023-05-15 00:00:00 Current non-drinker of alcohol (finding) [facility] Tobacco use and exposure 2023-02-21 00:00:00 2023-02-21 00:00:00 Smokeless tobacco non-user [facility] History of Social function 2019-12-16 00:00:00 2019-12-16 00:00:00 [facility] Sex Assigned At 2000 00:00:00 2000 00:00:00 [facility] Smoking Status Start Date Stop Date Source Never smoked tobacco [facility] Medications Ordered Medication Name Filled Medication Name Start Date Stop Date Current Medication? Ordering Clinician Indication Dosage Frequency Signature (SIG) Comments Components Source cephALEXin 250 mg capsule 2022-05 00:00: 00 Yes [id number] 250mg Take 1 capsule by mouth every 6 (six) hours. [facility] dextrometho rphan-guaif enesin (ROBITUSSIN DM) 10-100 mg/5 mL solution 5 mL 2022-05 14:30: 00 Yes 5mL 5 mL, Oral, Q6HPRN, Starting on 05/04/23 at 0830, Until Discontinu ed, Routine, Cough [facility] witch Jonathan (TUCKS) 50 % topical pad 2022-05 14:30: 00 Yes Topical, PRN, Starting on 05/04/23 at 0830, Until Discontinu ed, Routine, HEMMOROIDS [facility] 25/iron fum/folic/d powers (-1 ORAL) 2022-05 08:44: 22 05-04 00:00 :00 No Take by mouth. [facility] vitamin w/FA tablet 2022-05 00:00: 00 Yes [id number] 1{tbl} Take 1 tablet by mouth in the morning. [facility] docusate 100 mg capsule 2022-05 00:00: 00 Yes [id number] 200mg Take 2 capsules by mouth once daily as needed for Constipati on. [facility] ferrous sulfate 325 mg (65 mg iron) tablet 2022-05 00:00: 00 Yes [id number] 325mg Take 1 tablet by mouth in the morning and 1 tablet in the evening. [facility] ibuprofen 600 mg tablet 2022-05 00:00: 00 Yes [id number] 600mg Take 1 tablet by mouth every 6 (six) hours as needed (Pain). Take with food or milk. [facility] gabapentin 300 mg capsule 2022-05 00:00: 00 Yes [id number] 300mg Take 1 capsule by mouth in the morning and 1 capsule at noon and 1 capsule in the evening. [facility] HYDROcodone -acetaminop hen 5-325 mg tablet 2022-05 00:00: 00 05-12 05:59 :00 No [id number] 1{tbl} Take 1 tablet by mouth every 6 (six) hours as needed (Pain scale above 4) for up to 7 days. Do not exceed 3 grams of acetaminop hen in 24 hours. Indication s: acute pain [facility] ibuprofen (IBU) tablet 600 mg 2022-05 18:00: 00 Yes 600mg 600 mg, Oral, Q6HPRN, Starting on Fri05/03/23 at 1200, Until Discontinu ed, Routine, Pain (scale 1-3) [facility] gabapentin (NEURONTIN) capsule 300 mg 2022-05 20:00: 00 05-04 13:58 :00 No 300mg 300 mg, Oral, TID, 6 doses, First dose on Fri05/02/23 at 1400, Last dose on Fri05/04/23 at 0800, Routine [facility] ketorolac (TORADOL) injection 30 mg 2022-05 18:00: 00 05-03 13:46 :00 No 30mg 30 mg, Slow IV Push, Q6H, 4 doses, First dose on Fri05/02/23 at 1200, Last dose on Fri05/03/23 at 0600, Routine [facility] lactated ringers IV infusion 1,000 mL 2022-05 15:45: 00 05-02 18:50 :57 No 1000mL at 125 mL/hr, 1,000 mL, IV Infusion, ONCE, 1 dose, On Fri05/02/23 at 0945, Routine [facility] rho(D) immune globulin (RHOGAM) syringe 300 mcg 2022-05 14:54: 17 Yes 300ug 300 mcg, Intramuscu lar, ONCE, For 1 dose, Conditiona l, Routine [facility] HYDROcodone -acetaminop hen (NORCO 5) 5-325 mg tablet 2 tablet 2022-05 14:53: 56 Yes 2{tbl} 2 tablet, Oral, Q6HPRN, Starting on Fri05/02/23 at 0853, Until Discontinu ed, Routine, Pain (scale 7-10), Alternate with Ibuprofen [facility] HYDROcodone -acetaminop hen (NORCO 5) 5-325 mg tablet 1 tablet 2022-05 14:53: 39 Yes 1{tbl} 1 tablet, Oral, Q6HPRN, Starting on Fri05/02/23 at 0853, Until Discontinu ed, Routine, Pain (scale 4-6), Alternate with Ibuprofen [facility] diphenhydrA MINE (BENADRYL) injection 25 mg 2022-05 14:52: 15 Yes 25mg 25 mg, Slow IV Push, Q6HPRN, Starting on Fri05/02/23 at 0852, Until Discontinu ed, Routine, Itching [facility] diphenhydrA MINE (BENADRYL) tablet 25 mg 2022-05 14:52: 15 Yes 25mg 25 mg, Oral, Q6HPRN, Starting on Fri05/02/23 at 0852, Until Discontinu ed, Routine, Sleep, Itching [facility] ondansetron (ZOFRAN (PF)) injection 4 mg 2022-05 14:52: 15 Yes 4mg 4 mg, Slow IV Push, Q8HPRN, Starting on Fri05/02/23 at 0852, Until Discontinu ed, Routine, Nausea and Vomiting (N/V) [facility] bisacodyL (DULCOLAX) suppository 10 mg 2022-05 14:52: 15 Yes 10mg 10 mg, Rectal, QDAILYPRN, Starting on Fri05/02/23 at 0852, Until Discontinu ed, Routine, Constipati on [facility] simethicone (GAS RELIEF (SIMETHICON E)) chewable tablet 160 mg 2022-05 14:52: 15 Yes 160mg 160 mg, Oral, PC+HSPRN, Starting on Fri05/02/23 at 0852, Until Discontinu ed, Routine, Gas [facility] docusate (COLACE) capsule 200 mg 2022-05 14:52: 15 Yes 200mg 200 mg, Oral, QDAILYPRN, Starting on Fri05/02/23 at 0852, Until Discontinu ed, Routine, Constipati on [facility] magnesium hydroxide (MILK OF MAGNESIA) 400 mg/5 mL suspension 30 mL 2022-05 14:52: 15 Yes 30mL 30 mL, Oral, QDAILYPRN, Starting on Fri05/02/23 at 0852, Until Discontinu ed, Routine, Constipati on [facility] lactated ringers IV infusion 1,000 mL 2022-05 14:52: 15 Yes 1000mL at 125 mL/hr, 1,000 mL, IV Infusion, PRN, 1 dose, Starting on Fri05/02/23 at 0852, Until Discontinu ed, Routine [facility] sodium citrate-cit kalyani acid (BICITRA) 500-334 mg/5 mL solution 30 mL 2022-05 12:14: 17 05-02 13:06 :00 No 30mL 30 mL, Oral, PRE-PROCED URE ONCE, 1 dose, Starting on Fri05/02/23 at 0614, Until Discontinu ed, Routine, Surgery/Pr ocedure [facility] D5W-LR IV infusion 1,000 mL 2022-05 12:14: 17 05-02 14:54 :15 No 1000mL at 1-125 mL/hr, IV Infusion, TITRATE, Starting on Fri05/02/23 at 0614, Until Fri05/02/23 at 0854, Routine [facility] loratadine (CLARITIN ORAL) 06-19 10:30: 05 Yes Take by mouth. [facility] metroNIDAZO LE (FLAGYL) 500 mg tablet 2022-05 204 00:00: 00 05-04 00:00 :00 No [id number] 500mg Take 1 tablet by mouth every 12 (twelve) hours. [facility] fluconazole (DIFLUCAN) 150 mg tablet 2022-05 2 00:00: 00 04-12 05:59 :00 No [id number] 150mg Take 1 tablet by mouth once now for 1 dose. [facility] loratadine (CLARITIN ORAL) 2022-05 0 13:13: 25 Yes Take by mouth. [facility] 25/iron fum/folic/d powers (-1 ORAL) 2022-05 013 14:14: 33 Yes Take by mouth. [facility] sulfamethox azole-trime thoprim 800-160 mg per tablet 11 00:00: 00 05-04 00:00 :00 No [id number] 1{tbl} Take 1 tablet by mouth every 12 (twelve) hours. [facility] ibuprofen 600 mg tablet 01-06 00:00: 00 05-04 00:00 :00 No [id number] 600mg Take 1 tablet by mouth every 6 (six) hours as needed for Pain (scale 4-6). [facility] benzonatate 100 mg capsule 01-06 00:00: 00 05-04 00:00 :00 No [id number] 100mg Take 1 capsule by mouth 3 (three) times daily as needed for Cough. [facility] HYDROcodone -acetaminop hen 5-325 mg tablet 8-16 00:00: 00 05-04 00:00 :00 No [id number] 1{tbl} Take 1 tablet by mouth every 6 (six) hours as needed for Pain (scale 4-6) or Pain (scale 7-10). [facility] HYDROcodone -acetaminop hen 5-325 mg tablet 7-26 00:00: 00 05-04 00:00 :00 No [id number] 1{tbl} Take 1 tablet by mouth as needed (prior to dressing changes). [facility] Immunizations Ordered Immunization Name Filled Immunization Name Date Status Comments Source Influenza Virus Vaccine Quad .5 mL IM 6+ MO (FLUZONE/FLULAVAL/FL UARIX) Unknown Completed [facility] TDAP Unknown Completed [facility] HPV9 Unknown Completed [facility] DTaP, Unspecified Formulation Unknown Completed [facility] Hep B, Adol or Pedi Dosage Unknown Completed [facility] HIB 4 Dose Schedule Unknown Completed [facility] MMR Unknown Completed [facility] IPV Unknown Completed [facility] Influenza Virus Vaccine Quad .5 mL IM 6+ MO (FLUZONE/FLULAVAL/FL UARIX) Unknown Completed [facility] HPV9 Unknown Completed [facility] DTaP, Unspecified Formulation Unknown Completed [facility] Hep B, Adol or Pedi Dosage Unknown Completed [facility] HIB 4 Dose Schedule Unknown Completed [facility] MMR Unknown Completed [facility] IPV Unknown Completed [facility] TDAP Unknown Completed [facility] Influenza Virus Vaccine Quad .5 mL IM 6+ MO (FLUZONE/FLULAVAL/FL UARIX) Unknown Completed [facility] HPV9 Unknown Completed [facility] DTaP, Unspecified Formulation Unknown Completed [facility] Hep B, Adol or Pedi Dosage Unknown Completed [facility] HIB 4 Dose Schedule Unknown Completed [facility] MMR Unknown Completed [facility] IPV Unknown Completed [facility] Influenza Virus Vaccine Quad .5 mL IM 6+ MO (FLUZONE/FLULAVAL/FL UARIX) Unknown Completed [facility] TDAP Unknown Completed [facility] HPV9 Unknown Completed [facility] DTaP, Unspecified Formulation Unknown Completed [facility] Hep B, Adol or Pedi Dosage Unknown Completed [facility] HIB 4 Dose Schedule Unknown Completed [facility] MMR Unknown Completed [facility] IPV Unknown Completed [facility] TDAP Unknown Completed [facility] Influenza Virus Vaccine Quad .5 mL IM 6+ MO (FLUZONE/FLULAVAL/FL UARIX) Unknown Completed [facility] TDAP Unknown Completed [facility] Influenza Virus Vaccine Quad .5 mL IM 6+ MO (FLUZONE/FLULAVAL/FL UARIX) Unknown Completed [facility] TDAP Unknown Completed [facility] HPV9 Unknown Completed [facility] DTaP, Unspecified Formulation Unknown Completed [facility] Hep B, Adol or Pedi Dosage Unknown Completed [facility] HIB 4 Dose Schedule Unknown Completed [facility] MMR Unknown Completed [facility] IPV Unknown Completed [facility] HPV9 Unknown Completed [facility] Influenza Virus Vaccine Quad .5 mL IM 6+ MO (FLUZONE/FLULAVAL/FL UARIX) Unknown Completed [facility] TDAP Unknown Completed [facility] HPV9 Unknown Completed [facility] DTaP, Unspecified Formulation Unknown Completed [facility] Hep B, Adol or Pedi Dosage Unknown Completed [facility] HIB 4 Dose Schedule Unknown Completed [facility] MMR Unknown Completed [facility] IPV Unknown Completed [facility] Influenza Virus Vaccine Quad .5 mL IM 6+ MO (FLUZONE/FLULAVAL/FL UARIX) Unknown Completed [facility] TDAP Unknown Completed [facility] HPV9 Unknown Completed [facility] DTaP, Unspecified Formulation Unknown Completed [facility] Hep B, Adol or Pedi Dosage Unknown Completed [facility] HIB 4 Dose Schedule Unknown Completed [facility] MMR Unknown Completed [facility] IPV Unknown Completed [facility] Influenza Virus Vaccine Quad .5 mL IM 6+ MO (FLUZONE/FLULAVAL/FL UARIX) Unknown Completed [facility] TDAP Unknown Completed [facility] HPV9 Unknown Completed [facility] DTaP, Unspecified Formulation Unknown Completed [facility] Hep B, Adol or Pedi Dosage Unknown Completed [facility] HIB 4 Dose Schedule Unknown Completed [facility] MMR Unknown Completed [facility] IPV Unknown Completed [facility] Influenza Virus Vaccine Quad .5 mL IM 6+ MO (FLUZONE/FLULAVAL/FL UARIX) Unknown Completed [facility] TDAP Unknown Completed [facility] HPV9 Unknown Completed [facility] DTaP, Unspecified Formulation Unknown Completed [facility] Hep B, Adol or Pedi Dosage Unknown Completed [facility] HIB 4 Dose Schedule Unknown Completed [facility] MMR Unknown Completed [facility] IPV Unknown Completed [facility] Influenza Virus Vaccine Quad .5 mL IM 6+ MO (FLUZONE/FLULAVAL/FL UARIX) Unknown Completed [facility] TDAP Unknown Completed [facility] HPV9 Unknown Completed [facility] DTaP, Unspecified Formulation Unknown Completed [facility] Hep B, Adol or Pedi Dosage Unknown Completed [facility] HIB 4 Dose Schedule Unknown Completed [facility] MMR Unknown Completed [facility] IPV Unknown Completed [facility] Influenza Virus Vaccine Quad .5 mL IM 6+ MO (FLUZONE/FLULAVAL/FL UARIX) Unknown Completed [facility] TDAP Unknown Completed [facility] HPV9 Unknown Completed [facility] DTaP, Unspecified Formulation Unknown Completed [facility] Hep B, Adol or Pedi Dosage Unknown Completed [facility] HIB 4 Dose Schedule Unknown Completed [facility] MMR Unknown Completed [facility] IPV Unknown Completed [facility] Influenza Virus Vaccine Quad .5 mL IM 6+ MO (FLUZONE/FLULAVAL/FL UARIX) Unknown Completed [facility] TDAP Unknown Completed [facility] Influenza Virus Vaccine Quad .5 mL IM 6+ MO (FLUZONE/FLULAVAL/FL UARIX) Unknown Completed [facility] TDAP Unknown Completed [facility] HPV9 Unknown Completed [facility] DTaP, Unspecified Formulation Unknown Completed [facility] Hep B, Adol or Pedi Dosage Unknown Completed [facility] HIB 4 Dose Schedule Unknown Completed [facility] MMR Unknown Completed [facility] IPV Unknown Completed [facility] HPV9 Unknown Completed [facility] Influenza Virus Vaccine Quad .5 mL IM 6+ MO (FLUZONE/FLULAVAL/FL UARIX) Unknown Completed [facility] TDAP Unknown Completed [facility] HPV9 Unknown Completed [facility] DTaP, Unspecified Formulation Unknown Completed [facility] Hep B, Adol or Pedi Dosage Unknown Completed [facility] HIB 4 Dose Schedule Unknown Completed [facility] MMR Unknown Completed [facility] IPV Unknown Completed [facility] Influenza Virus Vaccine Quad .5 mL IM 6+ MO (FLUZONE/FLULAVAL/FL UARIX) Unknown Completed [facility] TDAP Unknown Completed [facility] HPV9 Unknown Completed [facility] DTaP, Unspecified Formulation Unknown Completed [facility] Hep B, Adol or Pedi Dosage Unknown Completed [facility] HIB 4 Dose Schedule Unknown Completed [facility] MMR Unknown Completed [facility] IPV Unknown Completed [facility] Influenza Virus Vaccine Quad .5 mL IM 6+ MO (FLUZONE/FLULAVAL/FL UARIX) Unknown Completed [facility] TDAP Unknown Completed [facility] HPV9 Unknown Completed [facility] DTaP, Unspecified Formulation Unknown Completed [facility] Hep B, Adol or Pedi Dosage Unknown Completed [facility] HIB 4 Dose Schedule Unknown Completed [facility] MMR Unknown Completed [facility] IPV Unknown Completed [facility] Influenza Virus Vaccine Quad .5 mL IM 6+ MO (FLUZONE/FLULAVAL/FL UARIX) Unknown Completed [facility] TDAP Unknown Completed [facility] HPV9 Unknown Completed [facility] DTaP, Unspecified Formulation Unknown Completed [facility] Hep B, Adol or Pedi Dosage Unknown Completed [facility] HIB 4 Dose Schedule Unknown Completed [facility] MMR Unknown Completed [facility] IPV Unknown Completed [facility] Influenza Virus Vaccine Quad .5 mL IM 6+ MO (FLUZONE/FLULAVAL/FL UARIX) Unknown Completed [facility] TDAP Unknown Completed [facility] HPV9 Unknown Completed [facility] DTaP, Unspecified Formulation Unknown Completed [facility] Hep B, Adol or Pedi Dosage Unknown Completed [facility] HIB 4 Dose Schedule Unknown Completed [facility] MMR Unknown Completed [facility] IPV Unknown Completed [facility] Influenza Virus Vaccine Quad .5 mL IM 6+ MO (FLUZONE/FLULAVAL/FL UARIX) Unknown Completed [facility] TDAP Unknown Completed [facility] HPV9 Unknown Completed [facility] Influenza Virus Vaccine Quad .5 mL IM 6+ MO (FLUZONE/FLULAVAL/FL UARIX) Unknown Completed [facility] TDAP Unknown Completed [facility] HPV9 Unknown Completed [facility] Vital Signs Vital Name Observation Time Observation Value Comments S bob Systolic blood pressure 2023-05-15 22:21:00 126 mm[Hg] [facility] Diastolic blood pressure 2023-05-15 22:21:00 83 mm[Hg] [facility] Heart rate 2023-05-15 22:21:00 88 /min [facility] Respiratory rate 2023-05-15 22:21:00 18 /min [facility] Body height 2023-05-15 22:21:00 160 cm [facility] Body weight 2023-05-15 22:21:00 89.359 kg [facility] BMI 2023-05-15 22:21:00 34.90 kg/m2 [facility] Systolic blood pressure 2023-05-08 19:00:00 134 mm[Hg] [facility] Diastolic blood pressure 2023-05-08 19:00:00 89 mm[Hg] [facility] Heart rate 2023-05-08 19:00:00 68 /min [facility] Body temperature 2023-05-08 19:00:00 36.89 Rina [facility] Respiratory rate 2023-05-08 19:00:00 16 /min [facility] Body height 2023-05-08 19:00:00 160 cm [facility] Body weight 2023-05-08 19:00:00 97.07 kg [facility] BMI 2023-05-08 19:00:00 37.91 kg/m2 [facility] Systolic blood pressure 2023-05-04 14:00:00 99 mm[Hg] [facility] Diastolic blood pressure 2023-05-04 14:00:00 68 mm[Hg] [facility] Heart rate 2023-05-04 14:00:00 76 /min [facility] Body temperature 2023-05-04 14:00:00 36.83 Rina [facility] Respiratory rate 2023-05-04 14:00:00 16 /min [facility] Oxygen saturation in Arterial blood by Pulse oximetry 2023-05-04 14:00:00 99 /min [facility] Body height 2023-05-02 12:25:00 160 cm [facility] Body weight 2023-05-02 12:25:00 98.884 kg [facility] BMI 2023-05-02 12:25:00 38.62 kg/m2 [facility] Systolic blood pressure 2023-05-02 14:45:00 115 mm[Hg] [facility] Diastolic blood pressure 2023-05-02 14:45:00 65 mm[Hg] [facility] Heart rate 2023-05-02 14:45:00 68 /min Un[facility] Body temperature 2023-05-02 14:45:00 36 Rina [facility] Respiratory rate 2023-05-02 14:45:00 16 /min [facility] Oxygen saturation in Arterial blood by Pulse oximetry 2023-05-02 14:45:00 99 /min [facility] Body height 2023-05-02 12:25:00 160 cm [facility] Body weight 2023-05-02 12:25:00 98.884 kg [facility] BMI 2023-05-02 12:25:00 38.62 kg/m2 [facility] Systolic blood pressure 2023-04-29 17:09:00 115 mm[Hg] [facility] Diastolic blood pressure 2023-04-29 17:09:00 80 mm[Hg] [facility] Heart rate 2023-04-29 17:09:00 88 /[facility] 2023-04-29 17:09:00 18 /min [facility] Body height 2023-04-29 17:09:00 160 cm [facility] Body weight 2023-04-29 17:09:00 97.523 kg [facility] BMI 2023-04-29 17:09:00 38.09 kg/m2 [facility] Systolic blood pressure 2023-04-18 16:29:00 106 mm[Hg] [facility] Diastolic blood pressure 2023-04-18 16:29:00 75 mm[Hg] [facility] Heart rate 2023-04-18 16:29:00 95 /min [facility] Body temperature 2023-04-18 16:29:00 36.61 Rina [facility] Body height 2023-04-18 16:29:00 162.6 cm [facility] Body weight 2023-04-18 16:29:00 95.346 kg [facility] BMI 2023-04-18 16:29:00 36.08 kg/m2 [facility] Systolic blood pressure 2023-04-11 22:17:00 112 mm[Hg] [facility] Diastolic blood pressure 2023-04-11 22:17:00 76 mm[Hg] [facility] Heart rate 2023-04-11 22:17:00 96 /min [facility] Body temperature 2023-04-11 22:17:00 36.44 Rina [facility] Respiratory rate 2023-04-11 22:17:00 16 /min [facility] Body height 2023-04-11 22:17:00 162.6 cm [facility] Body weight 2023-04-11 22:17:00 94.348 kg [facility] BMI 2023-04-11 22:17:00 35.70 kg/m2 [facility] Oxygen saturation in Arterial blood by Pulse oximetry 2023-04-11 22:17:00 97 /min [facility] Systolic blood pressure 2023-03-07 18:12:00 107 mm[Hg] [facility] Diastolic blood pressure 2023-03-07 18:12:00 73 mm[Hg] [facility] Heart rate 2023-03-07 18:12:00 86 /min [facility] Respiratory rate 2023-03-07 18:12:00 18 /min [facility] Body height 2023-03-07 18:12:00 162.6 cm [facility] Body weight 2023-03-07 18:12:00 90.719 kg [facility] BMI 2023-03-07 18:12:00 34.33 kg/m2 [facility] Systolic blood pressure 2023-02-21 19:13:00 117 mm[Hg] [place] [facility] Diastolic blood pressure 2023-02-21 19:13:00 72 mm[Hg] [place] [facility] Heart rate 2023-02-21 19:13:00 92 /min [facility] Body temperature 2023-02-21 19:13:00 36.5 Rina [facility] Respiratory rate 2023-02-21 19:13:00 16 /min [facility] Body height 2023-02-21 19:13:00 162.6 cm [facility] Body weight 2023-02-21 19:13:00 88.361 kg [facility] BMI 2023-02-21 19:13:00 33.44 kg/m2 [facility] Procedures Procedure Date / Time Performed Performing Clinician Source CBC WITH DIFF 2023-05-03 09:38:00 Michi Loredo [facility] CBC WITH DIFF 2023-05-03 09:38:00 Michi Loredo [facility] SECTION 2023-05-02 13:02:00 Luz Marina Loredo [facility] RHO (D) IMMUNE GLOBULIN 2023-05-01 20:00:00 Chandana Ann [facility] RHO (D) IMMUNE GLOBULIN 2023-05-01 20:00:00 Albertina Annsol [facility] ASSIGNMENT OF BENEFITS 2023-05-01 19:17:18 Docto r Unassigned, Nelsonia [facility] PHYSICIAN ORDERS 2023-04-29 06:01:00 Doctor Unas signed, Nelsonia [facility] POCT URINALYSIS W/O SPECIFIC GRAVITY 2023-04-29 00:00:00 Chandana Loredo [facility] DME/SUPPLY JUSTIFICATION 2023-04-24 06:01:00 Doc tor Unassigned, Nelsonia [facility] POCT URINALYSIS W/O SPECIFIC GRAVITY 2023-04-18 00:00:00 Gertrude [facility] DSU PRE-OP 2023-04-15 06:01:00 Doctor Unass igned, Nelsonia [facility] DSU PRE-OP 2023-04-15 06:01:00 Doctor Unass igned, Nelsonia [facility] GALV ONLY - VAGINAL PATHOGENS BY NUCLEIC ACID TESTING 2023-04-11 22:57:00 Gertrude [facility] GROUP B STREPTOCOCCUS BY PCR 2023-04-11 22:31:00 Gertrude [facility] POCT URINALYSIS W/O SPECIFIC GRAVITY 2023-04-11 00:00:00 Gertrude [facility] SECOND AND THIRD TRIMESTER ULTRASOUND 2023-03-13 19:21:00 Gertrude [facility] TDAP VACCINE, >11 YRS, IM 2023-03-07 18:20:24 Gertrude [facility] POCT URINALYSIS W/O SPECIFIC GRAVITY 2023-03-07 00:00:00 Albertina Loredosol [facility] >14 WEEKS US LIMITED 2023-02-21 19:44:49 Gertrude [facility] CONSENT/REFUSAL FOR DIAGNOSIS AND TREATMENT 2023-02-21 18:53:11 Doctor Unassigned, Nelsonia [facility] POCT TEST 2023-02-21 00:00:00 Albertina Loredosol [facility] POCT URINALYSIS W/O SPECIFIC GRAVITY 2023-02-21 00:00:00 Gertrude [facility] Encounters Start Date/Time End Date/Time Encounter Type Admission Type Attending [facility] Facility Care Department Encounter ID Source 2023-06-12 08:15:00 2023-06-12 08:15:00 Outpatient R CHANDANA OG, CHANDANA [facility] [id number] [facility] 2023-06-12 00:00:00 2023-06-12 00:00:00 Patient Secure Msg Doctor Unassigned, Nelsonia [facility] 1.2.840.114 350.1.13.10 4.2.7.2.686 [id number] [facility] 2023-05-15 16:15:00 2023-05-15 16:30:43 Outpatient R LEIJA-THAI S, CHANDANA LEIJA-THAI S, CHANDANA [facility] [id number] [facility] 2023-05-15 16:15:00 2023-05-15 16:30:43 [facility] 1.2.840.114 350.1.13.10 4.2.7.2.686 [id number] [facility] 2023-05-08 13:00:00 2023-05-08 13:15:00 Routine Visit Leija-Thai sAlbertinaChandana [facility] 1.2.840.114 350.1.13.10 4.2.7.2.686 [id number] [facility] 2023-05-08 13:00:00 2023-05-08 13:00:00 Outpatient R LEIJA-THAI S, CHANDANA LEIJA-THAI S, CHANDANA [facility] [id number] [facility] 2023-05-02 06:12:00 2023-05-04 13:10:00 Inpatient P LEIJA-THAI S, CHANDANA LEIJA-THAI S, CHANDANA ILMB MARCUS [id number] [facility] 2023-05-02 06:12:00 2023-05-04 13:10:00 Hospital Encounter Leija-Thai s, Chandana [facility] 1.2.840.114 350.1.13.10 4.2.7.2.686 [id number] [facility] 2023-05-02 07:15:00 2023-05-02 08:51:00 Surgery Leija-Thai s, Chandana [facility] 1.2.840.114 350.1.13.10 4.2.7.2.686 [id number] [facility] 2023-05-01 13:15:00 2023-05-01 13:30:00 Cotton Feeder Visit 2, Adc Lab Leija-Thai sAlbertinaChandana [facility] 1.2840.114 350.1.13.10 4.2.7.2.686 [id number] [facility] 2023-05-01 13:15:00 2023-05-01 13:15:00 Outpatient R LEIJA-THAI S, CHANDANA LEIJA-THAI S, CHANDANA [facility] [id number] [facility] 2023-05-01 00:00:00 2023-05-01 00:00:00 Orders Only Doctor Unassigned, Nelsonia [facility] 1.2.840.114 350.1.13.10 4.2.7.2.686 [id number] [facility] 2023-04-29 10:45:00 2023-04-29 11:22:43 Outpatient R LEIJA-THAI S, CHANDANA LEIJA-THAI S, CHANDANA [facility] [id number] [facility] 2023-04-29 10:45:00 2023-04-29 11:22:43 Routine Visit Leija-Thai s Chandana [facility] 1.2840.114 350.1.13.10 4.2.7.2.686 [id number] [facility] 2023-04-29 00:00:00 2023-04-29 00:00:00 Letter (Out) Chandana Og [facility] 1.2.840.114 350.1.13.10 4.2.7.2.686 [id number] [facility] 2023-04-29 00:00:00 2023-04-29 00:00:00 Orders Only Doctor Unassigned, Nelsonia [facility] 1.2840.114 350.1.13.10 4.2.7.2.686 [id number] [facility] 2023-04-24 00:00:00 2023-04-24 00:00:00 [facility] 1.2840.114 350.1.13.10 4.2.7.2.686 [id number] [facility] 2023-04-24 00:00:00 2023-04-24 00:00:00 Orders Only Doctor Unassigned, Nelsonia [facility] 1.2.840.114 350.1.13.10 4.2.7.2.686 [id number] [facility] 2023-04-18 10:30:00 2023-04-18 10:48:35 Outpatient R CHANDANA OG MARISOL [facility] [id number] [facility] 2023-04-18 10:30:00 2023-04-18 10:48:35 Routine Visit Chandana Og [facility] 1.2840.114 350.1.13.10 4.2.7.2.686 [id number] [facility] 2023-04-14 00:00:00 2023-04-14 00:00:00 Case Management Gulshan rivera Chandana [facility] 1.2.840.114 350.1.13.10 4.2.7.2.686 [id number] [facility] 2023-04-11 16:00:00 2023-04-11 16:53:39 Outpatient R LEIJA-THAI S, CHANDANA LEIJA-THAI S, CHANDANA [facility] [id number] [facility] 2023-04-11 16:00:00 2023-04-11 16:53:39 Routine Visit Leija-Thai s, Chandana [facility] 1.2.840.114 350.1.13.10 4.2.7.2.686 [id number] [facility] 2023-03-31 10:00:00 2023-03-31 10:00:00 Outpatient R LEIJA-THAI S, CHANDANA LEIJA-THAI S, CHANDANA [facility] [id number] [facility] 2023-03-21 13:00:00 2023-03-21 13:00:00 Outpatient R LEIJA-THAI S, CHANDANA LEIJA-THAI S, CHANDANA [facility] [id number] [facility] 2023-03-13 14:00:00 2023-03-13 14:30:56 Cotton Feeder Visit Ultrasound, Orlin-Giovana Swanson [facility] IMPREGNATOR AND [facility] 1.2.840.114 350.1.13.10 4.2.7.2.686 [id number] [facility] 2023-03-13 14:00:00 2023-03-13 14:30:56 Outpatient GIOVANA ROSE SANGEETA [facility] [id number] [facility] 2023-03-07 13:15:00 2023-03-07 13:32:03 Routine Visit Leija-Thai s, Chandana [facility] 1.2840.114 350.1.13.10 4.2.7.2.686 [id number] [facility] 2023-03-07 13:15:00 2023-03-07 13:32:03 Outpatient R LEIJA-THAI S, CHANDANA LEIJA-THAI S, CHANDANA [facility] [id number] [facility] 2023-02-24 00:00:00 2023-02-24 00:00:00 [facility] 1.2840.114 350.1.13.10 4.2.7.2.686 [id number] [facility] 2023-02-21 15:30:00 2023-02-21 15:45:00 Cotton Feeder Visit Lab, Orlin - Yann Leija-Thai s, [facility] 1.2.840.114 350.1.13.10 4.2.7.2.686 [id number] [facility] 2023-02-21 15:00:00 2023-02-21 15:00:00 Outpatient R LEIJA-THAI S, CHANDANA [facility] [id number] [facility] 2023-02-21 14:00:00 2023-02-21 14:41:55 Initial Visit Leija-Thai sMichil [facility] 1.2840.114 350.1.13.10 4.2.7.2.686 [id number] [facility] 2023-02-21 14:00:00 2023-02-21 14:41:55 Outpatient R LEIJA-THAI S, CHANDANA [facility]THAI [facility], [facility] [id number] [facility] 2023-02-21 00:00:00 2023-02-21 00:00:00 Orders Only Doctor Unassigned, Nelsonia [facility] 1.2.840.114 350.1.13.10 4.2.7.2.686 [id number] [facility] 2020-08-01 00:00:00 2020-08-01 00:00:00 Patient Outreach [place] [facility] 1.2.840.114 350.1.13.10 4.2.7.2.686 [id number] 2019-01-25 00:00:00 2019-01-25 00:00:00 Orders Only Doctor Unassigned, Nelsonia [facility] 1.2.840.114 350.1.13.10 4.2.7.2.686 [id number] 2019-01-22 00:00:00 2019-01-22 00:00:00 Orders Only Doctor Unassigned, Nelsonia [facility] 1.2.840.114 350.1.13.10 4.2.7.2.686 [id number] 2019-01-20 01:00:05 2019-01-20 02:51:00 Emergency Angelica Dhaliwal [facility] 1.2.840.114 350.1.13.10 4.2.7.2.686 [id number] 2019-01-15 00:00:00 2019-01-15 00:00:00 Orders Only Doctor Unassigned, Nelsonia [facility] 1.2.840.114 350.1.13.10 4.2.7.2.686 [id number] 2019-01-08 00:00:00 2019-01-08 00:00:00 Telephone Guillermina Overton [facility] 1.2.840.114 350.1.13.10 4.2.7.2.686 [id number] 2019-01-06 15:49:00 2019-01-06 17:15:00 Emergency Kevin Miles [facility] 1.2.840.114 350.1.13.10 4.2.7.2.686 [id number] 2018-12-29 00:00:00 2018-12-29 00:00:00 Orders Only Doctor Unassigned, Nelsonia [facility] 1.2.840.114 350.1.13.10 4.2.7.2.686 [id number] 2018-12-25 14:15:52 2018-12-25 15:03:24 Office Visit [place], [facility] 1.2.840.114 350.1.13.10 4.2.7.2.686 [id number] Results Test Description Test Time Test Comments Results Result Co mments Source [facility] with [id number] 12:18:53* Test Item Value Reference Range Interpretation [...] 33.6 g/dL 31.6-35.1 RDW-SD (test code = 59149-1) 43.9 fL 39.0-49.9 RDW-CV (test code = 788-0) 12.9 % 12.0-15.5 PLT (test code = 777-3) 188 See_Comment [Automated messa ge] The system which generated this result transmitted reference range: 166 - 358 10*3/?L. The reference range was not used to interpret this result as normal/abnormal. MPV (test code = 19510-6) 11.0 fL 9.5-12.9 NRBC/100 WBC (test code = 6722384445) 0.0 See_Comment [Automated [employer] ssage] The system which generated this result transmitted reference range: 0.0 - 10.0 /100 WBCs. The reference range was not used to interpret this result as normal/abnormal. NRBC x10^3 (test code = 1869647618) See_Comment [Automated messa ge] The system which generated this result transmitted reference range: 10*3/?L. The reference range was not used to interpret this result as normal/abnormal. GRAN MAT (NEUT) % (test code = 770-8) 77.8 % IMM GRAN % (test code = 6607551055) 0.40 % LYMPH % (test code = 736-9) 16.9 % MONO % (test code = 5905-5) 4.2 % EOS % (test code = 713-8) 0.4 % BASO % (test code = 706-2) 0.3 % GRAN MAT x10^3(ANC) (test code = 6029851231) 7.94 10*3/uL 1.88-7.09 H IMM GRAN x10^3 (test code = 0061990262) 0.04 10*3/uL 0.00-0.06 LYMPH x10^3 (test code = 731-0) 1.73 10*3/uL 1.32-3.29 MONO x10^3 (test code = 742-7) 0.43 10*3/uL 0.33-0.92 EOS x10^3 (test code = 711-2) 0.04 10*3/uL 0.03-0.39 BASO x10^3 (test code = 704-7) 0.03 10*3/uL 0.01-0.07 Lab Interpretation (test code = 75878-5) Abnormal [facility] (D) IMMUNE [id number] 15:42:08* Test Item Value Reference Range Interpretation Comme nts RHIG CANDIDATE? (test code = 5188) No- see comment Patient is not a candidate for RhIg- Patient is Rh Positive.Performed at [facility] Laboratory [facility] Blood [address] [place] [address] Free: [phone] No. [id number] [facility] (D) IMMUNE [id number] 15:42:08* Test Item Value Reference Range Interpretation Comme nts RHIG CANDIDATE? (test code = 5188) No- see comment Patient is not a candidate for RhIg- Patient is Rh Positive.Performed at [facility] Blood [address] Free: [phone] No. [id number] [facility] Urinalysis w/o Specific [id number] 17:10:00* Test Item Value Reference Range Interpretation [...] = 3257) N/A Negative - Negati ve [facility] URINALYSIS W/O SPECIFIC [id number] 16:27:00* Test Item Value Reference Range Interpretation [...] = 3257) n/a Negative - Negati ve [facility] URINALYSIS W/O SPECIFIC [id number] 22:17:00* Test Item Value Reference Range Interpretation [...] = 3257) n/a Negative - Negati ve [facility] URINALYSIS W/O SPECIFIC [id number] 22:17:00* Test Item Value Reference Range Interpretation [...] = 3257) n/a Negative - Negati ve [facility] URINALYSIS W/O SPECIFIC [id number] 18:19:00* Test Item Value Reference Range Interpretation [...] = 3257) N/A Negative - Negati ve [facility] [id number] 19:13:00* Test Item Value Reference Range Interpretation [...] = 3257) n/a Negative - Negati ve [facility] [id number] 19:13:00* Test Item Value Reference Range Interpretation Comme nts POCT PREG (test code = 1605) Positive On board controls acceptable with C Line (test code = 3574) Yes POCT PREG LOT # (test code = 3575) POCT PREG TEST DATE ( test code = 3576) [facility] Consult Notes Date/Time Note Provider Source 2023-05-02 15:10:00 Associated Order(s): CONSULT PASTORAL CARE Welfare Analyst visited with patient per consult. Patient received in bed awake. Patient mother at bedside holding the patient's baby girl. Patient 3 year old present. Patient received in good spirits and welcomed the Welfare Analyst visit to pray for the baby. Welfare Analyst was a spiritual presence and retail salesworker. Welfare Analyst celebrated patient new baby girl. Welfare Analyst offered words of blessing and peace. Welfare Analyst prayed the baby and the family present. Patient thanked Welfare Analyst for the visit. Additional Welfare Analyst support is available upon request. Welfare Analyst Radha Jimenez dayo Pastoral Care Department [phone] S COACH Radha Jimenez [facility] - Health History and Physical Notes Date/Time Note Provider Source 2023-05-02 06:39:48 ANTEPARTUM HISTORY & PHYSICAL IDENTIFYING DATA Jakob Gtz is 22 year old, /White, 39w0d, female with MICHAEL 05/09/2023, by Ultrasound. : 2000 Primary Care Physician: PATIENT DOES NOT HAVE A PCP Hospital Day: 1 CHIEF COMPLAINT Scheduled RCS HISTORY OF PRESENT ILLNESS 22 year old @39w0d presents for an scheduled RCS. Denies POWERS or ruq pain. Denies vaginal bleeding or leakage of fluid/ denies contractions. PAST OBSTETRIC HISTORY OB History Para Term AB Living 2 1 1 1 SAB IAB Ectopic Multiple Live Births 0 1 # Outcome Date GA Lbr Mike/2nd Weight Sex Delivery Anes PTL Lv 2 Current 1 Term 11/17/18 39w3d 2810 g F CS-LTranv EPI N EHSAN Complications: Other (See Comments) PAST MEDICAL HISTORY Problem list: Patient Active Problem List Diagnosis Date Noted 39 weeks gestation of 05/01/2023 Obesity (BMI 30-39.9) 11/23/2018 Previous section complicating 11/17/2018 Genital condyloma, female 09/03/2018 High-risk in third trimester 04/16/2018 Operations: Past Surgical History: Procedure Laterality Date ABDOMINAL WOUND EXPLORATION 11/23/2018 ABDOMINAL WOUND EXPLORATION 11/23/2018 SECTION N/A 11/17/2018 Surgeon: Amy Castorena; Location: Labor and Delivery - [place] WOUND DEBRIDEMENT N/A 11/23/2018 Surgeon: Anselmo Yanez; Location: Labor and Delivery - [facility] [place] Prior surgeries at outside hospitals: none Past Medical History: Diagnosis Date Anemia of mother in , antepartum 10/01/2018 wound infection 11/23/2018 Chlamydia infection affecting 08/06/2018 Feeling of sadness 09/24/2018 Genital warts complicating , third trimester 09/03/2018 Open wound anterior abdominal wall 11/25/2018 CURRENT HEALTH STATUS Medications: Current Facility-Administered Medications Medication Dose Route Frequency Last Rate Last Admin carboprost (HEMABATE) injection 250 mcg 250 mcg Intramuscular Q2HPRN ceFAZolin (ANCEF) 2,000 mg in NaCl 0.9% (NS) 100 mL MINI-BAG 2,000 mg IV Piggyback ONCE Followed by ceFAZolin (ANCEF) 2,000 mg in NaCl 0.9% (NS) 100 mL MINI-BAG 2,000 mg IV Piggyback ONCE D5W-LR IV infusion 1,000 mL 1,000 mL IV Infusion TITRATE 125 mL/hr at 05/02/23 0632 1,000 mL at 05/02/23 0632 lactated ringers IV infusion 500 mL 500 mL IV Infusion PRN - SEE INSTRUCTIONS methylergonovine (METHERGINE) injection 0.2 mg 0.2 mg Intramuscular Q4HPRN miSOPROStoL (CYTOTEC) tablet 200 mcg 200 mcg Rectal PRN oxytocin (PITOCIN) 30 units in NS 500 mL IV infusion 600 mL/hr IV Infusion PRN sodium citrate-citric acid (BICITRA) 500-334 mg/5 mL solution 30 mL 30 mL Oral PRE-PROCEDURE ONCE tranexamic acid (CYKLOKAPRON) 1,000 mg in NaCl 0.9% (NS) 250 mL piggyback 1,000 mg IV Piggyback PRN Allergies and drug reactions: Cinnamon and Penicillin HOME MEDICATIONS Medications Prior to Admission Medication Sig Dispense Refill Last Dose metroNIDAZOLE (FLAGYL) 500 mg tablet Take 1 tablet by mouth every 12 (twelve) hours. 10 tablet 0 Taking loratadine (CLARITIN ORAL) Take by mouth. Not Taking 25/iron fum/folic/dha (-1 ORAL) Take by mouth. Taking sulfamethoxazole-trimethoprim 800-160 mg per tablet Take 1 tablet by mouth every 12 (twelve) hours. 10 tablet 0 Not Taking benzonatate 100 mg capsule Take 1 capsule by mouth 3 (three) times daily as needed for Cough. 20 capsule 0 Not Taking ibuprofen 600 mg tablet Take 1 tablet by mouth every 6 (six) hours as needed for Pain (scale 4-6). 30 tablet 0 Not Taking HYDROcodone-acetaminophen 5-325 mg tablet Take 1 tablet by mouth every 6 (six) hours as needed for Pain (scale 4-6) or Pain (scale 7-10). 20 tablet 0 Not Taking HYDROcodone-acetaminophen 5-325 mg tablet Take 1 tablet by mouth as needed (prior to dressing changes). 30 tablet 0 Not Taking Last taken: yesterday SOCIAL HISTORY Tobacco History: Social History Tobacco Use Smoking Status Never Smokeless Tobacco Never Drug History: Social History Substance and Sexual Activity Drug Use No Alcohol History: Social History Substance and Sexual Activity Alcohol Use No FAMILY HISTORY Family History Problem Relation Age of Onset Diabetes Mother Diabetes Father Diabetes Maternal Grandmother Hypertension Maternal Grandmother Diabetes Maternal Grandfather REVIEW OF SYSTEMS General: negative Constitutional: congestion Eyes: negative ENT/Mouth: congestion Cardiovascular: negative Respiratory: negative Gastrointestinal:negative Genitourinary: negative Musculoskeletal: negative Skin/breast: negative Neurological: negative Psychiatric: negative Endocrine: negative Hemat/Lymph: negative Allergic/Immuno:none VITAL SIGNS BP: -- Temp: [36.7 ?C (98 ?F)] Temp source: Temporal Artery (05/02 06) Pulse: -- Resp: -- SpO2: -- Height: -- Weight: -- BMI (calculated): -- PHYSICAL EXAMINATIONS General: well-developed, well-nourished Lungs: clear to auscultation bilaterally Cardiology: regular rate and rhythm Abdomen: tenderness - normal Extremities: no clubbing, cyanosis, or edema Neuro: cranial nerves II through XII grossly intact; sensation grossly intact; muscle strength 5 out of 5 in all four extremities REVIEW OF LABORATORY, PATHOLOGY, AND RADIOLOGY DATA Lab results: CBC BMP PT/INR WBC (10*3/?L) Date Value 05/01/2023 5.92 NA (mmol/L) Date Value 05/01/2023 135 No results found for: "PT" RBC (10*6/?L) Date Value 05/01/2023 4.06 K (mmol/L) Date Value 05/01/2023 4.2 INR (no units) Date Value 11/22/2018 1.4 PLT (10*3/?L) Date Value 05/01/2023 222 CALCIUM (mg/dL) Date Value 05/01/2023 8.3 (L) HGB (g/dL) Date Value 05/01/2023 12.8 CL (mmol/L) Date Value 05/01/2023 105 aPTT HCT (%) Date Value 05/01/2023 38.9 BUN (mg/dL) Date Value 05/01/2023 9 APTT Patient (Seconds) Date Value 11/22/2018 38 CREATININE (mg/dL) Date Value 05/01/2023 0.55 GLUCOSE (mg/dL) Date Value 05/01/2023 71 CO2 TOTAL (mmol/L) Date Value 05/01/2023 22 (L) Type & Screen Rubella Varicella ABO & RH (no units) Date Value 05/01/2023 B Positive Rubella screen IgG (no units) Date Value 02/21/2023 Positive No results found for: "VZVG" No results found for: "TSABINT" Hep B HIV Syphilis No results found for: "HBS" No results found for: "HIV" No results found for: "SYPG" Group B Strep Chlamydia No results found for: "CGBS" C. trachomatis Nucleic Acid (no units) Date Value 04/11/2023 Negative X-ray results: none Placenta Accreta Screening Prior ? : Yes Prior Uterine Surgery?: Yes Placenta low lying/previa in current ? : No Screening outcome: A positive screening outcome indicates a history of prior delivery or prior uterine surgery, AND the presence of either a placenta low lying/previa or ultrasound suspicion of PASD in the current . Negative screening. DELIVERY PLAN RCS HEART RATE 120 cat 1 reactive and reassuring ASSESSMENT AND PLAN 22 year old @39w0d For scheduled RCS. --Admit --Ancef 2 grams Chandana Loredo MD [facility] Notes Date/Time Note Provider Source 2023-05-04 12:32:43 Problem: Pain Goal: Control of pain at or below patient's documented comfort goal Outcome: Adequate for discharge Problem: Falls, Risk of Goal: Absence of falls Outcome: Adequate for discharge Problem: Infection Risk Goal: Absence of infection Outcome: Adequate for discharge Problem: Discharge Planning - Goal: Adequate for discharge Outcome: Adequate for discharge Goal: Mood stable Outcome: Adequate for discharge Problem: Bleeding, Risk of Goal: Absence of impaired coagulation signs and symptoms Outcome: Adequate for discharge Goal: Absence of active bleeding Outcome: Adequate for discharge Problem: Respiratory Function - Impaired Goal: Able to cough effectively Outcome: Adequate for discharge Goal: Adequate oxygenation Outcome: Adequate for discharge Goal: Adequate work of breathing Outcome: Adequate for discharge Goal: Patent airway Outcome: Adequate for discharge Problem: Coping - Ineffective, Individual Goal: Effective coping Outcome: Adequate for discharge Goal: Knowledge of positive coping patterns Outcome: Adequate for discharge Goal: Knowledge of depression symptoms Outcome: Adequate for discharge Problem: Breast-feeding - Ineffective Goal: Effective breast-feeding Outcome: Adequate for discharge Problem: Intrapartum process (including labor pain) Goal: Reduction in pain sensation Outcome: Resolved Problem: Pain Goal: Reduction in pain sensation Outcome: Resolved S COACH Tabatha Jean RN [facility] 2023-05-03 20:12:38 Problem: Pain Goal: Reduction in pain sensation Outcome: Progressing as expected Goal: Control of pain at or below patient's documented comfort goal Outcome: Progressing as expected Problem: Falls, Risk of Goal: Absence of falls Outcome: Progressing as expected Problem: Infection Risk Goal: Absence of infection Outcome: Progressing as expected Problem: Discharge Planning - Goal: Adequate for discharge Outcome: Progressing as expected Goal: Mood stable Outcome: Progressing as expected S COACH Mely Bustillos RN [facility] 2023-05-02 22:36:46 Problem: Intrapartum process (including labor pain) Goal: Reduction in pain sensation Outcome: Progressing as expected Problem: Pain Goal: Reduction in pain sensation Outcome: Progressing as expected Goal: Control of pain at or below patient's documented comfort goal Outcome: Progressing as expected Problem: Falls, Risk of Goal: Absence of falls Outcome: Progressing as expected Problem: Infection Risk Goal: Absence of infection Outcome: Progressing as expected Problem: Discharge Planning - Goal: Adequate for discharge Outcome: Progressing as expected Goal: Mood stable Outcome: Progressing as expected S COACH Flor Sheridan RN [facility] 2023-05-02 16:27:19 Delivery Date: 05/02/2023 Delivery Time: 7:56 AM DELIVERY BY SECTION Date of Service: : 05/02/2023 at 7:56 AM Admitted for: Elective repeat CS, Repeat Lower uterine transverse section with no extension, no BTL, Pfannenstiel, Closed with 0- vicryl, EBL 500 cc, No complications, Findings: Right side scarring with no subcut tissue and anterior uterine adhesion to anterior abdominal wall Delivery Summary Sex: female [place] Weight: 3800 g 1 Minute 5 Minute 10 Minute Totals: 9 9 Primary Indication: The patient was taken to the operating room for a repeat section due to: Elective Repeat Section at 39w0d weeks. Procedures: Repeat Lower uterine transverse section with no extension Specimens Removed: Placenta Surgeon: Chandana Loredo MD Report: Prophylactic antibiotic, Ancef 2 gram was given before patient was taken to OR. After arrival to the operating room patient was placed in the supine position with left lateral tilt after administration of spinal anesthesia. Laparotomy A pfannenstiel incision was made through the anterior [...] by lateral traction from the surgeon's and human resources executive assistant's hand. Delivery A bladder flap was not developed. A low [...] aid of fundal pressure applied by the minister assistant surgeon. Specify the applications, number of tractions, number of pop-off occurred: 1 . The body was delivered with traction on the head along with fundal pressure. After delivery of body-bulb suction was performed from oropharynx and nostril with removal of clear amniotic fluid. Fetus was delivered in cephalic presentation. With delivery the baby, no extension was noted.Delayed cord clamping was performed for 30-60 seconds. Placenta was delivered spontaneously with steady traction on cord and manual separation of placenta from uterine wall. Closure Uterine cavity was cleaned after placental delivery with lap sponge x 2. The hysterotomy was closed in two layers using 0 vicryl with continuous locking stitches and followed by vertical imbricating stitches. Hemostasis was achieved as needed with electrocautery and 0 figure eight suture ligation. The ovaries/tubes/uterine surface were evaluated. Unable to see tubes/ovaries 2/2 anterior abdominal scar . No Fascia was closed with running stitches using 0 [...] procedure considered to be complete at this time. Intraoperative Complications: none EBL: 500 Uterotonics: none Disposition: The patient tolerated the procedure well. She was recovered in the Labor and Delivery Room with routine care in stable condition, with a contracted uterus and normal transvaginal bleeding. The was sent to Transition Nursery. A segment of the cord was obtained for umbilical cord gases. Cord blood gas was not available at time of operative note entered. Please see [email or web address] for update. The placenta was not sent to pathology. [facility] 2023-05-02 13:30:00 This note was copied from a baby's chart. Evaluation Situation Initial visit Background Baby girl is 1 day old, born weighing 3800g, Gestational Age: 39w0d at INFANT FEEDING STATUS Formula supplementation via MATERNAL STATUS Pumping Hand expressing Assessment, Recommendations, Education Assisted mom with positioning and [...] with feeding. Mom's nipple was rounded upon release. Mom instructed on how to contact Glue Jointer Feeder for assistance with feedings or to answer questions while in the hospital. Mom verbalized understanding. Assessment (most recent) Assessment - 05/02/23 1330 General Information Visit Initial Mom's age (years) 22 years Gestational age 39 weeks 2 Parity 2 Living Children 2 Feeding plan Breast Breastfeed previously Yes Duration 1 month plans As long as possible Breast Pump Has Breast Pump Electric Delivery method Reason for previous Oral Assessment Oral assessment New assessment Date of 05/02/23 Time of 0756 Infant location Mother Baby Unit Chin Recessed chin Palate assessment Normal Tongue assessment Normal;Short Restricted tongue motion observed None Breast Assessment Breast Assessment Initial Symmetry Symmetrical Size M (B-C) Shape Triangular Nipple & Areola Assessment Left Areola Pliable Right Areola Pliable Left Nipple Intact;Colostrum visible;Everted Right Nipple Colostrum visible;Intact;Everted Literature Resources Resources Understanding Mother and Baby Care Education hunger cues;On-demand feeds at least 8 or more over 24 hours;Diaper counts/color;Benefits of breastmilk;Hand expression;Risk of formula supplementation;Delay of pacifier/artificial nipples up to 4 weeks;Benefits of skin to skin contact;Signs of an effective latch;Infant stomach size;Calming techniques;Position changes;Breaking seal;2nd day/growth spurt cluster feeds;Burping;Benefits of breast massage and hand expression;Engorgement signs and treatment;Risks of mastitis and signs, seek medical attention immediately Handouts given [place] Glue Jointer Feeder Observation Assist with latch Position left side Football;Cross cradle;Infant latched effectively;Suckled in coordinated bursts Interventions Motherlove nipple cream;Placed skin to skin;Breast massage;Taught hand expression Mother demonstrated teach back of Breast massage and hand expression;Positioning and latching infant at breast Follow up Mom will call staff;Follow up in hospital Recommended Feeding Plan Recommended feeding plan On-demand , 8-12 times in 24 hours not to exceed 6 hours between feeds;Frequent [id number] time with parents OTHER $ SERVICES Initial JESSIKA Ramirez, RN, IBCLC S COACH Wally Samuels RN [facility] 2023-05-02 08:45:00 Problem: Intrapartum process (including labor pain) Goal: Absence of or reduction of complications of labor 05/02/2023923 by Cierra Astorga RN Outcome: Resolved 05/02/2023622 by Cierra Astorga RN Outcome: Progressing as expected Goal: Able to cope with pain 05/02/2023923 by Cierra Astorga RN Outcome: Resolved 05/02/2023622 by Cierra Astorga RN Outcome: Progressing as expected Goal: Adequate to move to next level of care 05/02/2023923 by Cierra Astorga RN Outcome: Resolved 05/02/2023622 by Cierra Astorga RN Outcome: Progressing as expected Goal: Reduction in pain sensation 05/02/2023923 by Cierra Astorga RN Outcome: Progressing as expected 05/02/2023622 by Cierra Astorga RN Outcome: Progressing as expected Problem: Pain Goal: Reduction in pain sensation 05/02/2023923 by Cierra Astorga RN Outcome: Progressing as expected 05/02/2023622 by Cierra Astorga RN Outcome: Progressing as expected Goal: Control of pain at or below patient's documented comfort goal 05/02/2023923 by Cierra Astorga RN Outcome: Progressing as expected 05/02/2023622 by Cierra Astorga RN Outcome: Progressing as expected Problem: Falls, Risk of Goal: Absence of falls 05/02/2023923 by Cierra Astorga RN Outcome: Progressing as expected 05/02/2023622 by Cierra Astorga RN Outcome: Progressing as expected Problem: Infection Risk Goal: Absence of infection 05/02/2023 09 by Cierra Astorga RN Outcome: Progressing as expected 05/02/2023622 by Cierra Astorga RN Outcome: Progressing as expected Problem: Discharge Planning - Goal: Adequate for discharge Outcome: Progressing as expected Goal: Mood stable Outcome: Progressing as expected S COACH Cierra Astorga RN [facility] 2023-05-02 06:20:00 Problem: Intrapartum process (including labor pain) Goal: Absence of or reduction of complications of labor Outcome: Progressing as expected Goal: Able to cope with pain Outcome: Progressing as expected Goal: Adequate to move to next level of care Outcome: Progressing as expected Goal: Reduction in pain sensation Outcome: Progressing as expected Problem: Pain Goal: Reduction in pain sensation Outcome: Progressing as expected Goal: Control of pain at or below patient's documented comfort goal Outcome: Progressing as expected Problem: Falls, Risk of Goal: Absence of falls Outcome: Progressing as expected Problem: Infection Risk Goal: Absence of infection Outcome: Progressing as expected [facility] 2023-05-01 13:15:00 Images from the original note were not included. Venipuncture collection performed by clean technique on the both anticubitus. Total of 2 attempts were made. Slight pressure and a bandage/dressing were applied to the site(s). The patient experienced no complications. The following specimens were processed according to instructions and sent to [facility] laboratories per lab order on 05/01/2023 : Armbanded. LT BLUE SST 4 RED 1 LAV 2 PPT DK GREEN (LiHep) DK GREEN (SodH) AMBRIZ DK BLUE (K2) DK BLUE (S) ACD Blood Culture NIPT/NTD S COACH [facility]
[2024-02-12] MEDS ORDERED: NA CHLORIDE 0.9% 1,000 ML ONE (12:23)
[2024-02-12] MEDS ORDERED: KETOROLAC 30 MG/ML INJ ONE (12:23)
[2024-02-12 12:28] LABS: Specific Gravity 1.026 (1.005-1.030); Urine Bilirubin NEGATIVE (Negative); Urine Blood Negative (Negative); Urine Clarity Clear (Clear); Urine Color Light-Yellow (Yellow); Urine Glucose NEGATIVE (Negative); Urine Ketones NEGATIVE (Negative); Urine Microscopic Reflex YN NO UMIC; Urine Nitrite NEGATIVE (Negative); Urine Protein NEGATIVE (Negative); Urine Urobilinogen Normal (Normal)
[2024-02-12 12:32] LABS: Absolute Eosinophils 0.2 K/uL (0-0.5); Absolute Lymphocytes (CBC) 2.2 K/uL (0.7-4.9); Absolute Monocytes 0.3 K/uL (0.1-1.3); Basophils % 0.4 % (0-1.3); Eosinophils % 2.1 % (0-4.4); Hematocrit 36.6 % (36.0-45.0); Lymphocytes % 28.5 % (15.3-44.8); MCHC 32.9 g/dL (32.0-36.0); MPV 8.1 fL (7.6-11.3); Monocytes % 3.8 % (3.3-12.3); Neutrophils % 65.2 % (41.7-73.7); Platelets 258 thou/uL (152-406); RBC Red Blood Cell Count 3.89 M/uL (3.86-4.86); Red Cell Distribution Width 14.5 % (12.1-15.2); Specific Gravity 1.026 (1.005-1.030)
[2024-02-12 12:47] LABS: SARS-CoV-2 Antigen CONTROL BLUE LINE VIS/BG OK; SARS-CoV-2 Antigen Rapid Res Negative (Negative)
[2024-02-12 12:50] LABS: Albumin 3.7 g/dL (3.4-5.0); Alkaline Phosphatase 64 U/L (45-117); Anion Gap 7.8 mEq/L (5.0-15.0); BUN Blood Urea Nitrogen 17 mg/dL (7-18); Bicarbonate 25 mEq/L (21-32); Bilirubin Total 0.3 mg/dL (0.2-1.0); Globulin 3.7 g/dL (2.3-3.5); Glomerular Filtration Rate 125 ml/min (=/>90); Glucose Level 90 mg/dL (74-106); Potassium 3.8 mEq/L (3.5-5.1); Protein, Total 7.4 g/dL (6.4-8.2); Sodium Level 138 mEq/L (136-145)
--- NOTE | 2024-02-12 12:50 | RAD REPORT ---
EXAMINATION: CT ABDOMEN AND PELVIS WITH CONTRAST CLINICAL INDICATION: ABD PAIN TECHNIQUE: CT abdomen and pelvis was performed, after the administration of IV contrast, as per [facility] protocol. Axial, sagittal and coronal reconstructions were obtained. One or more of the following dose reduction techniques were used: Automated exposure control, adjustment of the mA and k V according to patient size, and iterative reconstruction. Unless otherwise specified, incidental findings do not require dedicated imaging follow-up. COMPARISON: No prior exam. FINDINGS: LOWER CHEST: The visualized lung bases are clear. LIVER: Normal in size and contour. No focal lesion. SPLEEN: Normal size. No focal lesion. PANCREAS: No mass, ductal dilation, or wesly-pancreatic fluid. ADRENALS: Normal; no mass. KIDNEYS: Normal size and contour. No hydronephrosis. GASTROINTESTINAL TRACT: No evidence of free air, significant intra-abdominal free fluid, bowel obstru ction or abscess. APPENDIX: Normal appendix. LYMPH NODES: No lymphadenopathy. MUSCULOSKELETAL: No acute or suspicious osseous abnormality. ADDITIONAL FINDINGS: None. IMPRESSION: No acute or concerning abnormalities seen in the abdomen or pelvis.
[2024-02-12 12:51] LABS: ALT/SGPT < 14 U/L (13-56); AST/SGOT < 10 U/L (15-37)
--- NOTE | 2024-02-12 13:09 | ER ---
Nurse's Notes [facility] Name: Tali Arriaga Age: 23 yrs Sex: Female : 2000 Arrival Date: 02/12/2024 Time: 11:14 Bed 10 Private MD: Diagnosis: Lower abdominal pain, unspecified;Nasal congestion Presentation: 02/11 11:54 Chief complaint: Patient states: sore throat and sneezing that is progressively getting ss worse for the past 6 days. Pt also now c/o RLQ pain and tenderness that began today. Denies fever. Coronavirus screen: Client denies travel out of the [place] in the last 14 days. Ebola Screen: Patient denies exposure to infectious person. Patient denies travel to an Ebola-affected area in the 21 days before illness onset. Initial Sepsis Screen: Does the patient meet any 2 criteria? No. Patient's initial sepsis screen is negative. Does the patient have a suspected source of infection? No. Patient's initial sepsis screen is negative. Risk Assessment: Do you want to hurt yourself or someone else? Patient reports no desire to harm self or others. Onset of symptoms was January 2024. 11:54 Method Of Arrival: Ambulatory ss 11:54 Acuity: SABRINA 3 ss Triage Assessment: 11:55 General: Appears uncomfortable, ill, Behavior is calm, cooperative. Pain: Complains of ss pain in right lower quadrant, sore throat Pain currently is 8 out of 10 on a pain scale. Neuro: Level of Consciousness is awake, alert, obeys commands. Respiratory: Airway is patent Respiratory effort is even, unlabored, Respiratory pattern is regular, symmetrical. Derm: Skin is intact, is healthy with good turgor, Skin is moist, Skin is pink, warm \T\ dry. normal. 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 - Infectious Disease History:: Denies. - Social history:: Smoking status: Reported history of juuling and/or vaping. Screenin:29 [facility] ED Fall Risk Assessment (Adult) History of falling in the last 3 months, ll1 including since admission No falls in past 3 months (0 pts) Confusion or Disorientation No (0 pts) Intoxicated or Sedated No (0 pts) Impaired Gait No (0 pts) Mobility Assist Device Used No (0 pt) Altered Elimination No (0 pt) Score/Fall Risk Level 0 - 2 = Low Risk Oriented to surroundings, Maintained a safe environment, Educated pt \T\ family on fall prevention, incl call for assistance when getting out of bed. Abuse screen: Denies threats or abuse. Denies injuries from another. Nutritional screening: No deficits noted. Tuberculosis screening: No symptoms or risk factors identified. Assessment: 12:29 General: Appears in no apparent distress. Behavior is cooperative, anxious. Pain: ll1 Complains of pain in right lower quadrant Pain currently is 8 out of 10 on a pain scale. Neuro: Level of Consciousness is awake, alert, obeys commands, Oriented to person, place, time, situation. Cardiovascular: Patient's skin is warm and dry. Respiratory: Airway is patent Respiratory effort is even, unlabored, Respiratory pattern is regular, symmetrical. GI: Abdomen is flat, non-distended, Bowel sounds present X 4 quads. Abd is soft Abdomen is tender to palpation in right lower quadrant Reports lower abdominal pain. : No signs and/or symptoms were reported regarding the genitourinary system. EENT: Reports sore throat. Derm: No signs and/or symptoms reported regarding the dermatologic system. Musculoskeletal: No signs and/or symptoms reported regarding the musculoskeletal system. 13:36 Reassessment: Patient and/or family updated on plan of care and expected duration. Pain tm6 level reassessed. Patient is alert, oriented x 3, equal unlabored respirations, skin warm/dry/pink. Vital Signs: 11:54 BP 124 / 78; Pulse 78; Resp 15; Temp 97.9(O); Pulse Ox 100% on R/A; Weight 72.57 kg; ss Height 5 ft. 3 in. ; Pain 8/10; 13:36 BP 127 / 70; Pulse 80; Resp 17; Temp 97.9; Pulse Ox 100% on R/A; MAP 87 mmHg; Pain 4/10;tm6 11:54 Body Mass Index 28.34 (72.57 kg, 160.02 cm) ss 11:54 Pain Scale: Adult ss 13:36 Pain Scale: Adult tm6 ED Course: 11:16 Patient arrived in ED. mg5 11:17 Victorino Baumann DO is Attending Physician. ms3 11:55 Triage completed. ss 11:55 Arm band placed on left wrist. ss 12:06 Christine Hester, RN is Primary Nurse. tm6 12:07 Flu Sent. tm6 12:07 SARS-COV-2 Antigen Rapid Sent. tm6 12:20 Inserted saline lock: 20 gauge in left antecubital area, using aseptic technique. Blood tm6 collected. Flushed with 10 mL NS. 12:21 Urinalysis w/ reflexes Sent. tm6 12:21 CBC with Diff Sent. tm6 12:21 CMP Sent. tm6 12:21 Test, Urine Sent. tm6 12:29 Patient has correct armband on for positive identification. Bed in low position. Call ll1 light in reach. Side rails up X 1. Provided Education on: use of call ward. Door closed. Noise minimized. Lights dimmed. Warm blanket given. Pillow given. 12:42 CT Abd/Pelvis - IV Contrast Only In Process Unspecified. EDMS 13:08 Shamar Mcnamara DO is Referral Physician. ms3 13:08 Marylou Peralta MD is Referral Physician. ms3 13:36 No provider procedures requiring assistance completed. IV discontinued, intact, tm6 bleeding controlled, No redness/swelling at site. Pressure dressing applied. Administered Medications: 12:28 Drug: TORadol - Ketorolac IVP 15 mg IVP once Route: IVP; Site: left antecubital; ll1 13:36 Follow up: Response: No adverse reaction; Pain is decreased tm6 12:29 Drug: NS 0.9% IV 1000 ml IV at 1 bolus Per protocol; 1000 mL bolus Route: IV; Rate: 1 ll1 bolus; Site: left antecubital; 13:35 Follow up: IV Status: Completed infusion; IV Intake: 1000ml tm6 13:36 Follow up: Response: No adverse reaction tm6 Medication: 12:29 VIS not applicable for this client. ll1 Intake: 13:35 IV: 1000ml; Total: 1000ml. tm6 Outcome: 13:08 Discharge ordered by . ms3 13:36 Discharged to home ambulatory, with family, tm6 13:36 Condition: stable 13:36 Discharge instructions given to patient, family, Instructed on discharge instructions, follow up and referral plans. Demonstrated understanding of instructions, follow-up care, 13:37 Patient left the ED. tm6 Signatures: Dispatcher [employer] EDMS Ashanti Manrique, SINGH RN ss Octavio Cabral RN RN ll1 Victorino Baumann, DO ms3 Kelly Quesada 5 Christine Hester RN RN tm6 Corrections: (The following items were deleted from the chart) 11:48 11:47 The history from the nurse's notes was reviewed and I agree with what is ms3 documented. ms3
--- NOTE | 2024-02-12 13:09 | EDPHYS ---
Physician Documentation [facility] Name: Tali Arriaga Age: 23 yrs Sex: Female : 2000 Arrival Date: 02/12/2024 Time: 11:14 Bed 10 Private MD: ED Physician Victorino Baumann HPI: 02/11 11:47 This 23 yrs old Female presents to ER via Unassigned with complaints of Flu ms3 Symptoms, Abdominal Pain. 11:47 23-year-old female with no past medical history presents to the emergency department ms3 for right lower quadrant pain that is been ongoing for years. Patient states the pain is an 8/10 with palpation and a 6/10 when walking. She denies any alleviating factors. Patient denies nausea vomiting fevers, chills. 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 - Infectious Disease History:: Denies. - Social history:: Smoking status: Reported history of juuling and/or vaping. ROS: 11:47 Constitutional: Negative for fever, and chills. Cardiovascular: Negative for chest ms3 pain, and palpitations. Respiratory: Negative for shortness of breath, cough, wheezing, and pleuritic chest pain, MS/Extremity: Negative for injury and deformity, Skin: Negative for injury, rash, and discoloration, 11:47 ENT: Positive for sinus congestion, 11:47 Abdomen/GI: Positive for abdominal pain, Negative for nausea, vomiting, and diarrhea, Exam: 11:47 Constitutional: This is a well developed, well nourished patient who is awake, alert, ms3 and in no acute distress. Chest/axilla: Normal chest wall appearance and motion. Nontender with no deformity. Cardiovascular: Regular rate and rhythm with a normal S1 and S2. No gallops, murmurs, or rubs. Normal PMI, no JVD. No pulse deficits. Respiratory: Lungs have equal breath sounds bilaterally, clear to auscultation and percussion. No rales, rhonchi or wheezes noted. No increased work of breathing, no retractions or nasal flaring. Abdomen/GI: Soft, non-tender, with normal bowel sounds. No distension or tympany. No guarding or rebound. No evidence of tenderness throughout. Skin: Warm, dry with normal turgor. Normal color with no rashes, no lesions, and no evidence of cellulitis. MS/ Extremity: Pulses equal, no cyanosis. Neurovascular intact. Full, normal range of motion. Vital Signs: 11:54 BP 124 / 78; Pulse 78; Resp 15; Temp 97.9(O); Pulse Ox 100% on R/A; Weight 72.57 kg; ss Height 5 ft. 3 in. ; Pain 8/10; 13:36 BP 127 / 70; Pulse 80; Resp 17; Temp 97.9; Pulse Ox 100% on R/A; MAP 87 mmHg; Pain 4/10;tm6 11:54 Body Mass Index 28.34 (72.57 kg, 160.02 cm) ss 11:54 Pain Scale: Adult ss 13:36 Pain Scale: Adult tm6 MDM: 11:46 Patient medically screened. ms3 11:47 Differential diagnosis: appendicitis, non-specific abd pain, urinary tract infection. ms3 13:31 Data reviewed: vital signs, nurses notes, lab test result(s), radiologic studies, and ms3 as a result, I will discharge patient. I considered the following discharge prescriptions or medication management in the emergency department Medications were administered in the Emergency Department. See MAR. Counseling: I had a detailed discussion with the patient and/or guardian regarding the historical points, exam findings, and any diagnostic results supporting the discharge/admit diagnosis, lab results, radiology results, the need for outpatient follow up, to return to the emergency department if symptoms worsen or persist or if there are any questions or concerns that arise at home. Special discussion: Based on the patient's Hx, exam, and Dx evaluation, there is no indication for emergent surgery or inpatient Tx. It is understood by the patient/guardian that if the Sx's persist or worsen they need to return immediately for re-evaluation. ED course: Discussed labs and imaging with the patient and her mother. Patient to follow-up with primary care physician and gynecology in 2 to 3 days. Patient understands and agrees with plan. All questions were answered. Return precautions discussed include worsening symptoms, or any other concerns. On reevaluation patient is alert and oriented x 4, in no apparent distress, nontoxic-appearing, ambulatory in the emergency department. 02/11 11:20 Order name: SARS-COV-2 Antigen Rapid; Complete Time: 13:04 ms3 02/11 11:20 Order name: Flu; Complete Time: 13:04 ms3 02/11 11:47 Order name: CBC with Diff; Complete Time: 13:04 ms3 02/11 11:47 Order name: CMP; Complete Time: 13:04 ms3 02/11 11:47 Order name: Test, Urine; Complete Time: 13:04 ms3 02/11 11:49 Order name: Urinalysis w/ reflexes; Complete Time: 13:04 ms3 02/11 11:47 Order name: CT Abd/Pelvis - IV Contrast Only; Complete Time: 13:04 ms3 02/11 11:47 Order name: IV Saline Lock; Complete Time: 12:21 ms3 02/11 11:47 Order name: Labs collected and sent; Complete Time: 12:21 ms3 Administered Medications: 12:28 Drug: TORadol - Ketorolac IVP 15 mg IVP once Route: IVP; Site: left antecubital; ll1 13:36 Follow up: Response: No adverse reaction; Pain is decreased tm6 12:29 Drug: NS 0.9% IV 1000 ml IV at 1 bolus Per protocol; 1000 mL bolus Route: IV; Rate: 1 ll1 bolus; Site: left antecubital; 13:35 Follow up: IV Status: Completed infusion; IV Intake: 1000ml tm6 13:36 Follow up: Response: No adverse reaction tm6 Disposition Summary: 02/12/24 13:08 Discharge Ordered Notes: Location: Home ms3 Condition: Stable ms3 Diagnosis - Lower abdominal pain, unspecified ms3 - Nasal congestion ms3 Followup: ms3 - With: Shamar Mcnamara DO - When: 2 - 3 days - Reason: Recheck today's complaints Followup: ms3 - With: Marylou Peralta MD - When: 2 - 3 days - Reason: Recheck today's complaints Discharge Instructions: - Discharge Summary Sheet ms3 - Abdominal Pain, Adult ms3 Forms: - Medication Reconciliation Form ms3 - Antibiotic Education ms3 - Prescription Opioid Use ms3 - Patient Portal Instructions ms3 - Leadership Thank You Letter ms3 Signatures: Dispatcher [employer] EDMS Ashanti Manrique, SINGH RN ss Octavio Cabral RN RN ll1 Victorino Baumann, DO ms3 Christine Hester RN tm6 Corrections: (The following items were deleted from the chart) 11:20 11:20 SARS-COV-2 Antigen Rapid+I.LAB.BRZ ordered. EDMS EDMS 11:20 11:20 Influenza Screen (A \T\ B)+BA.LAB.BRZ ordered. EDMS EDMS 11:48 11:47 The history from the nurse's notes was reviewed and I agree with what is ms3 documented. ms3 11:49 11:49 Urinalysis+U.LAB.BRZ ordered. EDMS EDMS
[2024-02-13 02:29] VITALS: TEMP 97.9; O2SAT 100
[2024-02-13 02:32] VITALS: BP 127/70
== END 2024-02-12 13:37 | disposition home or self-care (01) ==
LOC: ER 11:14
DX: R10.31 Right lower quadrant pain (principal); R09.81 Nasal congestion; Z11.52 Encounter for screening for COVID-19; Z28.310 Unvaccinated for COVID-19
CPT/HCPCS: 96361; 85025; 36415; 81025; 81003; 80053; 87804 ×2; 74177; 96374; 99284; 87811; Q9967; J7030

== ENCOUNTER 2025-02-28 22:18 | Emergency (ER) | payer SELFPAY ==
--- OUTSIDE RECORDS SUMMARY | 2025-02-28 22:23 | XMS REPORT | Continuity of Care Document ---
Author Name Unknown Address [address] [facility] [address] [place] [address] [facility] Address [address] [facility] [address] [place] [address] Care Team Providers Care Test Manager Name Role Phone Pcp, Patient Does Not Have A Primary Care Physic bharath CHANDANA LOREDO Attending Clinician CHANDANA Rios Attending Clinician Joann dickson Doctor Unassigned, [place] Attending Clinician U maxi 2, [facility] Lab Attending Clinician Unavailable Ultrasound, SyMfalexandra Attending Clinician UnavailGiovana Mccabe MD Attending Clinician [phone] GIOVANA MCNAMARA Attending Clinician Unavailable GIOVANA MCNAMARA Attending Clinician Unavailable Lab, [place] - Db Attending Clinician Unavailable Seven [place] DO Attending Clinician [phone] Angelica Dhaliwal MD Attending Clinician [phone] Guillermina Linn Attending Clinician [phone] Kevin Garcia Attending Clinician [phone] [facility] Resident Attending Clinician UnavailLILI Rogers Attending Clinician Unavailable Kevin ALEJO Attending Clinician Unavailable LOUISA HOFFMAN Attending Clinician Dayanara RUSLAN Hand Attending Clinician Unav CHANDANA Truong Admitting Clinician RUSLAN Piedra Admitting Clinician Lu ailable Payers Payer Name Policy Type Policy Number Effective Date Expirati on Date Source MARIE VASQUEZ [id number] 2023 00:00:00 Problems Condition Name Condition Details Condition Category Status Onset Date Resolution Date Last Treatment Date Treating Clinician Comments Source 39 weeks gestation of 39 weeks gestation of Disease Active 2022-05 2-21 00:00: 00 [facility] Open wound anterior abdominal wall Open wound anterior abdominal wall Disease Active 17 00:00: 00 [facility] Obesity (BMI 30-39.9) Obesity (BMI 30-39.9) Disease Active 15 00:00: 00 [facility] wound infection wound infection Disease Active 11-23 00:00: 00 [facility] S/P repeat low transverse S/P repeat low transverse Disease Active 7-09 00:00: 00 [facility] anemia anemia Disease Active 5-23 00:00: 00 [facility] Genital condyloma, female Genital condyloma, female Disease Active 0 4-25 00:00: 00 [facility] High-risk in third trimester High-risk in third trimester Disease Active 2017-05 00:00: 00 [facility] Allergies, Adverse Reactions, Alerts Allergy Name Allergy Type Status Severity Reaction(s) Onset Date Inactive Date Treating Clinician Comments Source [facility] Active Hives 11-22 00:00: 00 [facility] Cinnamon Propensi ty to adverse reaction s Active Hives 14 00:00: 00 [facility] Penicill in Propensi ty to adverse reaction s Active Hives 2017-05 00:00: 00 [facility] PENICILL IN DRUG INGREDI Active Hives 2017-05 00:00: 00 [facility] Social History Social Habit Start Date Stop Date Quantity Comments Source ASSERTION 2022-08-16 00:00:[address] [facility] intake 2023-05-15 00:00:00 2023-05-15 00:00:00 Current non-drinker of alcohol (finding) [facility] Tobacco use and exposure 2023-02-21 00:00:00 2023-02-21 00:00:[address] Smokeless tobacco non-user [facility] History of Social function 2019-12-16 00:00:00 2019-12-16 00:00:[address] [facility] Sex Assigned At 1999 00:00:00 1999 00:00:[address] [facility] Smoking Status Start Date Stop Date Source Never smoked tobacco [facility] Medications Ordered Medication Name Filled Medication Name Start Date Stop Date Current Medication? Ordering Clinician Indication Dosage Frequency Signature (SIG) Comments Components Source cephALEXin 250 mg capsule 2022-05 00:00: 00 Yes [id number] 250mg Take 1 capsule by mouth every 6 (six) hours. [facility] dextrometho rphan-guaif enesin (ROBITUSSIN DM) 10-100 mg/5 mL solution 5 mL 2022-05 14:30: 00 Yes 5mL 5 mL, Oral, Q6HPRN, Starting on 05/04/23 at 0830, Until Discontinu ed, Routine, Cough [facility] witch Jonathan (TUCKS) 50 % topical pad 2022-05 14:30: 00 Yes Topical, PRN, Starting on 05/04/23 at 0830, Until Discontinu ed, Routine, HEMMOROIDS [facility] 25/iron fum/folic/d powers (-1 ORAL) 2022-05 08:44: 22 05-04 00:00 :00 No Take by mouth. [facility] vitamin w/FA tablet 2022-05 00:00: 00 Yes [id number] 1{tbl} Take 1 tablet by mouth in the morning. [facility] docusate 100 mg capsule 2022-05 00:00: 00 Yes [id number] 200mg Take 2 capsules by mouth once daily as needed for Constipati on. [facility] ferrous sulfate 325 mg (65 mg iron) tablet 2022-05 00:00: 00 Yes [id number] 325mg Take 1 tablet by mouth in the morning and 1 tablet in the evening. [facility] ibuprofen 600 mg tablet 2022-05 00:00: 00 Yes [id number] 600mg Take 1 tablet by mouth every 6 (six) hours as needed (Pain). Take with food or milk. [facility] gabapentin 300 mg capsule 2022-05 00:00: 00 Yes [id number] 300mg Take 1 capsule by mouth in the morning and 1 capsule at noon and 1 capsule in the evening. [facility] HYDROcodone -acetaminop hen 5-325 mg tablet 2022-05 00:00: 00 05-12 05:59 :00 No [id number] 1{tbl} Take 1 tablet by mouth every 6 (six) hours as needed (Pain scale above 4) for up to 7 days. Do not exceed 3 grams of acetaminop hen in 24 hours. Indication s: acute pain [facility] ibuprofen (IBU) tablet 600 mg 2022-05 18:00: 00 Yes 600mg 600 mg, Oral, Q6HPRN, Starting on 05/03/23 at 1200, Until Discontinu ed, Routine, Pain (scale 1-3) [facility] gabapentin (NEURONTIN) capsule 300 mg 2022-05 20:00: 00 05-04 13:58 :00 No 300mg 300 mg, Oral, TID, 6 doses, First dose on Fri05/02/23 at 1400, Last dose on 05/04/23 at 0800, Routine [facility] ketorolac (TORADOL) injection 30 mg 2022-05 18:00: 00 05-03 13:46 :00 No 30mg 30 mg, Slow IV Push, Q6H, 4 doses, First dose on Fri05/02/23 at 1200, Last dose on 05/03/23 at 0600, Routine [facility] lactated ringers IV infusion 1,000 mL 2022-05 15:45: 00 05-02 18:50 :57 No 1000mL at 125 mL/hr, 1,000 mL, IV Infusion, ONCE, 1 dose, On Fri05/02/23 at 0945, Routine [facility] rho(D) immune globulin (RHOGAM) syringe 300 mcg 2022-05 14:54: 17 Yes 300ug 300 mcg, Intramuscu lar, ONCE, For 1 dose, Conditiona l, Routine [facility] HYDROcodone -acetaminop hen (NORCO 5) 5-325 mg tablet 2 tablet 2022-05 14:53: 56 Yes 2{tbl} 2 tablet, Oral, Q6HPRN, Starting on Fri05/02/23 at 0853, Until Discontinu ed, Routine, Pain (scale 7-10), Alternate with Ibuprofen [facility] HYDROcodone -acetaminop hen (NORCO 5) 5-325 mg tablet 1 tablet 2022-05 14:53: 39 Yes 1{tbl} 1 tablet, Oral, Q6HPRN, Starting on Fri05/02/23 at 0853, Until Discontinu ed, Routine, Pain (scale 4-6), Alternate with Ibuprofen [facility] diphenhydrA MINE (BENADRYL) injection 25 mg 2022-05 14:52: 15 Yes 25mg 25 mg, Slow IV Push, Q6HPRN, Starting on Fri05/02/23 at 0852, Until Discontinu ed, Routine, Itching [facility] diphenhydrA MINE (BENADRYL) tablet 25 mg 2022-05 14:52: 15 Yes 25mg 25 mg, Oral, Q6HPRN, Starting on Fri05/02/23 at 0852, Until Discontinu ed, Routine, Sleep, Itching [facility] ondansetron (ZOFRAN (PF)) injection 4 mg 2022-05 14:52: 15 Yes 4mg 4 mg, Slow IV Push, Q8HPRN, Starting on Fri05/02/23 at 0852, Until Discontinu ed, Routine, Nausea and Vomiting (N/V) [facility] bisacodyL (DULCOLAX) suppository 10 mg 2022-05 14:52: 15 Yes 10mg 10 mg, Rectal, QDAILYPRN, Starting on Fri05/02/23 at 0852, Until Discontinu ed, Routine, Constipati on [facility] simethicone (GAS RELIEF (SIMETHICON E)) chewable tablet 160 mg 2022-05 14:52: 15 Yes 160mg 160 mg, Oral, PC+HSPRN, Starting on Fri05/02/23 at 0852, Until Discontinu ed, Routine, Gas [facility] docusate (COLACE) capsule 200 mg 2022-05 14:52: 15 Yes 200mg 200 mg, Oral, QDAILYPRN, Starting on Fri05/02/23 at 0852, Until Discontinu ed, Routine, Constipati on [facility] magnesium hydroxide (MILK OF MAGNESIA) 400 mg/5 mL suspension 30 mL 2022-05 14:52: 15 Yes 30mL 30 mL, Oral, QDAILYPRN, Starting on Fri05/02/23 at 0852, Until Discontinu ed, Routine, Constipati on [facility] lactated ringers IV infusion 1,000 mL 2022-05 14:52: 15 Yes 1000mL at 125 mL/hr, 1,000 mL, IV Infusion, PRN, 1 dose, Starting on Fri05/02/23 at 0852, Until Discontinu ed, Routine [facility] sodium citrate-cit kalyani acid (BICITRA) 500-334 mg/5 mL solution 30 mL 2022-05 12:14: 17 05-02 13:06 :00 No 30mL 30 mL, Oral, PRE-PROCED URE ONCE, 1 dose, Starting on Fri05/02/23 at 0614, Until Discontinu ed, Routine, Surgery/Pr ocedure [facility] D5W-LR IV infusion 1,000 mL 2022-05 12:14: 17 05-02 14:54 :15 No 1000mL at 1-125 mL/hr, IV Infusion, TITRATE, Starting on Fri05/02/23 at 0614, Until Fri05/02/23 at 0854, Routine [facility] loratadine (CLARITIN ORAL) 2022-05 2 10:30: 05 Yes Take by mouth. [facility] metroNIDAZO LE (FLAGYL) 500 mg tablet 2022-05 2 00:00: 00 05-04 00:00 :00 No [id number] 500mg Take 1 tablet by mouth every 12 (twelve) hours. [facility] fluconazole (DIFLUCAN) 150 mg tablet 2022-05 2 00:00: 00 04-12 05:59 :00 No [id number] 150mg Take 1 tablet by mouth once now for 1 dose. [facility] loratadine (CLARITIN ORAL) 2022-05 0-27 13:13: 25 Yes Take by mouth. [facility] 25/iron fum/folic/d powers (-1 ORAL) 2022-05 013 14:14: 33 Yes Take by mouth. [facility] sulfamethox azole-trime thoprim 800-160 mg per tablet 9-11 00:00: 00 05-04 00:00 :00 No [id number] 1{tbl} Take 1 tablet by mouth every 12 (twelve) hours. [facility] ibuprofen 600 mg tablet 01-06 00:00: 00 05-04 00:00 :00 No [id number] 600mg Take 1 tablet by mouth every 6 (six) hours as needed for Pain (scale 4-6). [facility] benzonatate 100 mg capsule 01-06 00:00: 00 05-04 00:00 :00 No [id number] 100mg Take 1 capsule by mouth 3 (three) times daily as needed for Cough. [facility] HYDROcodone -acetaminop hen 5-325 mg tablet 8-16 00:00: 00 05-04 00:00 :00 No [id number] 1{tbl} Take 1 tablet by mouth every 6 (six) hours as needed for Pain (scale 4-6) or Pain (scale 7-10). [facility] HYDROcodone -acetaminop hen 5-325 mg tablet 12-04 00:00: 00 05-04 00:00 :00 No [id number] 1{tbl} Take 1 tablet by mouth as needed (prior to dressing changes). [facility] Immunizations Ordered Immunization Name Filled Immunization Name Date Status Comments Source Influenza Virus Vaccine Quad .5 mL IM 6+ MO (FLUZONE/FLULAVAL/FL UARIX) Unknown Completed [facility] TDAP Unknown Completed [facility] HPV[address] [facility] DTaP, Unspecified Formulation Unknown Completed [facility] Hep B, Adol or Pedi Dosage Unknown Completed [facility] HIB 4 Dose Schedule Unknown Completed [facility] MMR Unknown Completed [facility] IPV Unknown Completed [facility] Influenza Virus Vaccine Quad .5 mL IM 6+ MO (FLUZONE/FLULAVAL/FL UARIX) Unknown Completed [facility] HPV9 [address] [facility] DTaP, Unspecified Formulation Unknown Completed [facility] Hep B, Adol or Pedi Dosage Unknown Completed [facility] HIB 4 Dose Schedule Unknown Completed [facility] MMR Unknown Completed [facility] IPV Unknown Completed [facility] TDAP Unknown Completed [facility] Influenza Virus Vaccine Quad .5 mL IM 6+ MO (FLUZONE/FLULAVAL/FL UARIX) Unknown Completed [facility] HPV9 Unknown Completed [facility] DTaP, Unspecified Formulation Unknown Completed [facility] Hep B, Adol or Pedi Dosage Unknown Completed [facility] HIB 4 Dose Schedule Unknown Completed [facility] MMR Unknown Completed [facility] IPV Unknown Completed [facility] Influenza Virus Vaccine Quad .5 mL IM 6+ MO (FLUZONE/FLULAVAL/FL UARIX) Unknown Completed [facility] TDAP Unknown Completed [facility] HPV9 Unknown Completed [facility] DTaP, Unspecified Formulation Unknown Completed [facility] Hep B, Adol or Pedi Dosage Unknown Completed [facility] HIB 4 Dose Schedule Unknown Completed [facility] MMR Unknown Completed [facility] IPV Unknown Completed [facility] TDAP Unknown Completed [facility] Influenza Virus Vaccine Quad .5 mL IM 6+ MO (FLUZONE/FLULAVAL/FL UARIX) Unknown Completed [facility] TDAP Unknown Completed [facility] Influenza Virus Vaccine Quad .5 mL IM 6+ MO (FLUZONE/FLULAVAL/FL UARIX) Unknown Completed [facility] TDAP Unknown Completed [facility] HPV9 Unknown Completed [facility] DTaP, Unspecified Formulation Unknown Completed [facility] Hep B, Adol or Pedi Dosage Unknown Completed [facility] HIB 4 Dose Schedule Unknown Completed [facility] MMR Unknown Completed [facility] IPV Unknown Completed [facility] HPV9 Unknown Completed [facility] Influenza Virus Vaccine Quad .5 mL IM 6+ MO (FLUZONE/FLULAVAL/FL UARIX) Unknown Completed [facility] TDAP Unknown Completed [facility] HPV9 Unknown Completed [facility] DTaP, Unspecified Formulation Unknown Completed [facility] Hep B, Adol or Pedi Dosage Unknown Completed [facility] HIB 4 Dose Schedule Unknown Completed [facility] MMR Unknown Completed [facility] IPV Unknown Completed [facility] Influenza Virus Vaccine Quad .5 mL IM 6+ MO (FLUZONE/FLULAVAL/FL UARIX) Unknown Completed [facility] TDAP Unknown Completed [facility] HPV9 Unknown Completed [facility] DTaP, Unspecified Formulation Unknown Completed [facility] Hep B, Adol or Pedi Dosage Unknown Completed [facility] HIB 4 Dose Schedule Unknown Completed [facility] MMR Unknown Completed [facility] IPV Unknown Completed [facility] Influenza Virus Vaccine Quad .5 mL IM 6+ MO (FLUZONE/FLULAVAL/FL UARIX) Unknown Completed [facility] TDAP Unknown Completed [facility] HPV9 Unknown Completed [facility] DTaP, Unspecified Formulation Unknown Completed [facility] Hep B, Adol or Pedi Dosage Unknown Completed [facility] HIB 4 Dose Schedule Unknown Completed [facility] MMR Unknown Completed [facility] IPV Unknown Completed [facility] Influenza Virus Vaccine Quad .5 mL IM 6+ MO (FLUZONE/FLULAVAL/FL UARIX) Unknown Completed [facility] TDAP Unknown Completed [facility] HPV9 Unknown Completed [facility] DTaP, Unspecified Formulation Unknown Completed [facility] Hep B, Adol or Pedi Dosage Unknown Completed [facility] HIB 4 Dose Schedule Unknown Completed [facility] MMR Unknown Completed [facility] IPV Unknown Completed [facility] Influenza Virus Vaccine Quad .5 mL IM 6+ MO (FLUZONE/FLULAVAL/FL UARIX) Unknown Completed [facility] TDAP Unknown Completed [facility] HPV9 Unknown Completed [facility] DTaP, Unspecified Formulation Unknown Completed [facility] Hep B, Adol or Pedi Dosage Unknown Completed [facility] HIB 4 Dose Schedule Unknown Completed [facility] MMR Unknown Completed [facility] IPV Unknown Completed [facility] Influenza Virus Vaccine Quad .5 mL IM 6+ MO (FLUZONE/FLULAVAL/FL UARIX) Unknown Completed [facility] TDAP Unknown Completed [facility] HPV9 Unknown Completed [facility] DTaP, Unspecified Formulation Unknown Completed [facility] Hep B, Adol or Pedi Dosage Unknown Completed [facility] HIB 4 Dose Schedule Unknown Completed [facility] MMR Unknown Completed [facility] IPV Unknown Completed [facility] Influenza Virus Vaccine Quad .5 mL IM 6+ MO (FLUZONE/FLULAVAL/FL UARIX) Unknown Completed [facility] TDAP Unknown Completed [facility] Influenza Virus Vaccine Quad .5 mL IM 6+ MO (FLUZONE/FLULAVAL/FL UARIX) Unknown Completed [facility] TDAP Unknown Completed [facility] HPV9 Unknown Completed [facility] DTaP, Unspecified Formulation Unknown Completed [facility] Hep B, Adol or Pedi Dosage Unknown Completed [facility] HIB 4 Dose Schedule Unknown Completed [facility] MMR Unknown Completed [facility] IPV Unknown Completed [facility] HPV9 Unknown Completed [facility] Influenza Virus Vaccine Quad .5 mL IM 6+ MO (FLUZONE/FLULAVAL/FL UARIX) Unknown Completed [facility] TDAP Unknown Completed [facility] HPV9 Unknown Completed [facility] DTaP, Unspecified Formulation Unknown Completed [facility] Hep B, Adol or Pedi Dosage Unknown Completed [facility] HIB 4 Dose Schedule Unknown Completed [facility] MMR Unknown Completed [facility] IPV Unknown Completed [facility] Influenza Virus Vaccine Quad .5 mL IM 6+ MO (FLUZONE/FLULAVAL/FL UARIX) Unknown Completed [facility] TDAP Unknown Completed [facility] HPV9 Unknown Completed [facility] DTaP, Unspecified Formulation Unknown Completed [facility] Hep B, Adol or Pedi Dosage Unknown Completed [facility] HIB 4 Dose Schedule Unknown Completed [facility] MMR Unknown Completed [facility] IPV Unknown Completed [facility] Influenza Virus Vaccine Quad .5 mL IM 6+ MO (FLUZONE/FLULAVAL/FL UARIX) Unknown Completed [facility] TDAP Unknown Completed [facility] HPV9 Unknown Completed [facility] DTaP, Unspecified Formulation Unknown Completed [facility] Hep B, Adol or Pedi Dosage Unknown Completed [facility] HIB 4 Dose Schedule Unknown Completed [facility] MMR Unknown Completed [facility] IPV Unknown Completed [facility] Influenza Virus Vaccine Quad .5 mL IM 6+ MO (FLUZONE/FLULAVAL/FL UARIX) Unknown Completed [facility] TDAP Unknown Completed [facility] HPV9 Unknown Completed [facility] DTaP, Unspecified Formulation Unknown Completed [facility] Hep B, Adol or Pedi Dosage Unknown Completed [facility] HIB 4 Dose Schedule Unknown Completed [facility] MMR Unknown Completed [facility] IPV Unknown Completed [facility] Influenza Virus Vaccine Quad .5 mL IM 6+ MO (FLUZONE/FLULAVAL/FL UARIX) Unknown Completed [facility] TDAP Unknown Completed [facility] HPV9 Unknown Completed [facility] DTaP, Unspecified Formulation Unknown Completed [facility] Hep B, Adol or Pedi Dosage Unknown Completed [facility] HIB 4 Dose Schedule Unknown Completed [facility] MMR Unknown Completed [facility] IPV Unknown Completed [facility] Influenza Virus Vaccine Quad .5 mL IM 6+ MO (FLUZONE/FLULAVAL/FL UARIX) Unknown Completed [facility] TDAP Unknown Completed [facility] HPV9 Unknown Completed [facility] Influenza Virus Vaccine Quad .5 mL IM 6+ MO (FLUZONE/FLULAVAL/FL UARIX) Unknown Completed [facility] TDAP Unknown Completed [facility] HPV9 Unknown Completed [facility] Vital Signs Vital Name Observation Time Observation Value Comments S ource Systolic blood pressure 2023-05-15 22:21:00 126 mm[Hg] [facility] Diastolic blood pressure 2023-05-15 22:21:00 83 mm[Hg] [facility] Heart rate 2023-05-15 22:21:00 88 /min [facility] Respiratory rate 2023-05-15 22:21:00 18 /min [facility] Body height 2023-05-15 22:21:00 160 cm [facility] Body weight 2023-05-15 22:21:00 89.359 kg [facility] BMI 2023-05-15 22:21:00 34.90 kg/m2 [facility] Systolic blood pressure 2023-05-08 19:00:00 134 mm[Hg] [facility] Diastolic blood pressure 2023-05-08 19:00:00 89 mm[Hg] [facility] Heart rate 2023-05-08 19:00:00 68 /min [facility] Body temperature 2023-05-08 19:00:[address] [facility] Respiratory rate 2023-05-08 19:00:00 16 /min [facility] Body height 2023-05-08 19:00:00 160 cm [facility] Body weight 2023-05-08 19:00:00 97.07 kg [facility] BMI 2023-05-08 19:00:00 37.91 kg/m2 [facility] Systolic blood pressure 2023-05-04 14:00:00 99 mm[Hg] [facility] Diastolic blood pressure 2023-05-04 14:00:00 68 mm[Hg] [facility] Heart rate 2023-05-04 14:00:00 76 /min [facility] Body temperature 2023-05-04 14:00:[address] [facility] Respiratory rate 2023-05-04 14:00:00 16 /min [facility] Oxygen saturation in Arterial blood by Pulse oximetry 2023-05-04 14:00:00 99 /min [facility] Body height 2023-05-02 12:25:00 160 cm [facility] Body weight 2023-05-02 12:25:00 98.884 kg [facility] BMI 2023-05-02 12:25:00 38.62 kg/m2 [facility] Systolic blood pressure 2023-05-02 14:45:00 115 mm[Hg] [facility] Diastolic blood pressure 2023-05-02 14:45:00 65 mm[Hg] [facility] Heart rate 2023-05-02 14:45:00 68 /min [facility] Body temperature 2023-05-02 14:45:[address] [facility] Respiratory rate 2023-05-02 14:45:00 16 /min [facility] Oxygen saturation in Arterial blood by Pulse oximetry 2023-05-02 14:45:00 99 /min [facility] Body height 2023-05-02 12:25:00 160 cm [facility] Body weight 2023-05-02 12:25:00 98.884 kg [facility] BMI 2023-05-02 12:25:00 38.62 kg/m2 [facility] Systolic blood pressure 2023-04-29 17:09:00 115 mm[Hg] [facility] Diastolic blood pressure 2023-04-29 17:09:00 80 mm[Hg] [facility] Heart rate 2023-04-29 17:09:00 88 /min [facility] Respiratory rate 2023-04-29 17:09:00 18 /min [facility] Body height 2023-04-29 17:09:00 160 cm [facility] Body weight 2023-04-29 17:09:00 97.523 kg [facility] BMI 2023-04-29 17:09:00 38.09 kg/m2 [facility] Systolic blood pressure 2023-04-18 16:29:00 106 mm[Hg] [facility] Diastolic blood pressure 2023-04-18 16:29:00 75 mm[Hg] [facility] Heart rate 2023-04-18 16:29:00 95 /min [facility] Body temperature 2023-04-18 16:29:[address] [facility] Body height 2023-04-18 16:29:00 162.6 cm [facility] Body weight 2023-04-18 16:29:00 95.346 kg [facility] BMI 2023-04-18 16:29:00 36.08 kg/m2 [facility] Systolic blood pressure 2023-04-11 22:17:00 112 mm[Hg] [facility] Diastolic blood pressure 2023-04-11 22:17:00 76 mm[Hg] [facility] Heart rate 2023-04-11 22:17:00 96 /min [facility] Body temperature 2023-04-11 22:17:[address] [facility] Respiratory rate 2023-04-11 22:17:00 16 /min [facility] Body height 2023-04-11 22:17:00 162.6 cm [facility] Body weight 2023-04-11 22:17:00 94.348 kg [facility] BMI 2023-04-11 22:17:00 35.70 kg/m2 [facility] Oxygen saturation in Arterial blood by Pulse oximetry 2023-04-11 22:17:00 97 /min [facility] Systolic blood pressure 2023-03-07 18:12:00 107 mm[Hg] [facility] Diastolic blood pressure 2023-03-07 18:12:00 73 mm[Hg] [facility] Heart rate 2023-03-07 18:12:00 86 /min [facility] Respiratory rate 2023-03-07 18:12:00 18 /min [facility] Body height 2023-03-07 18:12:00 162.6 cm [facility] Body weight 2023-03-07 18:12:00 90.719 kg [facility] BMI 2023-03-07 18:12:00 34.33 kg/m2 [facility] Systolic blood pressure 2023-02-21 19:13:00 117 mm[Hg] [facility] Diastolic blood pressure 2023-02-21 19:13:00 72 mm[Hg] [facility] Heart rate 2023-02-21 19:13:00 92 /min [facility] Body temperature 2023-02-21 19:13:[address] [facility] Respiratory rate 2023-02-21 19:13:00 16 /min [facility] Body height 2023-02-21 19:13:00 162.6 cm [facility] Body weight 2023-02-21 19:13:00 88.361 kg [facility] BMI 2023-02-21 19:13:00 33.44 kg/m2 [facility] Procedures Procedure Date / Time Performed Performing Clinician Source CBC WITH DIFF 2023-05-03 09:38:[address] [facility] CBC WITH DIFF 2023-05-03 09:38:[address] [facility] SECTION 2023-05-02 13:02:[address] [facility] RHO (D) IMMUNE GLOBULIN 2023-05-01 20:00:[address] [facility] RHO (D) IMMUNE GLOBULIN 2023-05-01 20:00:[address] [facility] ASSIGNMENT OF BENEFITS 2023-05-01 19:17:18 Docto r Unassigned, [place] [facility] PHYSICIAN ORDERS 2023-04-29 06:01:00 Doctor Unas signed, [place] [facility] POCT URINALYSIS W/O SPECIFIC GRAVITY 2023-04-29 00:00:00 [facility] DME/SUPPLY JUSTIFICATION 2023-04-24 06:01:00 Doc tor Unassigned, [place] [facility] POCT URINALYSIS W/O SPECIFIC GRAVITY 2023-04-18 00:00:00 [facility] DSU PRE-OP 2023-04-15 06:01:00 Doctor Unass igned, [place] [facility] DSU PRE-OP 2023-04-15 06:01:00 Doctor Unass igned, [place] [facility] GALV ONLY - VAGINAL PATHOGENS BY NUCLEIC ACID TESTING 2023-04-11 22:57:00 [facility] GROUP B STREPTOCOCCUS BY PCR 2023-04-11 22:31:00 [facility] POCT URINALYSIS W/O SPECIFIC GRAVITY 2023-04-11 00:00:00 [facility] SECOND AND THIRD TRIMESTER ULTRASOUND 2023-03-13 19:21:[address] [facility] TDAP VACCINE, >11 YRS, IM 2023-03-07 18:20:24 [facility] POCT URINALYSIS W/O SPECIFIC GRAVITY 2023-03-07 00:00:00 [facility] >14 WEEKS US LIMITED 2023-02-21 19:44:49 [facility] CONSENT/REFUSAL FOR DIAGNOSIS AND TREATMENT 2023-02-21 18:53:11 Doctor Unassigned, [place] [facility] POCT TEST 2023-02-21 00:00:[address] [facility] POCT URINALYSIS W/O SPECIFIC GRAVITY 2023-02-21 00:00:00 Leija-Solo, Chandana [facility] Encounters Start Date/Time End Date/Time Encounter Type Admission Type Attending Clinicians Care Facility Care Department Encounter ID Source 2023-06-12 08:15:00 2023-06-12 08:15:00 Outpatient R LEIJA-THAI S, CHANDANA LEIJA-THAI S, CHANDANA [facility] [id number] [facility] 2023-06-12 00:00:00 2023-06-12 00:00:00 Patient Secure Msg Doctor Unassigned, [place] [facility] 1.2.840.114 350.1.13.10 4.2.7.2.686 [id number] [facility] 2023-05-15 16:15:00 2023-05-15 16:30:43 Outpatient R LEIJA-THAI S, CHANDANA LEIJA-THAI S, CHANDANA [facility] [id number] [facility] 2023-05-15 16:15:00 2023-05-15 16:30:43 Routine Visit Leija-Thai s, Chandana [facility] 1.2.840.114 350.1.13.10 4.2.7.2.686 [id number] [facility] 2023-05-08 13:00:00 2023-05-08 13:15:00 Routine Visit Leija-Thai s, Chandana [facility] 1.2.840.114 350.1.13.10 4.2.7.2.686 [id number] [facility] 2023-05-08 13:00:00 2023-05-08 13:00:00 Outpatient R LEIJA-THAI S, CHANDANA LEIJA-THAI S, CHANDANA [facility] [id number] [facility] 2023-05-02 06:12:00 2023-05-04 13:10:00 Inpatient P LEIJA-THAI S, CHANDANA LEIJA-THAI S, CHANDANA [facility] [id number] [facility] 2023-05-02 06:12:00 2023-05-04 13:10:00 Hospital Encounter Leija-Thai s, Chandana [facility] 1.2.840.114 350.1.13.10 4.2.7.2.686 [id number] [facility] 2023-05-02 07:15:00 2023-05-02 08:51:00 Surgery Leija-Thai s, Chandana [facility] 1.2.840.114 350.1.13.10 4.2.7.2.686 [id number] [facility] 2023-05-01 13:15:00 2023-05-01 13:30:00 Metal Hanger Visit 2, Adc Lab Leija-Thai s, Chandana [facility] 1.2.840.114 350.1.13.10 4.2.7.2.686 [id number] [facility] 2023-05-01 13:15:00 2023-05-01 13:15:00 Outpatient R LEIJA-THAI S, CHANDANA LEIJA-THAI S, CHANDANA [facility] [id number] [facility] 2023-05-01 00:00:00 2023-05-01 00:00:00 Orders Only Doctor Unassigned, [place] [facility] 1.2.840.114 350.1.13.10 4.2.7.2.686 [id number] [facility] 2023-04-29 10:45:00 2023-04-29 11:22:43 Outpatient R LEIJA-THAI S, CHANDANA LEIJA-THAI S, CHANDANA [facility] [id number] [facility] 2023-04-29 10:45:00 2023-04-29 11:22:43 Routine Visit Leija-Thai miguel Chandana [facility] 1.2.840.114 350.1.13.10 4.2.7.2.686 [id number] 134 [id number] [facility] 2023-04-29 00:00:00 2023-04-29 00:00:00 Letter (Out) LeijaKrunalchelly rivera Chandana [facility] 1.2.840.114 350.1.13.10 4.2.7.2.686 [id number] [facility] 2023-04-29 00:00:00 2023-04-29 00:00:00 Orders Only Doctor Unassigned, [place] [facility] 1.2.840.114 350.1.13.10 4.2.7.2.686 [id number] [facility] 2023-04-24 00:00:00 2023-04-24 00:00:00 [facility] 1.2.840.114 350.1.13.10 4.2.7.2.686 [id number] [facility] 2023-04-24 00:00:00 2023-04-24 00:00:00 Orders Only Doctor Unassigned, [place] [facility] 1.2.840.114 350.1.13.10 4.2.7.2.686 [id number] [facility] 2023-04-18 10:30:00 2023-04-18 10:48:35 Outpatient R KATRIN Rivera [facility]UCA [facility] [id number] [facility] 2023-04-18 10:30:00 2023-04-18 10:48:35 [facility] 1.2.840.114 350.1.13.10 4.2.7.2.686 [id number] 134 [id number] [facility] 2023-04-14 00:00:00 2023-04-14 00:00:00 Case Management Leija-Thai sAlbertinaChandana [facility] 1.2.840.114 350.1.13.10 4.2.7.2.686 [id number] [facility] 2023-04-11 16:00:00 2023-04-11 16:53:39 Outpatient R LEIJA-THAI S, CHANDANA LEIJA-THAI S, CHANDANA [facility] [id number] [facility] 2023-04-11 16:00:00 2023-04-11 16:53:39 Routine Visit Leija-Thai s, Chandana [facility] 1.2.840.114 350.1.13.10 4.2.7.2.686 [id number] [facility] 2023-03-31 10:00:00 2023-03-31 10:00:00 Outpatient R LEIJA-THAI S, CHANDANA LEIJA-THAI S, CHANDANA [facility] [id number] [facility] 2023-03-21 13:00:00 2023-03-21 13:00:00 Outpatient R LEIAJ-THAI S, CHANDANA LEIJA-THAI S, CHANDANA [facility] [id number] [facility] 2023-03-13 14:00:00 2023-03-13 14:30:56 Metal Hanger Visit Ultrasound, Giovana Obregon [facility] SPA DIRECTOR/FINANCE [facility] 1..840.114 350.1.13.10 4.2.7.2.686 [id number] [facility] 2023-03-13 14:00:00 2023-03-13 14:30:56 Outpatient P ANDERS GIOVANA MCNAMARA GIOVANA [facility] [id number] [facility] 2023-03-07 13:15:00 2023-03-07 13:32:03 [facility] 1.840.114 350.1.13.10 4.2.7.2.686 [id number] [facility] 2023-03-07 13:15:00 2023-03-07 13:32:03 Outpatient R LEIJA-THAI S, CHANDANA LEIJA-THAI S, [facility] [id number] [facility] 2023-02-24 00:00:00 2023-02-24 00:00:00 Telephone Katrin rivera [facility] 1.20.114 350.1.13.10 4.2.7.2.686 [id number] [facility] 2023-02-21 15:30:00 2023-02-21 15:45:00 Metal Hanger Visit Lab, Orlin Lerner [facility] 1.2.840.114 350.1.13.10 4.2.7.2.686 [id number] [facility] 2023-02-21 15:00:00 2023-02-21 15:00:00 Outpatient R LEIJA-THAI S, CHANDANA LEIJA-THAI S, [facility] [id number] [facility] 2023-02-21 14:00:00 2023-02-21 14:41:55 Initial Visit Katrin rivera [facility] 1.2840.114 350.1.13.10 4.2.7.2.686 [id number] [facility] 2023-02-21 14:00:00 2023-02-21 14:41:55 Outpatient R KATRIN S, CHANDANA WILKES S, CHANDANA [facility] [id number] [facility] 2023-02-21 00:00:00 2023-02-21 00:00:00 Orders Only Doctor Unassigned, [place] [facility] 1.2.840.114 350.1.13.10 4.2.7.2.686 [id number] [facility] 2020-08-01 00:00:00 2020-08-01 00:00:00 Patient Outreach [place] [facility] 1.2.840.114 350.1.13.10 4.2.7.2.686 [id number] 2019-01-25 00:00:00 2019-01-25 00:00:00 Orders Only Doctor Unassigned, [place] [facility] 1.2.840.114 350.1.13.10 4.2.7.2.686 [id number] 2019-01-22 00:00:00 2019-01-22 00:00:00 Orders Only Doctor Unassigned, [place] [facility] 1.2.840.114 350.1.13.10 4.2.7.2.686 [id number] 2019-01-20 01:00:05 2019-01-20 02:51:00 Emergency Angelica Dhaliwal S [facility] 1.2.840.114 350.1.13.10 4.2.7.2.686 [id number] 2019-01-15 00:00:00 2019-01-15 00:00:00 Orders Only Doctor Unassigned, [place] [facility] 1.2.840.114 350.1.13.10 4.2.7.2.686 [id number] 2019-01-08 00:00:00 2019-01-08 00:00:00 Telephone Guillermina Overton [facility] 1.2.840.114 350.1.13.10 4.2.7.2.686 [id number] 2019-01-06 15:49:00 2019-01-06 17:15:00 Emergency Jd Kevin Aguilar [facility] 1.2.840.114 350.1.13.10 4.2.7.2.686 [id number] 2018-12-29 00:00:00 2018-12-29 00:00:00 Orders Only Doctor Unassigned, [place] [facility] 1.2.840.114 350.1.13.10 4.2.7.2.686 [id number] 2018-12-25 14:15:52 2018-12-25 15:03:24 Office Visit [facility] 1.2.840.114 350.1.13.10 4.2.7.2.686 [id number] 2012-09-04 09:06:00 2012-09-04 09:06:00 Outpatient LILI OLIVER [facility] [id number] [facility] 2003-09-16 13:44:00 2003-09-16 13:44:00 Outpatient GARRICK POONIANKevin [facility] [id number] [facility] 2000-03-11 06:19:00 2000-03-11 08:34:00 Emergency ER LOUISA HOFFMAN [facility] [id number] [facility] 1999 18:03:00 1999 11:45:00 Inpatient NB RUSLAN BROWN [facility] MNEW [id number] [facility] Results Test Description Test Time Test Comments Results Result Co mments Source [facility] with [id number] 12:18:53* Test Item Value Reference Range Interpretation [...] 33.6 g/dL 31.6-35.1 RDW-SD (test code = 95891-1) 43.9 fL 39.0-49.9 RDW-CV (test code = 788-0) 12.9 % 12.0-15.5 PLT (test code = 777-3) 188 See_Comment [Automated messa ge] The system which generated this result transmitted reference range: 166 - 358 10*3/?L. The reference range was not used to interpret this result as normal/abnormal. MPV (test code = 85860-1) 11.0 fL 9.5-12.9 NRBC/100 WBC (test code = 3374143055) 0.0 See_Comment [Automated [employer] ssage] The system which generated this result transmitted reference range: 0.0 - 10.0 /100 WBCs. The reference range was not used to interpret this result as normal/abnormal. NRBC x10^3 (test code = 1933665640) See_Comment [Automated messa ge] The system which generated this result transmitted reference range: 10*3/?L. The reference range was not used to interpret this result as normal/abnormal. GRAN MAT (NEUT) % (test code = 770-8) 77.8 % IMM GRAN % (test code = 5305460031) 0.40 % LYMPH % (test code = 736-9) 16.9 % MONO % (test code = 5905-5) 4.2 % EOS % (test code = 713-8) 0.4 % BASO % (test code = 706-2) 0.3 % GRAN MAT x10^3(ANC) (test code = 5500832795) 7.94 10*3/uL 1.88-7.09 H IMM GRAN x10^3 (test code = 2087953158) 0.04 10*3/uL 0.00-0.06 LYMPH x10^3 (test code = 731-0) 1.73 10*3/uL 1.32-3.29 MONO x10^3 (test code = 742-7) 0.43 10*3/uL 0.33-0.92 EOS x10^3 (test code = 711-2) 0.04 10*3/uL 0.03-0.39 BASO x10^3 (test code = 704-7) 0.03 10*3/uL 0.01-0.07 Lab Interpretation (test code = 66926-9) Abnormal [facility] (D) IMMUNE [id number] 15:42:08* Test Item Value Reference Range Interpretation Comme nts RHIG CANDIDATE? (test code = 5188) No- see comment Patient is not a candidate for RhIg- Patient is Rh Positive.Performed at [facility] Blood [address] Free: [phone] No. [id number] [facility] (D) IMMUNE [id number] 15:42:08* Test Item Value Reference Range Interpretation Comme nts RHIG CANDIDATE? (test code = 5188) No- see comment Patient is not a candidate for RhIg- Patient is Rh Positive.Performed at [facility] Blood [address] [place], [place] [address]Toll Free: [phone] No. [id number] [facility] Urinalysis w/o Specific [id number] 17:10:00* Test Item Value Reference Range Interpretation [...] = 3257) N/A Negative - Negati ve [facility] URINALYSIS W/O SPECIFIC [id number] 16:27:00* Test Item Value Reference Range Interpretation [...] = 3257) n/a Negative - Negati ve [facility] URINALYSIS W/O SPECIFIC [id number] 22:17:00* Test Item Value Reference Range Interpretation [...] = 3257) n/a Negative - Negati ve [facility] URINALYSIS W/O SPECIFIC [id number] 22:17:00* Test Item Value Reference Range Interpretation [...] = 3257) n/a Negative - Negati ve [facility] URINALYSIS W/O SPECIFIC [id number] 18:19:00* Test Item Value Reference Range Interpretation [...] = 3257) N/A Negative - Negati ve [facility] URINALYSIS W/O SPECIFIC [id number] 19:13:00* Test Item Value Reference Range Interpretation [...] = 3257) n/a Negative - Negati ve [facility] [id number] 19:13:00* Test Item Value Reference Range Interpretation Comme nts POCT PREG (test code = 1605) Positive On board controls acceptable with C Line (test code = 3574) Yes POCT PREG LOT # (test code = 3575) POCT PREG TEST DATE ( test code = 3576) [facility] Consult Notes Date/Time Note Provider Source 2023-05-02 15:10:00 Associated Order(s): CONSULT PASTORAL CARE Dumper Operator visited with patient per consult. Patient received in bed awake. Patient mother at bedside holding the patient's baby girl. Patient 3 year old present. Patient received in good spirits and welcomed the Dumper Operator visit to pray for the baby. Dumper Operator was a spiritual presence and printer maintainer. Dumper Operator celebrated patient new baby girl. Dumper Operator offered words of blessing and peace. Dumper Operator prayed the baby and the family present. Patient thanked Dumper Operator for the visit. Additional Dumper Operator support is available upon request. Dumper Operator Radha Jimenez dayo Pastoral [facility] Department [phone] HER CARVER Radha Jimenez [facility] - Health History and Physical Notes Date/Time [...] [place]; Location: Labor and Delivery - [facility] WOUND DEBRIDEMENT N/A 11/23/2018 Surgeon: Anselmo Yanez; Location: Labor and Delivery - [facility] Prior surgeries at outside hospitals: none Past [...] (98 ?F)] Temp source: Temporal Artery (05/02 0625) Pulse: -- Resp: -- SpO2: -- Height: [...] --Admit --Ancef 2 grams Chandana Loredo MD HER CARVER [facility] Notes Date/Time Note Provider Source 2023-05-04 12:32:43 [...] Goal: Reduction in pain sensation Outcome: Resolved [facility] Tabatha Jean RN [facility] 2023-05-03 20:12:38 Problem: Pain Goal: [...] Goal: Mood stable Outcome: Progressing as expected HER CARVER Mely Bustillos RN [facility] 2023-05-02 22:36:46 Problem: Intrapartum process [...] Goal: Mood stable Outcome: Progressing as expected HER CARVER Flor Sheridan RN [facility] 2023-05-02 16:27:19 Delivery Date: 05/02/2023 [...] anterior abdominal wall Delivery Summary Sex: female Onyx Weight: 3800 g 1 Minute 5 Minute [...] by lateral traction from the surgeon's and first line production supervisor's hand. Delivery A bladder flap was not [...] aid of fundal pressure applied by the assistant administrator surgeon. Specify the applications, number of tractions, [...] time of operative note entered. Please see [employer] for update. The placenta was not sent to pathology. [facility] 2023-05-02 13:30:00 This note was copied from [...] release. Mom instructed on how to contact Fitness Coordinator for assistance with feedings or to answer [...] Pump Electric Delivery method Reason for previous Infant Oral Assessment Oral assessment New assessment Date [...] signs, seek medical attention immediately Handouts given [place] Fitness Coordinator Observation Assist with latch Position left side Football;Cross cradle; latched effectively;Suckled in coordinated bursts Interventions Motherlove nipple cream;Placed skin to skin;Breast massage;Taught hand expression Mother demonstrated teach back of Breast massage and hand expression;Positioning and latching at breast Follow up Mom will call staff;Follow up in hospital Recommended Feeding Plan Recommended feeding plan On-demand , 8-12 times in 24 hours not to exceed 6 hours between feeds;Frequent diqq-xw-ggnm time with parents OTHER $ SERVICES Initial JESSIKA Ramirez, RN, IBCLC A Samuels RN [facility] 2023-05-02 08:45:00 Problem: Intrapartum process (including labor pain) Goal: Absence of or reduction of complications of labor 05/02/2023 0924 by Cierra Astorga, RN Outcome: Resolved 05/02/2023 0623 by Cierra Astorga, RN Outcome: Progressing as expected Goal: Able [...] Problem: Infection Risk Goal: Absence of infection 05/02/2023923 by Cierra Astorga RN Outcome: Progressing as expected 05/02/2023622 by Cierra Astorga RN Outcome: Progressing as expected Problem: Discharge Planning - Goal: Adequate for discharge Outcome: Progressing as expected Goal: Mood stable Outcome: Progressing as expected HER CARVER Cierra Astorga RN [facility] 2023-05-02 06:20:00 Problem: Intrapartum process [...] Absence of infection Outcome: Progressing as expected [facility] 2023-05-01 13:15:00 Images from the original note were not included. Venipuncture collection performed by clean technique on the both anticubitus. Total of 2 attempts were made. Slight pressure and a bandage/dressing were applied to the site(s). The patient experienced no complications. The following specimens were processed according to instructions and sent to [facility] laboratories per lab order on 05/01/2023 : Armbanded. LT BLUE SST 4 RED 1 LAV 2 PPT DK GREEN (LiHep) DK GREEN (SodH) AMBRIZ DK BLUE (K2) DK BLUE (S) ACD Blood Culture NIPT/NTD [facility]
[2025-02-28 23:15] LABS: Influenza A Ag Negative; Influenza B Ag Negative; SARS-CoV-2 Antigen Rapid Res Negative (Negative)
--- NOTE | 2025-02-28 23:17 | EDPHYS ---
Physician Documentation [facility] Name: Tali Arriaga Age: 24 yrs Sex: Female : 2000 Arrival Date: 02/28/2025 Time: 22:18 Bed IW4 Private MD: ED Physician Brenton Denney HPI: 02/28 22:44 This 24 yrs old Female presents to ER via Ambulatory with complaints of Flu kb Symptoms. 22:44 Patient is a 24-year-old female who presents for cough, congestion, sore throat, body kb aches that started 2 days ago. Denies fever.. Historical: - Allergies: 22:40 Cinnamon; jb4 22:40 PENICILLINS; jb4 - PSHx: 22:40 section; jb4 - Immunization history:: Adult Immunizations up to date. - Infectious Disease History:: Denies. - Social history:: Smoking status: Reported history of juuling and/or vaping. ROS: 22:44 Constitutional: As per HPI kb Exam: 22:44 Constitutional: This is a well developed, well nourished patient who is awake, alert, kb and in no acute distress. Head/Face: Normocephalic, atraumatic. Cardiovascular: Regular rate Respiratory: Respirations even and unlabored. No increased work of breathing. Talking in full sentences Skin: Warm, dry with normal turgor. Normal color. MS/ Extremity: Pulses equal, no cyanosis. Neurovascular intact. Full, normal range of motion. Neuro: Awake and alert, GCS 15, oriented to person, place, time, and situation. 22:44 ENT: Posterior pharynx: Airway: normal, no evidence of obstruction, Tonsils: bilaterally enlarged, with erythema, Vital Signs: 22:39 BP 124 / 78; Pulse 95; Resp 16; Temp 97.5(O); Pulse Ox 98% on R/A; Weight 95.25 kg (R); jb4 Height 5 ft. 3 in. (R); Pain 8/10; 23:27 BP 118 / 67; Pulse 86; Resp 20; Pulse Ox 100% ; jj7 22:39 Body Mass Index 37.20 (95.25 kg, 160.02 cm) jb4 22:39 Pain Scale: Adult jb4 MDM: 22:39 Medical Screening Exam initiated kb 22:44 Differential diagnosis: Flu, COVID, URI, strep. Data reviewed: vital signs, nurses kb notes. 22:44 Test considered but Not performed: X-ray: Chest x-ray considered but respirations even kb unlabored, lungs clear bilaterally. 23:16 Counseling: I had a detailed discussion with the patient and/or guardian regarding the kb historical points, exam findings, and any diagnostic results supporting the discharge/admit diagnosis, lab results, the need for outpatient follow up, a family practitioner, to return to the emergency department if symptoms worsen or persist or if there are any questions or concerns that arise at home. 02/28 22:43 Order name: Group A Streptococcus Rapid; Complete Time: 23:15 kb 02/28 22:43 Order name: COVID-19 Ag + Flu A+B Ag; Complete Time: 23:15 kb Administered Medications: 23:23 Drug: AZITHromycin PO 500 mg PO once Route: PO; jj7 23:28 Follow up: Response: No adverse reaction jj7 Disposition: 03/01 05:14 Co-signature as Attending Physician, Brenton Denney MD I agree with the assessment sp4 and plan of care. I reviewed the patient's care provided by Advanced Practice Provider \T\ agree w/ the diagnosis \T\ care plan. I personally saw the pt \T\ performed a substantive portion of the visit, incldng all aspects of the (History/Exam/Medical Decision Making). Disposition Summary: 02/28/25 23:16 Discharge Ordered Notes: Location: Home Condition: Stable kb Diagnosis - Streptococcal pharyngitis kb Followup: kb - With: Emergency Department - When: As needed - Reason: Worsening of condition Followup: kb - With: Private Physician - When: 2 - 3 days - Reason: Recheck today's complaints, Continuance of care, Re-evaluation by your physician Discharge Instructions: - Discharge Summary Sheet kb - Strep Throat, Adult, [id number] kb Forms: - Medication Reconciliation Form kb - Antibiotic Education kb - Prescription Opioid Use kb - Patient Portal Instructions kb - Leadership Thank You Letter kb Prescriptions: - Zithromax 500 mg Oral tablet - take 1 tablet ORAL route once daily for 5 days; 4 tablet; Refills: 0, Product kb Selection Permitted Signatures: Dispatcher [employer] Shayy Ramesh, SYSTEM SUPPORT SPECIALIST-C SYSTEM SUPPORT SPECIALIST-Ckb Jermaine Peterson, RN RN jb4 Deedee Howard RN RN jj7 Brenton Denney MD MD sp4
--- NOTE | 2025-02-28 23:17 | ER ---
Nurse's Notes [facility] Name: Tali Arriaga Age: 24 yrs Sex: Female : 2000 Arrival Date: 02/28/2025 Time: 22:18 Bed IW4 Private MD: Diagnosis: Streptococcal pharyngitis Presentation: 02/28 22:39 Chief complaint: Patient states: I started having a sore throat 2 days ago and its been jb4 getting worse. Coronavirus screen: At this time, the client does not indicate any symptoms associated with coronavirus-19. Ebola Screen: No symptoms or risks identified at this time. Initial Sepsis Screen: Does the patient meet any 2 criteria? HR > 90 bpm. Yes Does the patient have a suspected source of infection? No. Patient's initial sepsis screen is negative. Risk Assessment: Do you want to hurt yourself or someone else? Patient reports no desire to harm self or others. Onset of symptoms was February 26, 2025. Transition of care: patient was not received from another setting of care. 22:39 Method Of Arrival: Ambulatory jb4 22:39 Acuity: SABRINA 4 jb4 Historical: - Allergies: 22:40 Cinnamon; jb4 22:40 PENICILLINS; jb4 - PSHx: 22:40 section; jb4 - Immunization history:: Adult Immunizations up to date. - Infectious Disease History:: Denies. - Social history:: Smoking status: Reported history of juuling and/or vaping. Screenin:24 [facility] ED Fall Risk Assessment (Adult) History of falling in the last 3 months, jj7 including since admission No falls in past 3 months (0 pts) Confusion or Disorientation No (0 pts) Intoxicated or Sedated No (0 pts) Impaired Gait No (0 pts) Mobility Assist Device Used No (0 pt) Altered Elimination No (0 pt) Score/Fall Risk Level 0 - 2 = Low Risk Oriented to surroundings, Maintained a safe environment, Educated pt \T\ family on fall prevention, incl call for assistance when getting out of bed, Assessed \T\ reinforced patient's understanding of fall precautions. Abuse screen: Denies threats or abuse. Nutritional screening: No deficits noted. Tuberculosis screening: No symptoms or risk factors identified. Assessment: 23:24 Reassessment: ASSUMED CARE OF PT. PT MOVED TO CHAIR. VS STABLE. ORDERED MEDS GIVEN. PT jj7 TOLERATED WELL. Pain: Complains of pain in uvula, left aspect of posterior pharynx and right aspect of posterior pharynx. EENT: Throat is reddened has enlarged tonsils bilaterally. Vital Signs: 22:39 BP 124 / 78; Pulse 95; Resp 16; Temp 97.5(O); Pulse Ox 98% on R/A; Weight 95.25 kg (R); jb4 Height 5 ft. 3 in. (R); Pain 8/10; 23:27 BP 118 / 67; Pulse 86; Resp 20; Pulse Ox 100% ; jj7 22:39 Body Mass Index 37.20 (95.25 kg, 160.02 cm) jb4 22:39 Pain Scale: Adult jb4 ED Course: 22:20 Patient arrived in ED. im 22:39 Shayy Vázquez FNP-C is [facility]. kb 22:39 Brenton Denney MD is Attending Physician. kb 22:40 Triage completed. jb4 22:40 Arm band placed on right wrist. jb4 23:24 Patient has correct armband on for positive identification. Provided Education on: MED jj7 ADHERENCE. 23:24 No provider procedures requiring assistance completed. Patient did not have IV access jj7 during this emergency room visit. Administered Medications: 23:23 Drug: AZITHromycin PO 500 mg PO once Route: PO; jj7 23:28 Follow up: Response: No adverse reaction jj7 Medication: 23:24 VIS not applicable for this client. jj7 Outcome: 23:16 Discharge ordered by . kb 23:24 Discharged to home ambulatory, jj7 23:24 Condition: good 23:24 Discharge instructions given to patient, Instructed on discharge instructions, follow up and referral plans. medication usage, Demonstrated understanding of instructions, follow-up care, Prescriptions given X 1, 23:43 Patient left the ED. kb Signatures: Shayy Vázquez FNP-C FNP-Ckb Bryson, James, RN RN jb4 Deedee Howard RN RN jj7 Mavis Metcalf im
[2025-02-28] MEDS ORDERED: AZITHROMYCIN 250 MG TAB ONE (23:19)
[2025-03-01 07:48] VITALS: TEMP 97.5
[2025-03-01 07:49] VITALS: BP 118/67; O2SAT 100
== END 2025-02-28 23:43 | disposition home or self-care (01) ==
LOC: ER 22:18
DX: J02.0 Streptococcal pharyngitis (principal); Z11.52 Encounter for screening for COVID-19
CPT/HCPCS: 36415; 87428; 99283